=== PATIENT | female | born 1975 | race Caucasian/White ===

== ENCOUNTER 2016-07-04 12:06 | Emergency (ER) | payer MEDICAID ==
[~2016-07-04] VITALS: Ht 167.6 cm; Wt 97.7 kg
[2016-07-04 12:06] VITALS: TEMP 98.4
[~2016-07-04 12:06] MED LIST: AMBIEN 10MG10 MG PO; AMOXICILLIN 50500 MG PO; LIPITOR 10MG10 MG PO; LOPRESSOR100 MG PO; NORCO 325 MG-51 TAB PO; PEN-VEE K500 MG PO; PRINIVIL40 MG PO; ZOFRAN 4MG T4 MG/TAB PO; ZOFRAN ODT4 MG PO; ZOLOFT 100MG100 MG PO
[2016-07-04 13:09] LABS: BASO # 0.1 (0.0-0.2); BASO % 0.9 % (0.0-2.0); EOS # 0.3 (0.0-0.7); EOS % 2.8 % (0-4.0); GRAN # 6.2 (1.4-6.5); GRAN % 67.3 % (42.2-75.2); HEMATOCRIT 36.8 % (37.0-47.0); HEMOGLOBIN 12.1 g/dl (12.5-16.0); LYMPH # 2.1 (1.2-3.4); LYMPH % 22.5 % (20.0-51.0); MEAN CELL VOLUME 84 fl (80.0-100.0); MEAN CORPUSCULAR HEMOGLOBIN 28 pg (27.0-31.0); MEAN CORPUSCULAR HGB CONC 33 g/dl (33.0-37.0); MEAN PLATELET VOLUME 9.6 fl (7.4-10.4); MONO # 0.5 (0.1-0.6); MONO % 5.6 % (1.7-9.3); PLATELET COUNT 234 K/mm3 (130-400); RED BLOOD COUNT 4.38 M/mm3 (4.10-5.30); REDCELL DISTRIBUTION WIDTH-CV 13.7 % (11.5-14.5); WHITE BLOOD COUNT 9.2 K/mm3 (4.8-10.8)
[2016-07-04 13:19] LABS: ADJUSTED CALCIUM 8.5 mg/dL (8.4-10.2); ALANINE AMINOTRANSFERASE 80 U/L (9-52); ALBUMIN 4.4 gm/dL (3.5-5.0); ALKALINE PHOSPHATASE 80 U/L (50-136); ANION GAP 15 mmol/L (7-16); BILIRUBIN,TOTAL 0.8 mg/dL (0.0-1.0); BLOOD UREA NITROGEN 6 mg/dL (7-17); CALCIUM 8.8 mg/dL (8.4-10.2); CARBON DIOXIDE 25 mmol/L (22-30); CHLORIDE 99 mmol/L (98-107); CREATININE, serum 0.51 mg/dL (0.52-1.25); GLUCOSE 183 mg/dL (74-106); LIPASE 36 U/L (23-300); POTASSIUM 3.6 mmol/L (3.4-5.0); SODIUM 139 mmol/L (137-145)
[2016-07-04] MEDS ORDERED: CARAFATE 1GM1 G PO (14:48)
[2016-07-04 15:11] VITALS: BP 189/93; PULSE 89
== END 2016-07-04 15:10 | disposition home or self-care (01) ==
LOC: COL.ER 12:06
PROVIDERS: Physician Assistant
DX: R10.13 Epigastric pain (principal); R11.10 Vomiting, unspecified; K92.0 Hematemesis; K76.0 Fatty (change of) liver, not elsewhere classified; I10 Essential (primary) hypertension; K21.9 Gastro-esophageal reflux disease without esophagitis; K76.89 Other specified diseases of liver; F10.10 Alcohol abuse, uncomplicated
CPT/HCPCS: C9113; J2550; J7030; Q9967

== ENCOUNTER 2016-09-26 19:32 | Observation (INO) | payer MEDICAID ==
[~2016-09-26] VITALS: Ht 165.1 cm; Wt 94.3 kg
[~2016-09-26 19:32] MED LIST changes: +CARAFATE 1GM1 G PO
[2016-09-26] MEDS ORDERED: AMBIEN CR 12.12.5 MG PO (20:07)
[2016-09-26] MEDS ORDERED: GLUCOPHAGE500 MG/TAB PO (20:09)
[2016-09-26] MEDS ORDERED: PRILOSEC 20MG20 MG PO (20:09)
[2016-09-26] MEDS ORDERED: CANA300T PO (20:09)
[2016-09-26] MEDS ORDERED: LOPRESSOR 550 MG/TAB PO (20:09)
[2016-09-26 20:33] LABS: PH 6 (5-8); SQUAMOUS EPITHELIAL 0-2 /hpf; URINE APPEARANCE Clear; URINE BACTERIA None Seen /hpf; URINE BILIRUBIN Negative (NEGATIVE); URINE BLOOD Negative (NEGATIVE); URINE COLOR Straw; URINE GLUCOSE 3+ (NEGATIVE); URINE KETONE Negative (NEGATIVE); URINE RBC None Seen /hpf; URINE UROBILINOGEN Negative (NEGATIVE); URINE WBC 0-2 /hpf
[2016-09-26 20:36] LABS: BASO # 0.1 (0.0-0.2); BASO % 0.7 % (0.0-2.0); EOS # 0.3 (0.0-0.7); EOS % 2.9 % (0-4.0); GRAN # 6.2 (1.4-6.5); GRAN % 57.6 % (42.2-75.2); HEMATOCRIT 40.8 % (37.0-47.0); HEMOGLOBIN 13.4 g/dl (12.5-16.0); LYMPH # 3.5 (1.2-3.4); LYMPH % 32.3 % (20.0-51.0); MEAN CELL VOLUME 82 fl (80.0-100.0); MEAN CORPUSCULAR HEMOGLOBIN 27 pg (27.0-31.0); MEAN CORPUSCULAR HGB CONC 33 g/dl (33.0-37.0); MEAN PLATELET VOLUME 9.7 fl (7.4-10.4); MONO # 0.7 (0.1-0.6); MONO % 6.1 % (1.7-9.3); PLATELET COUNT 355 K/mm3 (130-400); RED BLOOD COUNT 4.95 M/mm3 (4.10-5.30); REDCELL DISTRIBUTION WIDTH-CV 13.6 % (11.5-14.5); WHITE BLOOD COUNT 10.7 K/mm3 (4.8-10.8)
[2016-09-26 20:41] LABS: AMPHETAMINE URINE NEGATIVE; BARBITURATES URINE NEGATIVE; BENZODIAZEPINES URINE NEGATIVE; BUPRENORPHINE URINE NEGATIVE; METHADONE URINE NEGATIVE; OPIATES URINE NEGATIVE; OXYCODONE URINE NEGATIVE; PHENCYCLIDINE URINE NEGATIVE; PROPOXYPHENE URINE NEGATIVE; THC CANNABINOIDS URINE NEGATIVE
[2016-09-26 20:51] LABS: ALANINE AMINOTRANSFERASE 48 U/L (9-52); ALBUMIN 4.6 gm/dL (3.5-5.0); ALKALINE PHOSPHATASE 81 U/L (50-136); ANION GAP 15 mmol/L (7-16); BILIRUBIN,TOTAL 0.5 mg/dL (0.0-1.0); BLOOD UREA NITROGEN 9 mg/dL (7-17); CALCIUM 9.5 mg/dL (8.4-10.2); CARBON DIOXIDE 22 mmol/L (22-30); CHLORIDE 101 mmol/L (98-107); CREATININE, serum 0.94 mg/dL (0.52-1.25); GLUCOSE 191 mg/dL (74-106); POTASSIUM 4.1 mmol/L (3.4-5.0); SODIUM 138 mmol/L (137-145); TOTAL PROTEIN 7.9 gm/dL (6.4-8.2)
[2016-09-26 20:52] LABS: ACETAMINOPHEN < 10 ug/mL (10-30); SALICYLATE < 1.0 mg/dL
[2016-09-27 00:09] VITALS: BP 155/97; PULSE 107; TEMP 98.6
[2016-09-27 02:31] VITALS: BP 137/77; PULSE 99; TEMP 98.6
[2016-09-27 08:10] LABS: BASO # 0.1 (0.0-0.2); BASO % 1.1 % (0.0-2.0); EOS # 0.3 (0.0-0.7); EOS % 3.3 % (0-4.0); GRAN # 3.7 (1.4-6.5); GRAN % 49.4 % (42.2-75.2); HEMATOCRIT 38.8 % (37.0-47.0); HEMOGLOBIN 12.3 g/dl (12.5-16.0); LYMPH % 39.7 % (20.0-51.0); MEAN CELL VOLUME 84 fl (80.0-100.0); MEAN CORPUSCULAR HEMOGLOBIN 27 pg (27.0-31.0); MEAN CORPUSCULAR HGB CONC 32 g/dl (33.0-37.0); MEAN PLATELET VOLUME 10.1 fl (7.4-10.4); MONO # 0.5 (0.1-0.6); PLATELET COUNT 310 K/mm3 (130-400); RED BLOOD COUNT 4.62 M/mm3 (4.10-5.30); REDCELL DISTRIBUTION WIDTH-CV 13.8 % (11.5-14.5); WHITE BLOOD COUNT 7.5 K/mm3 (4.8-10.8)
[2016-09-27 08:22] LABS: CALCIUM 8.7 mg/dL (8.4-10.2); CREATININE, serum 0.68 mg/dL (0.52-1.25); POTASSIUM 3.6 mmol/L (3.4-5.0)
[2016-09-27 13:06] VITALS: BP 123/79; PULSE 78; TEMP 97.5
[2016-09-27] MEDS ORDERED: MULTI VITAMINS1 TAB PO (13:58)
[2016-09-27] MEDS ORDERED: THIAMINE 1100 MG/TAB PO (13:58)
== END 2016-09-27 15:20 | disposition home or self-care (01) ==
LOC: COL.ER 19:32 → MEDICAL 23:14
PROVIDERS: Emergency Medicine; Family Medicine
DX: G93.40 Encephalopathy, unspecified (principal); E11.9 Type 2 diabetes mellitus without complications; I10 Essential (primary) hypertension; F10.10 Alcohol abuse, uncomplicated
CPT/HCPCS: A9585; G0378; J1650; J1815; J2060; J3411; J3475; J7030

== ENCOUNTER → 2017-04-25 | Outpatient (CLI) | payer MEDICAID ==
[~2017-04-25] MED LIST changes: +AMBIEN CR 12.12.5 MG PO; +CANA300T PO; +GLUCOPHAGE500 MG/TAB PO; +LOPRESSOR 550 MG/TAB PO; +MULTI VITAMINS1 TAB PO; +PRILOSEC 20MG20 MG PO; +THIAMINE 1100 MG/TAB PO
[2017-04-25 14:24] LABS: COLLECTION METHOD CLEAN CATCH
[2017-04-25 14:32] LABS: BASO # 0.1 (0.0-0.2); EOS # 0.1 (0.0-0.7); EOS % 1.3 % (0-4.0); GRAN # 7.9 (1.4-6.5); GRAN % 72.4 % (42.2-75.2); HEMOGLOBIN 13.7 g/dl (12.5-16.0); LYMPH # 1.9 (1.2-3.4); LYMPH % 17.4 % (20.0-51.0); MEAN CELL VOLUME 87 fl (80.0-100.0); MEAN CORPUSCULAR HEMOGLOBIN 29 pg (27.0-31.0); MEAN CORPUSCULAR HGB CONC 33 g/dl (33.0-37.0); MEAN PLATELET VOLUME 10.5 fl (7.4-10.4); MONO # 0.8 (0.1-0.6); MONO % 7.4 % (1.7-9.3); PLATELET COUNT 222 K/mm3 (130-400); RED BLOOD COUNT 4.69 M/mm3 (4.10-5.30); WHITE BLOOD COUNT 10.9 K/mm3 (4.8-10.8)
[2017-04-25 14:39] LABS: ADJUSTED CALCIUM 8.2 mg/dL (8.4-10.2); ALBUMIN 4.6 gm/dL (3.5-5.0); BILIRUBIN,TOTAL 1.3 mg/dL (0.0-1.0); CALCIUM 8.7 mg/dL (8.4-10.2); CHOLESTEROL RISK RATIO 7.5; CREATININE, serum 0.66 mg/dL (0.52-1.25); POTASSIUM 3.6 mmol/L (3.4-5.0)
[2017-04-25 14:44] LABS: MUCOUS Present /lpf; PH 5 (5-8); SQUAMOUS EPITHELIAL >50 /hpf; URINE APPEARANCE Turbid; URINE BACTERIA Rare /hpf; URINE BILIRUBIN Positive (NEGATIVE); URINE BLOOD Negative (NEGATIVE); URINE COLOR Amber; URINE GLUCOSE 1+ (NEGATIVE); URINE KETONE Trace (NEGATIVE); URINE LEUKOCYTE ESTERASE 2+ (NEGATIVE); URINE PROTEIN(semi-quant) 3+ (NEGATIVE); URINE WBC 20-50 /hpf
== END ==
LOC: COL.LAB 10:45
PROVIDERS: Nurse Practitioner
DX: N12 Tubulo-interstitial nephritis, not specified as acute or chronic (principal); E11.9 Type 2 diabetes mellitus without complications; I10 Essential (primary) hypertension; E78.5 Hyperlipidemia, unspecified; R30.0 Dysuria

== ENCOUNTER 2017-06-17 08:56 | Observation (INO) | payer MEDICAID ==
[~2017-06-17] VITALS: Ht 12.7 cm; Wt 85.1 kg
[2017-06-17 09:37] LABS: BASO # 0.1 (0.0-0.2); EOS # 0.1 (0.0-0.7); EOS % 0.8 % (0-4.0); GRAN # 6.2 (1.4-6.5); GRAN % 69.4 % (42.2-75.2); HEMATOCRIT 40.5 % (37.0-47.0); HEMOGLOBIN 14.4 g/dl (12.5-16.0); LYMPH # 1.7 (1.2-3.4); LYMPH % 19.2 % (20.0-51.0); MEAN CELL VOLUME 88 fl (80.0-100.0); MEAN CORPUSCULAR HEMOGLOBIN 31 pg (27.0-31.0); MEAN CORPUSCULAR HGB CONC 36 g/dl (33.0-37.0); MEAN PLATELET VOLUME 9.3 fl (7.4-10.4); MONO # 0.8 (0.1-0.6); MONO % 8.9 % (1.7-9.3); PLATELET COUNT 353 K/mm3 (130-400); REDCELL DISTRIBUTION WIDTH-CV 16.2 % (11.5-14.5)
[2017-06-17 09:52] LABS: COLLECTION METHOD CLEAN CATCH
[2017-06-17 10:09] LABS: MUCOUS Present /lpf; PH 5 (5-8); URINE APPEARANCE Turbid; URINE BACTERIA Rare /hpf; URINE BILIRUBIN Positive (NEGATIVE); URINE BLOOD Negative (NEGATIVE); URINE COLOR Amber; URINE GLUCOSE 1+ (NEGATIVE); URINE KETONE Trace (NEGATIVE); URINE LEUKOCYTE ESTERASE Trace (NEGATIVE); URINE NITRATE Negative (NEGATIVE); URINE PROTEIN(semi-quant) 3+ (NEGATIVE); URINE RBC 0-2 /hpf; URINE UROBILINOGEN >=4.0 mg/dL (NEGATIVE)
[2017-06-17 10:22] LABS: ALBUMIN 4.5 gm/dL (3.5-5.0); BILIRUBIN,TOTAL 1.4 mg/dL (0.0-1.0); CALCIUM 8.5 mg/dL (8.4-10.2); CREATININE, serum 0.45 mg/dL (0.52-1.25); TOTAL PROTEIN 7.9 gm/dL (6.4-8.2)
[2017-06-17 10:23] LABS: POTASSIUM 2.8 mmol/L (3.4-5.0)
[2017-06-17] MEDS ORDERED: LIPITOR 10MG10 MG PO (17:37)
[2017-06-17 17:53] VITALS: BP 157/99; PULSE 97; TEMP 97.5
[2017-06-17 19:50] VITALS: BP 139/91; PULSE 93; TEMP 98.1
[2017-06-17 22:45] VITALS: BP 156/102; PULSE 92; TEMP 97.8
[2017-06-18] VITALS (12 sets, daily range): BP systolic 124–145; BP diastolic 69–107; PULSE 94–109; TEMP 97.4–98.5
[2017-06-18 07:40] LABS: ALBUMIN 3.4 gm/dL (3.5-5.0); BILIRUBIN UNCONJUGATED 0.9 mg/dL (0.0-1.1); BILIRUBIN,DIRECT 0.7 mg/dL (0.0-0.4); BILIRUBIN,TOTAL 1.7 mg/dL (0.0-1.0); TOTAL PROTEIN 6.4 gm/dL (6.4-8.2)
[2017-06-18 07:53] LABS: INR 1.2 (0.8-3.0); PROTHROMBIN TIME 13.5 SECONDS (9.7-12.8)
[2017-06-18 09:46] LABS: BASO # 0.1 (0.0-0.2); BASO % 0.9 % (0.0-2.0); EOS # 0.2 (0.0-0.7); EOS % 2.9 % (0-4.0); GRAN # 3.3 (1.4-6.5); LYMPH # 1.9 (1.2-3.4); LYMPH % 31.8 % (20.0-51.0); MEAN CORPUSCULAR HGB CONC 33 g/dl (33.0-37.0); MEAN PLATELET VOLUME 9.9 fl (7.4-10.4); MONO # 0.5 (0.1-0.6); MONO % 7.7 % (1.7-9.3); RED BLOOD COUNT 3.75 M/mm3 (4.10-5.30); REDCELL DISTRIBUTION WIDTH-CV 16.7 % (11.5-14.5)
[2017-06-18 09:47] LABS: CALCIUM 7.1 mg/dL (8.4-10.2); CREATININE, serum 0.47 mg/dL (0.52-1.25); MAGNESIUM 1.5 mg/dL (1.6-2.3); POTASSIUM 3.8 mmol/L (3.4-5.0)
[2017-06-18 09:52] LABS: HEMOGLOBIN 11.7 g/dl (12.5-16.0); MEAN CORPUSCULAR HEMOGLOBIN 31 pg (27.0-31.0)
[2017-06-18 09:53] LABS: HEMATOCRIT 35.2 % (37.0-47.0); MEAN CELL VOLUME 94 fl (80.0-100.0); PLATELET COUNT 245 K/mm3 (130-400)
[2017-06-19] VITALS (7 sets, daily range): BP systolic 119–171; BP diastolic 76–115; PULSE 97–120; TEMP 98.1–98.9
[2017-06-19 08:00] LABS: MEAN CELL VOLUME 95 fl (80.0-100.0); MEAN CORPUSCULAR HGB CONC 32 g/dl (33.0-37.0); MEAN PLATELET VOLUME 10.1 fl (7.4-10.4); PLATELET COUNT 226 K/mm3 (130-400); RED BLOOD COUNT 3.73 M/mm3 (4.10-5.30); REDCELL DISTRIBUTION WIDTH-CV 16.6 % (11.5-14.5)
[2017-06-19 08:12] LABS: ANION GAP 6 mmol/L (7-16); CALCIUM 6.7 mg/dL (8.4-10.2); CARBON DIOXIDE 25 mmol/L (22-30); CHLORIDE 107 mmol/L (98-107); CREATININE, serum 0.53 mg/dL (0.52-1.25); GLUCOSE 97 mg/dL (74-106); MAGNESIUM 1.3 mg/dL (1.6-2.3); POTASSIUM 4.1 mmol/L (3.4-5.0); SODIUM 138 mmol/L (137-145)
[2017-06-19 08:19] LABS: BLOOD UREA NITROGEN < 2 mg/dL (7-17)
[2017-06-19 08:20] LABS: HEMATOCRIT 35.6 % (37.0-47.0); HEMOGLOBIN 11.4 g/dl (12.5-16.0); MEAN CORPUSCULAR HEMOGLOBIN 31 pg (27.0-31.0)
[2017-06-19 10:03] LABS: BAND 24 % (0-10); BASOPHIL 1 % (0-2); EOSINOPHIL 2 % (0-4); LYMPHOCYTE 34 % (20.0-51.0); NEUTROPHILS 39 % (42.0-75.2); PLATELET ESTIMATE NORMAL (NORMAL); TOXIC GRANULATION PRESENT
[2017-06-20] VITALS: BP 119/83; PULSE 110; TEMP 98.6
[2017-06-20 04:55] VITALS: BP 103/81; PULSE 98; TEMP 98.1
[2017-06-20 06:43] LABS: MEAN CELL VOLUME 95 fl (80.0-100.0); MEAN CORPUSCULAR HGB CONC 33 g/dl (33.0-37.0); MEAN PLATELET VOLUME 10.2 fl (7.4-10.4); PLATELET COUNT 208 K/mm3 (130-400); RED BLOOD COUNT 3.63 M/mm3 (4.10-5.30); REDCELL DISTRIBUTION WIDTH-CV 16.9 % (11.5-14.5)
[2017-06-20 07:00] LABS: ANION GAP 7 mmol/L (7-16); CALCIUM 7.3 mg/dL (8.4-10.2); CARBON DIOXIDE 26 mmol/L (22-30); CHLORIDE 104 mmol/L (98-107); CREATININE, serum 0.52 mg/dL (0.52-1.25); GLUCOSE 113 mg/dL (74-106); HEMATOCRIT 34.5 % (37.0-47.0); HEMOGLOBIN 11.3 g/dl (12.5-16.0); LIPASE 33 U/L (23-300); MAGNESIUM 1.2 mg/dL (1.6-2.3); MEAN CORPUSCULAR HEMOGLOBIN 31 pg (27.0-31.0); POTASSIUM 4.2 mmol/L (3.4-5.0); SODIUM 136 mmol/L (137-145)
[2017-06-20 07:02] LABS: BLOOD UREA NITROGEN < 2 mg/dL (7-17)
[2017-06-20 08:12] VITALS: BP 140/38; PULSE 62; TEMP 97.5
[2017-06-20 08:12] LABS: BAND 18 % (0-10); EOSINOPHIL 1 % (0-4); LYMPHOCYTE 26 % (20.0-51.0); NEUTROPHILS 53 % (42.0-75.2); PLATELET ESTIMATE NORMAL (NORMAL)
[2017-06-20 08:37] VITALS: BP 151/109; PULSE 109; TEMP 98.8
[2017-06-20] MEDS ORDERED: THIAMINE 1100 MG/TAB PO (11:38)
[2017-06-20] MEDS ORDERED: FOLIC ACID 11 MG/TA1 PO (11:38)
[2017-06-20] MEDS ORDERED: DUO-KAPS1 CAP PO (11:39)
[2017-06-20] MEDS ORDERED: PROTONIX 40MG T40 MG PO (11:42)
[2017-06-20] MEDS ORDERED: MAG-OX 400400 MG/TAB PO (11:44)
[2017-06-20] MEDS ORDERED: NORCO 325 MG-51 TAB PO (11:45)
[2017-06-20] MEDS ORDERED: ATIVAN 1MG T1 MG/TAB PO (11:45)
== END 2017-06-20 13:45 | disposition home or self-care (01) ==
LOC: COL.ER 08:56 → MEDICAL 11:59 → EDBEDREQ 16:14 → MEDICAL 06-20 13:45
PROVIDERS: Internal Medicine Gastroenterology; Nurse Practitioner; Physician Assistant
DX: K29.30 Chronic superficial gastritis without bleeding (principal); K29.80 Duodenitis without bleeding; I10 Essential (primary) hypertension; E87.6 Hypokalemia; F10.10 Alcohol abuse, uncomplicated; K21.9 Gastro-esophageal reflux disease without esophagitis
CPT/HCPCS: 99232-AI; 99239; C9113; G0378; J1170; J1815; J2060; J2250; J2270; J2704; J2765; J3411; J3475; J3480; J7030

== ENCOUNTER 2017-06-26 11:37 | Emergency (ER) | payer MEDICAID ==
[~2017-06-26] VITALS: Ht 165.1 cm; Wt 82.7 kg
[~2017-06-26 11:37] MED LIST changes: +ATIVAN 1MG T1 MG/TAB PO; +DUO-KAPS1 CAP PO; +FOLIC ACID 11 MG/TA1 PO; +MAG-OX 400400 MG/TAB PO; +PROTONIX 40MG T40 MG PO
[2017-06-26 11:40] VITALS: TEMP 98.1
[2017-06-26 13:07] LABS: COLLECTION METHOD CLEAN CATCH
[2017-06-26 13:14] LABS: BASO # 0.1 (0.0-0.2); BASO % 0.7 % (0.0-2.0); EOS % 0.3 % (0-4.0); GRAN # 9.3 (1.4-6.5); GRAN % 82.2 % (42.2-75.2); HEMATOCRIT 40.9 % (37.0-47.0); HEMOGLOBIN 13.6 g/dl (12.5-16.0); LYMPH # 1.1 (1.2-3.4); LYMPH % 9.7 % (20.0-51.0); MEAN CELL VOLUME 95 fl (80.0-100.0); MEAN CORPUSCULAR HEMOGLOBIN 31 pg (27.0-31.0); MEAN CORPUSCULAR HGB CONC 33 g/dl (33.0-37.0); MONO # 0.7 (0.1-0.6); PLATELET COUNT 443 K/mm3 (130-400); RED BLOOD COUNT 4.33 M/mm3 (4.10-5.30); REDCELL DISTRIBUTION WIDTH-CV 17.2 % (11.5-14.5)
[2017-06-26 13:36] LABS: ALBUMIN 4.5 gm/dL (3.5-5.0); BILIRUBIN,TOTAL 1.6 mg/dL (0.0-1.0); CALCIUM 9.1 mg/dL (8.4-10.2); CREATININE, serum 0.48 mg/dL (0.52-1.25); POTASSIUM 3.1 mmol/L (3.4-5.0)
[2017-06-26 13:39] LABS: MUCOUS Present /lpf; PH 5 (5-8); URINE APPEARANCE Turbid; URINE BACTERIA Rare /hpf; URINE BILIRUBIN Negative (NEGATIVE); URINE BLOOD Negative (NEGATIVE); URINE COLOR Amber; URINE GLUCOSE 1+ (NEGATIVE); URINE KETONE 1+ (NEGATIVE); URINE LEUKOCYTE ESTERASE Negative (NEGATIVE); URINE NITRATE Negative (NEGATIVE); URINE PROTEIN(semi-quant) 2+ (NEGATIVE); URINE RBC None Seen /hpf; URINE UROBILINOGEN >=4.0 mg/dL (NEGATIVE)
[2017-06-26 14:05] LABS: INR 1.3 (0.8-3.0); PROTHROMBIN TIME 15.2 SECONDS (9.7-12.8)
[2017-06-26] MEDS ORDERED: PHENERGAN 25 TA25 MG PO (15:06)
[2017-06-26] MEDS ORDERED: CARAFATE S1 GM/10 ML PO (15:20)
[2017-06-26 15:45] VITALS: BP 144/101; PULSE 104
== END 2017-06-26 15:45 | disposition home or self-care (01) ==
LOC: COL.ER 11:37
PROVIDERS: Emergency Medicine
DX: K29.20 Alcoholic gastritis without bleeding (principal)
CPT/HCPCS: J1170; J2405; J2550; J7030

== ENCOUNTER → 2017-07-16 | Outpatient (CLI) | payer MEDICAID ==
[~2017-07-16] MED LIST changes: +CARAFATE S1 GM/10 ML PO; +PHENERGAN 25 TA25 MG PO
[2017-07-16 16:15] LABS: BASO # 0.1 (0.0-0.2); BASO % 0.9 % (0.0-2.0); EOS # 0.2 (0.0-0.7); EOS % 1.1 % (0-4.0); GRAN # 10.2 (1.4-6.5); GRAN % 72.9 % (42.2-75.2); HEMATOCRIT 42.5 % (37.0-47.0); HEMOGLOBIN 14.3 g/dl (12.5-16.0); LYMPH # 2.6 (1.2-3.4); LYMPH % 18.7 % (20.0-51.0); MEAN CELL VOLUME 93 fl (80.0-100.0); MEAN CORPUSCULAR HEMOGLOBIN 31 pg (27.0-31.0); MEAN CORPUSCULAR HGB CONC 34 g/dl (33.0-37.0); MONO # 0.8 (0.1-0.6); MONO % 5.7 % (1.7-9.3); PLATELET COUNT 275 K/mm3 (130-400); RED BLOOD COUNT 4.55 M/mm3 (4.10-5.30); REDCELL DISTRIBUTION WIDTH-CV 14.6 % (11.5-14.5)
[2017-07-16 16:24] LABS: ALBUMIN 4.7 gm/dL (3.5-5.0); BILIRUBIN,TOTAL 1.5 mg/dL (0.0-1.0); CALCIUM 8.9 mg/dL (8.4-10.2); CREATININE, serum 0.46 mg/dL (0.52-1.25); POTASSIUM 3.7 mmol/L (3.4-5.0); TOTAL PROTEIN 8.4 gm/dL (6.4-8.2)
== END ==
LOC: COL.LAB 14:35
PROVIDERS: Family Medicine
DX: R00.0 Tachycardia, unspecified (principal); R10.9 Unspecified abdominal pain

== ENCOUNTER 2017-11-12 08:05 | Emergency (ER) | payer MEDICAID ==
[~2017-11-12] VITALS: Ht 165.1 cm; Wt 79.5 kg
[2017-11-12 08:08] VITALS: TEMP 98
[2017-11-12] MEDS ORDERED: PRILOSEC 20MG20 MG PO (08:36)
[2017-11-12 08:55] LABS: BASO # 0.1 (0.0-0.2); BASO % 0.8 % (0.0-2.0); EOS # 0.1 (0.0-0.7); EOS % 1.9 % (0-4.0); GRAN % 64.6 % (42.2-75.2); HEMATOCRIT 40.3 % (37.0-47.0); HEMOGLOBIN 14.1 g/dl (12.5-16.0); LYMPH # 1.5 (1.2-3.4); LYMPH % 24.1 % (20.0-51.0); MEAN CELL VOLUME 89 fl (80.0-100.0); MEAN CORPUSCULAR HEMOGLOBIN 31 pg (27.0-31.0); MEAN CORPUSCULAR HGB CONC 35 g/dl (33.0-37.0); MEAN PLATELET VOLUME 9.8 fl (7.4-10.4); MONO # 0.5 (0.1-0.6); MONO % 8.1 % (1.7-9.3); PLATELET COUNT 154 K/mm3 (130-400); RED BLOOD COUNT 4.51 M/mm3 (4.10-5.30); REDCELL DISTRIBUTION WIDTH-CV 14.7 % (11.5-14.5)
[2017-11-12 09:03] LABS: ALANINE AMINOTRANSFERASE 37 U/L (9-52); ALBUMIN 4.2 gm/dL (3.5-5.0); ALKALINE PHOSPHATASE 93 U/L (50-136); ANION GAP 17 mmol/L (7-16); AST,SGOT 113 U/L (15-37); BILIRUBIN,TOTAL 1.3 mg/dL (0.0-1.0); BLOOD UREA NITROGEN 3 mg/dL (7-17); CALCIUM 8.9 mg/dL (8.4-10.2); CARBON DIOXIDE 29 mmol/L (22-30); CHLORIDE 93 mmol/L (98-107); CREATININE, serum 0.41 mg/dL (0.52-1.25); GLUCOSE 145 mg/dL (74-106); LIPASE 218 U/L (23-300); POTASSIUM 3.2 mmol/L (3.4-5.0); SODIUM 140 mmol/L (137-145); TOTAL PROTEIN 8.6 gm/dL (6.4-8.2)
[2017-11-12 09:10] LABS: ALCOHOL(ethanol),MEDICAL < 10 mg/dL; MAGNESIUM 0.4 mg/dL (1.6-2.3)
[2017-11-12 09:23] LABS: C-REACTIVE PROTEIN < 0.5 mg/dL (0.0-0.9)
[2017-11-12 09:49] LABS: COLLECTION METHOD CLEAN CATCH
[2017-11-12 09:58] LABS: MUCOUS Present /lpf; PH 6 (5-8); URINE APPEARANCE Hazy; URINE BACTERIA None Seen /hpf; URINE BILIRUBIN Negative (NEGATIVE); URINE BLOOD Negative (NEGATIVE); URINE COLOR Amber; URINE GLUCOSE 1+ (NEGATIVE); URINE KETONE Negative (NEGATIVE); URINE LEUKOCYTE ESTERASE Negative (NEGATIVE); URINE NITRATE Negative (NEGATIVE); URINE PROTEIN(semi-quant) 2+ (NEGATIVE); URINE RBC 0-2 /hpf
[2017-11-12] MEDS ORDERED: NORCO 325 MG-51 TAB PO (11:51)
[2017-11-12] MEDS ORDERED: PROTONIX 40MG T40 MG PO (11:51)
[2017-11-12] MEDS ORDERED: PHENERGAN 25 TA25 MG PO (11:51)
[2017-11-12] MEDS ORDERED: MAGNESIUM GLUC500 MG PO (12:17)
[2017-11-12] MEDS ORDERED: K-TAB20 PO (12:18)
[2017-11-12 13:04] VITALS: BP 156/111; PULSE 92
== END 2017-11-12 13:07 | disposition home or self-care (01) ==
LOC: COL.ER 08:05
PROVIDERS: Physician Assistant
DX: R10.11 Right upper quadrant pain (principal); R10.13 Epigastric pain; I10 Essential (primary) hypertension; K21.9 Gastro-esophageal reflux disease without esophagitis; E83.42 Hypomagnesemia; E87.6 Hypokalemia; F17.210 Nicotine dependence, cigarettes, uncomplicated
CPT/HCPCS: J2270; J2405; J2550; J3475; J7030; Q9967

== ENCOUNTER 2018-01-20 15:00 | Inpatient (IN) | payer MEDICAID ==
[~2018-01-20] VITALS: Ht 167.6 cm; Wt 77.4 kg
[~2018-01-20 15:00] MED LIST changes: +K-TAB20 PO; +MAGNESIUM GLUC500 MG PO
[2018-01-20 15:49] LABS: BASO # 0.1 (0.0-0.2); BASO % 0.6 % (0.0-2.0); EOS # 0.1 (0.0-0.7); EOS % 0.5 % (0-4.0); GRAN # 8.2 (1.4-6.5); GRAN % 75.4 % (42.2-75.2); HEMATOCRIT 38.2 % (37.0-47.0); HEMOGLOBIN 13.4 g/dl (12.5-16.0); LYMPH # 1.8 (1.2-3.4); LYMPH % 16.3 % (20.0-51.0); MEAN CELL VOLUME 101 fl (80.0-100.0); MEAN CORPUSCULAR HEMOGLOBIN 35 pg (27.0-31.0); MEAN CORPUSCULAR HGB CONC 35 g/dl (33.0-37.0); MEAN PLATELET VOLUME 9.6 fl (7.4-10.4); MONO # 0.7 (0.1-0.6); MONO % 6.6 % (1.7-9.3); PLATELET COUNT 194 K/mm3 (130-400)
[2018-01-20 16:01] LABS: ALANINE AMINOTRANSFERASE 29 U/L (9-52); ALBUMIN 4.1 gm/dL (3.5-5.0); ALKALINE PHOSPHATASE 131 U/L (50-136); ANION GAP 16 mmol/L (7-16); AST,SGOT 118 U/L (15-37); BILIRUBIN,TOTAL 2.5 mg/dL (0.0-1.0); BLOOD UREA NITROGEN 2 mg/dL (7-17); C-REACTIVE PROTEIN 1.9 mg/dL (0.0-0.9); CARBON DIOXIDE 30 mmol/L (22-30); CHLORIDE 91 mmol/L (98-107); CREATININE, serum 0.44 mg/dL (0.52-1.25); GLUCOSE 187 mg/dL (74-106); LIPASE 16 U/L (23-300); POTASSIUM 3.5 mmol/L (3.4-5.0); SODIUM 136 mmol/L (137-145); TOTAL PROTEIN 7.8 gm/dL (6.4-8.2)
[2018-01-20 16:02] LABS: ALCOHOL(ethanol),MEDICAL < 10 mg/dL
[2018-01-20 16:03] LABS: MAGNESIUM 0.5 mg/dL (1.6-2.3)
[2018-01-20 16:10] LABS: TROPONIN-I < 0.012 ng/mL (0.000-0.034)
[2018-01-20 17:18] LABS: COLLECTION METHOD CLEAN CATCH
[2018-01-20 17:33] LABS: AMORPHOUS CRYSTAL Present /uL; MUCOUS Present /lpf; PH 5 (5-8); URINE APPEARANCE Hazy; URINE BACTERIA Moderate /hpf; URINE BILIRUBIN Negative (NEGATIVE); URINE BLOOD Negative (NEGATIVE); URINE COLOR Red; URINE GLUCOSE 1+ (NEGATIVE); URINE KETONE Negative (NEGATIVE); URINE LEUKOCYTE ESTERASE Negative (NEGATIVE); URINE NITRATE Positive (NEGATIVE); URINE PROTEIN(semi-quant) 2+ (NEGATIVE); URINE UROBILINOGEN >=4.0 mg/dL (NEGATIVE)
[2018-01-20 19:22] LABS: INR 1.5 (0.8-3.0); PROTHROMBIN TIME 16.6 SECONDS (9.7-12.8)
[2018-01-20 19:25] LABS: PARTIAL THROMBOPLASTIN TIME 35.5 SECONDS (26.0-37.0)
[2018-01-20 21:01] LABS: TRICYCLIC ANTIDEPRESS URINE NEGATIVE
[2018-01-20 21:35] VITALS: BP 115/75; PULSE 118; TEMP 98.4
[2018-01-21] VITALS (11 sets, daily range): BP systolic 104–153; BP diastolic 72–110; PULSE 101–138; TEMP 97.4–100
[2018-01-21 08:27] LABS: BASO # 0.1 (0.0-0.2); BASO % 0.5 % (0.0-2.0); EOS # 0.1 (0.0-0.7); EOS % 0.9 % (0-4.0); GRAN % 75.4 % (42.2-75.2); LYMPH # 1.6 (1.2-3.4); LYMPH % 16.7 % (20.0-51.0); MEAN CELL VOLUME 103 fl (80.0-100.0); MEAN CORPUSCULAR HGB CONC 34 g/dl (33.0-37.0); MEAN PLATELET VOLUME 9.7 fl (7.4-10.4); MONO # 0.6 (0.1-0.6); MONO % 5.9 % (1.7-9.3); PLATELET COUNT 162 K/mm3 (130-400); RED BLOOD COUNT 3.24 M/mm3 (4.10-5.30)
[2018-01-21 08:31] LABS: HEMATOCRIT 33.4 % (37.0-47.0); HEMOGLOBIN 11.4 g/dl (12.5-16.0); MEAN CORPUSCULAR HEMOGLOBIN 35 pg (27.0-31.0)
[2018-01-21 08:45] LABS: ALBUMIN 3.2 gm/dL (3.5-5.0); BILIRUBIN,TOTAL 1.6 mg/dL (0.0-1.0); CALCIUM 6.8 mg/dL (8.4-10.2); CHOLESTEROL RISK RATIO 10.2; CREATININE, serum 0.47 mg/dL (0.52-1.25); MAGNESIUM 1.7 mg/dL (1.6-2.3); TOTAL PROTEIN 6.2 gm/dL (6.4-8.2)
[2018-01-22] VITALS (15 sets, daily range): BP systolic 116–154; BP diastolic 78–99; PULSE 97–132; TEMP 97.9–99.2
[2018-01-22 06:29] LABS: BASO % 0.3 % (0.0-2.0); EOS # 0.2 (0.0-0.7); GRAN # 5.9 (1.4-6.5); GRAN % 66.3 % (42.2-75.2); LYMPH # 2.2 (1.2-3.4); LYMPH % 24.3 % (20.0-51.0); MEAN CELL VOLUME 106 fl (80.0-100.0); MEAN CORPUSCULAR HGB CONC 33 g/dl (33.0-37.0); MEAN PLATELET VOLUME 9.6 fl (7.4-10.4); MONO # 0.6 (0.1-0.6); MONO % 6.2 % (1.7-9.3); PLATELET COUNT 138 K/mm3 (130-400); RED BLOOD COUNT 2.77 M/mm3 (4.10-5.30); REDCELL DISTRIBUTION WIDTH-CV 15.9 % (11.5-14.5)
[2018-01-22 06:31] LABS: HEMATOCRIT 29.4 % (37.0-47.0); HEMOGLOBIN 9.8 g/dl (12.5-16.0); MEAN CORPUSCULAR HEMOGLOBIN 35 pg (27.0-31.0)
[2018-01-22 06:40] LABS: ALBUMIN 2.8 gm/dL (3.5-5.0); BILIRUBIN,TOTAL 1.6 mg/dL (0.0-1.0); CALCIUM 6.6 mg/dL (8.4-10.2); CREATININE, serum 0.48 mg/dL (0.52-1.25); MAGNESIUM 1.4 mg/dL (1.6-2.3); POTASSIUM 3.7 mmol/L (3.4-5.0); TOTAL PROTEIN 5.6 gm/dL (6.4-8.2)
[2018-01-23] VITALS (7 sets, daily range): BP systolic 111–164; BP diastolic 76–107; PULSE 66–119; TEMP 98.1–99.2
[2018-01-23 06:27] LABS: MEAN CELL VOLUME 109 fl (80.0-100.0); MEAN CORPUSCULAR HGB CONC 33 g/dl (33.0-37.0); MEAN PLATELET VOLUME 9.9 fl (7.4-10.4); PLATELET COUNT 159 K/mm3 (130-400); RED BLOOD COUNT 2.76 M/mm3 (4.10-5.30)
[2018-01-23 06:34] LABS: HEMOGLOBIN 9.8 g/dl (12.5-16.0); MEAN CORPUSCULAR HEMOGLOBIN 36 pg (27.0-31.0)
[2018-01-23 06:43] LABS: CALCIUM 7.1 mg/dL (8.4-10.2); CREATININE, serum 0.41 mg/dL (0.52-1.25); MAGNESIUM 1.5 mg/dL (1.6-2.3); POTASSIUM 4.8 mmol/L (3.4-5.0)
[2018-01-23 06:58] LABS: BAND 12 % (0-10); EOSINOPHIL 2 % (0-4); LYMPHOCYTE 25 % (20.0-51.0); NEUTROPHILS 54 % (42.0-75.2)
[2018-01-23 06:59] LABS: PLATELET ESTIMATE NORMAL (NORMAL); STOMATOCYTE 2+
[2018-01-23] MEDS ORDERED: FOLIC ACID 11 MG/TA1 PO (10:09)
[2018-01-23] MEDS ORDERED: CEPHALEXIN500 M1 PO (10:09)
[2018-01-23] MEDS ORDERED: THIAMINE 1100 MG/TAB PO (10:10)
[2018-01-23] MEDS ORDERED: DUO-KAPS1 CAP PO (10:10)
[2018-01-23] MEDS ORDERED: LEVSIN0.125 M1 SL (10:12)
[2018-01-23] MEDS ORDERED: AMITRIPTYLINE H10 M1 PO (10:15)
[2018-01-23] MEDS ORDERED: MAG-OX 400400 MG/TAB PO (10:18)
[2018-01-23] MEDS ORDERED: NAPROSYN 2250 MG/TAB PO (10:20)
[2018-01-23] MEDS ORDERED: K-PHOS ORIGINA500 MG PO (10:39)
== END 2018-01-23 17:40 | disposition home or self-care (01) | DRG 897 ==
LOC: COL.ER 15:00 → MEDICAL 17:09
PROVIDERS: Emergency Medicine; Internal Medicine Gastroenterology; Nurse Practitioner Family; Physician Assistant
PROC: 0DJ08ZZ Inspection of Upper Intestinal Tract, Via Natural or Artificial Opening Endoscopic (ICD-10-PCS; principal; 2018-01-22 16:15)
DX: F10.230 Alcohol dependence with withdrawal, uncomplicated (principal); N39.0 Urinary tract infection, site not specified; K92.1 Melena; Y90.0 Blood alcohol level of less than 20 mg/100 ml; I10 Essential (primary) hypertension; Z87.891 Personal history of nicotine dependence; E83.42 Hypomagnesemia; E83.39 Other disorders of phosphorus metabolism; E83.51 Hypocalcemia; E11.9 Type 2 diabetes mellitus without complications; E87.6 Hypokalemia; D50.0 Iron deficiency anemia secondary to blood loss (chronic); B96.20 Unspecified Escherichia coli [E. coli] as the cause of diseases classified elsewhere
CPT/HCPCS: 99232-AI; 99239; C9113; G0378; J0610; J0696; J1170; J1650; J1815; J2060; J2270; J2405; J2704; J3411; J3475; J7030; J7040; J7050; J7120

== ENCOUNTER 2018-05-16 05:22 | Emergency (ER) | payer SELFPAY ==
[~2018-05-16] VITALS: Ht 165.1 cm; Wt 79.5 kg
[~2018-05-16 05:22] MED LIST changes: +AMITRIPTYLINE H10 M1 PO; +CEPHALEXIN500 M1 PO; +K-PHOS ORIGINA500 MG PO; +LEVSIN0.125 M1 SL; +NAPROSYN 2250 MG/TAB PO
[2018-05-16 05:28] VITALS: TEMP 97.3
[2018-05-16 06:41] LABS: BASO # 0.1 (0.0-0.2); BASO % 0.8 % (0.0-2.0); EOS # 0.2 (0.0-0.7); EOS % 1.8 % (0-4.0); GRAN # 8.5 (1.4-6.5); GRAN % 78.9 % (42.2-75.2); HEMATOCRIT 39.1 % (37.0-47.0); HEMOGLOBIN 13.3 g/dl (12.5-16.0); LYMPH # 1.3 (1.2-3.4); LYMPH % 12.2 % (20.0-51.0); MEAN CELL VOLUME 92 fl (80.0-100.0); MEAN CORPUSCULAR HEMOGLOBIN 31 pg (27.0-31.0); MEAN CORPUSCULAR HGB CONC 34 g/dl (33.0-37.0); MEAN PLATELET VOLUME 9.6 fl (7.4-10.4); MONO # 0.6 (0.1-0.6); MONO % 5.2 % (1.7-9.3); PLATELET COUNT 212 K/mm3 (130-400); RED BLOOD COUNT 4.23 M/mm3 (4.10-5.30); REDCELL DISTRIBUTION WIDTH-CV 15.5 % (11.5-14.5)
[2018-05-16 06:54] LABS: ALBUMIN 4.1 gm/dL (3.5-5.0); BILIRUBIN,TOTAL 1.4 mg/dL (0.0-1.0); C-REACTIVE PROTEIN 1.2 mg/dL (0.0-0.9); CALCIUM 8.6 mg/dL (8.4-10.2); CREATININE, serum 0.41 mg/dL (0.52-1.25); POTASSIUM 3.1 mmol/L (3.4-5.0); TOTAL PROTEIN 7.7 gm/dL (6.4-8.2)
[2018-05-16] MEDS ORDERED: NORCO 325 MG-51 TAB PO (08:34)
[2018-05-16] MEDS ORDERED: FLAGYL500 MG PO (08:34)
[2018-05-16] MEDS ORDERED: CIPRO 500MG TA500 MG PO (08:34)
[2018-05-16] MEDS ORDERED: NORVASC 5MG5 MG/TAB PO (09:24)
[2018-05-16 10:24] LABS: BASO # 0.1 (0.0-0.2); BASO % 0.5 % (0.0-2.0); EOS # 0.1 (0.0-0.7); EOS % 1.1 % (0-4.0); GRAN # 8.4 (1.4-6.5); HEMATOCRIT 37.2 % (37.0-47.0); HEMOGLOBIN 12.3 g/dl (12.5-16.0); LYMPH # 1.2 (1.2-3.4); LYMPH % 11.1 % (20.0-51.0); MEAN CELL VOLUME 93 fl (80.0-100.0); MEAN CORPUSCULAR HEMOGLOBIN 31 pg (27.0-31.0); MEAN CORPUSCULAR HGB CONC 33 g/dl (33.0-37.0); MEAN PLATELET VOLUME 9.5 fl (7.4-10.4); MONO # 0.7 (0.1-0.6); MONO % 6.3 % (1.7-9.3); PLATELET COUNT 195 K/mm3 (130-400); REDCELL DISTRIBUTION WIDTH-CV 15.6 % (11.5-14.5)
[2018-05-16 10:41] VITALS: BP 148/113; PULSE 108
== END 2018-05-16 10:46 | disposition home or self-care (01) ==
LOC: COL.ER 05:22
PROVIDERS: Emergency Medicine; Family Medicine
DX: K52.9 Noninfective gastroenteritis and colitis, unspecified (principal); K08.89 Other specified disorders of teeth and supporting structures
CPT/HCPCS: J1170; J2550; J3411; J7030; Q9967

== ENCOUNTER 2018-07-11 04:21 | Emergency (ER) | payer SELFPAY ==
[~2018-07-11] VITALS: Ht 167.6 cm; Wt 79.5 kg
[~2018-07-11 04:21] MED LIST changes: +CIPRO 500MG TA500 MG PO; +FLAGYL500 MG PO; +NORVASC 5MG5 MG/TAB PO
[2018-07-11 04:27] VITALS: TEMP 97.3
[2018-07-11 04:50] LABS: BASO # 0.1 (0.0-0.2); BASO % 0.9 % (0.0-2.0); EOS # 0.3 (0.0-0.7); EOS % 1.8 % (0-4.0); GRAN # 10.1 (1.4-6.5); GRAN % 68.4 % (42.2-75.2); HEMATOCRIT 40.9 % (37.0-47.0); HEMOGLOBIN 14.2 g/dl (12.5-16.0); LYMPH # 3.1 (1.2-3.4); MEAN CELL VOLUME 94 fl (80.0-100.0); MEAN CORPUSCULAR HEMOGLOBIN 33 pg (27.0-31.0); MEAN CORPUSCULAR HGB CONC 35 g/dl (33.0-37.0); MEAN PLATELET VOLUME 9.9 fl (7.4-10.4); MONO # 1.1 (0.1-0.6); MONO % 7.2 % (1.7-9.3); PLATELET COUNT 247 K/mm3 (130-400); RED BLOOD COUNT 4.36 M/mm3 (4.10-5.30); REDCELL DISTRIBUTION WIDTH-CV 15.2 % (11.5-14.5)
[2018-07-11 04:56] LABS: INR 1.5 (0.8-3.0); PROTHROMBIN TIME 16.5 SECONDS (9.7-12.8)
[2018-07-11 05:05] LABS: ALANINE AMINOTRANSFERASE 23 U/L (9-52); ALBUMIN 4.1 gm/dL (3.5-5.0); ALKALINE PHOSPHATASE 175 U/L (50-136); ANION GAP 18 mmol/L (7-16); AST,SGOT 117 U/L (15-37); BLOOD UREA NITROGEN 2 mg/dL (7-17); CALCIUM 8.9 mg/dL (8.4-10.2); CARBON DIOXIDE 26 mmol/L (22-30); CHLORIDE 91 mmol/L (98-107); CREATININE, serum 0.42 mg/dL (0.52-1.25); GLUCOSE 224 mg/dL (74-106); LIPASE 180 U/L (23-300); SODIUM 135 mmol/L (137-145); TOTAL PROTEIN 8.9 gm/dL (6.4-8.2)
[2018-07-11 05:06] LABS: POTASSIUM 2.9 mmol/L (3.4-5.0)
[2018-07-11 05:07] LABS: ALCOHOL(ethanol),MEDICAL < 10 mg/dL; MAGNESIUM 0.9 mg/dL (1.6-2.3)
[2018-07-11 05:45] LABS: TROPONIN-I < 0.012 ng/mL (0.000-0.035)
[2018-07-11 08:28] LABS: COLLECTION METHOD CLEAN CATCH
[2018-07-11] MEDS ORDERED: PHENERGAN 25 TA25 MG PO (08:38)
[2018-07-11] MEDS ORDERED: NEURONTIN300 MG/CAP PO (08:38)
[2018-07-11] MEDS ORDERED: LIBRIUM 25M25 MG/CAP PO (08:38)
[2018-07-11 08:40] LABS: MUCOUS Present /lpf; PH 5 (5-8); SQUAMOUS EPITHELIAL 0-2 /hpf; URINE APPEARANCE Clear; URINE BACTERIA None Seen /hpf; URINE BILIRUBIN Negative (NEGATIVE); URINE BLOOD 2+ (NEGATIVE); URINE COLOR Yellow; URINE GLUCOSE Negative (NEGATIVE); URINE KETONE Negative (NEGATIVE); URINE LEUKOCYTE ESTERASE Negative (NEGATIVE); URINE NITRATE Negative (NEGATIVE); URINE PROTEIN(semi-quant) 1+ (NEGATIVE); URINE RBC 0-2 /hpf; URINE UROBILINOGEN >=4.0 mg/dL (NEGATIVE)
[2018-07-11 10:43] LABS: CALCIUM 7.5 mg/dL (8.4-10.2); CREATININE, serum 0.42 mg/dL (0.52-1.25); MAGNESIUM 1.7 mg/dL (1.6-2.3); POTASSIUM 3.1 mmol/L (3.4-5.0)
[2018-07-11 10:50] VITALS: BP 130/92; PULSE 112
== END 2018-07-11 11:11 | disposition home or self-care (01) ==
LOC: COL.ER 04:21
PROVIDERS: Emergency Medicine
DX: F10.239 Alcohol dependence with withdrawal, unspecified (principal); R10.11 Right upper quadrant pain; E11.9 Type 2 diabetes mellitus without complications; I10 Essential (primary) hypertension; E78.5 Hyperlipidemia, unspecified
CPT/HCPCS: C9113; J2060; J2405; J3411; J3475; J3480; J7030; Q9967

== ENCOUNTER 2018-07-18 14:53 | Inpatient (IN) | payer BC ==
[~2018-07-18] VITALS: Ht 167.6 cm; Wt 87.4 kg
[2018-07-18] VITALS (195 sets, daily range): BP systolic 148; BP diastolic 118; PULSE 137; TEMP 99.6; O2SAT 89–98
--- NOTE | 2018-07-18 | NUR ---
Pt currently has an increased temp. Attempts to cool pt down by removing blankets and sheets. Pt reports feeling warm. Fan turned on in pts room. Cool water at bedside for pt to continue with PO fluids. Will reassess effectiveness through out shift and continued alcohol detox assessments.
[~2018-07-18 14:53] MED LIST changes: +LIBRIUM 25M25 MG/CAP PO; +NEURONTIN300 MG/CAP PO
[2018-07-18 16:22] LABS: LACTIC ACID 4.2 mmol/L (0.4-2.0)
[2018-07-18 16:40] LABS: BASO # 0.1 (0.0-0.2); BASO % 0.9 % (0.0-2.0); EOS # 0.1 (0.0-0.7); EOS % 0.9 % (0-4.0); GRAN # 9.7 (1.4-6.5); GRAN % 76.8 % (42.2-75.2); HEMOGLOBIN 13.1 g/dl (12.5-16.0); LYMPH # 1.7 (1.2-3.4); LYMPH % 13.4 % (20.0-51.0); MEAN CELL VOLUME 98 fl (80.0-100.0); MEAN CORPUSCULAR HEMOGLOBIN 32 pg (27.0-31.0); MEAN CORPUSCULAR HGB CONC 33 g/dl (33.0-37.0); MEAN PLATELET VOLUME 10.6 fl (7.4-10.4); MONO # 0.9 (0.1-0.6); MONO % 7.1 % (1.7-9.3); PLATELET COUNT 305 K/mm3 (130-400); RED BLOOD COUNT 4.07 M/mm3 (4.10-5.30); REDCELL DISTRIBUTION WIDTH-CV 16.3 % (11.5-14.5)
[2018-07-18 16:52] LABS: ALBUMIN 3.8 gm/dL (3.5-5.0); BILIRUBIN,TOTAL 2.4 mg/dL (0.0-1.0); C-REACTIVE PROTEIN 4.1 mg/dL (0.0-0.9); CREATININE, serum 0.42 mg/dL (0.52-1.25); POTASSIUM 3.2 mmol/L (3.4-5.0); TOTAL PROTEIN 8.1 gm/dL (6.4-8.2)
[2018-07-18 19:32] LABS: INR 1.3 (0.8-3.0); PROTHROMBIN TIME 15.1 SECONDS (9.7-12.8)
--- NOTE | 2018-07-18 20:15 | NUR ---
Report received from ED at this time.
[2018-07-18 20:21] LABS: MAGNESIUM 1.1 mg/dL (1.6-2.3); PHOSPHOROUS 2.3 mg/dL (2.5-4.5)
[2018-07-18 20:27] LABS: ALCOHOL(ethanol),MEDICAL < 10 mg/dL
--- NOTE | 2018-07-18 20:40 | NUR ---
Pt arrived via stretcher X1 ED staff assist with personal belongings. Pt stood up X2 stand by assist, denied any lightheadedness or dizziness. Transfered with steady gait into ICU04 bed.
[2018-07-18 21:09] LABS: COLLECTION METHOD CLEAN CATCH
[2018-07-18 21:24] LABS: BUDDING YEAST Present /hpf; MUCOUS Present /lpf; PH 5 (5-8); SQUAMOUS EPITHELIAL 20-50 /hpf; URINE APPEARANCE Hazy; URINE BACTERIA None Seen /hpf; URINE BILIRUBIN Negative (NEGATIVE); URINE BLOOD 2+ (NEGATIVE); URINE COLOR Amber; URINE GLUCOSE 2+ (NEGATIVE); URINE KETONE Trace (NEGATIVE); URINE LEUKOCYTE ESTERASE Negative (NEGATIVE); URINE NITRATE Negative (NEGATIVE); URINE PROTEIN(semi-quant) 1+ (NEGATIVE); URINE UROBILINOGEN Negative (NEGATIVE)
[2018-07-18 22:41] LABS: TRICYCLIC ANTIDEPRESS URINE NEGATIVE
[2018-07-18 23:47] LABS: ARTERIAL BLD GAS O2 SATURATION 95.2 % (92-100); ARTERIAL BLD GAS TCO2 CT 27.7; ARTERIAL BLOOD GAS BASE EXCESS 3.3 (-2-2); ARTERIAL BLOOD GAS HCO3 26.6 meq/L (22-26); ARTERIAL BLOOD GAS PCO2 36.2 mmHg (35-45); ARTERIAL BLOOD GAS PO2 77.3 mmHg (80-100); ARTERIAL BLOOD GAS pH 7.48 (7.35-7.45)
[2018-07-19] VITALS (787 sets, daily range): BP systolic 120–148; BP diastolic 85–118; PULSE 112–137; TEMP 98–102; O2SAT 86–100
[2018-07-19 00:11] LABS: SALICYLATE 1.9 mg/dL
[2018-07-19 00:29] LABS: TROPONIN-I < 0.012 ng/mL (0.000-0.035)
[2018-07-19 03:17] LABS: BASO # 0.1 (0.0-0.2); BASO % 0.7 % (0.0-2.0); EOS # 0.1 (0.0-0.7); EOS % 0.6 % (0-4.0); GRAN # 7.5 (1.4-6.5); GRAN % 79.6 % (42.2-75.2); HEMOGLOBIN 11.2 g/dl (12.5-16.0); LYMPH % 10.7 % (20.0-51.0); MEAN CELL VOLUME 101 fl (80.0-100.0); MEAN CORPUSCULAR HEMOGLOBIN 33 pg (27.0-31.0); MEAN CORPUSCULAR HGB CONC 32 g/dl (33.0-37.0); MEAN PLATELET VOLUME 10.2 fl (7.4-10.4); MONO # 0.7 (0.1-0.6); MONO % 7.3 % (1.7-9.3); PLATELET COUNT 245 K/mm3 (130-400); RED BLOOD COUNT 3.45 M/mm3 (4.10-5.30)
[2018-07-19 03:18] LABS: HEMATOCRIT 34.9 % (37.0-47.0)
--- NOTE | 2018-07-19 03:20 | NUR ---
Pt temp has decreased to 100.9. Pt reported at this time feeling "hot then cold" at different times. Fan was turned up then turned back down due to pt reported discomfort with decrease in temp. Notified physician.
[2018-07-19 03:28] LABS: ALBUMIN 3.1 gm/dL (3.5-5.0); CALCIUM 7.4 mg/dL (8.4-10.2); CHOLESTEROL RISK RATIO 17.3; CREATININE, serum 0.47 mg/dL (0.52-1.25); MAGNESIUM 2.3 mg/dL (1.6-2.3); PHOSPHOROUS 2.2 mg/dL (2.5-4.5); POTASSIUM 3.6 mmol/L (3.4-5.0); TOTAL PROTEIN 6.8 gm/dL (6.4-8.2)
[2018-07-19] MEDS ORDERED: PRIL40 PO (04:08)
--- NOTE | 2018-07-19 07:20 | NUR ---
Report recieved from Daisha FAM. patient sitting up in bed, drowsy but opens eyes when named call and answers appropriately. Complains of abd pain and nausea, medications given.
--- NOTE | 2018-07-19 07:20 | NUR ---
Report provided to Rebecca FAM. Pt resting in bed at this time.
--- NOTE | 2018-07-19 09:45 | NUR ---
Dr. Black here for rounds. Requests diagnostic paracentesis by Radiology. Mettl notified and Dr. Holly notified, states will come in and do procedure about noon.
--- NOTE | 2018-07-19 13:03 | NUR ---
Plan is to return home with Friend and father Gui as care support. Assess: SW's visited patient about DC plan. Patient reports that she resides locally and uses [facility] for Medications. Patient denies having a PCP. Patient reports that she is about to transport herself home. Action: Patient indicated no additonal needs at this time.
[2018-07-19 13:32] LABS: PERITONEAL -POLYMORPHONUCLEAR 5.8 % (0-25); PERITONEAL FLUID RBC 1000 /mm3 (0-0)
[2018-07-19 15:47] LABS: COLLECTION METHOD CATHETER
[2018-07-19 15:58] LABS: MUCOUS Present /lpf; PH 5 (5-8); SQUAMOUS EPITHELIAL 0-2 /hpf; URINE APPEARANCE Clear; URINE BACTERIA None Seen /hpf; URINE BILIRUBIN Negative (NEGATIVE); URINE BLOOD 1+ (NEGATIVE); URINE COLOR Amber; URINE GLUCOSE Negative (NEGATIVE); URINE KETONE Negative (NEGATIVE); URINE LEUKOCYTE ESTERASE Negative (NEGATIVE); URINE NITRATE Negative (NEGATIVE); URINE PROTEIN(semi-quant) Negative (NEGATIVE); URINE RBC 0-2 /hpf; URINE UROBILINOGEN Negative (NEGATIVE); URINE WBC 0-2 /hpf
--- NOTE | 2018-07-19 19:20 | NUR ---
Pt report received from Rebecca Tam RN. Pt resting in bed with television on at this time.
--- NOTE | 2018-07-19 19:47 | NUR ---
REPORT GIVEN TO MARLENA FAM
--- NOTE | 2018-07-19 21:00 | NUR ---
Agreement between pt and staff regarding pain medication was to administer PRN Dilaudid Q2hrs through out this shift. Pt and nurse discussed benefits of PRN medication and pt stated relief lasts "about 30 minutes" and will take pain down to a 4-5 although pain will return "sudden". Other ways of pain management were discussed at this time including guarding and use of bed in order to go from laying to sitting positioning.
[2018-07-20] VITALS (861 sets, daily range): BP systolic 109–146; BP diastolic 61–104; PULSE 113–124; TEMP 97.7–101.2; O2SAT 68–100
[2018-07-20 05:05] LABS: BASO # 0.1 (0.0-0.2); EOS # 0.3 (0.0-0.7); EOS % 2.6 % (0-4.0); GRAN % 62.4 % (42.2-75.2); HEMOGLOBIN 10.8 g/dl (12.5-16.0); LYMPH # 2.3 (1.2-3.4); LYMPH % 23.9 % (20.0-51.0); MEAN CELL VOLUME 103 fl (80.0-100.0); MEAN CORPUSCULAR HEMOGLOBIN 33 pg (27.0-31.0); MEAN CORPUSCULAR HGB CONC 32 g/dl (33.0-37.0); MEAN PLATELET VOLUME 10.1 fl (7.4-10.4); MONO # 0.9 (0.1-0.6); MONO % 9.1 % (1.7-9.3); PLATELET COUNT 225 K/mm3 (130-400); RED BLOOD COUNT 3.31 M/mm3 (4.10-5.30); REDCELL DISTRIBUTION WIDTH-CV 16.5 % (11.5-14.5)
[2018-07-20 05:07] LABS: HEMATOCRIT 34.1 % (37.0-47.0)
[2018-07-20 05:12] LABS: INR 1.6 (0.8-3.0); PROTHROMBIN TIME 17.8 SECONDS (9.7-12.8)
[2018-07-20 05:20] LABS: ALBUMIN 3.1 gm/dL (3.5-5.0); BILIRUBIN,TOTAL 1.9 mg/dL (0.0-1.0); CALCIUM 6.8 mg/dL (8.4-10.2); CREATININE, serum 0.44 mg/dL (0.52-1.25); MAGNESIUM 1.8 mg/dL (1.6-2.3); PHOSPHOROUS 1.2 mg/dL (2.5-4.5); TOTAL PROTEIN 6.7 gm/dL (6.4-8.2)
[2018-07-20 05:22] LABS: POTASSIUM 3.4 mmol/L (3.4-5.0)
--- NOTE | 2018-07-20 07:00 | NUR ---
Bedside report provided to Al FAM. Pt alert at this time, resting in bed.
--- NOTE | 2018-07-20 09:56 | NUR ---
SW attended clinical rounding. Patient is going to transfer to the floor today. No other discharge needs at this time.
--- NOTE | 2018-07-20 14:21 | NUR ---
Gave report to CRISTEL Mcghee.
--- NOTE | 2018-07-20 14:55 | NUR ---
Transfered Patient to the medical floor via wheelchair. Patient had all her belongings. Patients mother was present. Handed off Patient to CRISTEL Mcghee.
--- NOTE | 2018-07-20 20:55 | NUR ---
Pt resting in bed, some C/O pain, medication given, talkative and appropriate, shift aassessment complete, left Pt bed in lowest position, call light in reach.
[2018-07-21] VITALS (14 sets, daily range): BP systolic 112–155; BP diastolic 63–94; PULSE 114–130; TEMP 98.2–102.5
--- NOTE | 2018-07-21 05:25 | NUR ---
Pt slept some during the night, she did have some C/O pain during the night, she is not currently scoring high on the detox protocol, she has been given pain medications as needed and atavan as needed, Vs have remained stable during the night except her pulse rate has been high.
[2018-07-21 07:24] LABS: HEMOGLOBIN 10.8 g/dl (12.5-16.0); MEAN CELL VOLUME 101 fl (80.0-100.0); MEAN CORPUSCULAR HEMOGLOBIN 33 pg (27.0-31.0); MEAN CORPUSCULAR HGB CONC 32 g/dl (33.0-37.0); MEAN PLATELET VOLUME 10.2 fl (7.4-10.4); PLATELET COUNT 216 K/mm3 (130-400); RED BLOOD COUNT 3.31 M/mm3 (4.10-5.30); REDCELL DISTRIBUTION WIDTH-CV 16.7 % (11.5-14.5)
--- NOTE | 2018-07-21 07:30 | NUR ---
Patient is sitting up in bed, verbalizes that she would like to have herron removed as it is irritating her vulva and she thinks she has a yeast infection. Called Dr. Diego and received order to DC herron. Patient experienced immediate relief. Was able to get up to restroom right away and void without difficulty. Urine is a clear yellow color. No other complaints of pain are verbalized. Call light is within reach.
[2018-07-21 07:32] LABS: HEMATOCRIT 33.4 % (37.0-47.0)
[2018-07-21 07:40] LABS: ALANINE AMINOTRANSFERASE 16 U/L (9-52); ALBUMIN 3.1 gm/dL (3.5-5.0); ALKALINE PHOSPHATASE 114 U/L (50-136); ANION GAP 9 mmol/L (7-16); AST,SGOT 82 U/L (15-37); BILIRUBIN,TOTAL 2.9 mg/dL (0.0-1.0); CALCIUM 7.2 mg/dL (8.4-10.2); CARBON DIOXIDE 24 mmol/L (22-30); CHLORIDE 100 mmol/L (98-107); CREATININE, serum 0.42 mg/dL (0.52-1.25); GLUCOSE 139 mg/dL (74-106); MAGNESIUM 1.6 mg/dL (1.6-2.3); PHOSPHOROUS 1.5 mg/dL (2.5-4.5); POTASSIUM 3.7 mmol/L (3.4-5.0); SODIUM 133 mmol/L (137-145); TOTAL PROTEIN 6.9 gm/dL (6.4-8.2)
[2018-07-21 07:57] LABS: BAND 31 % (0-10); EOSINOPHIL 1 % (0-4); LYMPHOCYTE 12 % (20.0-51.0); NEUTROPHILS 50 % (42.0-75.2); PLATELET ESTIMATE NORMAL (NORMAL)
[2018-07-21 07:58] LABS: ANISOCYTOSIS 1+; BLOOD UREA NITROGEN < 2 mg/dL (7-17); STOMATOCYTE 2+
[2018-07-21 12:46] LABS: LACTIC ACID 1.7 mmol/L (0.4-2.0)
--- NOTE | 2018-07-21 16:38 | NUR ---
Patient is resting in bed visiting with boyfriend. States she is comfortable and nausea has subsided. Reports she continues to produce plenty of urine and has had good oral intake. Call light is within reach.
--- NOTE | 2018-07-21 21:25 | NUR ---
Pt resting in bed, has some C/O pain, medication given. Shift assessment complete, left Pt call light in reach, bed in lowset position.
[2018-07-22] VITALS (10 sets, daily range): BP systolic 110–136; BP diastolic 67–85; PULSE 102–121; TEMP 97.9–100.7
--- NOTE | 2018-07-22 05:25 | NUR ---
Pt did not sleep well during the night, she has C/O pain and medications were administered, detox scores have been 2-3 during the shift, Vs have been stable.
[2018-07-22 06:34] LABS: HEMOGLOBIN 11.3 g/dl (12.5-16.0); MEAN CELL VOLUME 102 fl (80.0-100.0); MEAN CORPUSCULAR HEMOGLOBIN 33 pg (27.0-31.0); MEAN CORPUSCULAR HGB CONC 32 g/dl (33.0-37.0); MEAN PLATELET VOLUME 10.4 fl (7.4-10.4); PLATELET COUNT 232 K/mm3 (130-400); RED BLOOD COUNT 3.46 M/mm3 (4.10-5.30); REDCELL DISTRIBUTION WIDTH-CV 17.1 % (11.5-14.5)
[2018-07-22 06:35] LABS: HEMATOCRIT 35.3 % (37.0-47.0)
[2018-07-22 06:48] LABS: ALANINE AMINOTRANSFERASE 15 U/L (9-52); ALBUMIN 3.3 gm/dL (3.5-5.0); ALKALINE PHOSPHATASE 105 U/L (50-136); ANION GAP 8 mmol/L (7-16); AST,SGOT 65 U/L (15-37); BILIRUBIN,TOTAL 3.3 mg/dL (0.0-1.0); CALCIUM 7.6 mg/dL (8.4-10.2); CARBON DIOXIDE 26 mmol/L (22-30); CHLORIDE 100 mmol/L (98-107); CREATININE, serum 0.49 mg/dL (0.52-1.25); GLUCOSE 121 mg/dL (74-106); MAGNESIUM 1.9 mg/dL (1.6-2.3); POTASSIUM 3.7 mmol/L (3.4-5.0); SODIUM 134 mmol/L (137-145); TOTAL PROTEIN 7.2 gm/dL (6.4-8.2)
[2018-07-22 06:50] LABS: BLOOD UREA NITROGEN < 2 mg/dL (7-17)
--- NOTE | 2018-07-22 07:20 | NUR ---
Patient resting in bed, head of bed elevated, watching TV. Complains of nausea and some abdominal pain. States she is tired. Does complain of dry mouth. No other needs verbalzied. Call light is within reach. Is going to wait to take PO medications until nausea subsides.
[2018-07-22 07:34] LABS: BAND 7 % (0-10); EOSINOPHIL 1 % (0-4); LYMPHOCYTE 23 % (20.0-51.0); NEUTROPHILS 61 % (42.0-75.2); PLATELET ESTIMATE NORMAL (NORMAL); STOMATOCYTE 2+
[2018-07-22 07:35] LABS: ANISOCYTOSIS 1+; HYPOCHROMIA 1+
--- NOTE | 2018-07-22 18:10 | NUR ---
Patient up to restroom, provided herself with pericare and changed underwear. Requested new pillow case and chux. Offered full bed change and declined. Boyfriend is at bedside.
--- NOTE | 2018-07-22 20:30 | NUR ---
Pt in bed watching TV, some C/O pain, medications given, shift assessment complete, left Pt call light in reach, bed in lowest position.
[2018-07-23] VITALS (11 sets, daily range): BP systolic 122–150; BP diastolic 77–97; PULSE 100–117; TEMP 97.9–102.5
--- NOTE | 2018-07-23 05:32 | NUR ---
Pt did not sleep much during the night, she had some C/O pain and was restless, Pt peaked with a temp of 102 during the night and as of this note is trending down. other VS have been stable.
[2018-07-23 08:03] LABS: ALBUMIN 2.9 gm/dL (3.5-5.0); BILIRUBIN,TOTAL 3.5 mg/dL (0.0-1.0); CALCIUM 7.9 mg/dL (8.4-10.2); CREATININE, serum 0.43 mg/dL (0.52-1.25); POTASSIUM 3.6 mmol/L (3.4-5.0); TOTAL PROTEIN 6.3 gm/dL (6.4-8.2)
--- NOTE | 2018-07-23 08:10 | NUR ---
Assessment complete. Pt sitting up in bed eating breakfast, A&O x 4. Breath sounds CTAB. BS active x 4. Pt reports pain to abd 8 out of 10 on pain scale, PRN medications administered per request. Pt also reports severe itching to ramon area with possible blisters, PA notified. IV abx infusing per orders through left forearm site without s/s of complications. No further needs reported. Call light in reach.
[2018-07-23 08:22] LABS: MEAN CELL VOLUME 102 fl (80.0-100.0); MEAN CORPUSCULAR HEMOGLOBIN 33 pg (27.0-31.0); MEAN CORPUSCULAR HGB CONC 33 g/dl (33.0-37.0); MEAN PLATELET VOLUME 11.1 fl (7.4-10.4); PLATELET COUNT 220 K/mm3 (130-400); REDCELL DISTRIBUTION WIDTH-CV 17.2 % (11.5-14.5)
[2018-07-23 08:23] LABS: HEMATOCRIT 30.5 % (37.0-47.0)
[2018-07-23 08:31] LABS: BAND 11 % (0-10); EOSINOPHIL 2 % (0-4); LYMPHOCYTE 20 % (20.0-51.0); NEUTROPHILS 59 % (42.0-75.2); PLATELET ESTIMATE NORMAL (NORMAL)
[2018-07-23 08:32] LABS: HYPOCHROMIA 1+; STOMATOCYTE 2+
[2018-07-23 08:33] LABS: ANISOCYTOSIS 1+
--- NOTE | 2018-07-23 09:37 | NUR ---
SW attended clinical rounds. Patient continues to spike fevers. PT/OT was consulted. reports he would like patient to be fever free for 24 hours before she can discharge home.
--- NOTE | 2018-07-23 13:00 | NUR ---
Post vaginal exam by container finishing inspector, pt tearful and continues to report nausea. PRN pain medication administered per verbal order to give dose early and PRN nausea medication administered as well. Pt denies further needs at this time. Call light in reach.
[2018-07-23 13:47] LABS: HIV 1/2 Antibodies Non-Reactive; HIV-1p24 Antigen Non-Reactive
--- NOTE | 2018-07-23 23:33 | NUR ---
Completed assessment and medication administration; PT denied acute changes or concerns; PT tolerated medicaions well; Q6H Accu-checks pending with SS in place; C/O mild ABD pain continues; A&Ox3, BS active x4, LCTA; Roxycodone administered per reported 8/10 pain eith effective results; PT reports desire to rest during the night if possible; PT denies further needs at time of exit from room; Call light placed within reach; Will continue to monitor. CDA
[2018-07-24 00:13] VITALS: BP 147/102; PULSE 102; TEMP 97.8
[2018-07-24 00:55] VITALS: BP 122/80; PULSE 102; TEMP 98.2
[2018-07-24 01:57] VITALS: BP 114/76; PULSE 98; TEMP 98.8
--- NOTE | 2018-07-24 03:07 | NUR ---
PT resting in bed on and off; second dose of PRN withdrawal anti-anxiety medication; Denies further needs or pain concerns; PT able to communicate needs. Call light within reach; Will continue to monitor. CDA
[2018-07-24 05:00] VITALS: BP 125/88; PULSE 104; TEMP 98.8
--- NOTE | 2018-07-24 07:17 | NUR ---
Report given to CRISTEL Cameron. CDA
--- NOTE | 2018-07-24 07:45 | NUR ---
Pt AAOx3 sitting up in bed watching television. Call light within reach. Complains of minor abdominal pain thats chronic "from all the drinking" MD Willian updated on pt when he called in to unit. Pt states "I need to quit drinking". Pt encouraged to speak with psychiatric social worker - pt "not in the mood to talk with psychiatric social worker when they come by"
[2018-07-24 07:51] VITALS: BP 141/91; PULSE 111; TEMP 98.9
[2018-07-24 08:31] LABS: HEMOGLOBIN 11.1 g/dl (12.5-16.0); MEAN CELL VOLUME 102 fl (80.0-100.0); MEAN CORPUSCULAR HEMOGLOBIN 33 pg (27.0-31.0); MEAN CORPUSCULAR HGB CONC 32 g/dl (33.0-37.0); PLATELET COUNT 258 K/mm3 (130-400); RED BLOOD COUNT 3.42 M/mm3 (4.10-5.30); REDCELL DISTRIBUTION WIDTH-CV 17.2 % (11.5-14.5)
[2018-07-24 08:38] LABS: ALBUMIN 3.3 gm/dL (3.5-5.0); BILIRUBIN,TOTAL 4.7 mg/dL (0.0-1.0); CALCIUM 8.4 mg/dL (8.4-10.2); CREATININE, serum 0.56 mg/dL (0.52-1.25); POTASSIUM 3.5 mmol/L (3.4-5.0); TOTAL PROTEIN 7.3 gm/dL (6.4-8.2)
[2018-07-24] MEDS ORDERED: DUO-KAPS1 CAP PO (09:31)
[2018-07-24] MEDS ORDERED: ZOVIRAX400 MG PO (09:31)
[2018-07-24] MEDS ORDERED: ALDACTONE 100M100 MG PO (09:31)
[2018-07-24] MEDS ORDERED: FOLIC ACID 11 MG/TA1 PO (09:32)
[2018-07-24] MEDS ORDERED: THIAMINE 1100 MG/TAB PO (09:32)
[2018-07-24] MEDS ORDERED: LASIX 40MG TABL40 MG PO (09:32)
[2018-07-24] MEDS ORDERED: ROXICODONE 55 MG/TAB PO (09:35)
[2018-07-24] MEDS ORDERED: LACTULOSE10 GM/153 PO (09:42)
[2018-07-24] MEDS ORDERED: PHOSPHA 250 NEU1 TAB PO (09:42)
[2018-07-24] MEDS ORDERED: MAG-OX 400400 MG/TAB PO (09:44)
[2018-07-24 10:00] VITALS: BP 155/94; PULSE 118; TEMP 98.3
[2018-07-24 10:05] LABS: BAND 14 % (0-10); EOSINOPHIL 1 % (0-4); HYPOCHROMIA 1+; LYMPHOCYTE 28 % (20.0-51.0); NEUTROPHILS 45 % (42.0-75.2); PLATELET ESTIMATE NORMAL (NORMAL); STOMATOCYTE 2+
[2018-07-24 10:06] LABS: ANISOCYTOSIS 1+
[2018-07-24] MEDS ORDERED: PROMETHAZINE12.5 M5 PO (10:41)
--- NOTE | 2018-07-24 11:59 | NUR ---
Pt trasported to exit via wheelchair to be picked up by private vehicle.
[2018-07-24 15:52] LABS: RPR (VDRL) XXX
== END 2018-07-24 11:59 | disposition home or self-care (01) | DRG 872 ==
LOC: COL.ER 14:53 → ICU 18:23 → MEDICAL 18:23
PROVIDERS: Family Medicine; Internal Medicine; Nurse Practitioner Family; Physician Assistant; ADMIT Hospitalist
PROC: 0W9G3ZX Drainage of Peritoneal Cavity, Percutaneous Approach, Diagnostic (ICD-10-PCS; principal; 2018-07-19)
PROC: 0W9G3ZZ Drainage of Peritoneal Cavity, Percutaneous Approach (ICD-10-PCS; 2018-07-19)
DX: A41.9 Sepsis, unspecified organism (principal); F10.231 Alcohol dependence with withdrawal delirium; E87.2 Acidosis; E44.0 Moderate protein-calorie malnutrition; R65.20 Severe sepsis without septic shock; K70.11 Alcoholic hepatitis with ascites; Z23 Encounter for immunization; I10 Essential (primary) hypertension; E11.9 Type 2 diabetes mellitus without complications; E78.5 Hyperlipidemia, unspecified; Z87.891 Personal history of nicotine dependence; E86.0 Dehydration; E87.6 Hypokalemia; E83.42 Hypomagnesemia; E83.39 Other disorders of phosphorus metabolism; K70.31 Alcoholic cirrhosis of liver with ascites; Y90.0 Blood alcohol level of less than 20 mg/100 ml; F14.10 Cocaine abuse, uncomplicated; F15.10 Other stimulant abuse, uncomplicated; A60.04 Herpesviral vulvovaginitis; Z68.29 Body mass index [BMI] 29.0-29.9, adult
CPT/HCPCS: 99222-AI; 99232-AI; 99233-AI; 99239; A4216; C9113; J0692; J0696; J1170; J1644; J1815; J2060; J2405; J2543; J2550; J3370; J3411; J3475; J3480; J7030; J7040; J7050; Q9967

== ENCOUNTER 2018-08-02 13:51 | Emergency (ER) | payer BC | END 2018-08-02 17:52 | disposition home or self-care (01) | LOC: COL.ER 13:51 | DX: R18.8 Other ascites (principal) ==

== ENCOUNTER → 2018-08-04 | Outpatient (CLI) | payer BC | LOC: COL.RAD 06:18 | DX: R18.8 Other ascites (principal) ==

== ENCOUNTER 2018-08-16 09:41 | Inpatient (IN) | payer BC ==
[2018-08-16] VITALS (513 sets, daily range): BP systolic 138–145; BP diastolic 97–110; PULSE 107–109; TEMP 98.2–98.8; O2SAT 92–100
[~2018-08-16] VITALS: Ht 167.6 cm; Wt 72.5 kg
[~2018-08-16 09:41] MED LIST changes: +ALDACTONE 100M100 MG PO; +ALDACTONE 25MG25 M1 PO; +K-PHOS NEUTRAL250 M1 PO; +KRISTALOSE10 GM/PACK PO; +LACTULOSE10 GM/153 PO; +LASIX 40MG TABL40 MG PO; +MULTIPLE VITAMI1 CAP PO; +NATURE'S BLEND100 M2 PO; +PHOSPHA 250 NEU1 TAB PO; +PRIL40 PO; +PROMETHAZINE12.5 M5 PO; +ROXICODONE 55 MG/TAB PO; +ZOLOFT 25MG25 MG PO; +ZOVIRAX400 MG PO
[2018-08-16 10:41] LABS: HEMATOCRIT 39.3 % (37.0-47.0); HEMOGLOBIN 12.9 g/dl (12.5-16.0); MEAN CELL VOLUME 100 fl (80.0-100.0); MEAN CORPUSCULAR HEMOGLOBIN 33 pg (27.0-31.0); MEAN CORPUSCULAR HGB CONC 33 g/dl (33.0-37.0); MEAN PLATELET VOLUME 10.8 fl (7.4-10.4); PLATELET COUNT 283 K/mm3 (130-400); RED BLOOD COUNT 3.92 M/mm3 (4.10-5.30); REDCELL DISTRIBUTION WIDTH-CV 14.2 % (11.5-14.5)
[2018-08-16 10:51] LABS: ALBUMIN 3.5 gm/dL (3.5-5.0); BILIRUBIN,TOTAL 1.4 mg/dL (0.0-1.0); CALCIUM 8.5 mg/dL (8.4-10.2); CREATININE, serum 0.38 mg/dL (0.52-1.25); TOTAL PROTEIN 7.9 gm/dL (6.4-8.2)
[2018-08-16 10:58] LABS: COLLECTION METHOD CLEAN CATCH
[2018-08-16 11:00] LABS: POTASSIUM 2.9 mmol/L (3.4-5.0)
[2018-08-16 11:15] LABS: MUCOUS Present /lpf; PH 6 (5-8); URINE APPEARANCE Clear; URINE BACTERIA None Seen /hpf; URINE BILIRUBIN Negative (NEGATIVE); URINE BLOOD 1+ (NEGATIVE); URINE COLOR Yellow; URINE GLUCOSE 1+ (NEGATIVE); URINE KETONE Negative (NEGATIVE); URINE LEUKOCYTE ESTERASE Negative (NEGATIVE); URINE NITRATE Negative (NEGATIVE); URINE PROTEIN(semi-quant) Negative (NEGATIVE); URINE RBC 0-2 /hpf; URINE UROBILINOGEN Negative (NEGATIVE)
[2018-08-16 13:22] LABS: BAND 4 % (0-10); LYMPHOCYTE 21 % (20.0-51.0); NEUTROPHILS 70 % (42.0-75.2); PLATELET ESTIMATE NORMAL (NORMAL)
[2018-08-16 16:48] LABS: MAGNESIUM 1.2 mg/dL (1.6-2.3); PHOSPHOROUS 2.7 mg/dL (2.5-4.5)
[2018-08-16 17:11] LABS: INR 1.6 (0.8-3.0)
[2018-08-16 17:19] LABS: THYROID STIMULATING HORMONE 1.41 uIU/mL (0.465-4.680)
--- NOTE | 2018-08-16 19:15 | NUR ---
GAVE REPORT TO CIRSTEL RUBIO.
--- NOTE | 2018-08-16 20:00 | NUR ---
PT C/O PAIN IN ABD WITH SLIGHT TENDERNESS. PT RATING PAIN 8/10 DESCRIBED SHARP. NON-RADIATING.
--- NOTE | 2018-08-16 21:00 | NUR ---
PT C/O WORSENING PAIN IN ABD DESCRIBED SHARP RATING 9/10 RADIATING INTO MID/LOW BACK.
[2018-08-17] VITALS (1284 sets, daily range): BP systolic 115–145; BP diastolic 76–99; PULSE 94–107; TEMP 98.2–98.7; O2SAT 82–100
--- NOTE | 2018-08-17 | NUR ---
PT AMBULATED WELL TO BATHROOM. PT STATES STARTING MENSTRAL ARABELLA, URINE APPEARS RED-TINGED. PT PROVIDED BARBARA PAD. ADDITIONALLY, PT STATING TO HAVE DIFFICULTY PASSING FLATULANCE.
--- NOTE | 2018-08-17 02:30 | NUR ---
PT WOKE, STATES SHE WAS SWEATING IN HER SLEEP AND IS IN PAIN. PILLOWCASE CHANGED AND PAIN MED ADMINISTERED.
[2018-08-17 05:29] LABS: BASO # 0.1 (0.0-0.2); BASO % 0.5 % (0.0-2.0); EOS # 0.6 (0.0-0.7); EOS % 4.7 % (0-4.0); GRAN # 9.7 (1.4-6.5); GRAN % 71.1 % (42.2-75.2); LYMPH % 14.7 % (20.0-51.0); MEAN CELL VOLUME 102 fl (80.0-100.0); MEAN CORPUSCULAR HGB CONC 32 g/dl (33.0-37.0); MEAN PLATELET VOLUME 10.4 fl (7.4-10.4); MONO # 1.1 (0.1-0.6); MONO % 8.2 % (1.7-9.3); PLATELET COUNT 204 K/mm3 (130-400); RED BLOOD COUNT 3.31 M/mm3 (4.10-5.30); REDCELL DISTRIBUTION WIDTH-CV 13.9 % (11.5-14.5)
[2018-08-17 05:33] LABS: HEMATOCRIT 33.6 % (37.0-47.0); MEAN CORPUSCULAR HEMOGLOBIN 33 pg (27.0-31.0)
[2018-08-17 05:34] LABS: HEMOGLOBIN 10.8 g/dl (12.5-16.0)
[2018-08-17 05:44] LABS: ALBUMIN 2.9 gm/dL (3.5-5.0); BILIRUBIN,TOTAL 2.4 mg/dL (0.0-1.0); CALCIUM 7.3 mg/dL (8.4-10.2); CREATININE, serum 0.44 mg/dL (0.52-1.25); PHOSPHOROUS 2.8 mg/dL (2.5-4.5); POTASSIUM 3.2 mmol/L (3.4-5.0); TOTAL PROTEIN 6.6 gm/dL (6.4-8.2)
[2018-08-17 05:51] LABS: MAGNESIUM 0.8 mg/dL (1.6-2.3)
--- NOTE | 2018-08-17 07:23 | NUR ---
RECEIVED REPORT FROM CRISTEL RUBIO. PATIENT WAS RESTING IN BED. MEDICATIONS AND LABS VARIFIED.
--- NOTE | 2018-08-17 09:51 | NUR ---
SPOKE TO JAKE FAM AND LET HER KNOW THAT PT IS SCHEDULED FOR LIVER BX AND PARA ON FRIDAY. PT IS TO HAVE A PARA TODAY SO I ASKED THE NURSE IF SHE WOULD LET THE DOCTOR KNOW THAT SHE WAS SCHEDULED FOR BOTH THE PARA AND LIVER BX ON FRIDAY. MAYBE THEY WILL DO THEM TODAY.
[2018-08-17 11:20] LABS: PERITONEAL -POLYMORPHONUCLEAR 5.6 % (0-25); PERITONEAL FLUID RBC 0 /mm3 (0-0)
[2018-08-17 13:25] LABS: TRICYCLIC ANTIDEPRESS URINE NEGATIVE
--- NOTE | 2018-08-17 16:21 | NUR ---
KHURRAM kennedy met with the patient to discuss discharge plan. The patient lives in [place] with her Fiance (James). The patient does not use any DME and reports indpendence with ADLs. The patient's PCP is Dr. Alvino Causey and she receives her medications from [facility]. The patient reports no difficulties obtaining her medications. The patient does not have a DPOA-HC completed but was interested in looking over the form and completing it while here in the hospital. KHURRAM kennedy provided the form. No identified needs at this time.
[2018-08-17] MEDS ORDERED: ALDACTONE 100M100 MG PO (18:44)
--- NOTE | 2018-08-17 19:24 | NUR ---
GAVE REPORT TO CRISTEL RUBIO.
--- NOTE | 2018-08-17 20:00 | NUR ---
PT PARACENTESIS SITE DRESSED IN GAUZE AND LARGE BANDAID; SITE APPEARS CLEAN/DRY/INTACT. PT STATES THE PROCEDURE DID NOT RELIEVE ANY PRESSURE OR PAIN. PT RATING ABD PAIN 7/10 DESCRIBED CONSTANT STABBING, RADIATING INTO BACK. PT CONTINUES TO RECIEVE PRN PAIN MEDICATION. ADDITIONALLY, PT C/O INTERMITTENT BILAT LOWER LET ITCHING WHICH BEGAN THIS AFTERNOON.
[2018-08-18] VITALS (573 sets, daily range): BP systolic 111–140; BP diastolic 68–100; PULSE 88–111; TEMP 98.1–98.5; O2SAT 84–100
[2018-08-18 06:09] LABS: BASO # 0.1 (0.0-0.2); BASO % 0.7 % (0.0-2.0); EOS # 0.5 (0.0-0.7); EOS % 5.6 % (0-4.0); GRAN # 5.6 (1.4-6.5); GRAN % 64.4 % (42.2-75.2); HEMOGLOBIN 10.1 g/dl (12.5-16.0); LYMPH # 1.7 (1.2-3.4); LYMPH % 20.2 % (20.0-51.0); MEAN CELL VOLUME 104 fl (80.0-100.0); MEAN CORPUSCULAR HEMOGLOBIN 33 pg (27.0-31.0); MEAN CORPUSCULAR HGB CONC 31 g/dl (33.0-37.0); MEAN PLATELET VOLUME 10.9 fl (7.4-10.4); MONO # 0.7 (0.1-0.6); MONO % 8.4 % (1.7-9.3); PLATELET COUNT 167 K/mm3 (130-400); REDCELL DISTRIBUTION WIDTH-CV 13.6 % (11.5-14.5)
[2018-08-18 06:12] LABS: HEMATOCRIT 32.2 % (37.0-47.0)
[2018-08-18 06:15] LABS: ALBUMIN 2.7 gm/dL (3.5-5.0); BILIRUBIN,TOTAL 1.8 mg/dL (0.0-1.0); CALCIUM 7.6 mg/dL (8.4-10.2); CREATININE, serum 0.52 mg/dL (0.52-1.25); MAGNESIUM 1.7 mg/dL (1.6-2.3); POTASSIUM 3.8 mmol/L (3.4-5.0); TOTAL PROTEIN 6.4 gm/dL (6.4-8.2)
--- NOTE | 2018-08-18 08:00 | NUR ---
INITIAL ASSESSMENT COMPLETED. PATIENT SITTING UP IN BED. SHE STATES HER PAIN IS STARTING TO COME BACK. SHE REQUESTED HER FABBY STATING SHE THINKS IT IS TIME. PATIENT STATES HER ABDOMINAL PAIN IS NOT MUCH BETTER THAN PRIOR TO THE PARACENTESIS. BREAKFAST HAS BEEN ORDERED. ICE WATER AND A PEPSI TAKEN IN. SHE DENIES ANY FURTHER REQUESTS.
--- NOTE | 2018-08-18 12:04 | NUR ---
First visit from the consumer education specialist. No needs right now.
--- NOTE | 2018-08-18 15:43 | NUR ---
REPORT GIVEN TO CRISTEL YOUNG ON MEDICAL. PATIENT WILL BE GOING BY WHEELCHAIR TO ROOM 306. PLAN OF CARE DISCUSSED AND ALL QUESTIONS ANSWERED.
--- NOTE | 2018-08-18 18:11 | NUR ---
1610 patient arrived to room. Is observed sitting up in bed with legs crossed. Lungs are clear, heart sounds are regular, bowel sounds are active in all quadrants. Abdomen is distended and tender. Patient states pain is tolerable. Does have markings and bandages from previous parasenthesis which was reported to have drained 3L fluid. Patient is alert and oriented. States she will be having a liver biopsy on the . She states she hasnt drank in over a month since last hospitalized here. Declines to wear scds as she likes to be independnent in room. Urine is reported to be a dark renan. This has not been observed at this time. Call light is within reach.
--- NOTE | 2018-08-18 21:52 | NUR ---
pt resting in beed A+Ox4. reports pain 8/10 in abd, prn meds given . shift assessement complete. no needs at this time call light inreach
[2018-08-19 04:13] VITALS: BP 135/91; PULSE 75; TEMP 97.6
--- NOTE | 2018-08-19 04:42 | NUR ---
pt had an uneventful night. rating pain 8/10 in abd. reports abd feeling "bigger". this nurse assessed and did not feel change since beginning of the shift. PRN meds give. reports no relief with norco, 4/10 relief with roxicodone. pt was nauseous at 2100, prn zofran given. no needs at this time. call light in reach
[2018-08-19 06:11] LABS: BASO # 0.1 (0.0-0.2); BASO % 0.7 % (0.0-2.0); EOS # 0.3 (0.0-0.7); EOS % 4.5 % (0-4.0); GRAN # 4.1 (1.4-6.5); GRAN % 59.4 % (42.2-75.2); HEMOGLOBIN 10.7 g/dl (12.5-16.0); LYMPH # 1.7 (1.2-3.4); MEAN CELL VOLUME 102 fl (80.0-100.0); MEAN CORPUSCULAR HEMOGLOBIN 33 pg (27.0-31.0); MEAN CORPUSCULAR HGB CONC 32 g/dl (33.0-37.0); MEAN PLATELET VOLUME 11.2 fl (7.4-10.4); MONO # 0.6 (0.1-0.6); MONO % 9.4 % (1.7-9.3); PLATELET COUNT 191 K/mm3 (130-400); RED BLOOD COUNT 3.25 M/mm3 (4.10-5.30); REDCELL DISTRIBUTION WIDTH-CV 13.4 % (11.5-14.5)
[2018-08-19 06:17] LABS: HEMATOCRIT 33.2 % (37.0-47.0)
[2018-08-19 06:45] LABS: ALBUMIN 2.8 gm/dL (3.5-5.0); BILIRUBIN UNCONJUGATED 0.6 mg/dL (0.0-1.1); BILIRUBIN,DIRECT 0.8 mg/dL (0.0-0.4); BILIRUBIN,TOTAL 1.4 mg/dL (0.0-1.0); CALCIUM 8.3 mg/dL (8.4-10.2); CREATININE, serum 0.47 mg/dL (0.52-1.25); POTASSIUM 3.8 mmol/L (3.4-5.0); TOTAL PROTEIN 6.7 gm/dL (6.4-8.2)
[2018-08-19 06:56] LABS: MAGNESIUM 1.3 mg/dL (1.6-2.3)
--- NOTE | 2018-08-19 07:08 | NUR ---
REPORT GIVEN TO CRISTEL LUCERO. PT REPORTS NO NEEDS
[2018-08-19 07:31] VITALS: BP 113/81; PULSE 89; TEMP 98.6
--- NOTE | 2018-08-19 07:50 | NUR ---
Assessment complete.patient awake,sitting up in bed.a/ox3.breathing even and unlabored.pt reports cramping pain to abdomen.abd is distended but soft.bowel sounds are present and audible.pottasium replaced.Magnesium replaced.patient denies any needs at this time.will continue to monitor.call light in reach
[2018-08-19] MEDS ORDERED: MAG-OX 400400 MG/TAB PO (09:38)
[2018-08-19] MEDS ORDERED: TYLENOL 500MG500 MG PO (09:42)
[2018-08-19] MEDS ORDERED: [UNRECOGNIZED DRUG - OTHER] PO (09:45)
[2018-08-19 12:38] VITALS: BP 118/83; PULSE 99; TEMP 97.3
[2018-08-19 12:50] LABS: FOLATE (FOLIC ACID) 2.6 ng/mL (7.0-31.4)
--- NOTE | 2018-08-19 15:00 | NUR ---
PT DISCHARGED HOME AT THIS TIME.PT UPSET AT TIME OF DISCHARGED AND DECLINED DISCHARGE TEACHING AND EDUCATION.IV AND TELE DISCONTINUED.ALL PAPERWORK SIGNED.PT TOOK ALL BELONGINGS.THIS NURSE ESCORTED PATIENT OUT.
== END 2018-08-19 16:09 | disposition home or self-care (01) | DRG 871 ==
LOC: COL.ER 09:41 → ICU 14:19 → MEDICAL 08-18 16:00
PROVIDERS: Family Medicine; Hospitalist; Physician Assistant; ADMIT Family Medicine
PROC: 0W9G3ZX Drainage of Peritoneal Cavity, Percutaneous Approach, Diagnostic (ICD-10-PCS; principal; 2018-08-17)
PROC: 0W9G3ZZ Drainage of Peritoneal Cavity, Percutaneous Approach (ICD-10-PCS; 2018-08-17)
DX: A41.9 Sepsis, unspecified organism (principal); K65.2 Spontaneous bacterial peritonitis; E87.1 Hypo-osmolality and hyponatremia; R65.20 Severe sepsis without septic shock; K70.31 Alcoholic cirrhosis of liver with ascites; K70.11 Alcoholic hepatitis with ascites; I10 Essential (primary) hypertension; E78.5 Hyperlipidemia, unspecified; E11.9 Type 2 diabetes mellitus without complications; Z87.891 Personal history of nicotine dependence; F10.20 Alcohol dependence, uncomplicated; E87.6 Hypokalemia; E83.42 Hypomagnesemia; E86.0 Dehydration; D64.9 Anemia, unspecified
CPT/HCPCS: 99232-AI; A4216; J0696; J1170; J1940; J2405; J2543; J2550; J3010; J3475; J3480; J7030; Q9967

== ENCOUNTER 2018-08-28 05:48 | Day surgery (SDC) | payer BC ==
[~2018-08-28] VITALS: Ht 167.6 cm; Wt 78.2 kg
[~2018-08-28 05:48] MED LIST changes: +TYLENOL 500MG500 MG PO; +[UNRECOGNIZED DRUG - OTHER] PO
[2018-08-28] MEDS ORDERED: TYLENOL 500MG500 MG PO (06:15)
[2018-08-28] MEDS ORDERED: ZOLOFT 25MG25 MG PO (06:16)
[2018-08-28 06:41] VITALS: BP 140/104; PULSE 110; TEMP 98
[2018-08-28 07:39] VITALS: BP 135/99; PULSE 106; TEMP 97.7
--- NOTE | 2018-08-28 07:40 | NUR ---
Pt returns from endo procedure. Pt ambulates from cart to recliner with RN assist x 2. Monitors on and alarms set. Call light within reach. Report received from CRISTEL Fernando. Pt drowsy but answers all questions appropriately. Pt states no pain, but mild nausea. Pt states "I just want to rest."
[2018-08-28 07:45] VITALS: BP 130/109; PULSE 93
--- NOTE | 2018-08-28 08:00 | NUR ---
Pt reports mild nausea improvement since receiving Zofran. Pt requests muffin and water. No other complaints voiced. Pt requests fiancee to come to room.
[2018-08-28 08:15] VITALS: BP 135/98; PULSE 96
--- NOTE | 2018-08-28 08:15 | NUR ---
Pt taking food and drink well. Pt reports nausea is much better.
[2018-08-28 08:30] VITALS: BP 129/86; PULSE 101
--- NOTE | 2018-08-28 08:40 | NUR ---
Dr. Barraza visiting with patient and garrett.
[2018-08-28 08:45] VITALS: BP 117/88; PULSE 107
--- NOTE | 2018-08-28 08:45 | NUR ---
Discharge instructions given to patient and fiancee. All questions answered to their satisfaction. Handed to them are a thank you card, discharge instructions, diagnosis information, and a discharge med sheet.
--- NOTE | 2018-08-28 08:55 | NUR ---
Pt ambulates out of hospital with Ernestine, RN assist to private vehicle driven by [facility].
== END 2018-08-28 08:55 | disposition home or self-care (01) ==
LOC: SDCO 05:48
DX: D12.2 Benign neoplasm of ascending colon (principal); D12.5 Benign neoplasm of sigmoid colon; K64.1 Second degree hemorrhoids; D50.0 Iron deficiency anemia secondary to blood loss (chronic); I85.00 Esophageal varices without bleeding; K29.30 Chronic superficial gastritis without bleeding; K74.60 Unspecified cirrhosis of liver; R18.8 Other ascites; E11.9 Type 2 diabetes mellitus without complications; I10 Essential (primary) hypertension; F41.9 Anxiety disorder, unspecified; F32.9 Major depressive disorder, single episode, unspecified; N83.201 Unspecified ovarian cyst, right side; Z79.899 Other long term (current) drug therapy; Z86.19 Personal history of other infectious and parasitic diseases
CPT/HCPCS: J2405; J2704; J7030

== ENCOUNTER 2018-09-10 15:50 | Emergency (ER) | payer BC ==
[~2018-09-10] VITALS: Ht 167.6 cm; Wt 79.5 kg
[2018-09-10 15:55] VITALS: TEMP 97.8
[2018-09-10 16:44] LABS: BASO # 0.1 (0.0-0.2); BASO % 0.8 % (0.0-2.0); EOS # 0.1 (0.0-0.7); EOS % 0.9 % (0-4.0); GRAN # 6.3 (1.4-6.5); GRAN % 67.2 % (42.2-75.2); HEMATOCRIT 38.7 % (37.0-47.0); LYMPH # 2.1 (1.2-3.4); LYMPH % 22.7 % (20.0-51.0); MEAN CELL VOLUME 96 fl (80.0-100.0); MEAN CORPUSCULAR HEMOGLOBIN 32 pg (27.0-31.0); MEAN CORPUSCULAR HGB CONC 34 g/dl (33.0-37.0); MONO # 0.8 (0.1-0.6); MONO % 8.1 % (1.7-9.3); PLATELET COUNT 152 K/mm3 (130-400); RED BLOOD COUNT 4.04 M/mm3 (4.10-5.30); REDCELL DISTRIBUTION WIDTH-CV 13.2 % (11.5-14.5)
[2018-09-10 16:49] LABS: ALBUMIN 3.2 gm/dL (3.5-5.0); BILIRUBIN,TOTAL 1.6 mg/dL (0.0-1.0); CALCIUM 7.7 mg/dL (8.4-10.2); CREATININE, serum 0.59 (0.52-1.25); INR 1.8 (0.8-3.0); POTASSIUM 3.2 mmol/L (3.4-5.0); TOTAL PROTEIN 7.6 gm/dL (6.4-8.2)
[2018-09-10 16:52] LABS: PARTIAL THROMBOPLASTIN TIME 39.1 SECONDS (26.0-37.0)
[2018-09-10] MEDS ORDERED: ROXICODONE 55 MG/TAB PO (17:50)
[2018-09-10 18:20] VITALS: BP 147/105; PULSE 103
== END 2018-09-10 18:20 | disposition home or self-care (01) ==
LOC: COL.ER 15:50
PROVIDERS: Emergency Medicine
DX: R18.8 Other ascites (principal); K74.60 Unspecified cirrhosis of liver; E11.9 Type 2 diabetes mellitus without complications; I10 Essential (primary) hypertension; E78.5 Hyperlipidemia, unspecified
CPT/HCPCS: J1170; J1940; J2270; J2405

== ENCOUNTER 2018-10-01 14:57 | Inpatient (IN) | payer BC ==
[~2018-10-01] VITALS: Ht 165.1 cm; Wt 69.7 kg
[2018-10-01] VITALS (215 sets, daily range): BP systolic 141; BP diastolic 104; PULSE 103; TEMP 98.1; O2SAT 88–99
[~2018-10-01 14:57] MED LIST changes: -KLOR-CON20 MEQ PO
[2018-10-01 15:43] LABS: BASO # 0.1 (0.0-0.2); BASO % 0.7 % (0.0-2.0); EOS # 0.1 (0.0-0.7); EOS % 0.4 % (0-4.0); GRAN # 8.7 (1.4-6.5); HEMATOCRIT 37.1 % (37.0-47.0); HEMOGLOBIN 12.7 g/dl (12.5-16.0); LYMPH # 2.1 (1.2-3.4); LYMPH % 17.5 % (20.0-51.0); MEAN CELL VOLUME 93 fl (80.0-100.0); MEAN CORPUSCULAR HEMOGLOBIN 32 pg (27.0-31.0); MEAN CORPUSCULAR HGB CONC 34 g/dl (33.0-37.0); MONO # 0.9 (0.1-0.6); MONO % 7.9 % (1.7-9.3); PLATELET COUNT 200 K/mm3 (130-400); REDCELL DISTRIBUTION WIDTH-CV 14.5 % (11.5-14.5)
[2018-10-01 15:53] LABS: ALANINE AMINOTRANSFERASE < 6 U/L (9-52); ALKALINE PHOSPHATASE 203 U/L (50-136); ANION GAP 13 mmol/L (7-16); AST,SGOT 62 U/L (15-37); BILIRUBIN,TOTAL 1.6 mg/dL (0.0-1.0); BLOOD UREA NITROGEN 2 mg/dL (7-17); C-REACTIVE PROTEIN 1.9 mg/dL (0.0-0.9); CALCIUM 7.3 mg/dL (8.4-10.2); CARBON DIOXIDE 39 mmol/L (22-30); CREATININE, serum 0.56 (0.52-1.25); GLUCOSE 131 mg/dL (74-106); LIPASE 45 U/L (23-300); PHOSPHOROUS 3.2 mg/dL (2.5-4.5); POTASSIUM 3.1 mmol/L (3.4-5.0); SODIUM 137 mmol/L (137-145); TOTAL PROTEIN 8.4 gm/dL (6.4-8.2)
[2018-10-01 15:58] LABS: ALCOHOL(ethanol),MEDICAL < 10 mg/dL
[2018-10-01 15:59] LABS: CHLORIDE 86 mmol/L (98-107); MAGNESIUM 0.7 mg/dL (1.6-2.3)
[2018-10-01] MEDS ORDERED: ZOLOFT 25MG25 MG PO ×2 (16:02→21:33)
[2018-10-01 16:03] LABS: TROPONIN-I < 0.012 ng/mL (0.000-0.035)
--- NOTE | 2018-10-01 19:45 | NUR ---
Received telephone report from CRISTEL Valente.
--- NOTE | 2018-10-01 20:18 | NUR ---
Patient arrived to the unit via stretcher. Attached to all monitors; VS stable at this time. Hospitalist made aware of arrival.
[2018-10-01] MEDS ORDERED: KLOR-CON20 MEQ PO (21:32)
--- NOTE | 2018-10-01 23:46 | NUR ---
Hospitalist notified that patient is still reporting pain to abdomen and head. Continues to have nausea after initial dose of zofran. Hospitalist gave order for one time dose of zofran and will start dilauded.
[2018-10-02] VITALS (654 sets, daily range): BP systolic 120–141; BP diastolic 83–104; PULSE 87–112; TEMP 97.4–98.8; O2SAT 89–99
--- NOTE | 2018-10-02 01:00 | NUR ---
Requested warm pack for back pain. Warmed towels and placed on back. Will continue to monitor.
[2018-10-02 02:16] LABS: INR 1.7 (0.8-3.0); PROTHROMBIN TIME 19.1 SECONDS (9.7-12.8)
--- NOTE | 2018-10-02 02:16 | NUR ---
Pt continues to report lower back pain and nausea. Cannot administer pain or antiemetic at this time as too soon to give. Called hospitalist. Received order for PRN phenergan.
[2018-10-02 02:19] LABS: PARTIAL THROMBOPLASTIN TIME 38.7 SECONDS (26.0-37.0)
[2018-10-02 02:22] LABS: ANION GAP 8 mmol/L (7-16); BLOOD UREA NITROGEN < 2 mg/dL (7-17); CARBON DIOXIDE 38 mmol/L (22-30); GLUCOSE 137 mg/dL (74-106); MAGNESIUM 2.2 mg/dL (1.6-2.3); POTASSIUM 3.3 mmol/L (3.4-5.0); SODIUM 135 mmol/L (137-145)
[2018-10-02 02:23] LABS: CHLORIDE 89 mmol/L (98-107)
[2018-10-02 06:21] LABS: BASO # 0.1 (0.0-0.2); BASO % 0.6 % (0.0-2.0); EOS # 0.1 (0.0-0.7); EOS % 0.7 % (0-4.0); GRAN # 8.8 (1.4-6.5); GRAN % 67.8 % (42.2-75.2); HEMATOCRIT 38.5 % (37.0-47.0); HEMOGLOBIN 13.1 g/dl (12.5-16.0); LYMPH % 22.7 % (20.0-51.0); MEAN CELL VOLUME 93 fl (80.0-100.0); MEAN CORPUSCULAR HEMOGLOBIN 32 pg (27.0-31.0); MEAN CORPUSCULAR HGB CONC 34 g/dl (33.0-37.0); MEAN PLATELET VOLUME 9.7 fl (7.4-10.4); MONO % 7.7 % (1.7-9.3); PLATELET COUNT 177 K/mm3 (130-400); RED BLOOD COUNT 4.12 M/mm3 (4.10-5.30); REDCELL DISTRIBUTION WIDTH-CV 14.6 % (11.5-14.5)
[2018-10-02 06:31] LABS: ANION GAP 8 mmol/L (7-16); CALCIUM 7.7 mg/dL (8.4-10.2); CARBON DIOXIDE 37 mmol/L (22-30); CHLORIDE 90 mmol/L (98-107); CREATININE, serum 0.58 (0.52-1.25); GLUCOSE 122 mg/dL (74-106); POTASSIUM 3.3 mmol/L (3.4-5.0); SODIUM 135 mmol/L (137-145)
[2018-10-02 06:33] LABS: BLOOD UREA NITROGEN < 2 mg/dL (7-17)
--- NOTE | 2018-10-02 09:03 | NUR ---
Initial visit; Patient thanked Chief Psychology for looking in on her and offering Spiritual Care. Chief Psychology will keep Carmen in her prayers.
--- NOTE | 2018-10-02 11:43 | NUR ---
SW met with patient about discharge planning. Patient lives independently at home with her fiance and plans to return there upon discharge. Patient's PCP is Dr Matilda Conn and she obtains prescriptions from [facility]. Patient does not use any home health servies or DME. Patient does not have a DPOA and is not interested in completing one. SW does not anticipate any discharge needs.
--- NOTE | 2018-10-02 18:00 | NUR ---
Patient has been doing well since getting to the floor from ICU. She was really tired whe she first got up here. Her pain has been well controlled with her medications ordered. No complaints of nausea. Family visiting at this time. No other changes at this time. Call light within reach.
--- NOTE | 2018-10-02 21:00 | NUR ---
pt resting in bed a+ox4. reports 8-9/10 pain in back and abd, prn meds given- reports minimal relief. pt c/o nausea- prn meds given, reports relief. pt heart rate tachy. BP slightly elevated. vitals have unchanged throughout day. pt reports no needs at this time. call light in reach
[2018-10-03 04:26] VITALS: BP 126/81; PULSE 96; TEMP 97.8
--- NOTE | 2018-10-03 05:40 | NUR ---
pt had an uneventful night. reported 7-9/10 pain in right side of back and abd, prn meds given when avaliable and requested. reported slight relief. abd distended and firm. pt bandaid DCI. pt reports loss of appetite, but eating some of dinner. IV flushed well, no redness, no swelling. no needs at this time. call light inreach
--- NOTE | 2018-10-03 05:43 | NUR ---
pt reported some nausea during night. prn nausea meds given- reported relief
[2018-10-03 07:29] VITALS: BP 130/92; PULSE 96; TEMP 97.5
[2018-10-03 08:01] LABS: BASO # 0.1 (0.0-0.2); BASO % 0.7 % (0.0-2.0); EOS # 0.2 (0.0-0.7); EOS % 1.5 % (0-4.0); GRAN # 7.1 (1.4-6.5); GRAN % 64.5 % (42.2-75.2); HEMATOCRIT 38.7 % (37.0-47.0); HEMOGLOBIN 12.8 g/dl (12.5-16.0); LYMPH # 2.7 (1.2-3.4); LYMPH % 24.7 % (20.0-51.0); MEAN CELL VOLUME 95 fl (80.0-100.0); MEAN CORPUSCULAR HEMOGLOBIN 31 pg (27.0-31.0); MEAN CORPUSCULAR HGB CONC 33 g/dl (33.0-37.0); MEAN PLATELET VOLUME 10.2 fl (7.4-10.4); MONO # 0.9 (0.1-0.6); MONO % 7.9 % (1.7-9.3); PLATELET COUNT 161 K/mm3 (130-400); RED BLOOD COUNT 4.08 M/mm3 (4.10-5.30); REDCELL DISTRIBUTION WIDTH-CV 14.5 % (11.5-14.5)
[2018-10-03 08:10] LABS: INR 1.8 (0.8-3.0); PROTHROMBIN TIME 20.3 SECONDS (9.7-12.8)
[2018-10-03 08:11] LABS: ALBUMIN 3.2 gm/dL (3.5-5.0); BILIRUBIN,TOTAL 1.9 mg/dL (0.0-1.0); CREATININE, serum 0.55 (0.52-1.25); MAGNESIUM 1.7 mg/dL (1.6-2.3); POTASSIUM 3.1 mmol/L (3.4-5.0); TOTAL PROTEIN 7.3 gm/dL (6.4-8.2)
--- NOTE | 2018-10-03 08:54 | NUR ---
Assessment complete. Patient is alert and oriented to person, place, and day. Patient has pain at a 6 out of 10 in the right side of her abdomen. Lung sounds clear throughout, on room air. Patient does state she has had a cough for the last week and it became productive on 10/01. She denies any shortness of breath at this time. Heart sounds regular, no murmur noted, patient denies any chest pain, on tele. IV in left foream is CDI, flushes easily with no pain. Patient is resting in bed visiting with a family member and denies any further questions or concerns. Call light is within reach, will continue to monitor.
[2018-10-03 11:03] VITALS: BP 127/90; PULSE 98; TEMP 97.7
[2018-10-03 15:17] VITALS: BP 130/87; PULSE 102; TEMP 97.9
--- NOTE | 2018-10-03 17:44 | NUR ---
Pt has been resting on and off throughout the day. She has had constant pain in her ABD. Pain medication administered on AUG. She is sitting up in the bed watching TV at this time and she denies further needs. Call light within reach.
[2018-10-03 19:05] VITALS: BP 144/99; PULSE 103; TEMP 98.8
[2018-10-03 23:31] VITALS: BP 127/90; PULSE 94; TEMP 97.8
--- NOTE | 2018-10-04 04:44 | NUR ---
pt had an uneventful night. reported pain in abd/back/mouth 8-9/10 throughout night. requested dilaudid and susan when avaliable- pt reported minimal relief. pt reported van nausea, prn zofran given- reported relief. pt slept off and on throughout night. pt voices concers about going home because this is the only time she gets some relief from the pain. no needs at this time. call light in reach
[2018-10-04 05:08] VITALS: BP 145/95; PULSE 92; TEMP 97.6
[2018-10-04 06:27] LABS: BASO # 0.1 (0.0-0.2); BASO % 0.8 % (0.0-2.0); EOS # 0.2 (0.0-0.7); EOS % 1.9 % (0-4.0); GRAN # 5.7 (1.4-6.5); GRAN % 56.6 % (42.2-75.2); HEMOGLOBIN 12.6 g/dl (12.5-16.0); LYMPH # 3.2 (1.2-3.4); LYMPH % 31.5 % (20.0-51.0); MEAN CELL VOLUME 95 fl (80.0-100.0); MEAN CORPUSCULAR HEMOGLOBIN 31 pg (27.0-31.0); MEAN CORPUSCULAR HGB CONC 33 g/dl (33.0-37.0); MEAN PLATELET VOLUME 10.2 fl (7.4-10.4); MONO # 0.8 (0.1-0.6); MONO % 8.4 % (1.7-9.3); PLATELET COUNT 165 K/mm3 (130-400); RED BLOOD COUNT 4.02 M/mm3 (4.10-5.30); REDCELL DISTRIBUTION WIDTH-CV 14.5 % (11.5-14.5)
[2018-10-04 06:44] LABS: ALBUMIN 3.2 gm/dL (3.5-5.0); BILIRUBIN,TOTAL 1.5 mg/dL (0.0-1.0); CALCIUM 8.6 mg/dL (8.4-10.2); CREATININE, serum 0.59 (0.52-1.25); POTASSIUM 3.3 mmol/L (3.4-5.0); TOTAL PROTEIN 7.3 gm/dL (6.4-8.2)
[2018-10-04 07:24] VITALS: BP 139/90; PULSE 101; TEMP 97.8
--- NOTE | 2018-10-04 07:30 | NUR ---
Assessment complete. Pt is AXO X3, states she has pain in her ABD rated at an 8/10. Breathing is even and unlabored on room air. Tele on. LF INT flushes easily, remains free of complications, and is CDI. Pt is sitting up in the bed watching TV at this time and she denies further needs. Call light within reach, will continue to monitor.
[2018-10-04 11:50] VITALS: BP 142/105; PULSE 100; TEMP 98.8
[2018-10-04 15:48] VITALS: BP 139/93; PULSE 102; TEMP 98.9
--- NOTE | 2018-10-04 19:18 | NUR ---
Report given to CRISTEL Mays.
[2018-10-04 19:40] VITALS: BP 137/97; PULSE 105; TEMP 98.5
--- NOTE | 2018-10-04 22:18 | NUR ---
PT RESTING IN BED A+OX4. REPORTS PAIN 9/- PRN MEDS GIVEN. NAUSEA REPORTED, PRN MEDS GIVEN. REPORTS NO RELIEF FROM ZOFRAN OR DALAUDID. PRN PHENERGAN GAVE RELIEF. NO NEEDS AT THIS TIME CALL LIGHT IN REACH
[2018-10-04 23:04] VITALS: BP 144/95; PULSE 111; TEMP 98
--- NOTE | 2018-10-05 01:48 | NUR ---
pt reports abd and back pain throughout night, prn meds given. reports of nausea, prn phenerga given and reported relief. pt sleeping at this time. heart rate 90-110 throughout night. no needs at this time
[2018-10-05 03:28] VITALS: BP 129/97; PULSE 107; TEMP 97.7
--- NOTE | 2018-10-05 05:30 | NUR ---
pt had an unevenful night. reporting 9/10 pain in abd and back- prn meds given reports relief at a 4-5/10. nausea reported, prn meds given. pt states that the phenergan seems to be more helpful. no needs at this time. call light in reach
[2018-10-05 06:31] LABS: CREATININE, serum 0.62 (0.52-1.25); POTASSIUM 3.9 mmol/L (3.4-5.0)
--- NOTE | 2018-10-05 07:16 | NUR ---
REPORT GIVEN TO CRISTEL LUCERO. PT SLEEPING AT THIS TIME
[2018-10-05 08:59] VITALS: BP 145/96; PULSE 99; TEMP 97.6
[2018-10-05 09:49] LABS: COLLECTION METHOD CLEAN CATCH
[2018-10-05 09:56] LABS: MUCOUS Present /lpf; PH 8 (5-8); URINE APPEARANCE Clear; URINE BACTERIA None Seen /hpf; URINE BILIRUBIN Positive (NEGATIVE); URINE BLOOD Negative (NEGATIVE); URINE COLOR Amber; URINE GLUCOSE Negative (NEGATIVE); URINE KETONE Negative (NEGATIVE); URINE LEUKOCYTE ESTERASE Negative (NEGATIVE); URINE NITRATE Negative (NEGATIVE); URINE PROTEIN(semi-quant) 1+ (NEGATIVE); URINE RBC 0-2 /hpf; URINE UROBILINOGEN Negative (NEGATIVE)
[2018-10-05 10:17] LABS: TRICYCLIC ANTIDEPRESS URINE NEGATIVE
[2018-10-05 11:45] VITALS: BP 139/90; PULSE 96; TEMP 98.1
--- NOTE | 2018-10-05 11:55 | NUR ---
PATIENT RATING PAIN @ 7 ON NUMERICAL PAIN SCALE. PRESENTS RELAXED WITH NO FACIAL GRIMACING. ATTITUDE CALM, QUIET, AND COOPERATIVE. PATIENT REPORTS PAIN LEVEL IS ACCEPTABLE AT THIS TIME AND DENIES NEEDING INTERVENTION.
[2018-10-05] MEDS ORDERED: OYSCO 500500 M1 PO (14:00)
--- NOTE | 2018-10-05 15:23 | NUR ---
PATIENT DC TO HOME ACCOMPANIED BY VIA PRIVATE VEHICLE. PRINTED DC INSTRUCTIONS REVIEWED WITH PATIENT AND SPOUSE. BOTH ACKNOWLEDGED UNDERSTANDING AND DENIED QUESTIONS AND CONCERNS AFTER REVIEW.
--- NOTE | 2018-10-05 15:27 | NUR ---
PATIENT DISCHARGED HOME ACCOMPANIED BY SPOUSE.THIS RN REVIEWED CRISTEL PANIAGUA DOCUMENTED AND AGREES WITH ABOVE FINDINGS.PT SIGNED ALL DISCHARGE PAPERWORK.DENIES FURTHER NEEDS.CALL LIGHT IN REACH
--- NOTE | 2018-10-05 15:30 | NUR ---
PATIENT ESCORTED OUT BY STAFF.
== END 2018-10-05 15:02 | disposition home or self-care (01) | DRG 641 ==
LOC: COL.ER 14:57 → ICU 18:01 → MEDICAL 10-02 11:59
PROVIDERS: Emergency Medicine; Nurse Practitioner Family; Physician Assistant; ADMIT Internal Medicine
DX: E83.42 Hypomagnesemia (principal); E44.0 Moderate protein-calorie malnutrition; E87.6 Hypokalemia; E83.51 Hypocalcemia; K72.90 Hepatic failure, unspecified without coma; I10 Essential (primary) hypertension; E78.5 Hyperlipidemia, unspecified; E11.9 Type 2 diabetes mellitus without complications; F32.9 Major depressive disorder, single episode, unspecified; K70.31 Alcoholic cirrhosis of liver with ascites; F10.10 Alcohol abuse, uncomplicated; Z87.891 Personal history of nicotine dependence; Z68.25 Body mass index [BMI] 25.0-25.9, adult
CPT/HCPCS: 99223-AI; 99232-AI; 99239; A4216; J0610; J0696; J1170; J1644; J2405; J2550; J3010; J3475; P9047

== ENCOUNTER → 2018-10-01 | Outpatient (CLI) | payer BC ==
[~2018-10-01] VITALS: Ht 167.6 cm; Wt 74.4 kg
[~2018-10-01] MED LIST changes: +KLOR-CON20 MEQ PO
[2018-10-01 11:54] VITALS: BP 116/98; PULSE 105
--- NOTE | 2018-10-01 12:20 | NUR ---
pt is now c/o nausea, also states is having difficulty breathing. spoke to pt about needing paracentesis to help relieve pressure of abd. so she can breath easier. pt states is having "muscle issues" due to low magnesium, states Dr Conn office told her her magnesium is low and put her on mag 500mg po bid, states 3 days and is not "helping", hands are cramping for her bilateral. Spoke with \\ Dr Greenwood and will proceed with para, also left message at Dr office for Dr Conn's nurse to call concerning lab/magnesium and muscle spasms pt is having
[2018-10-01 13:20] VITALS: BP 121/87; PULSE 96; TEMP 98.4
[2018-10-01 14:00] VITALS: BP 118/70; PULSE 93
[2018-10-01 14:37] VITALS: BP 118/52; BP 121/87; PULSE 100; TEMP 98
--- NOTE | 2018-10-01 15:06 | NUR ---
PT WANTING TO GO TO ER FOR MUSCLE CRAMPS AND PAIN. REPORT CALLED TO ER NURSE, ALSO THAT PT WAS FINISHING LAST OF ALBUMIN INFUSION AND DID NOT WANT TO WAIT TILL IT WAS INFUSED, PT TAKEN TO ER VIA W/C WITH FATHER AND CHECKED IN AND ASSISTED BACK TO ER ROOM.
== END ==
LOC: COL.RAD 11:28
DX: K70.11 Alcoholic hepatitis with ascites (principal)
CPT/HCPCS: P9047

== ENCOUNTER 2018-10-08 09:47 | Inpatient (IN) | payer BC ==
[~2018-10-08] VITALS: Ht 165.1 cm; Wt 72.7 kg
[2018-10-08] VITALS (347 sets, daily range): BP systolic 116–163; BP diastolic 67–115; PULSE 116–123; TEMP 98.2–99.1; O2SAT 94–100
[~2018-10-08 09:47] MED LIST changes: +KLOR-CON20 MEQ PO; +OYSCO 500500 M1 PO
[2018-10-08 10:38] LABS: HEMATOCRIT 41.8 % (37.0-47.0); HEMOGLOBIN 14.2 g/dl (12.5-16.0); MEAN CELL VOLUME 93 fl (80.0-100.0); MEAN CORPUSCULAR HEMOGLOBIN 32 pg (27.0-31.0); MEAN CORPUSCULAR HGB CONC 34 g/dl (33.0-37.0); MEAN PLATELET VOLUME 9.6 fl (7.4-10.4); PLATELET COUNT 234 K/mm3 (130-400); RED BLOOD COUNT 4.48 M/mm3 (4.10-5.30); REDCELL DISTRIBUTION WIDTH-CV 15.5 % (11.5-14.5)
[2018-10-08 10:50] LABS: BASOPHIL 2 % (0-2); EOSINOPHIL 3 % (0-4); LYMPHOCYTE 21 % (20.0-51.0); NEUTROPHILS 67 % (42.0-75.2)
[2018-10-08 10:51] LABS: ALANINE AMINOTRANSFERASE 6 U/L (9-52); ALBUMIN 3.7 gm/dL (3.5-5.0); ALCOHOL(ethanol),MEDICAL 81 mg/dL; ALKALINE PHOSPHATASE 231 U/L (50-136); ANION GAP 12 mmol/L (7-16); AST,SGOT 62 U/L (15-37); BLOOD UREA NITROGEN 5 mg/dL (7-17); C-REACTIVE PROTEIN 1.2 mg/dL (0.0-0.9); CARBON DIOXIDE 24 mmol/L (22-30); CHLORIDE 101 mmol/L (98-107); GLUCOSE 269 mg/dL (74-106); LIPASE 83 U/L (23-300); MAGNESIUM 1.4 mg/dL (1.6-2.3); PHOSPHOROUS 1.7 mg/dL (2.5-4.5); PLATELET ESTIMATE NORMAL (NORMAL); POTASSIUM 3.5 mmol/L (3.4-5.0); SODIUM 138 mmol/L (137-145); TOTAL PROTEIN 8.5 gm/dL (6.4-8.2)
[2018-10-08 11:01] LABS: TROPONIN-I < 0.012 ng/mL (0.000-0.035)
[2018-10-08 13:47] LABS: COLLECTION METHOD CLEAN CATCH
[2018-10-08 14:04] LABS: MUCOUS Present /lpf; PH 5 (5-8); URINE APPEARANCE Hazy; URINE BACTERIA None Seen /hpf; URINE BILIRUBIN Positive (NEGATIVE); URINE BLOOD Negative (NEGATIVE); URINE COLOR Amber; URINE GLUCOSE 2+ (NEGATIVE); URINE KETONE Negative (NEGATIVE); URINE LEUKOCYTE ESTERASE 1+ (NEGATIVE); URINE NITRATE Negative (NEGATIVE); URINE PROTEIN(semi-quant) 1+ (NEGATIVE)
[2018-10-08 15:56] LABS: INR 1.3 (0.8-3.0); PROTHROMBIN TIME 15.2 SECONDS (9.7-12.8)
[2018-10-08] MEDS ORDERED: MAG-OX 400400 MG/TAB PO (16:13)
[2018-10-08] MEDS ORDERED: OYSTER SHELL C500 MG PO (16:13)
[2018-10-08] MEDS ORDERED: KLOR-CON20 MEQ PO (16:14)
[2018-10-08] MEDS ORDERED: ZOLOFT 25MG25 MG PO (16:15)
[2018-10-08] MEDS ORDERED: ALDACTONE 100M100 MG PO (16:15)
--- NOTE | 2018-10-08 19:32 | NUR ---
Report given to Mady FAM and care transfered.
--- NOTE | 2018-10-08 20:15 | NUR ---
Per pt request, called Dominique EMPLOYEE BENEFITS MANAGER to request change in pain medication. No new orders. Notified patient. Patient states, she will talk to the doctor in the morning and "go to another hospital" for care. Emotional support provided to patient. Will continue to monitor.
--- NOTE | 2018-10-08 20:15 | NUR ---
Shift assessment complete. Patient in bed, awake. Pain 9/10 in abdomen. Patient upset that pain medication cannot be changed. Asked RN to call hospitalist to get pain medication order changed. Will call Dominique per pt request. Heating pad offered for pain relief. Patient agreeable. Will continue to monitor.
--- NOTE | 2018-10-08 20:28 | NUR ---
BP 163/115. Will reassess BP prior to administering prn antihypertensive.
--- NOTE | 2018-10-08 20:30 | NUR ---
BP 147/97. Prn antihypertensive not needed at this time. Will continue to monitor.
[2018-10-09] VITALS (470 sets, daily range): BP systolic 133–147; BP diastolic 88–113; PULSE 96–109; TEMP 97.7–98.6; O2SAT 92–100
[2018-10-09 05:23] LABS: BASO # 0.1 (0.0-0.2); BASO % 0.5 % (0.0-2.0); EOS # 0.2 (0.0-0.7); EOS % 1.5 % (0-4.0); GRAN # 6.1 (1.4-6.5); GRAN % 60.9 % (42.2-75.2); LYMPH # 2.5 (1.2-3.4); MEAN CELL VOLUME 94 fl (80.0-100.0); MEAN CORPUSCULAR HGB CONC 34 g/dl (33.0-37.0); MEAN PLATELET VOLUME 9.6 fl (7.4-10.4); MONO # 1.1 (0.1-0.6); MONO % 11.1 % (1.7-9.3); PLATELET COUNT 164 K/mm3 (130-400); REDCELL DISTRIBUTION WIDTH-CV 15.9 % (11.5-14.5)
[2018-10-09 05:25] LABS: HEMOGLOBIN 11.4 g/dl (12.5-16.0); MEAN CORPUSCULAR HEMOGLOBIN 32 pg (27.0-31.0)
--- NOTE | 2018-10-09 05:28 | NUR ---
Hgb 11.4 (previous 14.2). Notified NP. Dominique Orders to recheck hgb at 1200.
[2018-10-09 05:34] LABS: ALBUMIN 2.8 gm/dL (3.5-5.0); BILIRUBIN,TOTAL 1.6 mg/dL (0.0-1.0); CALCIUM 7.9 mg/dL (8.4-10.2); CREATININE, serum 0.45 (0.52-1.25); MAGNESIUM 1.7 mg/dL (1.6-2.3); POTASSIUM 3.9 mmol/L (3.4-5.0); TOTAL PROTEIN 6.6 gm/dL (6.4-8.2)
--- NOTE | 2018-10-09 07:15 | NUR ---
Report received from Mady FAM and care resumed.
--- NOTE | 2018-10-09 11:01 | NUR ---
KHURRAM kennedy met with patient to discuss discharge plan. Patient lives with her Fiance and daughter in [place]. Patient saw Dr. Matilda Conn recently for primary care but would like to switch back to Dr. Causey for future primary care. Patient uses the [facility]. Patient does not use any DME and is indpendent with ADLs. Patient stated that hospitalist (Dr. Jenkins) mentioned something about being referred to a pain management doctor or pain clinic. Patient would like to pursue with that referral at discharge. Patient also inquired about a living will to ensure custody of her daughter go straight to her parents if something were to ever happen. KHURRAM kennedy informed patient that the living will we have here is strictly about medical interventions and prolonging life. Patient was not interested in our form here and will have to go through an choir leader to obtain Living Will. No identified needs at this time.
[2018-10-09 11:08] LABS: PERITONEAL -POLYMORPHONUCLEAR 3.2 % (0-25); PERITONEAL FLUID RBC 0 /mm3 (0-0)
[2018-10-09 12:54] LABS: HEMOGLOBIN 12.1 g/dl (12.5-16.0)
[2018-10-09 12:55] LABS: HEMATOCRIT 36.1 % (37.0-47.0)
--- NOTE | 2018-10-09 13:48 | NUR ---
Pt remains resting at this time. VSS. Will continue to follow.
--- NOTE | 2018-10-09 15:00 | NUR ---
Pt recevied to floor from ICU. Pt resting in bed. C/O of pain and requesting medication between morphine. Oriented to room. Call light in reach.
--- NOTE | 2018-10-09 15:03 | NUR ---
Report called to Ping FAM on medical floor and pt taken to room 314 by wheelchair.
--- NOTE | 2018-10-09 18:30 | NUR ---
Pt sitting in room. C/O pain 03/18. Pt is not happy with her pain medication. Requested something in between morphine doses, but denied. Pt wanting to leave hospital, spoke with pt about benefits of staying and getting better. Taught pt side effects of tylenol. Pt alert and oriented. Upright in bed, breathing even and unlabored. Breath sounds clear, bowel sounds audible. Pulses strong and palpable. Dinner in room.
--- NOTE | 2018-10-09 20:30 | NUR ---
Initial shift assessment done- pt states very frustrated with lack of pain control for abd pain 02/16- states doesnt feel we care about her pain "since I did this to myself " - cirrhosis,, talked with patient--will call COMMUNICATION PROFESSOR congressional assistant tonight --- Up on own in room, was earlier visiting with family. Iv fluids of NS at 75cc/hr.
--- NOTE | 2018-10-09 22:20 | NUR ---
Talked with Dominique MAR regarding pts pain-- states she talked with patient last night about this same issue and that the Morphine every 6 hours is all they wwant her to have at his time for pain-- no new orders
[2018-10-10 03:46] VITALS: BP 129/88; PULSE 98; TEMP 97.5
--- NOTE | 2018-10-10 05:53 | NUR ---
Quiet night-- was given warm compress for back ache,, was given Morphine IV every 6 hrs for abd pain.
[2018-10-10 07:37] VITALS: BP 132/95; PULSE 105; TEMP 97.6
[2018-10-10 08:15] LABS: BASO # 0.1 (0.0-0.2); BASO % 0.7 % (0.0-2.0); EOS # 0.2 (0.0-0.7); EOS % 2.5 % (0-4.0); GRAN # 4.1 (1.4-6.5); GRAN % 60.7 % (42.2-75.2); HEMOGLOBIN 11.6 g/dl (12.5-16.0); LYMPH # 1.8 (1.2-3.4); MEAN CORPUSCULAR HEMOGLOBIN 32 pg (27.0-31.0); MEAN CORPUSCULAR HGB CONC 33 g/dl (33.0-37.0); MEAN PLATELET VOLUME 10.3 fl (7.4-10.4); MONO # 0.6 (0.1-0.6); MONO % 8.9 % (1.7-9.3); PLATELET COUNT 149 K/mm3 (130-400); RED BLOOD COUNT 3.59 M/mm3 (4.10-5.30); REDCELL DISTRIBUTION WIDTH-CV 15.9 % (11.5-14.5)
[2018-10-10 08:25] LABS: HEMATOCRIT 35.4 % (37.0-47.0); MEAN CELL VOLUME 99 fl (80.0-100.0)
[2018-10-10 08:31] LABS: ALBUMIN 2.7 gm/dL (3.5-5.0); BILIRUBIN,TOTAL 1.6 mg/dL (0.0-1.0); CALCIUM 7.9 mg/dL (8.4-10.2); CREATININE, serum 0.46 (0.52-1.25); MAGNESIUM 1.6 mg/dL (1.6-2.3); PHOSPHOROUS 2.4 mg/dL (2.5-4.5); POTASSIUM 3.8 mmol/L (3.4-5.0); TOTAL PROTEIN 6.4 gm/dL (6.4-8.2)
--- NOTE | 2018-10-10 09:30 | NUR ---
Patient sitting in bed upon entry, finishing breakfast. Shift assessment complete. Patient denies SOB, dizziness, chest pain. States she does have some nausea and it is hard to breathe with her abdomen distended. Lung sounds clear throughout, heart sounds normal and tachy. Bowel sounds audible X4. Patient c/o pain in lower back and pain throughout most of abdomen, originating from right side. Patient is upset, crying, states "I am in any much pain and no one wants to help me, everyone is assuming I am addicted to pain pills. I can't continue on with pain like this and I don't know what else to do. I can't work because I can't stand more than 5 min without being in pain". Patient also states that her abdomen is bigger than yesterday. Abdomen is distended and firm. Denies other needs at this time. Call light within reach.
[2018-10-10 11:13] VITALS: BP 150/92; PULSE 107; TEMP 98.1
--- NOTE | 2018-10-10 11:18 | NUR ---
Patient was upset and felt that the doctors and some of the staff were not treating her well because of her past. I assured her everyone was doing there best to treat her. I listened to her and prayed with her.
[2018-10-10] MEDS ORDERED: PHOSPHA 250 NEU1 TAB PO (14:02)
--- NOTE | 2018-10-10 14:45 | NUR ---
Patient being discharged. Discharge instructions discussed, all questions answered. No other questions at this time. RFA IV discontinued, catheter tip intact, no infiltration or phlebitis. Patient escorted out with family, ambulatory.
== END 2018-10-10 14:45 | disposition home or self-care (01) | DRG 392 ==
LOC: COL.ER 09:47 → ICU 14:17 → MEDICAL 10-09 15:36
PROVIDERS: Family Medicine; Nurse Practitioner; Nurse Practitioner Family; ADMIT Hospitalist
PROC: 0W9G3ZZ Drainage of Peritoneal Cavity, Percutaneous Approach (ICD-10-PCS; principal; 2018-10-08)
DX: R10.11 Right upper quadrant pain (principal); E87.2 Acidosis; E44.0 Moderate protein-calorie malnutrition; K70.31 Alcoholic cirrhosis of liver with ascites; F10.20 Alcohol dependence, uncomplicated; E11.65 Type 2 diabetes mellitus with hyperglycemia; I10 Essential (primary) hypertension; E83.42 Hypomagnesemia; E83.39 Other disorders of phosphorus metabolism; Y90.4 Blood alcohol level of 80-99 mg/100 ml; G89.29 Other chronic pain; E78.5 Hyperlipidemia, unspecified; Z87.891 Personal history of nicotine dependence; F32.9 Major depressive disorder, single episode, unspecified; Z68.26 Body mass index [BMI] 26.0-26.9, adult
CPT/HCPCS: 99222-AI; 99233-AI; A4216; J0696; J1170; J1815; J2270; J2405; J3010; J3475; J7030; J7050

== ENCOUNTER 2018-11-09 13:07 | Emergency (ER) | payer BC ==
[~2018-11-09] VITALS: Ht 165.1 cm; Wt 75.7 kg
[~2018-11-09 13:07] MED LIST changes: +OYSTER SHELL C500 MG PO
[2018-11-09 13:19] VITALS: TEMP 99
[2018-11-09 14:44] LABS: BASO # 0.1 (0.0-0.2); EOS # 0.3 (0.0-0.7); EOS % 2.1 % (0-4.0); GRAN # 7.5 (1.4-6.5); GRAN % 55.8 % (42.2-75.2); HEMOGLOBIN 11.7 g/dl (12.5-16.0); LYMPH # 4.3 (1.2-3.4); MEAN CELL VOLUME 95 fl (80.0-100.0); MEAN CORPUSCULAR HEMOGLOBIN 31 pg (27.0-31.0); MEAN CORPUSCULAR HGB CONC 33 g/dl (33.0-37.0); MEAN PLATELET VOLUME 9.5 fl (7.4-10.4); MONO # 1.1 (0.1-0.6); MONO % 8.3 % (1.7-9.3); PLATELET COUNT 305 K/mm3 (130-400); RED BLOOD COUNT 3.76 M/mm3 (4.10-5.30); REDCELL DISTRIBUTION WIDTH-CV 14.4 % (11.5-14.5)
[2018-11-09 14:45] LABS: HEMATOCRIT 35.6 % (37.0-47.0)
[2018-11-09 14:47] LABS: COLLECTION METHOD CLEAN CATCH
[2018-11-09 14:55] LABS: MUCOUS Present /lpf; PH 6 (5-8); URINE APPEARANCE Hazy; URINE BACTERIA None Seen /hpf; URINE BILIRUBIN Negative (NEGATIVE); URINE BLOOD 3+ (NEGATIVE); URINE COLOR Yellow; URINE GLUCOSE 1+ (NEGATIVE); URINE KETONE Negative (NEGATIVE); URINE LEUKOCYTE ESTERASE Negative (NEGATIVE); URINE NITRATE Negative (NEGATIVE); URINE PROTEIN(semi-quant) Negative (NEGATIVE); URINE UROBILINOGEN Negative (NEGATIVE)
[2018-11-09 14:57] LABS: ALANINE AMINOTRANSFERASE < 6 U/L (9-52); ALBUMIN 3.7 gm/dL (3.5-5.0); ALKALINE PHOSPHATASE 93 U/L (50-136); ANION GAP 14 mmol/L (7-16); AST,SGOT 39 U/L (15-37); BILIRUBIN,TOTAL 0.8 mg/dL (0.0-1.0); BLOOD UREA NITROGEN 2 mg/dL (7-17); CARBON DIOXIDE 22 mmol/L (22-30); CHLORIDE 107 mmol/L (98-107); CREATININE, serum 0.54 (0.52-1.25); GLUCOSE 185 mg/dL (74-106); LIPASE 102 U/L (23-300); POTASSIUM 3.6 mmol/L (3.4-5.0); SODIUM 143 mmol/L (137-145); TOTAL PROTEIN 8.1 gm/dL (6.4-8.2)
[2018-11-09 15:11] LABS: C-REACTIVE PROTEIN 0.5 mg/dL (0.0-0.9)
[2018-11-09 16:15] VITALS: BP 162/113; PULSE 111
== END 2018-11-09 16:30 | disposition home or self-care (01) ==
LOC: COL.ER 13:07
PROVIDERS: Emergency Medicine
DX: R10.0 Acute abdomen (principal); I10 Essential (primary) hypertension; K70.31 Alcoholic cirrhosis of liver with ascites; G89.29 Other chronic pain; E78.5 Hyperlipidemia, unspecified
CPT/HCPCS: C9113; J2060; J2270; J2765; J7030

== ENCOUNTER 2018-11-21 14:40 | Emergency (ER) | payer BC ==
[~2018-11-21] VITALS: Ht 165.1 cm; Wt 75.0 kg
[2018-11-21 14:47] VITALS: TEMP 97.4
[2018-11-21 15:49] LABS: COLLECTION METHOD CLEAN CATCH
[2018-11-21 15:55] LABS: BASO % 0.7 % (0.0-2.0); EOS # 0.2 (0.0-0.7); EOS % 2.8 % (0-4.0); GRAN # 3.1 (1.4-6.5); HEMOGLOBIN 10.9 g/dl (12.5-16.0); LYMPH # 2.2 (1.2-3.4); LYMPH % 35.8 % (20.0-51.0); MEAN CELL VOLUME 99 fl (80.0-100.0); MEAN CORPUSCULAR HEMOGLOBIN 32 pg (27.0-31.0); MEAN CORPUSCULAR HGB CONC 32 g/dl (33.0-37.0); MEAN PLATELET VOLUME 10.3 fl (7.4-10.4); MONO # 0.6 (0.1-0.6); MONO % 10.4 % (1.7-9.3); PLATELET COUNT 210 K/mm3 (130-400); RED BLOOD COUNT 3.45 M/mm3 (4.10-5.30); REDCELL DISTRIBUTION WIDTH-CV 13.9 % (11.5-14.5)
[2018-11-21 15:58] LABS: HEMATOCRIT 34.2 % (37.0-47.0)
[2018-11-21 15:59] LABS: INR 1.4 (0.8-3.0); PROTHROMBIN TIME 16.8 SECONDS (9.7-12.8)
[2018-11-21 16:02] LABS: PARTIAL THROMBOPLASTIN TIME 44.3 SECONDS (26.0-37.0)
[2018-11-21 16:06] LABS: MUCOUS Present /lpf; PH 5 (5-8); URINE APPEARANCE Clear; URINE BACTERIA None Seen /hpf; URINE BILIRUBIN Negative (NEGATIVE); URINE BLOOD Negative (NEGATIVE); URINE COLOR Yellow; URINE GLUCOSE Negative (NEGATIVE); URINE KETONE Negative (NEGATIVE); URINE LEUKOCYTE ESTERASE Negative (NEGATIVE); URINE NITRATE Negative (NEGATIVE); URINE PROTEIN(semi-quant) Negative (NEGATIVE); URINE RBC 0-2 /hpf; URINE UROBILINOGEN Negative (NEGATIVE)
[2018-11-21 16:11] LABS: ALANINE AMINOTRANSFERASE < 6 U/L (9-52); ALBUMIN 3.7 gm/dL (3.5-5.0); ALKALINE PHOSPHATASE 79 U/L (50-136); ANION GAP 9 mmol/L (7-16); AST,SGOT 38 U/L (15-37); BILIRUBIN,TOTAL 0.8 mg/dL (0.0-1.0); BLOOD UREA NITROGEN 13 mg/dL (7-17); C-REACTIVE PROTEIN 0.6 mg/dL (0.0-0.9); CALCIUM 9.2 mg/dL (8.4-10.2); CARBON DIOXIDE 31 mmol/L (22-30); CHLORIDE 100 mmol/L (98-107); CREATININE, serum 1.26 (0.52-1.25); GLUCOSE 96 mg/dL (74-106); LIPASE 43 U/L (23-300); MAGNESIUM 1.5 mg/dL (1.6-2.3); POTASSIUM 4.3 mmol/L (3.4-5.0); SODIUM 139 mmol/L (137-145)
[2018-11-21 16:13] LABS: ALCOHOL(ethanol),MEDICAL < 10 mg/dL
[2018-11-21] MEDS ORDERED: PHENERGAN 25 TA25 MG PO (17:46)
[2018-11-21] MEDS ORDERED: PROTONIX 40MG T40 MG PO (17:48)
[2018-11-21 19:00] VITALS: BP 118/75; PULSE 81
== END 2018-11-21 19:00 | disposition home or self-care (01) ==
LOC: COL.ER 14:40
PROVIDERS: Emergency Medicine
DX: R18.8 Other ascites (principal); F10.20 Alcohol dependence, uncomplicated
CPT/HCPCS: C9113; J1200; J1630; J3475; J7030

== ENCOUNTER 2018-12-13 11:04 | Emergency (ER) | payer BC ==
[~2018-12-13] VITALS: Ht 167.6 cm; Wt 75.0 kg
[2018-12-13] MEDS ORDERED: CONSTULOSE 20G/30ML PO (11:25)
[2018-12-13 11:30] LABS: BASO # 0.1 (0.0-0.2); EOS # 0.3 (0.0-0.7); EOS % 2.3 % (0-4.0); GRAN # 7.9 (1.4-6.5); GRAN % 60.6 % (42.2-75.2); HEMATOCRIT 42.4 % (37.0-47.0); HEMOGLOBIN 13.8 g/dl (12.5-16.0); LYMPH # 3.9 (1.2-3.4); LYMPH % 29.8 % (20.0-51.0); MEAN CELL VOLUME 88 fl (80.0-100.0); MEAN CORPUSCULAR HEMOGLOBIN 29 pg (27.0-31.0); MEAN CORPUSCULAR HGB CONC 33 g/dl (33.0-37.0); MEAN PLATELET VOLUME 9.2 fl (7.4-10.4); MONO # 0.8 (0.1-0.6); MONO % 5.9 % (1.7-9.3); PLATELET COUNT 355 K/mm3 (130-400); RED BLOOD COUNT 4.82 M/mm3 (4.10-5.30)
[2018-12-13 11:44] LABS: ALBUMIN 3.9 gm/dL (3.5-5.0); BILIRUBIN,TOTAL 0.9 mg/dL (0.0-1.0); C-REACTIVE PROTEIN 0.6 mg/dL (0.0-0.9); CREATININE, serum 0.66 (0.52-1.25); POTASSIUM 3.4 mmol/L (3.4-5.0); TOTAL PROTEIN 8.4 gm/dL (6.4-8.2)
[2018-12-13] MEDS ORDERED: ZOFRAN 4MG T4 MG/TAB PO ×2 (15:05)
[2018-12-13 15:14] LABS: MAGNESIUM 1.3 mg/dL (1.6-2.3)
[2018-12-13] MEDS ORDERED: ZOFRAN ODT4 MG PO (15:35)
[2018-12-13 15:55] VITALS: TEMP 98.6
[2018-12-13 15:57] VITALS: BP 136/98; PULSE 93
== END 2018-12-13 15:55 | disposition home or self-care (01) ==
LOC: COL.ER 11:04
PROVIDERS: Emergency Medicine
DX: R18.8 Other ascites (principal)
CPT/HCPCS: J0780; J1170; J1200

== ENCOUNTER 2019-02-11 08:08 | Emergency (ER) | payer BC ==
[~2019-02-11] VITALS: Ht 165.1 cm; Wt 74.0 kg
[~2019-02-11 08:08] MED LIST changes: +CONSTULOSE 20G/30ML PO
[2019-02-11 08:12] VITALS: TEMP 98.3
[2019-02-11 09:13] LABS: BASO # 0.1 (0.0-0.2); BASO % 0.9 % (0.0-2.0); EOS % 0.6 % (0-4.0); GRAN % 56.9 % (42.2-75.2); HEMATOCRIT 35.8 % (37.0-47.0); HEMOGLOBIN 12.4 g/dl (12.5-16.0); LYMPH # 2.2 (1.2-3.4); LYMPH % 31.2 % (20.0-51.0); MEAN CELL VOLUME 85 fl (80.0-100.0); MEAN CORPUSCULAR HEMOGLOBIN 30 pg (27.0-31.0); MEAN CORPUSCULAR HGB CONC 35 g/dl (33.0-37.0); MEAN PLATELET VOLUME 9.5 fl (7.4-10.4); MONO # 0.7 (0.1-0.6); MONO % 10.1 % (1.7-9.3); PLATELET COUNT 187 K/mm3 (130-400); RED BLOOD COUNT 4.21 M/mm3 (4.10-5.30); REDCELL DISTRIBUTION WIDTH-CV 23.2 % (11.5-14.5)
[2019-02-11 09:15] LABS: INR 1.5 (0.8-3.0); PROTHROMBIN TIME 17.2 SECONDS (9.7-12.8)
[2019-02-11 09:22] LABS: ALBUMIN 3.4 gm/dL (3.5-5.0); BILIRUBIN,TOTAL 1.3 mg/dL (0.0-1.0); CALCIUM 7.6 mg/dL (8.4-10.2); CREATININE, serum 0.75 (0.52-1.25); TOTAL PROTEIN 8.1 gm/dL (6.4-8.2)
[2019-02-11 09:24] LABS: POTASSIUM 2.8 mmol/L (3.4-5.0)
[2019-02-11 09:25] LABS: MAGNESIUM 0.9 mg/dL (1.6-2.3)
[2019-02-11 15:32] VITALS: BP 124/85; PULSE 92
[2019-02-11] MEDS ORDERED: DAZIDOX10 MG PO (15:33)
== END 2019-02-11 15:43 | disposition home or self-care (01) ==
LOC: COL.ER 08:08
PROVIDERS: Physician Assistant
DX: K70.31 Alcoholic cirrhosis of liver with ascites (principal); E87.6 Hypokalemia; E83.51 Hypocalcemia; E83.42 Hypomagnesemia; I10 Essential (primary) hypertension; Z87.891 Personal history of nicotine dependence
CPT/HCPCS: J1170; J1885; J2550; J3010; J3475; J7040; P9047

== ENCOUNTER 2019-02-14 10:32 | Emergency (ER) | payer BC ==
[~2019-02-14] VITALS: Ht 165.1 cm; Wt 69.1 kg
[~2019-02-14 10:32] MED LIST changes: +DAZIDOX10 MG PO
[2019-02-14 10:37] VITALS: TEMP 98.7
[2019-02-14 11:20] LABS: BASO # 0.1 (0.0-0.2); BASO % 0.9 % (0.0-2.0); EOS # 0.1 (0.0-0.7); EOS % 0.8 % (0-4.0); GRAN # 6.7 (1.4-6.5); GRAN % 60.9 % (42.2-75.2); HEMATOCRIT 39.3 % (37.0-47.0); HEMOGLOBIN 13.4 g/dl (12.5-16.0); LYMPH # 3.1 (1.2-3.4); LYMPH % 28.1 % (20.0-51.0); MEAN CELL VOLUME 88 fl (80.0-100.0); MEAN CORPUSCULAR HEMOGLOBIN 30 pg (27.0-31.0); MEAN CORPUSCULAR HGB CONC 34 g/dl (33.0-37.0); MONO % 8.8 % (1.7-9.3); PLATELET COUNT 234 K/mm3 (130-400); RED BLOOD COUNT 4.48 M/mm3 (4.10-5.30); REDCELL DISTRIBUTION WIDTH-CV 23.5 % (11.5-14.5)
[2019-02-14 11:34] LABS: ALBUMIN 3.7 gm/dL (3.5-5.0); BILIRUBIN,TOTAL 1.3 mg/dL (0.0-1.0); CALCIUM 8.8 mg/dL (8.4-10.2); CREATININE, serum 0.57 (0.52-1.25); MAGNESIUM 1.3 mg/dL (1.6-2.3); POTASSIUM 3.3 mmol/L (3.4-5.0); TOTAL PROTEIN 8.1 gm/dL (6.4-8.2)
[2019-02-14 11:37] LABS: INR 1.5 (0.8-3.0); PROTHROMBIN TIME 17.2 SECONDS (9.7-12.8)
[2019-02-14 12:45] LABS: COLLECTION METHOD CLEAN CATCH
[2019-02-14 13:14] LABS: MUCOUS Present /lpf; PH 5 (5-8); SQUAMOUS EPITHELIAL 0-2 /hpf; URINE APPEARANCE Clear; URINE BACTERIA None Seen /hpf; URINE BILIRUBIN Negative (NEGATIVE); URINE BLOOD Negative (NEGATIVE); URINE COLOR Amber; URINE GLUCOSE 1+ (NEGATIVE); URINE KETONE Negative (NEGATIVE); URINE LEUKOCYTE ESTERASE Negative (NEGATIVE); URINE NITRATE Negative (NEGATIVE); URINE PROTEIN(semi-quant) 1+ (NEGATIVE); URINE RBC 0-2 /hpf; URINE UROBILINOGEN >=4.0 mg/dL (NEGATIVE)
[2019-02-14 15:52] LABS: TRICYCLIC ANTIDEPRESS URINE NEGATIVE
[2019-02-14] MEDS ORDERED: LIDODERM 5% PATC1 EA TP (16:23)
[2019-02-14 16:48] VITALS: BP 148/80; PULSE 68
== END 2019-02-14 16:47 | disposition home or self-care (01) ==
LOC: COL.ER 10:32
PROVIDERS: Physician Assistant
DX: K70.31 Alcoholic cirrhosis of liver with ascites (principal); S70.01XA Contusion of right hip, initial encounter; F11.10 Opioid abuse, uncomplicated; I10 Essential (primary) hypertension; E78.5 Hyperlipidemia, unspecified; W19.XXXA Unspecified fall, initial encounter
CPT/HCPCS: J1170; J2550; J7040

== ENCOUNTER 2019-02-15 16:21 | Emergency (ER) | payer BC ==
[~2019-02-15] VITALS: Ht 165.1 cm; Wt 74.5 kg
[~2019-02-15 16:21] MED LIST changes: +LIDODERM 5% PATC1 EA TP
[2019-02-15 16:27] VITALS: TEMP 99.4
[2019-02-15 18:03] LABS: BASO # 0.1 (0.0-0.2); BASO % 0.8 % (0.0-2.0); EOS # 0.1 (0.0-0.7); EOS % 0.9 % (0-4.0); GRAN # 6.5 (1.4-6.5); GRAN % 64.2 % (42.2-75.2); HEMATOCRIT 39.9 % (37.0-47.0); HEMOGLOBIN 13.4 g/dl (12.5-16.0); LYMPH # 2.7 (1.2-3.4); LYMPH % 26.7 % (20.0-51.0); MEAN CELL VOLUME 89 fl (80.0-100.0); MEAN CORPUSCULAR HEMOGLOBIN 30 pg (27.0-31.0); MEAN CORPUSCULAR HGB CONC 34 g/dl (33.0-37.0); MEAN PLATELET VOLUME 9.3 fl (7.4-10.4); MONO # 0.7 (0.1-0.6); MONO % 6.8 % (1.7-9.3); PLATELET COUNT 206 K/mm3 (130-400); RED BLOOD COUNT 4.51 M/mm3 (4.10-5.30); REDCELL DISTRIBUTION WIDTH-CV 23.1 % (11.5-14.5)
[2019-02-15 18:17] LABS: ALANINE AMINOTRANSFERASE < 6 U/L (9-52); ALBUMIN 3.8 gm/dL (3.5-5.0); ALCOHOL(ethanol),MEDICAL 12 mg/dL; ALKALINE PHOSPHATASE 170 U/L (50-136); ANION GAP 16 mmol/L (7-16); AST,SGOT 58 U/L (15-37); BILIRUBIN,TOTAL 1.7 mg/dL (0.0-1.0); BLOOD UREA NITROGEN 3 mg/dL (7-17); C-REACTIVE PROTEIN 0.6 mg/dL (0.0-0.9); CALCIUM 9.3 mg/dL (8.4-10.2); CARBON DIOXIDE 25 mmol/L (22-30); CHLORIDE 96 mmol/L (98-107); CREATININE, serum 0.78 (0.52-1.25); GLUCOSE 103 mg/dL (74-106); LIPASE 59 U/L (23-300); MAGNESIUM 1.3 mg/dL (1.6-2.3); PHOSPHOROUS 2.6 mg/dL (2.5-4.5); POTASSIUM 3.5 mmol/L (3.4-5.0); SODIUM 137 mmol/L (137-145); TOTAL PROTEIN 8.4 gm/dL (6.4-8.2)
[2019-02-15 18:35] LABS: COLLECTION METHOD CLEAN CATCH
[2019-02-15 18:40] LABS: PH 5 (5-8); SQUAMOUS EPITHELIAL 0-2 /hpf; URINE APPEARANCE Clear; URINE BACTERIA Rare /hpf; URINE BILIRUBIN Negative (NEGATIVE); URINE BLOOD Negative (NEGATIVE); URINE COLOR Yellow; URINE GLUCOSE Negative (NEGATIVE); URINE KETONE Negative (NEGATIVE); URINE LEUKOCYTE ESTERASE Negative (NEGATIVE); URINE NITRATE Negative (NEGATIVE); URINE PROTEIN(semi-quant) Negative (NEGATIVE); URINE RBC 0-2 /hpf; URINE UROBILINOGEN Negative (NEGATIVE)
[2019-02-15 19:42] VITALS: BP 168/113; PULSE 111
== END 2019-02-15 19:45 | disposition home or self-care (01) ==
LOC: COL.ER 16:21
PROVIDERS: Emergency Medicine
DX: R18.8 Other ascites (principal); K74.60 Unspecified cirrhosis of liver; R11.10 Vomiting, unspecified; R19.7 Diarrhea, unspecified; E11.9 Type 2 diabetes mellitus without complications; I10 Essential (primary) hypertension
CPT/HCPCS: J1170; J2405

== ENCOUNTER 2019-02-21 14:28 | Emergency (ER) | payer BC ==
[~2019-02-21] VITALS: Ht 165.1 cm; Wt 70.0 kg
[2019-02-21 18:04] LABS: BASO % 0.4 % (0.0-2.0); EOS # 0.1 (0.0-0.7); EOS % 1.5 % (0-4.0); GRAN # 5.5 (1.4-6.5); GRAN % 61.9 % (42.2-75.2); HEMOGLOBIN 11.6 g/dl (12.5-16.0); LYMPH # 2.5 (1.2-3.4); LYMPH % 27.6 % (20.0-51.0); MEAN CELL VOLUME 90 fl (80.0-100.0); MEAN CORPUSCULAR HEMOGLOBIN 31 pg (27.0-31.0); MEAN CORPUSCULAR HGB CONC 34 g/dl (33.0-37.0); MEAN PLATELET VOLUME 9.6 fl (7.4-10.4); MONO # 0.7 (0.1-0.6); PLATELET COUNT 182 K/mm3 (130-400); REDCELL DISTRIBUTION WIDTH-CV 21.2 % (11.5-14.5)
[2019-02-21 18:11] LABS: HEMATOCRIT 34.2 % (37.0-47.0)
[2019-02-21 18:16] LABS: ALBUMIN 3.2 gm/dL (3.5-5.0); BILIRUBIN,TOTAL 1.2 mg/dL (0.0-1.0); C-REACTIVE PROTEIN 0.8 mg/dL (0.0-0.9); CALCIUM 7.6 mg/dL (8.4-10.2); CREATININE, serum 0.81 (0.52-1.25); TOTAL PROTEIN 7.2 gm/dL (6.4-8.2)
[2019-02-21 18:24] LABS: COLLECTION METHOD CLEAN CATCH
[2019-02-21 18:30] LABS: POTASSIUM 2.9 mmol/L (3.4-5.0)
[2019-02-21 18:31] LABS: PH 6 (5-8); URINE APPEARANCE Clear; URINE BACTERIA None Seen /hpf; URINE BILIRUBIN Positive (NEGATIVE); URINE BLOOD Negative (NEGATIVE); URINE COLOR Amber; URINE GLUCOSE Negative (NEGATIVE); URINE KETONE Negative (NEGATIVE); URINE LEUKOCYTE ESTERASE Negative (NEGATIVE); URINE NITRATE Negative (NEGATIVE); URINE PROTEIN(semi-quant) 1+ (NEGATIVE); URINE RBC 0-2 /hpf; URINE UROBILINOGEN >=4.0 mg/dL (NEGATIVE)
[2019-02-21 20:01] VITALS: PULSE 101
[2019-02-21] MEDS ORDERED: ROXICODONE 55 MG/TAB PO (20:20)
[2019-02-21] MEDS ORDERED: ZOFRAN ODT4 MG PO (20:20)
[2019-02-21 21:37] VITALS: BP 125/75; TEMP 95
== END 2019-02-21 21:38 | disposition home or self-care (01) ==
LOC: COL.ER 14:28
PROVIDERS: Emergency Medicine
DX: E87.6 Hypokalemia (principal); R18.8 Other ascites; E83.42 Hypomagnesemia
CPT/HCPCS: J0780; J1885; J3475

== ENCOUNTER 2019-02-24 22:38 | Emergency (ER) | payer BC ==
[~2019-02-24] VITALS: Ht 165.1 cm; Wt 71.4 kg
[2019-02-24 22:45] VITALS: TEMP 99.2
[2019-02-25 00:24] VITALS: BP 125/100; PULSE 97
== END 2019-02-25 00:25 | disposition home or self-care (01) ==
LOC: COL.ER 22:38
DX: S80.02XA Contusion of left knee, initial encounter (principal); I10 Essential (primary) hypertension; F32.9 Major depressive disorder, single episode, unspecified; F17.210 Nicotine dependence, cigarettes, uncomplicated; Y04.8XXA Assault by other bodily force, initial encounter

== ENCOUNTER 2019-02-27 11:12 | Emergency (ER) | payer BC ==
[~2019-02-27] VITALS: Ht 167.6 cm; Wt 71.7 kg
[2019-02-27 11:22] VITALS: BP 152/98; TEMP 97.9
[2019-02-27 12:16] LABS: BASO # 0.1 (0.0-0.2); BASO % 0.7 % (0.0-2.0); EOS # 0.1 (0.0-0.7); EOS % 1.5 % (0-4.0); GRAN # 5.3 (1.4-6.5); GRAN % 60.7 % (42.2-75.2); HEMATOCRIT 37.7 % (37.0-47.0); HEMOGLOBIN 12.6 g/dl (12.5-16.0); LYMPH # 2.4 (1.2-3.4); LYMPH % 27.8 % (20.0-51.0); MEAN CELL VOLUME 93 fl (80.0-100.0); MEAN CORPUSCULAR HEMOGLOBIN 31 pg (27.0-31.0); MEAN CORPUSCULAR HGB CONC 33 g/dl (33.0-37.0); MEAN PLATELET VOLUME 9.6 fl (7.4-10.4); MONO # 0.8 (0.1-0.6); PLATELET COUNT 231 K/mm3 (130-400); RED BLOOD COUNT 4.04 M/mm3 (4.10-5.30); REDCELL DISTRIBUTION WIDTH-CV 19.7 % (11.5-14.5)
[2019-02-27 12:22] LABS: INR 1.4 (0.8-3.0); PROTHROMBIN TIME 16.3 SECONDS (9.7-12.8)
[2019-02-27 12:32] LABS: ALANINE AMINOTRANSFERASE < 6 U/L (9-52); ALBUMIN 3.4 gm/dL (3.5-5.0); ALKALINE PHOSPHATASE 142 U/L (50-136); ANION GAP 12 mmol/L (7-16); AST,SGOT 40 U/L (15-37); BLOOD UREA NITROGEN 10 mg/dL (7-17); CALCIUM 8.3 mg/dL (8.4-10.2); CARBON DIOXIDE 29 mmol/L (22-30); CHLORIDE 97 mmol/L (98-107); CREATININE, serum 1.25 (0.52-1.25); GLUCOSE 123 mg/dL (74-106); LIPASE 44 U/L (23-300); MAGNESIUM 1.1 mg/dL (1.6-2.3); POTASSIUM 3.6 mmol/L (3.4-5.0); SODIUM 138 mmol/L (137-145); TOTAL PROTEIN 7.7 gm/dL (6.4-8.2)
[2019-02-27 12:51] LABS: COLLECTION METHOD CLEAN CATCH
[2019-02-27 13:07] LABS: MUCOUS Present /lpf; PH 5 (5-8); SQUAMOUS EPITHELIAL >50 /hpf; URINE APPEARANCE Cloudy; URINE BACTERIA Many /hpf; URINE BILIRUBIN Negative (NEGATIVE); URINE BLOOD Negative (NEGATIVE); URINE COLOR Amber; URINE GLUCOSE Negative (NEGATIVE); URINE KETONE Negative (NEGATIVE); URINE LEUKOCYTE ESTERASE Trace (NEGATIVE); URINE NITRATE Negative (NEGATIVE); URINE PROTEIN(semi-quant) Negative (NEGATIVE); URINE UROBILINOGEN >=4.0 mg/dL (NEGATIVE)
[2019-02-27 13:57] VITALS: PULSE 91
[2019-03-01] MEDS ORDERED: PROTONIX 40MG T40 MG PO (12:35)
[2019-03-01] MEDS ORDERED: ZOFRAN ODT4 MG PO (12:36)
[2019-03-01] MEDS ORDERED: PRILOSEC 20MG20 MG PO (12:47)
[2019-03-01] MEDS ORDERED: LASIX 40MG TABL40 MG PO (12:48)
== END 2019-02-27 13:57 | disposition home or self-care (01) ==
LOC: COL.ER 11:12
PROVIDERS: Family Medicine
DX: R18.8 Other ascites (principal)
CPT/HCPCS: J1170; J1940; J2270; J2405; J2550

== ENCOUNTER → 2019-03-01 | Outpatient (CLI) | payer BC ==
[~2019-03-01] VITALS: Ht 167.6 cm; Wt 70.5 kg
[2019-03-01 12:51] VITALS: BP 136/99; PULSE 112
[2019-03-01 14:00] VITALS: BP 133/102; PULSE 106
--- NOTE | 2019-03-01 14:20 | NUR ---
pt out to car per ambulation. Pt reports pain unchanged. Bandaid to site clean dry and intact. Discharge instructions gone over previously. Pt denied wanting copy of discharge instructions.
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
== END ==
LOC: COL.RAD 10:01
DX: K74.69 Other cirrhosis of liver (principal)

== ENCOUNTER 2019-03-07 14:19 | Emergency (ER) | payer BC ==
[~2019-03-07] VITALS: Ht 167.6 cm; Wt 70.5 kg
[2019-03-07 15:21] LABS: BASO # 0.1 (0.0-0.2); BASO % 0.7 % (0.0-2.0); EOS # 0.2 (0.0-0.7); EOS % 1.6 % (0-4.0); GRAN # 7.1 (1.4-6.5); GRAN % 64.9 % (42.2-75.2); HEMATOCRIT 38.5 % (37.0-47.0); HEMOGLOBIN 12.9 g/dl (12.5-16.0); LYMPH # 2.7 (1.2-3.4); LYMPH % 24.8 % (20.0-51.0); MEAN CELL VOLUME 95 fl (80.0-100.0); MEAN CORPUSCULAR HEMOGLOBIN 32 pg (27.0-31.0); MEAN CORPUSCULAR HGB CONC 34 g/dl (33.0-37.0); MEAN PLATELET VOLUME 8.9 fl (7.4-10.4); MONO # 0.8 (0.1-0.6); MONO % 7.5 % (1.7-9.3); PLATELET COUNT 242 K/mm3 (130-400); RED BLOOD COUNT 4.05 M/mm3 (4.10-5.30); REDCELL DISTRIBUTION WIDTH-CV 16.7 % (11.5-14.5)
[2019-03-07 15:30] LABS: INR 1.4 (0.8-3.0); PROTHROMBIN TIME 16.5 SECONDS (9.7-12.8)
[2019-03-07 15:34] LABS: ALBUMIN 3.2 gm/dL (3.5-5.0); CALCIUM 8.5 mg/dL (8.4-10.2); CREATININE, serum 0.64 (0.52-1.25); POTASSIUM 3.2 mmol/L (3.4-5.0); TOTAL PROTEIN 7.5 gm/dL (6.4-8.2)
[2019-03-07 16:00] LABS: COLLECTION METHOD CLEAN CATCH
[2019-03-07 16:13] LABS: HYALINE CAST >12 /lpf; MUCOUS Present /lpf; PH 5 (5-8); URINE APPEARANCE Hazy; URINE BACTERIA Rare /hpf; URINE BILIRUBIN Negative (NEGATIVE); URINE BLOOD Negative (NEGATIVE); URINE COLOR Amber; URINE GLUCOSE Negative (NEGATIVE); URINE KETONE Negative (NEGATIVE); URINE LEUKOCYTE ESTERASE Negative (NEGATIVE); URINE NITRATE Negative (NEGATIVE); URINE PROTEIN(semi-quant) Negative (NEGATIVE)
[2019-03-07 16:50] VITALS: BP 118/78; PULSE 82; TEMP 98.2
[2019-03-07] MEDS ORDERED: ZOFRAN 4MG T4 MG/TAB PO (16:51)
== END 2019-03-07 17:00 | disposition left against medical advice (07) ==
LOC: COL.ER 14:19
PROVIDERS: Emergency Medicine
DX: K70.31 Alcoholic cirrhosis of liver with ascites (principal)
CPT/HCPCS: J2270; J2405; J7030

== ENCOUNTER → 2019-03-30 | Outpatient (CLI) | payer BC ==
[~2019-03-30] VITALS: Ht 167.6 cm; Wt 70.6 kg
[~2019-03-30] MED LIST changes: +XIFAXAN550 MG PO
[2019-03-30 13:25] VITALS: BP 156/108; PULSE 109
[2019-03-30 15:22] VITALS: BP 145/106; PULSE 116
[2019-03-30 15:30] VITALS: BP 146/105; PULSE 107
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
== END ==
LOC: COL.RAD 03-26 09:00
DX: K70.31 Alcoholic cirrhosis of liver with ascites (principal)

== ENCOUNTER 2019-04-21 13:03 | Inpatient (IN) | payer BC ==
[2019-04-21] VITALS (172 sets, daily range): BP systolic 113–126; BP diastolic 89–98; PULSE 130–140; TEMP 97.7–97.8; O2SAT 94–100
[~2019-04-21] VITALS: Wt 72.0 kg
[2019-04-21 13:48] LABS: BASO # 0.1 (0.0-0.2); BASO % 0.9 % (0.0-2.0); EOS # 0.2 (0.0-0.7); EOS % 1.3 % (0-4.0); GRAN # 7.8 (1.4-6.5); GRAN % 67.6 % (42.2-75.2); HEMATOCRIT 42.9 % (37.0-47.0); HEMOGLOBIN 14.5 g/dl (12.5-16.0); LYMPH # 2.4 (1.2-3.4); MEAN CELL VOLUME 94 fl (80.0-100.0); MEAN CORPUSCULAR HEMOGLOBIN 32 pg (27.0-31.0); MEAN CORPUSCULAR HGB CONC 34 g/dl (33.0-37.0); MEAN PLATELET VOLUME 9.3 fl (7.4-10.4); MONO % 8.9 % (1.7-9.3); PLATELET COUNT 261 K/mm3 (130-400); RED BLOOD COUNT 4.55 M/mm3 (4.10-5.30); REDCELL DISTRIBUTION WIDTH-CV 12.5 % (11.5-14.5)
[2019-04-21 13:54] LABS: INR 1.5 (0.8-3.0); PROTHROMBIN TIME 17.5 SECONDS (9.7-12.8)
[2019-04-21 13:57] LABS: PARTIAL THROMBOPLASTIN TIME 36.8 SECONDS (26.0-37.0)
[2019-04-21 14:02] LABS: ALANINE AMINOTRANSFERASE < 6 U/L (9-52); ALBUMIN 3.4 gm/dL (3.5-5.0); ALCOHOL(ethanol),MEDICAL 27 mg/dL; ALKALINE PHOSPHATASE 264 U/L (50-136); ANION GAP 13 mmol/L (7-16); AST,SGOT 55 U/L (15-37); BILIRUBIN,TOTAL 1.2 mg/dL (0.0-1.0); BLOOD UREA NITROGEN 4 mg/dL (7-17); CALCIUM 8.7 mg/dL (8.4-10.2); CARBON DIOXIDE 25 mmol/L (22-30); CHLORIDE 96 mmol/L (98-107); CREATININE, serum 0.68 (0.52-1.25); GLUCOSE 136 mg/dL (74-106); MAGNESIUM 1.1 mg/dL (1.6-2.3); PHOSPHOROUS 3.6 mg/dL (2.5-4.5); POTASSIUM 3.7 mmol/L (3.4-5.0); SODIUM 134 mmol/L (137-145); TOTAL PROTEIN 8.6 gm/dL (6.4-8.2)
[2019-04-21 16:07] LABS: COLLECTION METHOD CLEAN CATCH
[2019-04-21 16:18] LABS: MUCOUS Present /lpf; PH 5 (5-8); URINE APPEARANCE Hazy; URINE BACTERIA None Seen /hpf; URINE BILIRUBIN Negative (NEGATIVE); URINE BLOOD Negative (NEGATIVE); URINE COLOR Amber; URINE GLUCOSE Negative (NEGATIVE); URINE KETONE Negative (NEGATIVE); URINE LEUKOCYTE ESTERASE Trace (NEGATIVE); URINE NITRATE Negative (NEGATIVE); URINE PROTEIN(semi-quant) Negative (NEGATIVE)
[2019-04-21 16:30] LABS: PERITONEAL -POLYMORPHONUCLEAR 8.1 % (0-25); PERITONEAL FLUID RBC 0 /mm3 (0-0)
[2019-04-21] MEDS ORDERED: ATIVAN 1MG T1 MG/TAB PO (17:16)
--- NOTE | 2019-04-21 20:28 | NUR ---
Arrived to [facility]. Patient alert and orientated x4. Assessment complete. Lungs clear. Heart sounds normal. Bowels active x4. ABD rounded and firm at this time. Reports 8.5/10 ABD pain. Request "pain medication." Pulses strong throughout. No edema noted. IV fluids started in right forearm as ordered. Spoke with Dr. Black. Updated Dr. Royal patient has arrived to [facility]. Pulse 144 at time of arrival and patient having pain. Dr. Black added orders for norco 5/325. Provided to patient. Patient detox score 5. Will provide ativan as ordered. in to visit patient. Denies other needs at this time. Call light in reach. Will monitor.
--- NOTE | 2019-04-21 20:32 | NUR ---
Updated Dr. Black regarding redraw for mag level. Now 1.8. No new orders at this time.
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
--- NOTE | 2019-04-21 21:26 | NUR ---
Patient reports 8/10 after previous administration of norco 5/325 1 tablet. Dose range in 1-2 tablets. Provided with second tablet at this time. Patient continues to report visual hallcinations. Recently received ativan. Will continue to monitor.
[2019-04-21 21:29] LABS: TRICYCLIC ANTIDEPRESS URINE NEGATIVE
--- NOTE | 2019-04-21 21:49 | NUR ---
Dr. Black in to see patient at this time.
--- NOTE | 2019-04-21 21:55 | NUR ---
Reported nausea. Provided with PRN zofran
--- NOTE | 2019-04-21 22:37 | NUR ---
Provided with Ativan 1mg IV for detox score of 6. Patient continues to report visual hallcinations of a cat sitting on patients bed.
[2019-04-22] VITALS (652 sets, daily range): BP systolic 103–134; BP diastolic 72–104; PULSE 106–144; TEMP 97.5–98.7; O2SAT 91–100
--- NOTE | 2019-04-22 00:29 | NUR ---
Resting in bed. Continues to have visual hallcinations. Reports auditory hallcinations of people "talking to me in my sleep." Patient has TV on while sleeping. Educated patient to turn television off while sleeping. Detox score 6. Provided with Ativan 1mg as ordered. Rating pain 8/10 in ABD. [place] not due until 329. Patient aware-offered warm pack, denied at this time. Denies other needs at this time. Call light in reach.
--- NOTE | 2019-04-22 02:17 | NUR ---
Patient resting in bed. Continues to report visual hallucinations. Detox score 5. Provided with Ativan 0.5mg at this time. Offered to assist patient to restroom-denies need to urinate. Will continue to monitor.
--- NOTE | 2019-04-22 03:33 | NUR ---
Reports 8/10 ABD pain. Provided with PRN norco as ordered.
--- NOTE | 2019-04-22 04:19 | NUR ---
Detox score of 6. Provided patient with 1mg of ativan as ordered. Denies other needs at this time.
[2019-04-22 05:25] LABS: BASO # 0.1 (0.0-0.2); BASO % 0.6 % (0.0-2.0); EOS # 0.3 (0.0-0.7); EOS % 2.9 % (0-4.0); GRAN # 6.2 (1.4-6.5); GRAN % 61.2 % (42.2-75.2); LYMPH # 2.4 (1.2-3.4); LYMPH % 23.6 % (20.0-51.0); MEAN CELL VOLUME 94 fl (80.0-100.0); MEAN CORPUSCULAR HGB CONC 34 g/dl (33.0-37.0); MEAN PLATELET VOLUME 9.5 fl (7.4-10.4); MONO # 1.1 (0.1-0.6); MONO % 11.2 % (1.7-9.3); PLATELET COUNT 191 K/mm3 (130-400); RED BLOOD COUNT 3.89 M/mm3 (4.10-5.30); REDCELL DISTRIBUTION WIDTH-CV 12.7 % (11.5-14.5)
[2019-04-22 05:26] LABS: HEMATOCRIT 36.6 % (37.0-47.0); MEAN CORPUSCULAR HEMOGLOBIN 32 pg (27.0-31.0)
[2019-04-22 05:27] LABS: HEMOGLOBIN 12.4 g/dl (12.5-16.0)
[2019-04-22 05:37] LABS: CALCIUM 7.7 mg/dL (8.4-10.2); CREATININE, serum 0.8 (0.52-1.25); MAGNESIUM 1.5 mg/dL (1.6-2.3); PHOSPHOROUS 2.6 mg/dL (2.5-4.5); POTASSIUM 3.9 mmol/L (3.4-5.0)
--- NOTE | 2019-04-22 06:28 | NUR ---
Patient detox score 5. Provided with ativan as ordered. Patient required Ativan Q2H throughout night. Requested norco x2 doses during night for ABD pain. Report anxiety this AM with potenial discharge. Patient does not feel she can refrain from alcohol intake while preparing and being taken to [place]-will pass this information on to next shift. Patient has concerns with going to rehab facility and maintain things at home. States "I am scared I will have nothing to come home to like last time." Educated patient providers recommend alcohol cessation. Voiced understanding. Sitting in bed watching television this AM. Denied needs. Call light in reach.
--- NOTE | 2019-04-22 07:08 | NUR ---
Report recieved from CRISTEL Daigle. Patient requests ice water at this time and is provided such. POC discussed and all questions asked answered. Bed in low and locked position, rails up x2, bed alarm armed. Care assumed.
--- NOTE | 2019-04-22 07:08 | NUR ---
Report given to CRISTEL Kothari
--- NOTE | 2019-04-22 14:47 | NUR ---
ASSEMBLER 1ST SHIFT student met with the patient to discuss a discharge plan. The patient lives in [place] with her . The patient does not use DME and reports independence with ADLs. The patient's PCP is Dr. Conn and patient receives medications from [facility] with no difficulties. The patient does not have advanced directives in the EMR but reports she is in the process of completing them. The patient plans to return home upon discharge. On Friday the patient will check herself into [facility] addiction [facility] in [place]. The patient's case folder at is named Yuli. There are no additional needs at this time.
--- NOTE | 2019-04-22 16:44 | NUR ---
Dr. Rachel rounds on patient. No new orders recieved at this time.
--- NOTE | 2019-04-22 19:00 | NUR ---
RECEIVED REPORT FROM CRISTEL ALEXANDER. PT SLEEPING EASILY AT THIS TIME. VSS. CALL LIGHT WITHIN REACH. PT ON RA. IV INFUSING WITHOUT DIFFICULTIES. BEDALARM IN PLACE.
--- NOTE | 2019-04-22 22:20 | NUR ---
PT REQUESTING MORE ATIVAN THAN WHAT IS SUPPOSED TO BE GIVEN. EDUCATED PT ON REASONS WHY HER HR COULD ALSO BE ELEVATED: ANXIETY, DEHYDRATION (URINE APPEARS DARK YELLOW AND SLIGHT FOUL ODRO NOTED), AND PT STATES SHE IS IN PAIN. EDUCATED PT ON TECHNIQUES TO HELP RELAX HERSELF AND HOW SHE HAS TO ATTEMPT TO START WORKING ON HER ANXIETY BECAUSE SHE CAN NOT GO HOME ON IV ATIVAN. VERBALIZED UNDERSTANDING. PT APPEARS TO BE AGITATED WITH ANSWER BY NURSE BUT IS COOPERATIVE WITH CARE. EDUCATED PT ON ADMINISTRATION OF PAIN MEDICATION WITH ATIVAN MY MAKE HER VERY SLEEPY/DROWSY AND HOW THE NURSE HAS TO ENSURE ADMINSITRATION OF MEDICATION IS SAFE FOR THE PT. PT VERBALIZED UNDERSTANDING. CALL LIGHT WITHIN REACH. BEDALARM IN PLACE.
[2019-04-23] VITALS (513 sets, daily range): BP systolic 96–128; BP diastolic 54–106; PULSE 100–146; TEMP 97–98.7; O2SAT 85–100
--- NOTE | 2019-04-23 01:10 | NUR ---
PT SITTING UP IN BED AND APPEARS TO BE VERY ANXIOUS AND TEARFUL. PT STATES "IT IS SO HARD TO BE IN HERE AND GET HELP AND THEN GET NO HELP ALL OF A SUDDEN." EXPLAINED TO PT ABOUT HOW MANY TIMES SHE HAS RECEIVED ATIVEN AND PAIN MEDICATION. ATTEMPTS MADE TO EXPLAIN TO PT ABOUT PROCESS AND ORDERS. EXPLAINED TO PT THAT SHE HAS TO LEARN TO TRY AND CALM SELF DOWN AND WORK ON TAKING DEEP BREATHS. SUGGESTIONS MADE TO PT ABOUT DRAWING OR LISTENING TO MUSIC FOR DISTRACTIONS. PT YELLS AT NURSE, "I AIN'T NO KID AND AM JUST GOING TO DRAW AWAY MY PROBLEMS. IF YOU'RE NOT GOING TO HELP ME THEN YOU SHOULD'VE JUST SENT ME HOME INSTEAD OF MAKE ME LAY IN THIS BED AND NOT HELP ME. I THOUGHT I WAS HERE TO GET HELP UNTIL I WENT TO THE REHAB PLACE ON FRIDAY MORNING." EXPLAINED TO PT AGAIN ABOUT ATIVAN AND PAIN MEDICATION ADMINISTRATION TIMES AND HOW SHE IS GETTING HELP AND THAT THE NURSE IS ONLY TRYING TO HELP HER FIND MORE WAYS TO CALM HERSELF. EXPLAINED TO PT THAT AT MIDNIGHT SHE WAS SNORING AND THAT NOW HER ANXIETY IS VERY HIGH AND HOW SCORING FOR WITHDRAW MAY NEED TO BE CHECKED AGAIN. PT VERY STAND OFF FROM NURSE AND IS SWAYING BACK IN FORTH SLIGHTLY IN BED AND CONTINUOUSLY RUNNING HER HANDS OVER HER HAIR. PT POINTS AT THE BEDSIDE MONITOR AND STATES, " I THOUGHT I WAS HERE BECAUSE MY HEART RATE WAS HIGH BECAUSE OF MY ANXIETY AND TO DETOX?" EXPLAINED TO PT ABOUT ADMISSION TO THE HOSPITAL BECAUSE SHE HAD A LOT OF FLUIDS TRAINED FROM HER ABDOMEN AND HER HR WAS HIGH AND REQUIRED CLOSER MONITORING, WITH ALSO HELPING HER DETOX. PT VERBALIZED UNDERSTANDING. SEE MAR FOR MEDICATION ADMINISTRATION. AFTER ABOUT 15 MINUTES AFTER ATIVAN, PT APPEARS TO CALM AND HR TO DECREASE FROM 150 TO 120s. PT ABLE TO REST AT THIS TIME. CALL LIGHT WITHIN REACH. BEDALARM IN PLACE.
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
--- NOTE | 2019-04-23 10:15 | NUR ---
PATIENT ANXIOUS CWA SCORE OF 10 ATIVAN ADMINISTERED
[2019-04-23 10:52] LABS: BASO # 0.1 (0.0-0.2); BASO % 0.9 % (0.0-2.0); EOS # 0.2 (0.0-0.7); GRAN # 5.6 (1.4-6.5); GRAN % 59.9 % (42.2-75.2); HEMATOCRIT 37.6 % (37.0-47.0); HEMOGLOBIN 12.6 g/dl (12.5-16.0); LYMPH # 2.5 (1.2-3.4); LYMPH % 26.7 % (20.0-51.0); MEAN CELL VOLUME 95 fl (80.0-100.0); MEAN CORPUSCULAR HEMOGLOBIN 32 pg (27.0-31.0); MEAN CORPUSCULAR HGB CONC 34 g/dl (33.0-37.0); MEAN PLATELET VOLUME 9.7 fl (7.4-10.4); MONO # 0.9 (0.1-0.6); PLATELET COUNT 179 K/mm3 (130-400); RED BLOOD COUNT 3.94 M/mm3 (4.10-5.30); REDCELL DISTRIBUTION WIDTH-CV 12.6 % (11.5-14.5)
[2019-04-23 11:02] LABS: CALCIUM 7.3 mg/dL (8.4-10.2); CREATININE, serum 1.2 (0.52-1.25); MAGNESIUM 1.1 mg/dL (1.6-2.3); POTASSIUM 3.7 mmol/L (3.4-5.0)
--- NOTE | 2019-04-23 11:11 | NUR ---
PATIENT REMAINS ANXIOUS USING EXCUSES TO GET AWAY TRYING TO CALM PATIENT CWA SCORED AGAIN MEDS ADMINISTERED
--- NOTE | 2019-04-23 14:47 | NUR ---
worker's compensation claims examiner met with patient and also with physician and nurses. Worker spoke with David and Joyce at [facility] and confirmed that patient has an inpatient bed being held and can come on Friday. Patient verbalized agreement with this plan and states that her father will be transporting her to alcohol treatment facility. Worker faxed medication lists to [facility] and physician spoke with them about current health issues of the patient. [facility] has agreeed to accept. [place] #'s: [phone]/f:[phone].
--- NOTE | 2019-04-23 17:57 | NUR ---
PATIENT TAKEN TO [facility] NURSE REPORT GIVEN TO DINORAH FAM
--- NOTE | 2019-04-23 18:56 | NUR ---
Pt up to Room 356 from ICU, transferred by ANTOINE NAPOLESA to bed. Pt A&O, sitting in bed eating dinner with SO at bedside. Lung sounds diminished at bases, pt denies N/V/D, SOB, chest pain. Pt c/o of anxiety and abdominal discomfort. Abdomen distended, hard to touch, left side abdomen w/ bandaid from fluid removal. HR tachy, normal rhythm. Pulses strong bilaterally. Pt c/o "some dizziness". Pt instructed to use call light for assistance. RFA INT IV flushes w/ no complications. No other concerns voiced at this time.
--- NOTE | 2019-04-23 21:00 | NUR ---
Assessment complete. Pt is very anxious, tearful. Pt is on the alcohol detox protocol and is receiving PO ativan as needed. Pt is c/o abdominal pain, refused offer of hot pack. Informed pt that she was not due for PRN pain meds at this time. Reassured pt that this nurse would round frequently. Pt denies other needs at this time. Call light within reach.
[2019-04-24] VITALS (12 sets, daily range): BP systolic 98–143; BP diastolic 62–99; PULSE 107–129; TEMP 97.7–98.6
[2019-04-24 07:35] LABS: BASO # 0.1 (0.0-0.2); BASO % 0.9 % (0.0-2.0); EOS # 0.2 (0.0-0.7); EOS % 2.1 % (0-4.0); GRAN # 5.4 (1.4-6.5); GRAN % 53.9 % (42.2-75.2); HEMOGLOBIN 11.7 g/dl (12.5-16.0); LYMPH # 3.4 (1.2-3.4); LYMPH % 33.6 % (20.0-51.0); MEAN CELL VOLUME 93 fl (80.0-100.0); MEAN CORPUSCULAR HEMOGLOBIN 32 pg (27.0-31.0); MEAN CORPUSCULAR HGB CONC 35 g/dl (33.0-37.0); MEAN PLATELET VOLUME 9.8 fl (7.4-10.4); MONO # 0.9 (0.1-0.6); MONO % 9.1 % (1.7-9.3); PLATELET COUNT 193 K/mm3 (130-400); RED BLOOD COUNT 3.66 M/mm3 (4.10-5.30); REDCELL DISTRIBUTION WIDTH-CV 12.9 % (11.5-14.5)
[2019-04-24 07:46] LABS: HEMATOCRIT 33.9 % (37.0-47.0)
[2019-04-24 07:51] LABS: CALCIUM 7.6 mg/dL (8.4-10.2); CREATININE, serum 1.27 (0.52-1.25); MAGNESIUM 1.6 mg/dL (1.6-2.3); POTASSIUM 4.1 mmol/L (3.4-5.0)
--- NOTE | 2019-04-24 11:57 | NUR ---
KHURRAM consulted about placement concerns. Staff reported that the patient indicated that she spoke with someone at and they stated that she could not come until Friday. KHURRAM expalined that to the patient that placement is available today upon OK. KHURRAM called and Spoke with Joyce at [facility] about patient's bed. Joyce confirmed that patient has bed for today and that she just got off the phone with the patient because the patient called and stated that she did not have a ride and that she was not being discharged today. Joyce indicated that patient is attempting to play both sides. KHURRAM confirmed if patient has a ride. Patients' spouse indicated that he drives a taxi and that they have a way to got to . Joyce started processing via phone with KHURRAM and patient. KHURRAM educated patient of placement and her voluntary status.
--- NOTE | 2019-04-24 13:08 | NUR ---
KHURRAM update. KHURRAM spoke with intake at [facility] with patient on the phone, in the room and father for transport. Information uncovered, and patient does not want to go today. Father reported that he can transport tomorrow 04/25/2019 at 09:00 am. Patient is aware that she will have a 200 dollar payment for intake, [facility] stated they will put her on a payment plan that is affordable to remove any other concerns from the patient going to [facility]. Patcecilio was told that she has up to 30 days but could have 25 or 28 based on need. agreed to make the payments on the patients behalf. Patient was given phone number to [facility] [phone] for direct line of support. Patient is agreeable to plan.
--- NOTE | 2019-04-24 18:30 | NUR ---
Patient been awake most the day. She to a short nap this afternoon. She continues to rate 4-5 on the detox protocol due to her heart rate and anxiety. No complaints of pain or nausea. Her IV site started leaking erlier and was discontinued. Did not start a new IV site due to her discharging in the morning and she did not want a new site. Patient has not been eating much today. She is discharging tomorrow morning for rehab. She is very nervous about going. Explained that it can't get worse and that it is a good opportunity for her. She has her belongings here and her is bring the rest. Explained what not to pack because they will take it from her. Patient verbalized understanding. No other changes at this time. Call light within reach.
[2019-04-25 00:52] VITALS: BP 108/65; PULSE 121; TEMP 98.3
[2019-04-25 02:39] VITALS: BP 97/68; PULSE 112; TEMP 98.4
[2019-04-25 04:12] VITALS: BP 106/62; PULSE 110; TEMP 97.7
--- NOTE | 2019-04-25 08:00 | NUR ---
Pt sitting on bed. Significant other at bedside. Pt c/o pain and anxiety. No complaints through the night. Pt slept from [id number]. Unremarkable night. Pt should be discharging by 0830 to [facility] in [place]. No further concerns.
[2019-04-25 08:05] VITALS: BP 115/81; PULSE 111; TEMP 97.9
[2019-04-25 08:36] LABS: CREATININE, serum 1.32 (0.52-1.25); POTASSIUM 4.1 mmol/L (3.4-5.0)
--- NOTE | 2019-04-25 09:10 | NUR ---
Dr. Black saw patient. Ativan given for c/o nervousness about going to alcohol rehab. Dismissed ambulatory with family.
== END 2019-04-25 09:10 | disposition home or self-care (01) | DRG 433 ==
LOC: COL.ER 13:03 → IMCU 18:47 → MEDICAL 04-23 18:11
PROVIDERS: Emergency Medicine; Physician Assistant; ADMIT Hospitalist
PROC: 0W9G3ZZ Drainage of Peritoneal Cavity, Percutaneous Approach (ICD-10-PCS; principal; 2019-04-21)
DX: K70.31 Alcoholic cirrhosis of liver with ascites (principal); F10.239 Alcohol dependence with withdrawal, unspecified; N17.9 Acute kidney failure, unspecified; E44.0 Moderate protein-calorie malnutrition; E83.42 Hypomagnesemia; F32.9 Major depressive disorder, single episode, unspecified; E78.5 Hyperlipidemia, unspecified; I10 Essential (primary) hypertension; Z87.891 Personal history of nicotine dependence
CPT/HCPCS: 99222-AI; 99231-AI; 99233-AI; 99239; J1644; J2060; J2405; J3010; J3360; J3411; J3475; J7030; J7040

== ENCOUNTER → 2019-05-28 | Outpatient (CLI) | payer BC ==
[~2019-05-28] VITALS: Ht 167.6 cm; Wt 75.0 kg
[2019-05-28 12:34] VITALS: BP 153/115; PULSE 119
[2019-05-28 13:30] VITALS: BP 148/112; PULSE 111
== END ==
LOC: COL.RAD 12:18
DX: K70.31 Alcoholic cirrhosis of liver with ascites (principal)

== ENCOUNTER 2019-06-16 12:57 | Emergency (ER) | payer BC ==
[~2019-06-16] VITALS: Ht 167.6 cm; Wt 66.4 kg
[2019-06-16 13:03] VITALS: TEMP 97.6
[2019-06-16 13:58] LABS: BASO # 0.1 (0.0-0.2); BASO % 0.9 % (0.0-2.0); EOS # 0.1 (0.0-0.7); EOS % 0.7 % (0-4.0); GRAN # 6.2 (1.4-6.5); HEMATOCRIT 39.1 % (37.0-47.0); HEMOGLOBIN 12.8 g/dl (12.5-16.0); LYMPH # 2.6 (1.2-3.4); LYMPH % 27.1 % (20.0-51.0); MEAN CELL VOLUME 91 fl (80.0-100.0); MEAN CORPUSCULAR HEMOGLOBIN 30 pg (27.0-31.0); MEAN CORPUSCULAR HGB CONC 33 g/dl (33.0-37.0); MEAN PLATELET VOLUME 9.2 fl (7.4-10.4); MONO # 0.6 (0.1-0.6); MONO % 5.9 % (1.7-9.3); PLATELET COUNT 315 K/mm3 (130-400); REDCELL DISTRIBUTION WIDTH-CV 13.5 % (11.5-14.5)
[2019-06-16 14:47] LABS: ALANINE AMINOTRANSFERASE < 6 U/L (9-52); ALKALINE PHOSPHATASE 87 U/L (50-136); ANION GAP 13 mmol/L (7-16); AST,SGOT 32 U/L (15-37); BILIRUBIN,TOTAL 0.9 mg/dL (0.0-1.0); BLOOD UREA NITROGEN 14 mg/dL (7-17); C-REACTIVE PROTEIN 0.7 mg/dL (0.0-0.9); CALCIUM 9.3 mg/dL (8.4-10.2); CARBON DIOXIDE 27 mmol/L (22-30); CHLORIDE 97 mmol/L (98-107); CREATININE, serum 1.44 (0.52-1.25); GLUCOSE 123 mg/dL (74-106); LIPASE 46 U/L (23-300); POTASSIUM 3.8 mmol/L (3.4-5.0); SODIUM 137 mmol/L (137-145); TOTAL PROTEIN 8.7 gm/dL (6.4-8.2)
[2019-06-16] MEDS ORDERED: PERCOCET 325 MG1 TA2 PO (14:56)
[2019-06-16 15:23] VITALS: BP 135/112; PULSE 93
== END 2019-06-16 15:23 | disposition home or self-care (01) ==
LOC: COL.ER 12:57
PROVIDERS: Family Medicine
DX: K59.00 Constipation, unspecified (principal); Z87.891 Personal history of nicotine dependence
CPT/HCPCS: J2270; J2405; J7030

== ENCOUNTER 2019-06-23 08:36 | Emergency (ER) | payer BC ==
[~2019-06-23] VITALS: Ht 167.6 cm; Wt 65.9 kg
[2019-06-23 08:44] VITALS: TEMP 98.6
[2019-06-23 09:38] LABS: BASO # 0.1 (0.0-0.2); BASO % 0.9 % (0.0-2.0); EOS # 0.1 (0.0-0.7); EOS % 1.3 % (0-4.0); GRAN # 7.4 (1.4-6.5); GRAN % 66.8 % (42.2-75.2); HEMOGLOBIN 13.7 g/dl (12.5-16.0); LYMPH # 2.6 (1.2-3.4); LYMPH % 23.8 % (20.0-51.0); MEAN CELL VOLUME 89 fl (80.0-100.0); MEAN CORPUSCULAR HEMOGLOBIN 30 pg (27.0-31.0); MEAN CORPUSCULAR HGB CONC 33 g/dl (33.0-37.0); MEAN PLATELET VOLUME 8.6 fl (7.4-10.4); MONO # 0.8 (0.1-0.6); MONO % 6.8 % (1.7-9.3); PLATELET COUNT 332 K/mm3 (130-400)
[2019-06-23 09:44] LABS: INR 1.4 (0.8-3.0); PROTHROMBIN TIME 16.9 SECONDS (9.7-12.8)
[2019-06-23 09:56] LABS: ALANINE AMINOTRANSFERASE < 6 U/L (9-52); ALBUMIN 3.7 gm/dL (3.5-5.0); ALKALINE PHOSPHATASE 118 U/L (50-136); ANION GAP 14 mmol/L (7-16); AST,SGOT 34 U/L (15-37); BILIRUBIN,TOTAL 1.1 mg/dL (0.0-1.0); BLOOD UREA NITROGEN 6 mg/dL (7-17); CALCIUM 8.9 mg/dL (8.4-10.2); CARBON DIOXIDE 25 mmol/L (22-30); CHLORIDE 100 mmol/L (98-107); CREATININE, serum 0.86 (0.52-1.25); GLUCOSE 131 mg/dL (74-106); LIPASE 41 U/L (23-300); MAGNESIUM 1.1 mg/dL (1.6-2.3); POTASSIUM 3.7 mmol/L (3.4-5.0); SODIUM 139 mmol/L (137-145); TOTAL PROTEIN 8.3 gm/dL (6.4-8.2)
[2019-06-23 09:59] LABS: C-REACTIVE PROTEIN < 0.5 mg/dL (0.0-0.9)
[2019-06-23] MEDS ORDERED: ZOFRAN ODT4 MG PO (11:16)
[2019-06-23 11:46] VITALS: BP 142/87; PULSE 116
== END 2019-06-23 11:46 | disposition home or self-care (01) ==
LOC: COL.ER 08:36
PROVIDERS: Nurse Practitioner
DX: K74.60 Unspecified cirrhosis of liver (principal); R18.8 Other ascites; I10 Essential (primary) hypertension; F32.9 Major depressive disorder, single episode, unspecified; Z87.891 Personal history of nicotine dependence
CPT/HCPCS: J2270; J2405; J7030

== ENCOUNTER → 2019-06-23 | Outpatient (CLI) | payer BC ==
[~2019-06-23] VITALS: Ht 167.6 cm; Wt 66.8 kg
[~2019-06-23] MED LIST changes: +PERCOCET 325 MG1 TA2 PO
[2019-06-23 12:14] VITALS: BP 164/118; PULSE 122
[2019-06-23 13:50] VITALS: BP 144/110; PULSE 122
--- NOTE | 2019-06-23 14:08 | NUR ---
PT LEAVES AMBULATORY TO FRONT LOBBY
== END ==
LOC: COL.RAD 12:10
DX: K70.31 Alcoholic cirrhosis of liver with ascites (principal)

== ENCOUNTER 2019-06-28 15:04 | Emergency (ER) | payer BC ==
[~2019-06-28] VITALS: Ht 167.6 cm; Wt 59.1 kg
[2019-06-28 15:13] VITALS: TEMP 98.2
[2019-06-28 16:43] LABS: BASO # 0.1 (0.0-0.2); BASO % 0.8 % (0.0-2.0); EOS # 0.1 (0.0-0.7); EOS % 1.1 % (0-4.0); GRAN # 6.8 (1.4-6.5); GRAN % 61.3 % (42.2-75.2); HEMATOCRIT 40.9 % (37.0-47.0); LYMPH # 3.3 (1.2-3.4); LYMPH % 29.6 % (20.0-51.0); MEAN CELL VOLUME 87 fl (80.0-100.0); MEAN CORPUSCULAR HEMOGLOBIN 30 pg (27.0-31.0); MEAN CORPUSCULAR HGB CONC 34 g/dl (33.0-37.0); MEAN PLATELET VOLUME 8.9 fl (7.4-10.4); MONO # 0.8 (0.1-0.6); MONO % 6.8 % (1.7-9.3); PLATELET COUNT 196 K/mm3 (130-400); RED BLOOD COUNT 4.69 M/mm3 (4.10-5.30); REDCELL DISTRIBUTION WIDTH-CV 14.5 % (11.5-14.5)
[2019-06-28 16:59] LABS: ALANINE AMINOTRANSFERASE < 6 U/L (9-52); ALBUMIN 3.7 gm/dL (3.5-5.0); ALCOHOL(ethanol),MEDICAL 91 mg/dL; ALKALINE PHOSPHATASE 136 U/L (50-136); ANION GAP 14 mmol/L (7-16); AST,SGOT 35 U/L (15-37); BILIRUBIN,TOTAL 1.1 mg/dL (0.0-1.0); BLOOD UREA NITROGEN 3 mg/dL (7-17); CALCIUM 8.7 mg/dL (8.4-10.2); CARBON DIOXIDE 22 mmol/L (22-30); CHLORIDE 100 mmol/L (98-107); CREATININE, serum 0.74 (0.52-1.25); GLUCOSE 146 mg/dL (74-106); LIPASE 79 U/L (23-300); SODIUM 136 mmol/L (137-145); TOTAL PROTEIN 8.2 gm/dL (6.4-8.2)
[2019-06-28 17:12] LABS: COLLECTION METHOD CLEAN CATCH
[2019-06-28 17:31] LABS: MUCOUS Present /lpf; PH 6 (5-8); URINE APPEARANCE Clear; URINE BACTERIA Rare /hpf; URINE BILIRUBIN Negative (NEGATIVE); URINE BLOOD 1+ (NEGATIVE); URINE COLOR Yellow; URINE GLUCOSE Negative (NEGATIVE); URINE KETONE Negative (NEGATIVE); URINE LEUKOCYTE ESTERASE Negative (NEGATIVE); URINE NITRATE Negative (NEGATIVE); URINE PROTEIN(semi-quant) Negative (NEGATIVE); URINE RBC 0-2 /hpf; URINE UROBILINOGEN Negative (NEGATIVE)
[2019-06-28 18:15] LABS: INR 1.4 (0.8-3.0); PROTHROMBIN TIME 16.6 SECONDS (9.7-12.8)
[2019-06-28 18:43] LABS: PERITONEAL -POLYMORPHONUCLEAR 2.8 % (0-25); PERITONEAL FLUID RBC 0 /mm3 (0-0)
[2019-06-28] MEDS ORDERED: ZOFRAN 4MG T4 MG/TAB PO (19:21)
[2019-06-28] MEDS ORDERED: MAG-OX 400400 MG/TAB PO (19:21)
[2019-06-28 19:36] VITALS: BP 140/98; PULSE 102
== END 2019-06-28 19:37 | disposition home or self-care (01) ==
LOC: COL.ER 15:04
PROVIDERS: Emergency Medicine
DX: R10.11 Right upper quadrant pain (principal); R11.10 Vomiting, unspecified; E83.42 Hypomagnesemia; F10.10 Alcohol abuse, uncomplicated; Y90.4 Blood alcohol level of 80-99 mg/100 ml
CPT/HCPCS: J1885; J2270; J2405; J3475; J7030

== ENCOUNTER 2019-06-30 07:50 | Emergency (ER) | payer BC ==
[~2019-06-30] VITALS: Ht 167.6 cm; Wt 63.6 kg
[2019-06-30 07:57] VITALS: TEMP 98.1
[2019-06-30 08:28] LABS: BASO # 0.1 (0.0-0.2); BASO % 0.6 % (0.0-2.0); EOS % 0.2 % (0-4.0); GRAN # 6.2 (1.4-6.5); GRAN % 73.6 % (42.2-75.2); HEMATOCRIT 41.3 % (37.0-47.0); LYMPH # 1.7 (1.2-3.4); MEAN CELL VOLUME 88 fl (80.0-100.0); MEAN CORPUSCULAR HEMOGLOBIN 30 pg (27.0-31.0); MEAN CORPUSCULAR HGB CONC 34 g/dl (33.0-37.0); MEAN PLATELET VOLUME 9.4 fl (7.4-10.4); MONO # 0.4 (0.1-0.6); MONO % 5.1 % (1.7-9.3); PLATELET COUNT 166 K/mm3 (130-400); RED BLOOD COUNT 4.71 M/mm3 (4.10-5.30); REDCELL DISTRIBUTION WIDTH-CV 14.4 % (11.5-14.5)
[2019-06-30 08:38] LABS: ALANINE AMINOTRANSFERASE 9 U/L (9-52); ALBUMIN 3.6 gm/dL (3.5-5.0); ALKALINE PHOSPHATASE 164 U/L (50-136); ANION GAP 15 mmol/L (7-16); AST,SGOT 33 U/L (15-37); BILIRUBIN,TOTAL 1.4 mg/dL (0.0-1.0); BLOOD UREA NITROGEN 5 mg/dL (7-17); CALCIUM 8.8 mg/dL (8.4-10.2); CARBON DIOXIDE 23 mmol/L (22-30); CHLORIDE 97 mmol/L (98-107); CREATININE, serum 0.89 (0.52-1.25); GLUCOSE 157 mg/dL (74-106); LIPASE 80 U/L (23-300); POTASSIUM 4.3 mmol/L (3.4-5.0); SODIUM 134 mmol/L (137-145); TOTAL PROTEIN 8.1 gm/dL (6.4-8.2)
[2019-06-30 08:39] LABS: ALCOHOL(ethanol),MEDICAL < 10 mg/dL; C-REACTIVE PROTEIN < 0.5 mg/dL (0.0-0.9)
[2019-06-30 10:20] VITALS: BP 140/113; PULSE 122
== END 2019-06-30 10:21 | disposition home or self-care (01) ==
LOC: COL.ER 07:50
PROVIDERS: Emergency Medicine
DX: G89.29 Other chronic pain (principal); R10.84 Generalized abdominal pain; I10 Essential (primary) hypertension; E11.9 Type 2 diabetes mellitus without complications
CPT/HCPCS: J1170; J1630; J2405; J7040

== ENCOUNTER → 2019-07-07 | Outpatient (CLI) | payer BC ==
[~2019-07-07] VITALS: Ht 167.6 cm; Wt 63.9 kg
[2019-07-07 12:25] VITALS: BP 154/122; PULSE 123
[2019-07-07 13:35] VITALS: BP 143/111; PULSE 116
== END ==
LOC: COL.RAD 12:04
DX: K70.31 Alcoholic cirrhosis of liver with ascites (principal)

== ENCOUNTER 2019-07-16 06:04 | Emergency (ER) | payer BC ==
[~2019-07-16] VITALS: Ht 167.6 cm; Wt 67.7 kg
[2019-07-16 06:17] VITALS: TEMP 97.7
[2019-07-16] MEDS ORDERED: PROTONIX 40MG T40 MG PO (06:49)
[2019-07-16] MEDS ORDERED: ZOFRAN 4MG T4 MG/TAB PO (06:49)
[2019-07-16 07:07] LABS: BASO # 0.1 (0.0-0.2); EOS # 0.1 (0.0-0.7); EOS % 1.3 % (0-4.0); GRAN # 5.5 (1.4-6.5); GRAN % 55.8 % (42.2-75.2); HEMATOCRIT 38.3 % (37.0-47.0); HEMOGLOBIN 12.8 g/dl (12.5-16.0); LYMPH % 30.6 % (20.0-51.0); MEAN CELL VOLUME 90 fl (80.0-100.0); MEAN CORPUSCULAR HEMOGLOBIN 30 pg (27.0-31.0); MEAN CORPUSCULAR HGB CONC 33 g/dl (33.0-37.0); MEAN PLATELET VOLUME 9.3 fl (7.4-10.4); MONO % 10.4 % (1.7-9.3); PLATELET COUNT 187 K/mm3 (130-400); RED BLOOD COUNT 4.26 M/mm3 (4.10-5.30); REDCELL DISTRIBUTION WIDTH-CV 15.9 % (11.5-14.5)
[2019-07-16 07:12] LABS: INR 1.5 (0.8-3.0); PROTHROMBIN TIME 17.9 SECONDS (9.7-12.8)
[2019-07-16 07:18] LABS: ALBUMIN 3.1 gm/dL (3.5-5.0); BILIRUBIN,TOTAL 0.6 mg/dL (0.0-1.0); CALCIUM 6.8 mg/dL (8.4-10.2); CREATININE, serum 1.2 (0.52-1.25); POTASSIUM 4.1 mmol/L (3.4-5.0); TOTAL PROTEIN 6.7 gm/dL (6.4-8.2)
[2019-07-16] MEDS ORDERED: ALDACTONE50 MG PO (07:30)
[2019-07-16] MEDS ORDERED: RESTORIL 1515 MG/CAP PO ×2 (07:36)
[2019-07-16] MEDS ORDERED: OS-CAL 500 + D1 TAB PO (08:14)
[2019-07-16] MEDS ORDERED: RESTORIL 77.5 MG/CAP PEG (10:12)
[2019-07-16 11:04] VITALS: BP 129/97; PULSE 100
== END 2019-07-16 11:04 | disposition home or self-care (01) ==
LOC: COL.ER 06:04
PROVIDERS: Emergency Medicine
DX: K70.31 Alcoholic cirrhosis of liver with ascites (principal); E83.51 Hypocalcemia
CPT/HCPCS: J0610; J2270; J2405; J3010; J7040

== ENCOUNTER 2019-07-25 17:03 | Inpatient (IN) | payer BC ==
[~2019-07-25] VITALS: Ht 167.6 cm; Wt 60.5 kg
[2019-07-25] VITALS (160 sets, daily range): BP systolic 147; BP diastolic 114; PULSE 136; TEMP 98.4; O2SAT 76–100
[~2019-07-25 17:03] MED LIST changes: +ALDACTONE50 MG PO; +OS-CAL 500 + D1 TAB PO; +RESTORIL 1515 MG/CAP PO; +RESTORIL 77.5 MG/CAP PEG
[2019-07-25 18:31] LABS: BASO # 0.1 (0.0-0.2); BASO % 0.7 % (0.0-2.0); EOS # 0.1 (0.0-0.7); EOS % 0.5 % (0-4.0); GRAN # 9.2 (1.4-6.5); GRAN % 71.2 % (42.2-75.2); HEMOGLOBIN 14.8 g/dl (12.5-16.0); LYMPH # 2.7 (1.2-3.4); LYMPH % 20.7 % (20.0-51.0); MEAN CELL VOLUME 89 fl (80.0-100.0); MEAN CORPUSCULAR HEMOGLOBIN 30 pg (27.0-31.0); MEAN CORPUSCULAR HGB CONC 34 g/dl (33.0-37.0); MEAN PLATELET VOLUME 9.4 fl (7.4-10.4); MONO # 0.8 (0.1-0.6); MONO % 6.2 % (1.7-9.3); PLATELET COUNT 240 K/mm3 (130-400); RED BLOOD COUNT 4.94 M/mm3 (4.10-5.30); REDCELL DISTRIBUTION WIDTH-CV 15.8 % (11.5-14.5)
[2019-07-25 18:50] LABS: INR 1.3 (0.8-3.0); PROTHROMBIN TIME 15.7 SECONDS (9.7-12.8)
[2019-07-25 18:53] LABS: PARTIAL THROMBOPLASTIN TIME 37.3 SECONDS (26.0-37.0)
[2019-07-25 19:03] LABS: ALANINE AMINOTRANSFERASE 7 U/L (9-52); ALBUMIN 3.3 gm/dL (3.5-5.0); ALKALINE PHOSPHATASE 166 U/L (50-136); ANION GAP 13 mmol/L (7-16); AST,SGOT 25 U/L (15-37); BILIRUBIN,TOTAL 1.1 mg/dL (0.0-1.0); BLOOD UREA NITROGEN 8 mg/dL (7-17); CALCIUM 8.4 mg/dL (8.4-10.2); CARBON DIOXIDE 19 mmol/L (22-30); CHLORIDE 101 mmol/L (98-107); CREATININE, serum 0.74 (0.52-1.25); GLUCOSE 123 mg/dL (74-106); PHOSPHOROUS 3.5 mg/dL (2.5-4.5); POTASSIUM 4.4 mmol/L (3.4-5.0); SODIUM 133 mmol/L (137-145); TOTAL PROTEIN 7.3 gm/dL (6.4-8.2)
[2019-07-25 19:04] LABS: ALCOHOL(ethanol),MEDICAL < 10 mg/dL; C-REACTIVE PROTEIN < 0.5 mg/dL (0.0-0.9); MAGNESIUM 0.8 mg/dL (1.6-2.3); TROPONIN-I < 0.012 ng/mL (0.000-0.035)
[2019-07-25 19:05] LABS: LIPASE 119 U/L (23-300)
[2019-07-26] VITALS (1031 sets, daily range): BP systolic 101–138; BP diastolic 80–127; PULSE 112–150; TEMP 97.2–98.9; O2SAT 62–100
[2019-07-26 05:56] LABS: BASO # 0.1 (0.0-0.2); BASO % 0.9 % (0.0-2.0); EOS # 0.2 (0.0-0.7); EOS % 1.4 % (0-4.0); GRAN # 6.4 (1.4-6.5); GRAN % 57.6 % (42.2-75.2); HEMATOCRIT 44.4 % (37.0-47.0); HEMOGLOBIN 14.5 g/dl (12.5-16.0); LYMPH # 3.5 (1.2-3.4); LYMPH % 31.3 % (20.0-51.0); MEAN CELL VOLUME 92 fl (80.0-100.0); MEAN CORPUSCULAR HEMOGLOBIN 30 pg (27.0-31.0); MEAN CORPUSCULAR HGB CONC 33 g/dl (33.0-37.0); MEAN PLATELET VOLUME 9.3 fl (7.4-10.4); MONO # 0.9 (0.1-0.6); MONO % 8.2 % (1.7-9.3); PLATELET COUNT 187 K/mm3 (130-400); RED BLOOD COUNT 4.83 M/mm3 (4.10-5.30); REDCELL DISTRIBUTION WIDTH-CV 15.9 % (11.5-14.5)
[2019-07-26 05:59] LABS: INR 1.3 (0.8-3.0); PROTHROMBIN TIME 15.3 SECONDS (9.7-12.8)
[2019-07-26 06:09] LABS: ALBUMIN 3.3 gm/dL (3.5-5.0); BILIRUBIN,TOTAL 0.8 mg/dL (0.0-1.0); CALCIUM 7.8 mg/dL (8.4-10.2); CREATININE, serum 0.93 (0.52-1.25); MAGNESIUM 1.1 mg/dL (1.6-2.3); POTASSIUM 3.5 mmol/L (3.4-5.0); TOTAL PROTEIN 7.2 gm/dL (6.4-8.2)
[2019-07-26 10:53] LABS: PERITONEAL -POLYMORPHONUCLEAR 11.9 % (0-25); PERITONEAL FLUID RBC 0 /mm3 (0-0)
[2019-07-27] VITALS (600 sets, daily range): BP systolic 97–126; BP diastolic 79–93; PULSE 107–121; TEMP 97.8–98.6; O2SAT 78–100
[2019-07-27 05:48] LABS: BASO # 0.1 (0.0-0.2); BASO % 0.9 % (0.0-2.0); EOS # 0.2 (0.0-0.7); EOS % 1.9 % (0-4.0); GRAN # 5.4 (1.4-6.5); GRAN % 56.8 % (42.2-75.2); LYMPH # 2.9 (1.2-3.4); LYMPH % 30.3 % (20.0-51.0); MEAN CELL VOLUME 90 fl (80.0-100.0); MEAN CORPUSCULAR HGB CONC 33 g/dl (33.0-37.0); MEAN PLATELET VOLUME 9.4 fl (7.4-10.4); MONO # 0.9 (0.1-0.6); MONO % 9.6 % (1.7-9.3); PLATELET COUNT 152 K/mm3 (130-400); RED BLOOD COUNT 3.92 M/mm3 (4.10-5.30); REDCELL DISTRIBUTION WIDTH-CV 15.9 % (11.5-14.5)
[2019-07-27 05:53] LABS: HEMATOCRIT 35.1 % (37.0-47.0); HEMOGLOBIN 11.6 g/dl (12.5-16.0); MEAN CORPUSCULAR HEMOGLOBIN 30 pg (27.0-31.0)
[2019-07-27 05:55] LABS: ALBUMIN 2.6 gm/dL (3.5-5.0); BILIRUBIN,TOTAL 1.1 mg/dL (0.0-1.0); CALCIUM 7.4 mg/dL (8.4-10.2); CREATININE, serum 1.08 (0.52-1.25); MAGNESIUM 1.3 mg/dL (1.6-2.3); POTASSIUM 3.3 mmol/L (3.4-5.0); TOTAL PROTEIN 5.9 gm/dL (6.4-8.2)
[2019-07-27 06:01] LABS: INR 1.5 (0.8-3.0); PROTHROMBIN TIME 17.8 SECONDS (9.7-12.8)
[2019-07-27 18:17] LABS: MAGNESIUM 1.9 mg/dL (1.6-2.3); POTASSIUM 3.9 mmol/L (3.4-5.0)
[2019-07-28] VITALS: BP 102/82; PULSE 117; TEMP 97.9
[2019-07-28 04:00] VITALS: BP 93/73; PULSE 107; TEMP 97.9
[2019-07-28 05:20] LABS: BASO # 0.1 (0.0-0.2); BASO % 0.5 % (0.0-2.0); EOS # 0.2 (0.0-0.7); EOS % 1.6 % (0-4.0); GRAN # 5.2 (1.4-6.5); GRAN % 55.1 % (42.2-75.2); HEMOGLOBIN 11.5 g/dl (12.5-16.0); LYMPH # 3.2 (1.2-3.4); MEAN CELL VOLUME 90 fl (80.0-100.0); MEAN CORPUSCULAR HEMOGLOBIN 30 pg (27.0-31.0); MEAN CORPUSCULAR HGB CONC 33 g/dl (33.0-37.0); MEAN PLATELET VOLUME 9.3 fl (7.4-10.4); MONO # 0.8 (0.1-0.6); MONO % 8.4 % (1.7-9.3); PLATELET COUNT 153 K/mm3 (130-400); RED BLOOD COUNT 3.84 M/mm3 (4.10-5.30); REDCELL DISTRIBUTION WIDTH-CV 15.9 % (11.5-14.5)
[2019-07-28 05:21] LABS: HEMATOCRIT 34.4 % (37.0-47.0)
[2019-07-28 05:40] LABS: ALBUMIN 2.6 gm/dL (3.5-5.0); BILIRUBIN,TOTAL 0.8 mg/dL (0.0-1.0); CALCIUM 7.8 mg/dL (8.4-10.2); CREATININE, serum 1.15 (0.52-1.25); MAGNESIUM 1.4 mg/dL (1.6-2.3); POTASSIUM 3.4 mmol/L (3.4-5.0); TOTAL PROTEIN 5.8 gm/dL (6.4-8.2)
[2019-07-28 08:00] VITALS: BP 108/68; PULSE 113; TEMP 98
[2019-07-28] MEDS ORDERED: FOLIC ACID 11 MG/TA1 PO (09:40)
[2019-07-28] MEDS ORDERED: THIAMINE 1100 MG/TAB PO (09:40)
[2019-07-28] MEDS ORDERED: DUO-KAPS1 CAP PO (09:40)
[2019-07-28] MEDS ORDERED: ATIVAN 0.50.5 MG/TAB PO (09:52)
[2019-07-28] MEDS ORDERED: ROXICODONE 55 MG/TAB PO (09:52)
== END 2019-07-28 11:05 | disposition home or self-care (01) | DRG 433 ==
LOC: COL.ER 17:03 → ICU 19:19 → IMCU 19:19
PROVIDERS: Emergency Medicine; Nurse Practitioner Family; Student in an Organized Health Care Education/Training Program; ADMIT Internal Medicine
PROC: HZ2ZZZZ Detoxification Services for Substance Abuse Treatment (ICD-10-PCS; principal; 2019-07-25)
PROC: 0W9G3ZZ Drainage of Peritoneal Cavity, Percutaneous Approach (ICD-10-PCS; 2019-07-26)
DX: K70.31 Alcoholic cirrhosis of liver with ascites (principal); F10.239 Alcohol dependence with withdrawal, unspecified; E83.42 Hypomagnesemia; G89.29 Other chronic pain; I10 Essential (primary) hypertension; E78.5 Hyperlipidemia, unspecified; F32.9 Major depressive disorder, single episode, unspecified; F19.10 Other psychoactive substance abuse, uncomplicated; E11.9 Type 2 diabetes mellitus without complications; F17.210 Nicotine dependence, cigarettes, uncomplicated; R00.0 Tachycardia, unspecified; I95.9 Hypotension, unspecified
CPT/HCPCS: 99233-AI; 99239; A4216; J0696; J1644; J2060; J2270; J2405; J3010; J3411; J3475

== ENCOUNTER 2019-07-31 13:18 | Emergency (ER) | payer BC ==
[~2019-07-31] VITALS: Ht 167.6 cm; Wt 63.6 kg
[~2019-07-31 13:18] MED LIST changes: +ATIVAN 0.50.5 MG/TAB PO
[2019-07-31 13:37] VITALS: BP 132/96; TEMP 98.1
[2019-07-31 14:26] LABS: BASO # 0.1 (0.0-0.2); BASO % 0.7 % (0.0-2.0); EOS # 0.1 (0.0-0.7); EOS % 1.7 % (0-4.0); GRAN # 5.1 (1.4-6.5); GRAN % 62.3 % (42.2-75.2); HEMOGLOBIN 12.1 g/dl (12.5-16.0); LYMPH # 1.9 (1.2-3.4); LYMPH % 23.5 % (20.0-51.0); MEAN CELL VOLUME 91 fl (80.0-100.0); MEAN CORPUSCULAR HEMOGLOBIN 30 pg (27.0-31.0); MEAN CORPUSCULAR HGB CONC 33 g/dl (33.0-37.0); MEAN PLATELET VOLUME 9.6 fl (7.4-10.4); MONO # 0.9 (0.1-0.6); MONO % 11.2 % (1.7-9.3); PLATELET COUNT 188 K/mm3 (130-400); RED BLOOD COUNT 4.05 M/mm3 (4.10-5.30); REDCELL DISTRIBUTION WIDTH-CV 15.8 % (11.5-14.5)
[2019-07-31 14:40] LABS: ALANINE AMINOTRANSFERASE 8 U/L (9-52); ALBUMIN 2.7 gm/dL (3.5-5.0); ALCOHOL(ethanol),MEDICAL 27 mg/dL; ALKALINE PHOSPHATASE 117 U/L (50-136); ANION GAP 7 mmol/L (7-16); AST,SGOT 31 U/L (15-37); BILIRUBIN,TOTAL 0.4 mg/dL (0.0-1.0); BLOOD UREA NITROGEN 10 mg/dL (7-17); CALCIUM 7.3 mg/dL (8.4-10.2); CARBON DIOXIDE 22 mmol/L (22-30); CHLORIDE 107 mmol/L (98-107); CREATININE, serum 0.72 (0.52-1.25); GLUCOSE 119 mg/dL (74-106); PHOSPHOROUS 2.6 mg/dL (2.5-4.5); POTASSIUM 3.3 mmol/L (3.4-5.0); SODIUM 137 mmol/L (137-145); TOTAL PROTEIN 6.1 gm/dL (6.4-8.2)
[2019-07-31 14:44] LABS: C-REACTIVE PROTEIN 0.5 mg/dL (0.0-0.9); HEMATOCRIT 36.7 % (37.0-47.0)
[2019-07-31 14:45] LABS: INR 1.3 (0.8-3.0); PROTHROMBIN TIME 15.8 SECONDS (9.7-12.8)
[2019-07-31 14:47] LABS: TROPONIN-I < 0.012 ng/mL (0.000-0.035)
[2019-07-31 14:48] LABS: PARTIAL THROMBOPLASTIN TIME 33.1 SECONDS (26.0-37.0)
[2019-07-31] MEDS ORDERED: REPREXAIN 5-201 EACH PO (16:21)
[2019-07-31 17:11] VITALS: PULSE 108
[2019-07-31] MEDS ORDERED: VICOPROFEN 7.51 TAB PO (17:46)
== END 2019-07-31 17:11 | disposition home or self-care (01) ==
LOC: COL.ER 13:18
PROVIDERS: Nurse Practitioner
DX: R18.8 Other ascites (principal); K74.60 Unspecified cirrhosis of liver; I10 Essential (primary) hypertension; F17.210 Nicotine dependence, cigarettes, uncomplicated
CPT/HCPCS: J1170; J2270; J2405; J3475; J7030

== ENCOUNTER 2019-08-03 15:19 | Emergency (ER) | payer BC ==
[~2019-08-03] VITALS: Ht 167.6 cm; Wt 71.4 kg
[~2019-08-03 15:19] MED LIST changes: +REPREXAIN 5-201 EACH PO; +VICOPROFEN 7.51 TAB PO
[2019-08-03 16:00] LABS: BASO # 0.1 (0.0-0.2); BASO % 1.1 % (0.0-2.0); EOS # 0.3 (0.0-0.7); EOS % 2.4 % (0-4.0); GRAN # 6.8 (1.4-6.5); GRAN % 60.9 % (42.2-75.2); HEMATOCRIT 39.8 % (37.0-47.0); HEMOGLOBIN 12.7 g/dl (12.5-16.0); LYMPH # 2.8 (1.2-3.4); LYMPH % 25.5 % (20.0-51.0); MEAN CELL VOLUME 92 fl (80.0-100.0); MEAN CORPUSCULAR HEMOGLOBIN 29 pg (27.0-31.0); MEAN CORPUSCULAR HGB CONC 32 g/dl (33.0-37.0); MEAN PLATELET VOLUME 9.3 fl (7.4-10.4); MONO % 9.3 % (1.7-9.3); PLATELET COUNT 301 K/mm3 (130-400); RED BLOOD COUNT 4.32 M/mm3 (4.10-5.30); REDCELL DISTRIBUTION WIDTH-CV 15.6 % (11.5-14.5)
[2019-08-03 16:10] LABS: ALANINE AMINOTRANSFERASE 11 U/L (9-52); ALBUMIN 2.9 gm/dL (3.5-5.0); ALCOHOL(ethanol),MEDICAL 24 mg/dL; ALKALINE PHOSPHATASE 137 U/L (50-136); ANION GAP 9 mmol/L (7-16); AST,SGOT 38 U/L (15-37); BILIRUBIN,TOTAL 0.7 mg/dL (0.0-1.0); BLOOD UREA NITROGEN 9 mg/dL (7-17); CALCIUM 8.4 mg/dL (8.4-10.2); CARBON DIOXIDE 23 mmol/L (22-30); CHLORIDE 103 mmol/L (98-107); GLUCOSE 111 mg/dL (74-106); MAGNESIUM 1.2 mg/dL (1.6-2.3); POTASSIUM 3.6 mmol/L (3.4-5.0); SODIUM 135 mmol/L (137-145); TOTAL PROTEIN 6.8 gm/dL (6.4-8.2)
[2019-08-03 16:11] LABS: C-REACTIVE PROTEIN < 0.5 mg/dL (0.0-0.9)
[2019-08-03 16:19] LABS: INR 1.3 (0.8-3.0); PROTHROMBIN TIME 15.8 SECONDS (9.7-12.8)
[2019-08-03] MEDS ORDERED: NORCO 325 MG-51 TAB PO (17:19)
[2019-08-03 17:26] VITALS: BP 130/106; PULSE 116; TEMP 98.4
== END 2019-08-03 17:36 | disposition home or self-care (01) ==
LOC: COL.ER 15:19
PROVIDERS: Family Medicine
DX: K70.31 Alcoholic cirrhosis of liver with ascites (principal)
CPT/HCPCS: J2405; J3010

== ENCOUNTER → 2019-08-04 | Outpatient (CLI) | payer BC ==
[~2019-08-04] VITALS: Ht 167.6 cm; Wt 71.5 kg
[2019-08-04 10:25] VITALS: BP 119/95; PULSE 111
[2019-08-04 11:40] VITALS: BP 128/86; PULSE 97
--- NOTE | 2019-08-04 12:15 | NUR ---
pt discharged to [facility] for ride with dad ambulatory
== END ==
LOC: COL.RAD 09:00
DX: K74.60 Unspecified cirrhosis of liver (principal)

== ENCOUNTER → 2019-08-11 | Outpatient (CLI) | payer BC ==
[~2019-08-11] VITALS: Ht 167.6 cm; Wt 70.0 kg
[2019-08-11 09:45] VITALS: BP 121/86; PULSE 117
[2019-08-11 11:00] VITALS: BP 102/78; PULSE 106
== END ==
LOC: COL.RAD 09:00
DX: K70.31 Alcoholic cirrhosis of liver with ascites (principal)
CPT/HCPCS: 19804

== ENCOUNTER 2019-08-22 16:20 | Emergency (ER) | payer BC ==
[~2019-08-22] VITALS: Ht 165.1 cm; Wt 69.6 kg
[2019-08-22 16:26] VITALS: TEMP 97.4
[2019-08-22 17:21] LABS: BASO # 0.1 (0.0-0.2); BASO % 0.9 % (0.0-2.0); EOS # 0.2 (0.0-0.7); EOS % 2.1 % (0-4.0); GRAN # 6.6 (1.4-6.5); GRAN % 67.7 % (42.2-75.2); HEMATOCRIT 39.2 % (37.0-47.0); HEMOGLOBIN 12.3 g/dl (12.5-16.0); LYMPH # 1.9 (1.2-3.4); LYMPH % 19.9 % (20.0-51.0); MEAN CELL VOLUME 94 fl (80.0-100.0); MEAN CORPUSCULAR HEMOGLOBIN 30 pg (27.0-31.0); MEAN CORPUSCULAR HGB CONC 31 g/dl (33.0-37.0); MEAN PLATELET VOLUME 10.2 fl (7.4-10.4); MONO # 0.8 (0.1-0.6); MONO % 8.2 % (1.7-9.3); PLATELET COUNT 234 K/mm3 (130-400); RED BLOOD COUNT 4.17 M/mm3 (4.10-5.30); REDCELL DISTRIBUTION WIDTH-CV 15.8 % (11.5-14.5)
[2019-08-22 17:37] LABS: ALBUMIN 3.9 gm/dL (3.5-5.0); BILIRUBIN,TOTAL 0.5 mg/dL (0.0-1.0); CALCIUM 9.2 mg/dL (8.4-10.2); CREATININE, serum 0.96 (0.52-1.25); POTASSIUM 4.1 mmol/L (3.4-5.0); TOTAL PROTEIN 7.4 gm/dL (6.4-8.2)
[2019-08-22 18:57] VITALS: BP 120/95; PULSE 130
== END 2019-08-22 19:25 | disposition home or self-care (01) ==
LOC: COL.ER 16:20
PROVIDERS: Emergency Medicine
DX: R10.84 Generalized abdominal pain (principal)
CPT/HCPCS: J1170; J2270; J2405

== ENCOUNTER 2019-08-24 12:48 | Emergency (ER) | payer BC ==
[~2019-08-24] VITALS: Ht 167.6 cm; Wt 70.0 kg
[2019-08-24 12:58] VITALS: TEMP 97.7
[2019-08-24 14:57] VITALS: BP 142/92; PULSE 111
[2019-08-24] MEDS ORDERED: ROXICODONE 55 MG/TAB PO (15:03)
== END 2019-08-24 15:18 | disposition home or self-care (01) ==
LOC: COL.ER 12:48
DX: K74.60 Unspecified cirrhosis of liver (principal); K72.90 Hepatic failure, unspecified without coma; F17.210 Nicotine dependence, cigarettes, uncomplicated
CPT/HCPCS: J2270

== ENCOUNTER → 2019-08-24 | Outpatient (CLI) | payer BC | LOC: COL.RAD 08-12 11:00 | DX: K72.90 Hepatic failure, unspecified without coma (principal); K80.80 Other cholelithiasis without obstruction; I86.8 Varicose veins of other specified sites; R16.1 Splenomegaly, not elsewhere classified | CPT/HCPCS: Q9967 ==

== ENCOUNTER → 2019-09-10 | Outpatient (CLI) | payer BC ==
[~2019-09-10] VITALS: Ht 167.6 cm; Wt 65.3 kg
[2019-09-10 09:35] VITALS: BP 136/98; PULSE 91
[2019-09-10 11:10] VITALS: BP 141/101; PULSE 87
== END ==
LOC: COL.RAD 09:21
DX: K70.31 Alcoholic cirrhosis of liver with ascites (principal)

== ENCOUNTER 2019-09-20 16:13 | Emergency (ER) | payer BC ==
[~2019-09-20] VITALS: Ht 165.1 cm; Wt 68.2 kg
[2019-09-20 16:28] VITALS: TEMP 98.1
[2019-09-20 17:07] LABS: BASO % 0.4 % (0.0-2.0); EOS # 0.3 (0.0-0.7); GRAN # 5.8 (1.4-6.5); GRAN % 64.4 % (42.2-75.2); HEMOGLOBIN 10.7 g/dl (12.5-16.0); LYMPH # 2.2 (1.2-3.4); LYMPH % 24.3 % (20.0-51.0); MEAN CELL VOLUME 92 fl (80.0-100.0); MEAN CORPUSCULAR HEMOGLOBIN 29 pg (27.0-31.0); MEAN CORPUSCULAR HGB CONC 32 g/dl (33.0-37.0); MEAN PLATELET VOLUME 9.8 fl (7.4-10.4); MONO # 0.7 (0.1-0.6); MONO % 7.2 % (1.7-9.3); PLATELET COUNT 211 K/mm3 (130-400); RED BLOOD COUNT 3.64 M/mm3 (4.10-5.30); REDCELL DISTRIBUTION WIDTH-CV 13.9 % (11.5-14.5)
[2019-09-20 17:10] LABS: HEMATOCRIT 33.5 % (37.0-47.0)
[2019-09-20 17:14] LABS: INR 1.3 (0.8-3.0); PROTHROMBIN TIME 15.5 SECONDS (9.7-12.8)
[2019-09-20 17:18] LABS: ALBUMIN 3.3 gm/dL (3.5-5.0); BILIRUBIN,TOTAL 0.7 mg/dL (0.0-1.0); C-REACTIVE PROTEIN 1.2 mg/dL (0.0-0.9); CALCIUM 8.5 mg/dL (8.4-10.2); CREATININE, serum 0.83 (0.52-1.25); POTASSIUM 4.1 mmol/L (3.4-5.0); TOTAL PROTEIN 6.9 gm/dL (6.4-8.2)
[2019-09-20 18:20] VITALS: BP 162/112; PULSE 112
== END 2019-09-20 18:24 | disposition home or self-care (01) ==
LOC: COL.ER 16:13
PROVIDERS: Physician Assistant
DX: R55 Syncope and collapse (principal); K70.30 Alcoholic cirrhosis of liver without ascites; Z87.891 Personal history of nicotine dependence
CPT/HCPCS: J1170; J2405; J3010

== ENCOUNTER → 2019-09-21 | Outpatient (CLI) | payer BC ==
[~2019-09-21] VITALS: Ht 165.1 cm; Wt 78.8 kg
[2019-09-21 08:11] VITALS: BP 144/108; PULSE 120
[2019-09-21 09:49] VITALS: BP 138/96; PULSE 123
--- NOTE | 2019-09-21 10:00 | NUR ---
PT LEAVES AMBULATORY TO FRONT LOBBY AND THEN TO POV.
== END ==
LOC: COL.RAD 07:50
DX: K70.31 Alcoholic cirrhosis of liver with ascites (principal)

== ENCOUNTER 2019-09-26 11:42 | Inpatient (IN) | payer BC ==
[~2019-09-26] VITALS: Ht 165.1 cm; Wt 71.7 kg
[2019-09-26] VITALS (34 sets, daily range): BP systolic 99–111; BP diastolic 59–88; PULSE 117–141; TEMP 97.9–98.2; O2SAT 95–100
[2019-09-26 12:52] LABS: HEMOGLOBIN 10.4 g/dl (12.5-16.0); MEAN CELL VOLUME 93 fl (80.0-100.0); MEAN CORPUSCULAR HEMOGLOBIN 29 pg (27.0-31.0); MEAN CORPUSCULAR HGB CONC 32 g/dl (33.0-37.0); MEAN PLATELET VOLUME 9.3 fl (7.4-10.4); PLATELET COUNT 285 K/mm3 (130-400); RED BLOOD COUNT 3.54 M/mm3 (4.10-5.30); REDCELL DISTRIBUTION WIDTH-CV 14.6 % (11.5-14.5)
[2019-09-26 12:58] LABS: INR 1.4 (0.8-3.0); PROTHROMBIN TIME 16.9 SECONDS (9.7-12.8)
[2019-09-26 13:07] LABS: BILIRUBIN,TOTAL 1.2 mg/dL (0.0-1.0); C-REACTIVE PROTEIN 1.3 mg/dL (0.0-0.9); CALCIUM 8.4 mg/dL (8.4-10.2); CREATININE, serum 0.89 (0.52-1.25); POTASSIUM 4.8 mmol/L (3.4-5.0); TOTAL PROTEIN 6.4 gm/dL (6.4-8.2)
[2019-09-26 13:22] LABS: HEMATOCRIT 32.8 % (37.0-47.0)
[2019-09-26 13:46] LABS: BAND 3 % (0-10); EOSINOPHIL 3 % (0-4); LYMPHOCYTE 42 % (20.0-51.0); NEUTROPHILS 47 % (42.0-75.2); PLATELET ESTIMATE NORMAL (NORMAL)
--- NOTE | 2019-09-26 16:00 | NUR ---
Pt arrived to room at this time from ER, moving to bed, orienting to room. pt able to pivot to bed independnelty. Has pain in ABD will call for orders for pain meds and ocntinue to monitor
--- NOTE | 2019-09-26 16:15 | NUR ---
PRN pain meds given for abd pain o 02/16, ABD is taut and very distended. Pt left via bed for OR at this time for EGD with OR staff.
[2019-09-26 18:04] LABS: COLLECTION METHOD CLEAN CATCH
[2019-09-26 18:14] LABS: MUCOUS Present /lpf; PH 5 (5-8); URINE APPEARANCE Cloudy; URINE BACTERIA Rare /hpf; URINE BILIRUBIN Negative (NEGATIVE); URINE BLOOD Negative (NEGATIVE); URINE COLOR Amber; URINE GLUCOSE Negative (NEGATIVE); URINE KETONE Trace (NEGATIVE); URINE LEUKOCYTE ESTERASE Trace (NEGATIVE); URINE NITRATE Negative (NEGATIVE); URINE PROTEIN(semi-quant) Negative (NEGATIVE)
[2019-09-26 18:25] LABS: TRICYCLIC ANTIDEPRESS URINE NEGATIVE
--- NOTE | 2019-09-26 18:49 | NUR ---
Pt back in bed, resting quietly. PRN pain meds given again for pain of 9/10 to abd. VSS, remains tachycardic. Resting quietly after having 2 bowel movements. IVF to L A/C, will starte octreotide gtt when it arrives.
--- NOTE | 2019-09-26 18:54 | NUR ---
Will give bedside shift report to nightshift nruse who will resume care.
[2019-09-26 19:11] LABS: HEMATOCRIT 31.6 % (37.0-47.0); HEMOGLOBIN 10.1 g/dl (12.5-16.0)
--- NOTE | 2019-09-26 20:00 | NUR ---
Patient alert and oriented resting in bed. Patient complained of nausea and had 150mL of dark brown vomit. Patient was given zofran and then phenergan, which seemed to help. Patient complains of abdominal pain, morphine has been utilized to assist with pain management and seems to be controlling it at this time. Patient abdomen is tight and distented. Pulses strong and equal in both bilateral upper and lower extremeties. Patient is able to ambulate in room. Patient is on CIWA protcol scoring a 7 at the 1999 check, ativan given, patient has been able to rest in bed with eyes closed.
[2019-09-27] VITALS (114 sets, daily range): BP systolic 96–127; BP diastolic 63–90; PULSE 114–132; TEMP 97.7–98.5; O2SAT 94–100
[2019-09-27 06:10] LABS: MEAN CELL VOLUME 94 fl (80.0-100.0); MEAN CORPUSCULAR HGB CONC 32 g/dl (33.0-37.0); MEAN PLATELET VOLUME 9.9 fl (7.4-10.4); PLATELET COUNT 225 K/mm3 (130-400); RED BLOOD COUNT 2.68 M/mm3 (4.10-5.30); REDCELL DISTRIBUTION WIDTH-CV 15.1 % (11.5-14.5)
[2019-09-27 06:17] LABS: ALBUMIN 2.6 gm/dL (3.5-5.0); BILIRUBIN,TOTAL 0.8 mg/dL (0.0-1.0); CALCIUM 8.4 mg/dL (8.4-10.2); CREATININE, serum 1.29 (0.52-1.25); MAGNESIUM 1.7 mg/dL (1.6-2.3); POTASSIUM 5.2 mmol/L (3.4-5.0); TOTAL PROTEIN 5.9 gm/dL (6.4-8.2)
[2019-09-27 06:34] LABS: HEMATOCRIT 25.1 % (37.0-47.0); MEAN CORPUSCULAR HEMOGLOBIN 30 pg (27.0-31.0)
[2019-09-27 07:13] LABS: BAND 7 % (0-10); EOSINOPHIL 1 % (0-4); LYMPHOCYTE 40 % (20.0-51.0); NEUTROPHILS 46 % (42.0-75.2); PLATELET ESTIMATE NORMAL (NORMAL)
--- NOTE | 2019-09-27 08:00 | NUR ---
Assessment completed, alert/oriented, vital signs stable/ still tachycardic but HR has improved, reporting pain in abdomen 02/16 and requested Morphine IV/ I gave 2 mg IV, abdomen is distended and rigid/ BS are positive, has been by to eval patient this morning, she is scheduled for paracentesis with IR today/ Consent is signed, she is NPO, hemaglobin is down to 8.0 this morning, no further bloody emesis noted or reported by patient, denies needs at this time, will continue to monitor
--- NOTE | 2019-09-27 10:11 | NUR ---
Patient arrived back from radiology s/p paracentesis, puncture site bandaids are C/D/I, vital signs stable
[2019-09-27 10:17] LABS: PERITONEAL -POLYMORPHONUCLEAR 6.9 % (0-25); PERITONEAL FLUID RBC 0 /mm3 (0-0)
--- NOTE | 2019-09-27 10:18 | NUR ---
KHURRAM met with the patient to discuss discharge plan. The patient lives in [place] with her , Torito Grewal (ph#[phone]), and daughter (Viola). She states that her daughter has been staying with with her parents since the COVID outbreak. She reports needing occasional assistance with bathing and does not have any DME. She states that her will help her with bathe, when needed. She also inquired about getting a cane. KHURRAM discussed where to obtain one and the possibility of her insurance covering one. The patient reports that she would not be able to afford private paying for a cane and would be interested in getting one through insurance. KHURRAM to ask for a PT. The patient's PCP is Dr. Matilda Conn and she receives her medications at [facility]. She reports no difficulties obtaining her meds. The patient reports that she is interested in getting a new PCP, once the outbreak is over and things go back to normal. KHURRAM provided the patient with a list of providers in the [place] area. The patient does not have a DPOA-HC, but she was interested in obtaining a form for DPOA-HC. KHURRAM provided. The patient plans to return back with her upon discharge. KHURRAM addressed the patient's alcohol use. She states that she had been sober for 31 days. She states that it has been hard not being able to see her daughter. She then drank 1/2 pint of liquor the other night. The patient reports that she is having some discomfort in her abdomen right now and cannot say if she is or if she is not ready to stop drinking. She has not been receiving any outpatient services and is unsure if she would want any alcohol treatment services upon discharge. KHURRAM to continue to follow.
[2019-09-27 18:17] LABS: HEMATOCRIT 25.6 % (37.0-47.0); HEMOGLOBIN 8.1 g/dl (12.5-16.0)
--- NOTE | 2019-09-27 19:48 | NUR ---
Up to restroom and returned to bed. Assessment complete. Lungs clear. Heart sounds tachy. Bowels audible. INT left AC flushed. Right IV infusing without complications. Reports 9/10 generalized pain. Morphine given 1 hour ago. Will provide to patient when able. Denies other needs at this time. Will monitor.
--- NOTE | 2019-09-27 21:48 | NUR ---
Scored 6 on detox. Given 1mg of ativan. Patient tearful and anxious with 9/10 generalized pain. Provided with PRN morphine at this time. IV right AC leaking and removed.
--- NOTE | 2019-09-27 22:30 | NUR ---
Patient IV to left AC continues with distal occlusions due to patient positioning while resting. Added IV to left forearm at this time. Denies other needs. Call light in reach.
[2019-09-28] VITALS (453 sets, daily range): BP systolic 96–132; BP diastolic 62–98; PULSE 112–137; TEMP 97.8–99.3; O2SAT 79–100
--- NOTE | 2019-09-28 | NUR ---
Patient score 6 given ativan and PRN morphine at this time. Denies other needs. Call light in reach.
--- NOTE | 2019-09-28 04:40 | NUR ---
Reports 9/10 pain. Morphine given with PRN ativan for detox score of 6
[2019-09-28 05:31] LABS: BASO % 0.6 % (0.0-2.0); EOS # 0.2 (0.0-0.7); EOS % 2.6 % (0-4.0); GRAN # 2.6 (1.4-6.5); GRAN % 40.9 % (42.2-75.2); LYMPH # 3.2 (1.2-3.4); LYMPH % 48.8 % (20.0-51.0); MEAN CELL VOLUME 97 fl (80.0-100.0); MEAN CORPUSCULAR HGB CONC 31 g/dl (33.0-37.0); MEAN PLATELET VOLUME 9.6 fl (7.4-10.4); MONO # 0.4 (0.1-0.6); MONO % 6.8 % (1.7-9.3); PLATELET COUNT 158 K/mm3 (130-400)
[2019-09-28 05:34] LABS: HEMATOCRIT 22.4 % (37.0-47.0); MEAN CORPUSCULAR HEMOGLOBIN 30 pg (27.0-31.0)
[2019-09-28 05:37] LABS: BILIRUBIN,TOTAL 0.4 mg/dL (0.0-1.0); CALCIUM 8.4 mg/dL (8.4-10.2); CREATININE, serum 1.21 (0.52-1.25); TOTAL PROTEIN 5.9 gm/dL (6.4-8.2)
[2019-09-28 05:39] LABS: INR 1.2 (0.8-3.0); PROTHROMBIN TIME 14.2 SECONDS (9.7-12.8)
--- NOTE | 2019-09-28 07:05 | NUR ---
Patient required morphine and ativan throughout night. Otherwise uneventful night. Resting in bed this AM. Call light in reach.
--- NOTE | 2019-09-28 07:19 | NUR ---
Report given to CRISTEL Mcghee
--- NOTE | 2019-09-28 11:22 | NUR ---
Assessment completed, alert/oriented, vital signs stable/ unchanged, still tachycardic / regular rythm, lungs CTA/no resp.difficulty, abdomen still distented/ s/p paracentesis 09/26, continues to report severe pain and we are using PRN morphine often, CIWA scores of 3-5, she is tolerating some PO intake, hemaglobin 7 and GI has been by and ordered a H&H recheck for late morning, patient denies needs at thistime, will continue to monitor
[2019-09-28 13:33] LABS: HEMOGLOBIN 7.5 g/dl (12.5-16.0)
--- NOTE | 2019-09-28 16:37 | NUR ---
report given to receiving nurse Jody, I transferred patient to room 318 by wheelchair
--- NOTE | 2019-09-28 20:17 | NUR ---
At time of assessment, patient is sitting in bed watching TV. She complains of pain 10/10 in abdomen. She is alert and oriented x4, lung sounds are clear, heart sounds are regular but tachycardic, pulses are palpable but not strong. No lower extremity edema is present but her abdomen is distended and firm. Morphine 0.5 ml and Ativan 0.5 ml administered at 2000. Will continue to monitor.
[2019-09-29 00:03] VITALS: BP 131/91; PULSE 103; TEMP 98.3
[2019-09-29 01:51] VITALS: BP 115/90; PULSE 125; TEMP 98.3
[2019-09-29 03:46] LABS: CERULOPLASMIN 26 mg/dL (20-60)
[2019-09-29 03:59] VITALS: BP 115/77; PULSE 123; TEMP 98.4
--- NOTE | 2019-09-29 05:54 | NUR ---
Patient has slept on and off throughout the night. She has remained alert and oriented, only being slightly disoriented once right after waking up. She quickly reoriented herself. She has been receiving Ativan and morphine Q2 hours per patient request. She has complained of generalized pain and pain in the abdomen throughout the night. Will continue to monitor.
[2019-09-29 06:04] VITALS: BP 134/86; PULSE 126; TEMP 98.3
[2019-09-29 06:12] LABS: BASO % 0.5 % (0.0-2.0); EOS # 0.2 (0.0-0.7); EOS % 2.5 % (0-4.0); GRAN # 3.2 (1.4-6.5); GRAN % 41.7 % (42.2-75.2); LYMPH # 3.7 (1.2-3.4); MEAN CELL VOLUME 95 fl (80.0-100.0); MEAN CORPUSCULAR HGB CONC 31 g/dl (33.0-37.0); MEAN PLATELET VOLUME 9.6 fl (7.4-10.4); MONO # 0.5 (0.1-0.6); MONO % 6.6 % (1.7-9.3); PLATELET COUNT 152 K/mm3 (130-400); RED BLOOD COUNT 2.54 M/mm3 (4.10-5.30); REDCELL DISTRIBUTION WIDTH-CV 15.8 % (11.5-14.5)
[2019-09-29 06:16] LABS: HEMATOCRIT 24.2 % (37.0-47.0); HEMOGLOBIN 7.6 g/dl (12.5-16.0); MEAN CORPUSCULAR HEMOGLOBIN 30 pg (27.0-31.0)
[2019-09-29 06:22] LABS: CALCIUM 8.2 mg/dL (8.4-10.2); CREATININE, serum 1.15 (0.52-1.25); POTASSIUM 3.8 mmol/L (3.4-5.0)
[2019-09-29 08:31] VITALS: BP 119/87; PULSE 129; TEMP 98.5
[2019-09-29 10:01] VITALS: BP 135/90; PULSE 135; TEMP 98.7
[2019-09-29] MEDS ORDERED: LOPRESSOR 225 MG/TAB PO ×2 (10:31)
[2019-09-29] MEDS ORDERED: ALDACTONE 100M100 MG PO (10:32)
[2019-09-29] MEDS ORDERED: THIAMINE 1100 MG/TAB PO (10:33)
--- NOTE | 2019-09-29 10:55 | NUR ---
Pt is alert and oriented x4. breath sound is clear. tachycardia with regular rhythm. Pt rate abdomen pain 9/10. morning detox score is 5. patient recieved 2mg of Morphine and 0.5mg of Ativan. Patient was discharged. INT's discontinued. patient was escorted down by staff. I was attending to another patient when patient insist instant discharge. Simona- Charge Nurse completed discharge instruction, teaching and documents. Patient refuse verifying belonging she came in with, because she was in a hurry to discharge.
[2019-09-29 11:32] LABS: ANA SCREEN with REFLEX Negative (Negative)
--- NOTE | 2019-09-29 11:48 | NUR ---
Candy Cutter Hand attended clinical rounds with the team. Patient to discharge home today. Hospitalist discussed the importance of abstaining from alcohol as it relates to potential liver transplant. Patient states she needs to leave the hospital ASHER as her daughter is sick. KHURRAM followed up with patient on any discharge needs. KHURRAM inquired about patient's sick daughter and patient states this is none of SW's business and her daughter is well taken care of. Patient denies any needs upon discharge and is anxious to leave. Patient will discharge home as soon as orders are put in.
[2019-09-29] MEDS ORDERED: INDERAL 10MG10 MG PO (12:05)
[2019-09-30 10:13] LABS: ALPHA 1 ANTITRYPSIN TOTAL 157.6 mg/dL (())
[2019-09-30 15:15] LABS: ANTISMOOTH MUSCLE ANTIBODY Negative (Negative)
== END 2019-09-29 11:00 | disposition home or self-care (01) | DRG 432 ==
LOC: COL.ER 11:42 → EU 14:18 → IMCU 09-27 15:15 → MEDICAL 09-28 16:42
PROVIDERS: Family Medicine; Internal Medicine Gastroenterology; Physician Assistant; Student in an Organized Health Care Education/Training Program; ADMIT Hospitalist
PROC: 06L38CZ Occlusion of Esophageal Vein with Extraluminal Device, Via Natural or Artificial Opening Endoscopic (ICD-10-PCS; 2019-09-26)
PROC: 0W9G3ZZ Drainage of Peritoneal Cavity, Percutaneous Approach (ICD-10-PCS; principal; 2019-09-26 17:00)
DX: K70.31 Alcoholic cirrhosis of liver with ascites (principal); I85.11 Secondary esophageal varices with bleeding; E87.2 Acidosis; E87.1 Hypo-osmolality and hyponatremia; N17.9 Acute kidney failure, unspecified; Y90.4 Blood alcohol level of 80-99 mg/100 ml; F10.20 Alcohol dependence, uncomplicated; R00.0 Tachycardia, unspecified; E83.42 Hypomagnesemia; I10 Essential (primary) hypertension; E78.5 Hyperlipidemia, unspecified; F32.9 Major depressive disorder, single episode, unspecified; F17.210 Nicotine dependence, cigarettes, uncomplicated
CPT/HCPCS: 99223-AI; 99232-AI; 99233-AI; 99239; A4216; C9113; J0330; J0696; J2060; J2270; J2354; J2405; J2550; J2704; J2765; J3010; J3430; J3475; J7030; J7040; J7120; P9047

== ENCOUNTER 2019-10-03 12:30 | Emergency (ER) | payer BC ==
[~2019-10-03] VITALS: Ht 165.1 cm; Wt 63.6 kg
[~2019-10-03 12:30] MED LIST changes: +INDERAL 10MG10 MG PO; +LOPRESSOR 225 MG/TAB PO
[2019-10-03 12:47] VITALS: BP 133/90; TEMP 98
[2019-10-03 13:55] VITALS: PULSE 97
== END 2019-10-03 13:55 | disposition home or self-care (01) ==
LOC: COL.ER 12:30
DX: R18.8 Other ascites (principal); E11.9 Type 2 diabetes mellitus without complications; I10 Essential (primary) hypertension; F32.9 Major depressive disorder, single episode, unspecified
CPT/HCPCS: J1170; J2405

== ENCOUNTER 2019-10-07 07:49 | Inpatient (IN) | payer BC ==
[~2019-10-07] VITALS: Ht 167.6 cm; Wt 73.7 kg
[2019-10-07 08:43] LABS: BASO # 0.1 (0.0-0.2); EOS # 0.1 (0.0-0.7); EOS % 1.2 % (0-4.0); GRAN # 6.8 (1.4-6.5); GRAN % 65.1 % (42.2-75.2); LYMPH # 2.5 (1.2-3.4); LYMPH % 24.1 % (20.0-51.0); MEAN CELL VOLUME 90 fl (80.0-100.0); MEAN CORPUSCULAR HGB CONC 32 g/dl (33.0-37.0); MEAN PLATELET VOLUME 9.2 fl (7.4-10.4); MONO # 0.9 (0.1-0.6); MONO % 8.1 % (1.7-9.3); PLATELET COUNT 363 K/mm3 (130-400); RED BLOOD COUNT 3.11 M/mm3 (4.10-5.30); REDCELL DISTRIBUTION WIDTH-CV 15.1 % (11.5-14.5)
[2019-10-07 08:50] LABS: MEAN CORPUSCULAR HEMOGLOBIN 29 pg (27.0-31.0)
[2019-10-07 08:57] LABS: COLLECTION METHOD CLEAN CATCH
[2019-10-07 09:00] LABS: ALANINE AMINOTRANSFERASE 11 U/L (4-34); ALBUMIN 3.3 gm/dL (3.5-5.0); ALCOHOL(ethanol),MEDICAL 11 mg/dL; ALKALINE PHOSPHATASE 123 U/L (50-136); ANION GAP 10 mmol/L (7-16); AST,SGOT 42 U/L (15-37); BILIRUBIN,TOTAL 0.8 mg/dL (0.0-1.0); BLOOD UREA NITROGEN 11 mg/dL (7-17); CALCIUM 8.5 mg/dL (8.4-10.2); CARBON DIOXIDE 21 mmol/L (22-30); CHLORIDE 105 mmol/L (98-107); CREATININE, serum 1.04 (0.52-1.25); GLUCOSE 132 mg/dL (74-106); POTASSIUM 3.4 mmol/L (3.4-5.0); SODIUM 135 mmol/L (137-145); TOTAL PROTEIN 6.9 gm/dL (6.4-8.2)
[2019-10-07 09:03] LABS: C-REACTIVE PROTEIN < 0.5 mg/dL (0.0-0.9)
[2019-10-07 09:04] LABS: MUCOUS Present /lpf; PH 5 (5-8); SQUAMOUS EPITHELIAL 0-2 /hpf; URINE APPEARANCE Clear; URINE BACTERIA None Seen /hpf; URINE BILIRUBIN Negative (NEGATIVE); URINE BLOOD Negative (NEGATIVE); URINE COLOR Yellow; URINE GLUCOSE Negative (NEGATIVE); URINE KETONE Negative (NEGATIVE); URINE LEUKOCYTE ESTERASE Negative (NEGATIVE); URINE NITRATE Negative (NEGATIVE); URINE PROTEIN(semi-quant) Negative (NEGATIVE); URINE RBC None Seen /hpf; URINE UROBILINOGEN Negative (NEGATIVE)
[2019-10-07 09:09] LABS: INR 1.4 (0.8-3.0); PROTHROMBIN TIME 16.4 SECONDS (9.7-12.8)
[2019-10-07 09:13] LABS: LIPASE 132 U/L (23-300)
--- NOTE | 2019-10-07 12:10 | NUR ---
PATIENT ARRIVED TO ROOM 323 FROM ED.
[2019-10-07 14:33] VITALS: BP 140/95; PULSE 95; TEMP 98
--- NOTE | 2019-10-07 15:05 | NUR ---
PATIENT RESTING IN BED. PATIENT A&OX4. BP ELEVATED. HEART RATE TACHY. VSS. BOWEL SOUNDS HYPERACTIVE ALL FOUR QUADRANTS. ABDOMEN IS DISTENDED AND SOFT UPON PALPATION. PATIENT IS NPO. SHALLOW BREATHING NOTED. PATIENT STATES THAT SHE HAS SOME SOB. UPPER LUNG LOBES CLEAR UPON AUSCULTATION. LUNG BASES DIMINISHED BILATERALLY. PATIENT RATING HER PAIN A 10/10 ON A 0-10 SCALE. CALL LIGHT WITHIN REACH. NO OTHER NEEDS AT THIS TIME.
[2019-10-07 16:00] VITALS: BP 134/96; PULSE 119; TEMP 97.8
--- NOTE | 2019-10-07 16:20 | NUR ---
KHURRAM met with the patient to complete initial intake. The patient lives in [place] with her . The patient denies any DME use and is independent with ADLs. The patient's PCP is Dr. Conn and patient receives medications from [facility]. The patient does not have advanced directives but was interested in a DPOA-HC form. Form provided. The patient plans to return home at discharge with her providing transportation. Will continue to follow.
--- NOTE | 2019-10-07 16:41 | NUR ---
ANESTHESIA PAGED FOR EGD CONSULT FOR BANDING TOMORROW AT 1040.
--- NOTE | 2019-10-07 16:47 | NUR ---
NELIDA CHRISTIAN CALLED AND NOTIFIED THAT THE PATIENT IS RATING HER PAIN AT A 9/10 ON A 0-10 SCALE AFTER RECEIVING A DOSE OF IV MORPHINE AT 1445. GINO GAVE AN ORDER TO REPEAT THE PATIENT'S IV MORPHINE DOSE NOW, THEN TO CONTINUE WITH THE MORPHINE EVERY 6 HOUR SCHEDULE NEEDED.
[2019-10-07 18:46] VITALS: BP 146/98; PULSE 111; TEMP 97.9
[2019-10-07 19:27] VITALS: BP 149/100; PULSE 114; TEMP 97.3
--- NOTE | 2019-10-07 19:35 | NUR ---
Initial shift assessment done- day shift just did a detox score and medicated her with 2mg Ativan at this time for a score of 10- Tele on , tachy 115/min, will be NPO after MN for EGD tomorrow, abd large ,firm,states pain 12/16--will give IV Morphine as ordered for pain- no emesis, taking clear liquids without nausea
--- NOTE | 2019-10-07 19:39 | NUR ---
REPORT GIVEN TO CRISTEL FONSECA.
[2019-10-07 22:36] VITALS: BP 142/96; PULSE 117; TEMP 97.8
[2019-10-08] VITALS (12 sets, daily range): BP systolic 118–156; BP diastolic 77–103; PULSE 109–134; TEMP 97.7–99.3
--- NOTE | 2019-10-08 05:22 | NUR ---
On detox protocol- scored between 7-9 all night,, getting IV Ativan per protocol- pt is less anxious this morning, has tremors, and some hallucinations. Tele on, tachy around 108-118 throughout the night- pt does have abd pain, distended,firm getting Morphine 1 mg every 6 hrs,, pt stated earlier in the shift that she wanted it more often and she was in pain-- I was about ready to call the doctor but she fell asleep for the next 2-3 hours ands slept soundly- now awake and Morphine can be given - also able to give Ativan per detox protocol, will try to sleep some before EGD-- consent signed at this time
[2019-10-08 06:36] LABS: BASO # 0.1 (0.0-0.2); EOS # 0.2 (0.0-0.7); EOS % 2.3 % (0-4.0); GRAN # 4.9 (1.4-6.5); GRAN % 56.1 % (42.2-75.2); LYMPH # 2.8 (1.2-3.4); LYMPH % 31.9 % (20.0-51.0); MEAN CELL VOLUME 90 fl (80.0-100.0); MEAN CORPUSCULAR HGB CONC 31 g/dl (33.0-37.0); MEAN PLATELET VOLUME 9.4 fl (7.4-10.4); MONO # 0.7 (0.1-0.6); MONO % 8.2 % (1.7-9.3); PLATELET COUNT 293 K/mm3 (130-400); RED BLOOD COUNT 2.74 M/mm3 (4.10-5.30); REDCELL DISTRIBUTION WIDTH-CV 15.5 % (11.5-14.5)
[2019-10-08 06:45] LABS: ALBUMIN 2.8 gm/dL (3.5-5.0); BILIRUBIN,TOTAL 0.7 mg/dL (0.0-1.0); CREATININE, serum 0.97 (0.52-1.25); MAGNESIUM 1.8 mg/dL (1.6-2.3); POTASSIUM 3.5 mmol/L (3.4-5.0); TOTAL PROTEIN 6.1 gm/dL (6.4-8.2)
[2019-10-08 06:47] LABS: HEMATOCRIT 24.7 % (37.0-47.0); HEMOGLOBIN 7.6 g/dl (12.5-16.0); MEAN CORPUSCULAR HEMOGLOBIN 28 pg (27.0-31.0)
--- NOTE | 2019-10-08 08:00 | NUR ---
PATIENT RESTING IN BED THIS MORNING. PATIENT A&OX4. TACHYCARDIA NOTED. VSS. TELE IN PLACE. SHALLOW BREATHING NOTED. PATIENT STATES THAT SHE FEELS SOB. LUNG BASES DIMINISHED BILATERALLY. ABDOMEN IS DISTENDED AND FIRM. BOWEL SOUNDS ACTIVE ALL QUADRANTS. PATIENT NPO FOR PROCEDURE. CALL LIGHT WITHIN REACH.
--- NOTE | 2019-10-08 09:05 | NUR ---
SW attended clinical rounds with the team. The patient is to have a procedure this am. Will continue to monitor.
--- NOTE | 2019-10-08 10:00 | NUR ---
PATIENT IN PROCEDURE DURING DETOX PROTOCOL FOR 1000. PATIENT NOT SCORED.
--- NOTE | 2019-10-08 11:20 | NUR ---
PATIENT TAKEN TO EGD VIA BED BY CRISTEL RODAS. CONSENT FORMS ON PATIENT CHART FOR EGD AND PARACENTESIS. NS TO GRAVITY FLOW TUBING. WILL WAIT FOR PATIENT ARRIVAL BACK TO ROOM 323.
--- NOTE | 2019-10-08 12:00 | NUR ---
1200 ALCOHOL DETOX NOT SCORED. PATIENT DOWN IN PROCEDURE. WILL RE-ASSESS WHEN PATIENT RETURNS TO THE UNIT.
--- NOTE | 2019-10-08 14:10 | NUR ---
PATIENT ARRIVED BACK TO ROOM 323 VIA WHEELCHAIR FROM PARACENTESIS AND EGD.
[2019-10-08 14:38] LABS: PERITONEAL -POLYMORPHONUCLEAR 8.6 % (0-25); PERITONEAL FLUID RBC 0 /mm3 (0-0)
--- NOTE | 2019-10-08 14:54 | NUR ---
NELIDA CHRISTIAN CALLED. PATIENT COMPLAINING OF TOOTH PAIN. VERBAL OKAY GIVEN TO GIVE PATIENT PRN MORPHINE DOSE EARLY.
[2019-10-08 14:55] LABS: HEMATOCRIT 27.3 % (37.0-47.0); HEMOGLOBIN 8.3 g/dl (12.5-16.0)
--- NOTE | 2019-10-08 18:54 | NUR ---
REPORT GIVEN TO CRITSEL BRICEÑO.
--- NOTE | 2019-10-08 19:00 | NUR ---
Received report from Nohelia. Seen patient awake, lying on bed. With INT on right upperarm. Tremors noted on her both hands. With complains of pain on her abdomen. Next morphine due on . Patient aware.
--- NOTE | 2019-10-09 01:20 | NUR ---
Ativan given to patient. After giving the medicine patient complains of pain and burning sensation on the IV site. Tried flushing her INT with NS and says there's still pain. Reinserted IV at left forearm by Tari FAM.
--- NOTE | 2019-10-09 01:25 | NUR ---
Updated Maddy via phone call about patient's heart rate that is 134 at midnight. She said just continue to monitor the patient and update her if it goes up to 140s or 150s. Heart rate right now is 113bpm.
[2019-10-09 01:27] VITALS: PULSE 113
[2019-10-09 02:45] VITALS: BP 119/83; PULSE 98; TEMP 97.8
[2019-10-09 04:30] VITALS: BP 115/72; PULSE 113; TEMP 98.3
[2019-10-09 06:18] LABS: EOS # 0.1 (0.0-0.7); GRAN # 2.4 (1.4-6.5); GRAN % 59.2 % (42.2-75.2); LYMPH # 1.3 (1.2-3.4); LYMPH % 31.6 % (20.0-51.0); MEAN CELL VOLUME 90 fl (80.0-100.0); MEAN CORPUSCULAR HGB CONC 32 g/dl (33.0-37.0); MEAN PLATELET VOLUME 9.6 fl (7.4-10.4); MONO # 0.2 (0.1-0.6); MONO % 5.7 % (1.7-9.3); RED BLOOD COUNT 4.07 M/mm3 (4.10-5.30); REDCELL DISTRIBUTION WIDTH-CV 15.3 % (11.5-14.5)
[2019-10-09 06:19] LABS: ALBUMIN 2.8 gm/dL (3.5-5.0); BILIRUBIN,TOTAL 0.4 mg/dL (0.0-1.0); CALCIUM 8.1 mg/dL (8.4-10.2); CREATININE, serum 0.95 (0.52-1.25); POTASSIUM 3.5 mmol/L (3.4-5.0); TOTAL PROTEIN 5.5 gm/dL (6.4-8.2)
[2019-10-09 06:30] VITALS: BP 112/73; PULSE 113; TEMP 98.7
[2019-10-09 06:36] LABS: HEMATOCRIT 36.5 % (37.0-47.0); HEMOGLOBIN 11.6 g/dl (12.5-16.0); MEAN CORPUSCULAR HEMOGLOBIN 29 pg (27.0-31.0); PLATELET COUNT 115 K/mm3 (130-400)
--- NOTE | 2019-10-09 07:31 | NUR ---
Patient was able to sleep a bit tonight. Her detox score went down from 9 to 4-5. Still tachycardic. Patient states she has pain that is 9/10. Morphine was given. Endorsed patient to [facility].
[2019-10-09 07:39] VITALS: BP 126/75; PULSE 130; TEMP 97.6
[2019-10-09] MEDS ORDERED: DUO-KAPS1 CAP PO (08:19)
[2019-10-09] MEDS ORDERED: THIAMINE 1100 MG/TAB PO (08:19)
[2019-10-09] MEDS ORDERED: PROTONIX 40MG T40 MG PO (08:19)
--- NOTE | 2019-10-09 10:57 | NUR ---
Patient is alert and oriented. complain of abdominal pain. patient no edema, firm abdomen. patient discharged with new medication order for thiamine and multivitamin. appointment need to be set with GI doctor and Internal medicine for follow up. provided education on GI bleeding, new medication. INT discontinued.
== END 2019-10-09 10:00 | disposition home or self-care (01) | DRG 380 ==
LOC: COL.ER 07:49 → SURG 10:55
PROVIDERS: Family Medicine; Internal Medicine Gastroenterology; Physician Assistant; ADMIT Student in an Organized Health Care Education/Training Program
PROC: 0W9G3ZZ Drainage of Peritoneal Cavity, Percutaneous Approach (ICD-10-PCS; 2019-10-07)
PROC: 0DJ08ZZ Inspection of Upper Intestinal Tract, Via Natural or Artificial Opening Endoscopic (ICD-10-PCS; principal; 2019-10-08 11:00)
DX: K22.11 Ulcer of esophagus with bleeding (principal); I85.11 Secondary esophageal varices with bleeding; F10.188 Alcohol abuse with other alcohol-induced disorder; E87.2 Acidosis; I85.00 Esophageal varices without bleeding; K70.31 Alcoholic cirrhosis of liver with ascites; Y90.0 Blood alcohol level of less than 20 mg/100 ml; R00.0 Tachycardia, unspecified; E83.42 Hypomagnesemia; Z87.891 Personal history of nicotine dependence
CPT/HCPCS: 99222-AI; 99232-AI; 99239; C9113; J0696; J1170; J2060; J2270; J2354; J2405; J2704; J3010; J3475; J7030; J7040; P9047

== ENCOUNTER → 2019-10-08 | Outpatient (CLI) | payer MEDICAID ==
[~2019-10-08] MED LIST changes: +DESYREL 50MG50 MG PO; +ULTRAM 50MG TAB50 MG PO
== END ==
LOC: COL.RAD 13:30
DX: K70.31 Alcoholic cirrhosis of liver with ascites (principal)

== ENCOUNTER → 2019-10-20 | Outpatient (CLI) | payer SELFPAY ==
[~2019-10-20] VITALS: Ht 167.6 cm; Wt 70.1 kg
[~2019-10-20] MED LIST changes: -DESYREL 50MG50 MG PO; -ULTRAM 50MG TAB50 MG PO
[2019-10-20 12:29] VITALS: BP 150/100; PULSE 122
[2019-10-20 13:35] VITALS: BP 137/95; PULSE 104
--- NOTE | 2019-10-20 13:50 | NUR ---
PT LEAVES FOR HOME
== END ==
LOC: COL.RAD 12:00
DX: K70.31 Alcoholic cirrhosis of liver with ascites (principal)

== ENCOUNTER 2019-10-25 12:22 | Emergency (ER) | payer SELFPAY ==
[~2019-10-25] VITALS: Ht 167.6 cm; Wt 63.6 kg
[2019-10-25 12:29] VITALS: TEMP 96.3
[2019-10-25 13:55] LABS: BASO # 0.1 (0.0-0.2); BASO % 0.6 % (0.0-2.0); EOS % 0.2 % (0-4.0); GRAN # 7.6 (1.4-6.5); LYMPH # 1.5 (1.2-3.4); LYMPH % 15.6 % (20.0-51.0); MEAN CELL VOLUME 84 fl (80.0-100.0); MEAN CORPUSCULAR HEMOGLOBIN 26 pg (27.0-31.0); MEAN CORPUSCULAR HGB CONC 31 g/dl (33.0-37.0); MEAN PLATELET VOLUME 9.6 fl (7.4-10.4); MONO # 0.6 (0.1-0.6); MONO % 5.8 % (1.7-9.3); PLATELET COUNT 212 K/mm3 (130-400); RED BLOOD COUNT 3.91 M/mm3 (4.10-5.30); REDCELL DISTRIBUTION WIDTH-CV 14.9 % (11.5-14.5)
[2019-10-25 13:56] LABS: HEMATOCRIT 32.8 % (37.0-47.0)
[2019-10-25 14:03] LABS: ALBUMIN 3.3 gm/dL (3.5-5.0); BILIRUBIN,TOTAL 0.9 mg/dL (0.0-1.0); CALCIUM 8.7 mg/dL (8.4-10.2); CREATININE, serum 1.21 (0.52-1.25); TOTAL PROTEIN 7.1 gm/dL (6.4-8.2)
[2019-10-25 15:49] VITALS: BP 140/95; PULSE 111
== END 2019-10-25 15:51 | disposition home or self-care (01) ==
LOC: COL.ER 12:22
PROVIDERS: Nurse Practitioner Primary Care
DX: K70.30 Alcoholic cirrhosis of liver without ascites (principal)
CPT/HCPCS: J1170; J2270; J2405; J2550

== ENCOUNTER 2019-11-01 11:17 | Emergency (ER) | payer SELFPAY ==
[~2019-11-01] VITALS: Ht 167.6 cm; Wt 68.2 kg
[2019-11-01 11:25] VITALS: TEMP 97.6
[2019-11-01 12:20] LABS: BASO # 0.1 (0.0-0.2); BASO % 0.7 % (0.0-2.0); EOS # 0.1 (0.0-0.7); EOS % 1.4 % (0-4.0); GRAN # 6.1 (1.4-6.5); GRAN % 66.8 % (42.2-75.2); HEMOGLOBIN 10.3 g/dl (12.5-16.0); LYMPH # 2.1 (1.2-3.4); LYMPH % 22.9 % (20.0-51.0); MEAN CELL VOLUME 84 fl (80.0-100.0); MEAN CORPUSCULAR HEMOGLOBIN 25 pg (27.0-31.0); MEAN CORPUSCULAR HGB CONC 30 g/dl (33.0-37.0); MEAN PLATELET VOLUME 9.8 fl (7.4-10.4); MONO # 0.7 (0.1-0.6); MONO % 7.5 % (1.7-9.3); PLATELET COUNT 223 K/mm3 (130-400); RED BLOOD COUNT 4.05 M/mm3 (4.10-5.30); REDCELL DISTRIBUTION WIDTH-CV 16.1 % (11.5-14.5)
[2019-11-01 12:30] LABS: ALBUMIN 3.4 gm/dL (3.5-5.0); BILIRUBIN,TOTAL 1.1 mg/dL (0.0-1.0); CALCIUM 7.9 mg/dL (8.4-10.2); CREATININE, serum 0.94 (0.52-1.25); POTASSIUM 4.4 mmol/L (3.4-5.0); TOTAL PROTEIN 7.5 gm/dL (6.4-8.2)
[2019-11-01] MEDS ORDERED: ZOFRAN ODT4 MG PO (13:30)
[2019-11-01 13:39] VITALS: BP 123/107; PULSE 107
[2019-11-01 13:46] LABS: CLOSTRIDIUM DIFF A/B NEG; CLOSTRIDIUM DIFF A/B INTERP No C.diff present
[2019-11-02] MEDS ORDERED: MULTIPLE VITAMI1 CAP PO (08:32)
[2019-11-02] MEDS ORDERED: PROTONIX 40MG T40 MG PO (08:33)
[2019-11-02] MEDS ORDERED: ZOFRAN 4MG T4 MG/TAB PO (08:34)
[2019-11-02] MEDS ORDERED: ALDACTONE 100M100 MG PO (08:37)
== END 2019-11-01 13:44 | disposition home or self-care (01) ==
LOC: COL.ER 11:17
PROVIDERS: Nurse Practitioner
DX: R11.2 Nausea with vomiting, unspecified (principal); R10.9 Unspecified abdominal pain; R19.7 Diarrhea, unspecified; G89.29 Other chronic pain; I10 Essential (primary) hypertension
CPT/HCPCS: J1170; J2405; J7030

== ENCOUNTER → 2019-11-02 | Outpatient (CLI) | payer SELFPAY ==
[~2019-11-02] VITALS: Ht 167.6 cm; Wt 72.6 kg
[2019-11-02 08:38] VITALS: BP 127/96; PULSE 92
[2019-11-02 10:20] VITALS: BP 128/75; PULSE 105
== END ==
LOC: COL.RAD 08:23
DX: K70.31 Alcoholic cirrhosis of liver with ascites (principal)

== ENCOUNTER → 2019-11-02 | Outpatient (CLI) | payer MEDICAID ==
[~2019-11-02] MED LIST changes: +DESYREL 50MG50 MG PO
== END ==
LOC: COL.LAB 08:00 → EDSTATUS 11-05 09:00 → SDCO 11-05 09:00
DX: K92.0 Hematemesis (principal); K74.60 Unspecified cirrhosis of liver; Z87.19 Personal history of other diseases of the digestive system; I85.01 Esophageal varices with bleeding

== ENCOUNTER 2019-11-23 12:01 | Emergency (ER) | payer MEDICAID ==
[~2019-11-23] VITALS: Ht 167.6 cm; Wt 68.2 kg
[2019-11-23 12:05] VITALS: TEMP 98.3
[2019-11-23 12:45] LABS: BASO # 0.1 (0.0-0.2); BASO % 0.7 % (0.0-2.0); EOS # 0.2 (0.0-0.7); EOS % 1.3 % (0-4.0); GRAN # 7.7 (1.4-6.5); GRAN % 63.7 % (42.2-75.2); LYMPH # 3.3 (1.2-3.4); LYMPH % 27.1 % (20.0-51.0); MEAN CELL VOLUME 79 fl (80.0-100.0); MEAN CORPUSCULAR HGB CONC 31 g/dl (33.0-37.0); MEAN PLATELET VOLUME 9.4 fl (7.4-10.4); MONO # 0.8 (0.1-0.6); MONO % 6.6 % (1.7-9.3); PLATELET COUNT 343 K/mm3 (130-400); RED BLOOD COUNT 4.06 M/mm3 (4.10-5.30); REDCELL DISTRIBUTION WIDTH-CV 17.8 % (11.5-14.5)
[2019-11-23 12:52] LABS: INR 1.4 (0.8-3.0); PROTHROMBIN TIME 15.7 SECONDS (9.7-12.8)
[2019-11-23 12:55] LABS: PARTIAL THROMBOPLASTIN TIME 35.4 SECONDS (26.0-37.0)
[2019-11-23 12:57] LABS: ALANINE AMINOTRANSFERASE 10 U/L (4-34); ALBUMIN 3.5 gm/dL (3.5-5.0); ALKALINE PHOSPHATASE 105 U/L (50-136); ANION GAP 11 mmol/L (7-16); AST,SGOT 28 U/L (15-37); BILIRUBIN,TOTAL 0.6 mg/dL (0.0-1.0); BLOOD UREA NITROGEN 6 mg/dL (7-17); CALCIUM 8.8 mg/dL (8.4-10.2); CARBON DIOXIDE 22 mmol/L (22-30); CHLORIDE 104 mmol/L (98-107); CREATININE, serum 0.93 (0.52-1.25); GLUCOSE 157 mg/dL (74-106); SODIUM 137 mmol/L (137-145); TOTAL PROTEIN 7.2 gm/dL (6.4-8.2)
[2019-11-23 12:58] LABS: C-REACTIVE PROTEIN < 0.5 mg/dL (0.0-0.9); HEMATOCRIT 32.1 % (37.0-47.0); HEMOGLOBIN 9.8 g/dl (12.5-16.0); MEAN CORPUSCULAR HEMOGLOBIN 24 pg (27.0-31.0)
[2019-11-23 15:24] LABS: PERITONEAL -POLYMORPHONUCLEAR 2.4 % (0-25); PERITONEAL FLUID RBC 0 /mm3 (0-0)
[2019-11-23 17:04] VITALS: BP 144/101; PULSE 145
[2019-11-24] MEDS ORDERED: PHENERGAN 25 TA25 MG PO (14:52)
[2019-11-24] MEDS ORDERED: ZOFRAN ODT4 MG PO (14:52)
[2019-11-24] MEDS ORDERED: MAG-OX 400400 MG/TAB PO (14:54)
== END 2019-11-23 16:40 | disposition home or self-care (01) ==
LOC: COL.ER 12:01
PROVIDERS: Physician Assistant
DX: K70.30 Alcoholic cirrhosis of liver without ascites (principal); F10.10 Alcohol abuse, uncomplicated; Z87.891 Personal history of nicotine dependence
CPT/HCPCS: J1170; J2405

== ENCOUNTER 2019-11-24 12:36 | Emergency (ER) | payer MEDICAID ==
[~2019-11-24] VITALS: Ht 167.6 cm; Wt 63.6 kg
[2019-11-24 12:39] VITALS: BP 139/100; TEMP 97.2
[2019-11-24 13:44] LABS: BASO # 0.1 (0.0-0.2); BASO % 1.1 % (0.0-2.0); EOS # 0.2 (0.0-0.7); EOS % 1.8 % (0-4.0); GRAN # 7.1 (1.4-6.5); GRAN % 61.8 % (42.2-75.2); HEMOGLOBIN 10.6 g/dl (12.5-16.0); LYMPH # 3.2 (1.2-3.4); LYMPH % 27.5 % (20.0-51.0); MEAN CELL VOLUME 79 fl (80.0-100.0); MEAN CORPUSCULAR HEMOGLOBIN 24 pg (27.0-31.0); MEAN CORPUSCULAR HGB CONC 30 g/dl (33.0-37.0); MEAN PLATELET VOLUME 9.4 fl (7.4-10.4); MONO # 0.9 (0.1-0.6); MONO % 7.4 % (1.7-9.3); PLATELET COUNT 364 K/mm3 (130-400); RED BLOOD COUNT 4.43 M/mm3 (4.10-5.30); REDCELL DISTRIBUTION WIDTH-CV 17.8 % (11.5-14.5)
[2019-11-24 13:47] LABS: HEMATOCRIT 35.1 % (37.0-47.0)
[2019-11-24 13:51] LABS: INR 1.5 (0.8-3.0); PROTHROMBIN TIME 16.6 SECONDS (9.7-12.8)
[2019-11-24 13:58] LABS: ALANINE AMINOTRANSFERASE 11 U/L (4-34); ALBUMIN 3.6 gm/dL (3.5-5.0); ALCOHOL(ethanol),MEDICAL 71 mg/dL; ALKALINE PHOSPHATASE 121 U/L (50-136); ANION GAP 12 mmol/L (7-16); AST,SGOT 31 U/L (15-37); BILIRUBIN,TOTAL 0.7 mg/dL (0.0-1.0); BLOOD UREA NITROGEN 5 mg/dL (7-17); CARBON DIOXIDE 22 mmol/L (22-30); CHLORIDE 103 mmol/L (98-107); CREATININE, serum 0.92 (0.52-1.25); GLUCOSE 134 mg/dL (74-106); LIPASE 85 U/L (23-300); MAGNESIUM 1.2 mg/dL (1.6-2.3); SODIUM 136 mmol/L (137-145); TOTAL PROTEIN 7.4 gm/dL (6.4-8.2)
[2019-11-24 14:03] LABS: C-REACTIVE PROTEIN < 0.5 mg/dL (0.0-0.9)
[2019-11-24] MEDS ORDERED: ZOFRAN ODT4 MG PO (14:52)
[2019-11-24] MEDS ORDERED: PHENERGAN 25 TA25 MG PO (14:52)
[2019-11-24] MEDS ORDERED: MAG-OX 400400 MG/TAB PO (14:54)
[2019-11-24 15:20] VITALS: PULSE 84
== END 2019-11-24 15:20 | disposition home or self-care (01) ==
LOC: COL.ER 12:36
PROVIDERS: Emergency Medicine
DX: K29.20 Alcoholic gastritis without bleeding (principal); Z87.19 Personal history of other diseases of the digestive system; Z98.890 Other specified postprocedural states
CPT/HCPCS: J1200; J1630; J2060; J3411; J3475; J7030

== ENCOUNTER 2019-12-08 11:16 | Emergency (ER) | payer MEDICAID ==
[~2019-12-08] VITALS: Ht 167.6 cm; Wt 63.6 kg
[2019-12-08 12:59] LABS: BASO # 0.1 (0.0-0.2); BASO % 0.6 % (0.0-2.0); EOS # 0.2 (0.0-0.7); EOS % 1.1 % (0-4.0); GRAN # 9.7 (1.4-6.5); GRAN % 67.6 % (42.2-75.2); LYMPH # 3.4 (1.2-3.4); LYMPH % 23.8 % (20.0-51.0); MEAN CELL VOLUME 81 fl (80.0-100.0); MEAN CORPUSCULAR HGB CONC 29 g/dl (33.0-37.0); MEAN PLATELET VOLUME 9.1 fl (7.4-10.4); MONO # 0.9 (0.1-0.6); MONO % 6.3 % (1.7-9.3); PLATELET COUNT 273 K/mm3 (130-400); RED BLOOD COUNT 4.18 M/mm3 (4.10-5.30); REDCELL DISTRIBUTION WIDTH-CV 20.8 % (11.5-14.5)
[2019-12-08 13:04] LABS: HEMATOCRIT 33.9 % (37.0-47.0); HEMOGLOBIN 9.9 g/dl (12.5-16.0); MEAN CORPUSCULAR HEMOGLOBIN 24 pg (27.0-31.0)
[2019-12-08 13:29] LABS: ALANINE AMINOTRANSFERASE 10 U/L (4-34); ALBUMIN 3.2 gm/dL (3.5-5.0); ALKALINE PHOSPHATASE 179 U/L (50-136); ANION GAP 11 mmol/L (7-16); AST,SGOT 30 U/L (15-37); BILIRUBIN,TOTAL 0.5 mg/dL (0.0-1.0); BLOOD UREA NITROGEN 7 mg/dL (7-17); C-REACTIVE PROTEIN < 0.5 mg/dL (0.0-0.9); CALCIUM 7.7 mg/dL (8.4-10.2); CARBON DIOXIDE 16 mmol/L (22-30); CHLORIDE 108 mmol/L (98-107); CREATININE, serum 0.93 (0.52-1.25); GLUCOSE 146 mg/dL (74-106); POTASSIUM 4.2 mmol/L (3.4-5.0); SODIUM 135 mmol/L (137-145); TOTAL PROTEIN 7.1 gm/dL (6.4-8.2)
[2019-12-08] MEDS ORDERED: ULTRAM 50MG TAB50 MG PO (14:54)
[2019-12-08 14:55] VITALS: BP 125/92; TEMP 97.8
[2019-12-08 15:34] VITALS: PULSE 118
== END 2019-12-08 15:38 | disposition home or self-care (01) ==
LOC: COL.ER 11:16
PROVIDERS: Physician Assistant
DX: K70.31 Alcoholic cirrhosis of liver with ascites (principal); F17.210 Nicotine dependence, cigarettes, uncomplicated
CPT/HCPCS: C9113; J1170; J2405

== ENCOUNTER 2019-12-13 10:53 | Inpatient (IN) | payer MEDICAID ==
[~2019-12-13] VITALS: Ht 167.6 cm; Wt 72.4 kg
[~2019-12-13 10:53] MED LIST changes: +ULTRAM 50MG TAB50 MG PO
--- NOTE | 2019-12-13 16:01 | NUR ---
PT ARRIVED TO MEDICAL FLOOR. SHE STATES SHE IS HERE TO DETOX, BUT DID HAVE A DRINK BETWEEN THE TIME SHE LEFT THE DOCTOR'S OFFICE AND ARRIVED TO THE HOSPITAL. THIS RN WAS NOTIFIED OF HER ADMISSION AROUND 1100AM, BUT PATIENT JUST ARRIVED AT 1530. PT IS CURRNENTLY STABLE, HAS SIGNIFICANT ASCITIES AT THIS TIME AND IS HOPING TO HAVE A PARACENTESIS DONE TODAY. PT HAS BEEN ORIENTED TO THE ROOM, CALL LIGHT AT BEDSIDE AND PERSONAL BELONGINGS ON THE TABLE AT HER BEDSIDE. NO FURTHER CONCERNS AT THIS TIME. PT IS NOT CURRENTLY DETOXING SHE DRANK IN THE LAST 1 HOUR.
[2019-12-13 16:32] VITALS: BP 145/105; PULSE 117; TEMP 98.4
[2019-12-13 17:43] LABS: BASO # 0.1 (0.0-0.2); EOS # 0.2 (0.0-0.7); EOS % 1.5 % (0-4.0); GRAN # 7.3 (1.4-6.5); GRAN % 59.2 % (42.2-75.2); LYMPH # 3.6 (1.2-3.4); LYMPH % 29.2 % (20.0-51.0); MEAN CELL VOLUME 80 fl (80.0-100.0); MEAN CORPUSCULAR HGB CONC 29 g/dl (33.0-37.0); MEAN PLATELET VOLUME 9.9 fl (7.4-10.4); MONO % 8.4 % (1.7-9.3); PLATELET COUNT 188 K/mm3 (130-400); RED BLOOD COUNT 3.86 M/mm3 (4.10-5.30); REDCELL DISTRIBUTION WIDTH-CV 20.7 % (11.5-14.5)
[2019-12-13 17:44] LABS: HEMOGLOBIN 9.1 g/dl (12.5-16.0); MEAN CORPUSCULAR HEMOGLOBIN 24 pg (27.0-31.0)
[2019-12-13 18:03] LABS: ALBUMIN 2.9 gm/dL (3.5-5.0); BILIRUBIN,TOTAL 0.6 mg/dL (0.0-1.0); CALCIUM 7.5 mg/dL (8.4-10.2); CREATININE, serum 1.19 (0.52-1.25); POTASSIUM 4.2 mmol/L (3.4-5.0); TOTAL PROTEIN 6.8 gm/dL (6.4-8.2)
--- NOTE | 2019-12-13 19:14 | NUR ---
Report given to CRISTEL Hendrix.
--- NOTE | 2019-12-13 20:15 | NUR ---
Assessment complete. Resting in bed, watching televion. C/O abd pain. PRN Ultram admin. Denies N/V. Denies needs at this time.
[2019-12-13 20:25] VITALS: BP 138/95; PULSE 120; TEMP 98.4
[2019-12-13 21:58] VITALS: BP 142/95; PULSE 124; TEMP 98.6
[2019-12-13 23:26] LABS: COLLECTION METHOD CLEAN CATCH
[2019-12-13 23:36] LABS: MUCOUS Present /lpf; PH 5 (5-8); SQUAMOUS EPITHELIAL 0-2 /hpf; URINE APPEARANCE Hazy; URINE BACTERIA Rare /hpf; URINE BILIRUBIN Negative (NEGATIVE); URINE BLOOD Negative (NEGATIVE); URINE COLOR Amber; URINE GLUCOSE Negative (NEGATIVE); URINE KETONE Negative (NEGATIVE); URINE LEUKOCYTE ESTERASE Trace (NEGATIVE); URINE NITRATE Negative (NEGATIVE); URINE PROTEIN(semi-quant) 1+ (NEGATIVE); URINE RBC 0-2 /hpf
[2019-12-13 23:39] LABS: TRICYCLIC ANTIDEPRESS URINE NEGATIVE
[2019-12-14] VITALS (8 sets, daily range): BP systolic 120–132; BP diastolic 79–97; PULSE 119–143; TEMP 97.5–98.5
[2019-12-14 06:56] LABS: CALCIUM 7.4 mg/dL (8.4-10.2); CREATININE, serum 1.2 (0.52-1.25); PHOSPHOROUS 3.1 mg/dL (2.5-4.5); POTASSIUM 4.6 mmol/L (3.4-5.0)
[2019-12-14 07:01] LABS: BASO # 0.1 (0.0-0.2); BASO % 0.8 % (0.0-2.0); EOS # 0.3 (0.0-0.7); EOS % 2.9 % (0-4.0); GRAN # 4.5 (1.4-6.5); GRAN % 43.6 % (42.2-75.2); LYMPH # 4.5 (1.2-3.4); LYMPH % 43.3 % (20.0-51.0); MEAN CELL VOLUME 81 fl (80.0-100.0); MEAN CORPUSCULAR HGB CONC 29 g/dl (33.0-37.0); MEAN PLATELET VOLUME 9.7 fl (7.4-10.4); MONO # 0.9 (0.1-0.6); MONO % 9.1 % (1.7-9.3); PLATELET COUNT 183 K/mm3 (130-400); RED BLOOD COUNT 3.68 M/mm3 (4.10-5.30); REDCELL DISTRIBUTION WIDTH-CV 20.9 % (11.5-14.5)
[2019-12-14 07:03] LABS: HEMATOCRIT 29.8 % (37.0-47.0); HEMOGLOBIN 8.7 g/dl (12.5-16.0); MEAN CORPUSCULAR HEMOGLOBIN 24 pg (27.0-31.0)
[2019-12-14 07:26] LABS: MAGNESIUM 0.7 mg/dL (1.6-2.3)
--- NOTE | 2019-12-14 08:12 | NUR ---
Assessment completed, alert/oriented, continues to be tachycardic with HR 120's/ other vital signs stable, Mg was 0.7 / I have notified hospitalist and we are replacing with IV Mg at this time, abdomen is very distended and patient is scheduled for paracentesis today, she reports moderate discomfort in abdomen and is requesting Ultram often, she is on ETOH detox protocol and CIWA scores are 4-6, she is resting in bed at this time and denies other needs, will continue to monitor closely
[2019-12-14 08:18] LABS: INR 1.4 (0.8-3.0); PROTHROMBIN TIME 15.6 SECONDS (9.7-12.8)
--- NOTE | 2019-12-14 16:36 | NUR ---
KHURRAM met with the patient to discuss discharge plan. The patient lives in [place] with her , Torito Grewal (ph#[phone]). She reports independence with ADLs and does not have any DME. The patient's PCP is Dr. Kwadwo Prieto and she receives her medications at [facility]. She reports no difficulties obtaining her meds. The patient does not have advanced directives and she was not interested in completing them at this time. KHURRAM addressed the patient's alcohol use. The patient reports that she is interested in quitting. SW discussed AA meeting, outpatient, and inpatient treatment. The patient reports that she plans on returning home upon discharge, but would be interested in a list of the different inpatient treatments around [place]. SW provided her with a list of the different inpatient treatment facilities and outpatient treatment options. SW to continue to follow as needed.
[2019-12-15 00:07] VITALS: BP 114/66; PULSE 125; TEMP 100.1
[2019-12-15 02:01] VITALS: BP 126/78; PULSE 103; TEMP 98.5
[2019-12-15 05:40] VITALS: BP 107/72; PULSE 109; TEMP 98.4
--- NOTE | 2019-12-15 05:54 | NUR ---
patient has been scoring on the ciwa scale anywhere from a 3-8 during the night. before she went to sleep she was very anxious and was complaining of cramps in her fingers and toes. thiamine was given to her. magnesium was infused and flushed. patient has not report any pain during the shift and has not needed any pain medications. patient abdomen is distended. patient is hoping to go home today. denies any other needs at this time. will report off to day shift.
[2019-12-15 07:59] VITALS: BP 148/67; PULSE 76; TEMP 98.1
[2019-12-15 07:59] LABS: BASO % 0.3 % (0.0-2.0); EOS # 0.1 (0.0-0.7); EOS % 1.8 % (0-4.0); GRAN # 3.2 (1.4-6.5); GRAN % 49.4 % (42.2-75.2); LYMPH # 2.5 (1.2-3.4); LYMPH % 38.2 % (20.0-51.0); MEAN CELL VOLUME 80 fl (80.0-100.0); MEAN CORPUSCULAR HGB CONC 31 g/dl (33.0-37.0); MEAN PLATELET VOLUME 10.2 fl (7.4-10.4); MONO # 0.7 (0.1-0.6); PLATELET COUNT 135 K/mm3 (130-400); RED BLOOD COUNT 2.93 M/mm3 (4.10-5.30); REDCELL DISTRIBUTION WIDTH-CV 21.2 % (11.5-14.5)
[2019-12-15 08:02] VITALS: BP 114/71; PULSE 108; TEMP 98.7
[2019-12-15 08:02] LABS: HEMATOCRIT 23.4 % (37.0-47.0); HEMOGLOBIN 7.2 g/dl (12.5-16.0); MEAN CORPUSCULAR HEMOGLOBIN 25 pg (27.0-31.0)
[2019-12-15 08:08] LABS: ALBUMIN 2.7 gm/dL (3.5-5.0); BILIRUBIN,TOTAL 0.6 mg/dL (0.0-1.0); CREATININE, serum 1.27 (0.52-1.25); MAGNESIUM 1.1 mg/dL (1.6-2.3); POTASSIUM 3.2 mmol/L (3.4-5.0); TOTAL PROTEIN 5.5 gm/dL (6.4-8.2)
--- NOTE | 2019-12-15 11:10 | NUR ---
Assessment completed, alert/oriented, vital signs stable/ still tachy and this is baseline for her, she reports pain in abdomen is still moderate but is improved sence having paracentesis yesterday, heart RRR, lungs CTA, she is sitting up in bed, hoping to be discharged home today
--- NOTE | 2019-12-15 11:23 | NUR ---
First visit from the big data software engineer. No needs right now.
[2019-12-15] MEDS ORDERED: FOLIC ACID 11 MG/TA1 PO (11:57)
[2019-12-15] MEDS ORDERED: DUO-KAPS1 CAP PO (11:58)
[2019-12-15] MEDS ORDERED: THIAMINE 1100 MG/TAB PO (11:58)
[2019-12-15 12:10] VITALS: BP 113/73; PULSE 115; TEMP 98.7
--- NOTE | 2019-12-15 14:04 | NUR ---
Discharge instructions reviewed wit [facility] patient, instructed to follow up with PCP and GI as bianca, instructed to abstain from alcohol use, isnturcted to take meds a prescribed, instructed on labs prior to follow up appointment, IV and tele removed, she is ambulatory and i personally escorted her out the door
== END 2019-12-15 14:05 | disposition home or self-care (01) | DRG 897 ==
LOC: MEDICAL 10:53
PROVIDERS: Physician Assistant; ADMIT Hospitalist
PROC: 0W9G3ZZ Drainage of Peritoneal Cavity, Percutaneous Approach (ICD-10-PCS; principal; 2019-12-13)
DX: F10.239 Alcohol dependence with withdrawal, unspecified (principal); K70.31 Alcoholic cirrhosis of liver with ascites; R00.0 Tachycardia, unspecified; E83.42 Hypomagnesemia; E87.6 Hypokalemia; I10 Essential (primary) hypertension; E78.5 Hyperlipidemia, unspecified; F32.9 Major depressive disorder, single episode, unspecified; Y90.3 Blood alcohol level of 60-79 mg/100 ml
CPT/HCPCS: 99222-AI; 99231-AI; 99239; J2060; J3475; P9047

== ENCOUNTER → 2019-12-20 | Outpatient (CLI) | payer MEDICAID ==
[~2019-12-20] VITALS: Ht 167.6 cm; Wt 71.2 kg
[2019-12-20 11:57] VITALS: BP 144/94; PULSE 128
[2019-12-20 13:00] VITALS: BP 135/98; PULSE 118
== END ==
LOC: COL.RAD 11:18
DX: K70.31 Alcoholic cirrhosis of liver with ascites (principal)

== ENCOUNTER → 2019-12-31 | Outpatient (CLI) | payer MEDICAID ==
[2019-12-31 11:49] VITALS: BP 112/82; PULSE 118
[2019-12-31 13:30] VITALS: BP 116/90; PULSE 116
== END ==
LOC: COL.RAD 11:33
DX: K70.31 Alcoholic cirrhosis of liver with ascites (principal)

== ENCOUNTER → 2020-01-07 | Outpatient (CLI) | payer MEDICAID ==
[~2020-01-07] VITALS: Ht 167.6 cm; Wt 70.9 kg
[2020-01-07 08:51] VITALS: BP 126/96; PULSE 133
[2020-01-07 10:10] VITALS: BP 127/92; PULSE 125
== END ==
LOC: COL.RAD 08:28
DX: K70.31 Alcoholic cirrhosis of liver with ascites (principal)
CPT/HCPCS: 19804

== ENCOUNTER → 2020-01-14 | Outpatient (CLI) | payer MEDICAID ==
[~2020-01-14] VITALS: Ht 167.6 cm; Wt 69.5 kg
[2020-01-14 09:07] VITALS: BP 116/86; PULSE 113
[2020-01-14 10:20] VITALS: BP 114/77; PULSE 106
== END ==
LOC: COL.RAD 08:56
DX: K70.31 Alcoholic cirrhosis of liver with ascites (principal)

== ENCOUNTER 2020-01-20 10:52 | Emergency (ER) | payer MEDICAID ==
[~2020-01-20] VITALS: Ht 167.6 cm; Wt 63.6 kg
[2020-01-20 16:43] VITALS: BP 119/84; PULSE 116
== END 2020-01-20 16:47 | disposition home or self-care (01) ==
LOC: COL.ER 10:52
DX: K74.60 Unspecified cirrhosis of liver (principal); R18.8 Other ascites; F17.210 Nicotine dependence, cigarettes, uncomplicated
CPT/HCPCS: J1170; J2405; P9047

== ENCOUNTER → 2020-01-26 | Outpatient (CLI) | payer MEDICAID ==
[~2020-01-26] VITALS: Ht 167.6 cm; Wt 64.6 kg
[2020-01-26 09:10] VITALS: BP 120/79; PULSE 134
[2020-01-26 10:10] VITALS: BP 121/89; PULSE 127
== END ==
LOC: COL.RAD 09:00
DX: K70.31 Alcoholic cirrhosis of liver with ascites (principal)

== ENCOUNTER → 2020-02-04 | Outpatient (CLI) | payer MEDICAID ==
[~2020-02-04] VITALS: Ht 167.6 cm; Wt 63.0 kg
[2020-02-04 10:54] VITALS: BP 99/77; PULSE 121
[2020-02-04 12:00] VITALS: BP 99/75; PULSE 119
== END ==
LOC: COL.RAD 02-02 09:00
DX: K70.31 Alcoholic cirrhosis of liver with ascites (principal)

== ENCOUNTER → 2020-02-09 | Outpatient (CLI) | payer MEDICAID ==
[~2020-02-09] VITALS: Ht 167.6 cm; Wt 63.0 kg
[~2020-02-09] MED LIST changes: +ERGOCALCIFER50000 IU PO
[2020-02-09 11:58] VITALS: BP 99/67; PULSE 119
[2020-02-09 12:45] VITALS: BP 98/67; PULSE 119
== END ==
LOC: COL.RAD 11:45
DX: K70.31 Alcoholic cirrhosis of liver with ascites (principal)

== ENCOUNTER → 2020-02-16 | Outpatient (CLI) | payer MEDICAID ==
[~2020-02-16] VITALS: Ht 167.6 cm; Wt 62.4 kg
[2020-02-16 11:54] VITALS: BP 118/97; PULSE 138
[2020-02-16 13:10] VITALS: BP 135/85; PULSE 114
== END ==
LOC: COL.RAD 11:45
DX: K70.31 Alcoholic cirrhosis of liver with ascites (principal)

== ENCOUNTER → 2020-02-17 | Outpatient (CLI) | payer MEDICAID | END | disposition still patient (30) | LOC: COL.LAB | DX: Z20.828 Contact with and (suspected) exposure to other viral communicable diseases (principal) ==

== ENCOUNTER → 2020-02-23 | Outpatient (CLI) | payer MEDICAID ==
[~2020-02-23] VITALS: Ht 167.6 cm; Wt 61.0 kg
[2020-02-23 12:09] VITALS: BP 104/79; PULSE 117
[2020-02-23 13:15] VITALS: BP 109/76; PULSE 111
== END ==
LOC: COL.RAD 11:51
DX: K70.31 Alcoholic cirrhosis of liver with ascites (principal)

== ENCOUNTER → 2020-03-01 | Outpatient (CLI) | payer MEDICAID ==
[~2020-03-01] VITALS: Ht 167.6 cm; Wt 58.2 kg
[2020-03-01 12:05] VITALS: BP 128/95; PULSE 131
[2020-03-01 13:15] VITALS: BP 129/95; PULSE 113
== END ==
LOC: COL.RAD 11:30
DX: K70.31 Alcoholic cirrhosis of liver with ascites (principal)

== ENCOUNTER → 2020-03-08 | Outpatient (CLI) | payer MEDICAID ==
[~2020-03-08] VITALS: Ht 167.6 cm; Wt 58.4 kg
[2020-03-08 11:40] VITALS: BP 126/89; PULSE 119
[2020-03-08 12:45] VITALS: BP 117/81; PULSE 106
== END ==
LOC: COL.RAD 03-01 11:49
DX: K70.31 Alcoholic cirrhosis of liver with ascites (principal)

== ENCOUNTER → 2020-03-15 | Outpatient (CLI) | payer MEDICAID ==
[~2020-03-15] VITALS: Ht 167.6 cm; Wt 63.0 kg
[~2020-03-15] MED LIST changes: +ZOFRAN8 MG PO
[2020-03-15 11:40] VITALS: BP 133/98; PULSE 110
[2020-03-15 13:00] VITALS: BP 138/98; PULSE 107
== END ==
LOC: COL.RAD 11:22
DX: K70.31 Alcoholic cirrhosis of liver with ascites (principal)

== ENCOUNTER → 2020-03-23 | Outpatient (CLI) | payer MEDICAID ==
--- NOTE | 2020-03-22 12:21 | NUR ---
pt called and cancelled
[~2020-03-23] VITALS: Ht 167.6 cm; Wt 61.9 kg
[2020-03-23 13:54] VITALS: BP 127/107; PULSE 142
[2020-03-23 16:28] VITALS: BP 131/105; PULSE 128
== END ==
LOC: COL.RAD 03-22 12:45
DX: K70.31 Alcoholic cirrhosis of liver with ascites (principal)

== ENCOUNTER → 2020-03-29 | Outpatient (CLI) | payer MEDICAID ==
[~2020-03-29] VITALS: Ht 167.6 cm; Wt 59.1 kg
[2020-03-29 11:51] VITALS: BP 126/105; PULSE 140
[2020-03-29 12:40] VITALS: BP 135/97; PULSE 125
== END ==
LOC: COL.RAD 11:34
DX: K70.31 Alcoholic cirrhosis of liver with ascites (principal)

== ENCOUNTER → 2020-04-05 | Outpatient (CLI) | payer MEDICAID ==
[~2020-04-05] VITALS: Ht 167.6 cm; Wt 63.1 kg
[2020-04-05 11:55] VITALS: BP 126/96; PULSE 109
[2020-04-05 13:05] VITALS: BP 124/80; PULSE 104
== END ==
LOC: COL.RAD 11:45
DX: K70.31 Alcoholic cirrhosis of liver with ascites (principal)

== ENCOUNTER → 2020-04-12 | Outpatient (CLI) | payer MEDICAID ==
[~2020-04-12] VITALS: Ht 167.6 cm; Wt 62.1 kg
[2020-04-12 11:56] VITALS: BP 136/104; PULSE 124
[2020-04-12 12:45] VITALS: BP 151/97; PULSE 113
== END ==
LOC: COL.RAD 11:38
DX: K70.31 Alcoholic cirrhosis of liver with ascites (principal)

== ENCOUNTER 2020-04-18 08:43 | Emergency (ER) | payer MEDICAID ==
[~2020-04-18] VITALS: Ht 167.6 cm; Wt 63.6 kg
[2020-04-18 08:49] VITALS: TEMP 98
[2020-04-18] MEDS ORDERED: NORCO 325 MG-51 TAB PO (09:59)
[2020-04-18 10:26] LABS: BASO # 0.1 (0.0-0.2); BASO % 0.7 % (0.0-2.0); EOS # 0.1 (0.0-0.7); EOS % 1.1 % (0-4.0); GRAN # 8.4 (1.4-6.5); GRAN % 73.8 % (42.2-75.2); HEMOGLOBIN 11.8 g/dl (12.5-16.0); LYMPH # 1.9 (1.2-3.4); LYMPH % 16.8 % (20.0-51.0); MEAN CELL VOLUME 86 fl (80.0-100.0); MEAN CORPUSCULAR HEMOGLOBIN 28 pg (27.0-31.0); MEAN CORPUSCULAR HGB CONC 32 g/dl (33.0-37.0); MEAN PLATELET VOLUME 9.2 fl (7.4-10.4); MONO # 0.8 (0.1-0.6); MONO % 6.8 % (1.7-9.3); PLATELET COUNT 271 K/mm3 (130-400); RED BLOOD COUNT 4.28 M/mm3 (4.10-5.30); REDCELL DISTRIBUTION WIDTH-CV 14.4 % (11.5-14.5)
[2020-04-18 10:28] LABS: HEMATOCRIT 36.8 % (37.0-47.0)
[2020-04-18 10:30] LABS: INR 1.3 (0.8-3.0)
[2020-04-18 10:39] LABS: ALBUMIN 3.2 gm/dL (3.5-5.0); BILIRUBIN,TOTAL 0.7 mg/dL (0.0-1.0); CALCIUM 7.2 mg/dL (8.4-10.2); CREATININE, serum 1.15 (0.52-1.25); POTASSIUM 5.2 mmol/L (3.4-5.0); TOTAL PROTEIN 7.4 gm/dL (6.4-8.2)
[2020-04-18 11:10] VITALS: BP 130/80; PULSE 112
== END 2020-04-18 11:10 | disposition home or self-care (01) ==
LOC: COL.ER 08:43
PROVIDERS: Emergency Medicine
DX: E87.1 Hypo-osmolality and hyponatremia (principal); R18.8 Other ascites; R07.81 Pleurodynia; G89.29 Other chronic pain
CPT/HCPCS: J0780; J1170; J2405

== ENCOUNTER → 2020-04-20 | Outpatient (CLI) | payer MEDICAID ==
[~2020-04-20] VITALS: Ht 167.6 cm; Wt 64.8 kg
[~2020-04-20] MED LIST changes: +AMBIEN 5MG TABLE5 MG PO; +ATROPINE 2 ML2 ML SL; +BENTYL 10MG10 MG/CAP PO; +BENTYL 20MG20 MG/TAB PO; +MULTIPLE VITAMI1 TA5 PO; +PHENERGAN25 MG RC; +ROXANOL 20MG20 MG/ML SL; +VANCOCIN H125 MG/CAP PO; +VENTOLIN0.09 MG IH
[2020-04-20 11:14] VITALS: BP 140/103; PULSE 132
[2020-04-20 13:05] VITALS: BP 137/106; PULSE 124
== END ==
LOC: COL.RAD 11:15
DX: K70.31 Alcoholic cirrhosis of liver with ascites (principal)
CPT/HCPCS: 19804

== ENCOUNTER 2020-04-27 15:02 | Emergency (ER) | payer MEDICAID ==
[~2020-04-27] VITALS: Ht 167.6 cm; Wt 63.6 kg
[2020-04-27 15:09] VITALS: TEMP 98.3
[2020-04-27 16:27] LABS: HEMOGLOBIN 11.2 g/dl (12.5-16.0); MEAN CELL VOLUME 83 fl (80.0-100.0); MEAN CORPUSCULAR HEMOGLOBIN 28 pg (27.0-31.0); MEAN CORPUSCULAR HGB CONC 33 g/dl (33.0-37.0); MEAN PLATELET VOLUME 8.8 fl (7.4-10.4); PLATELET COUNT 331 K/mm3 (130-400); RED BLOOD COUNT 4.08 M/mm3 (4.10-5.30); REDCELL DISTRIBUTION WIDTH-CV 14.6 % (11.5-14.5)
[2020-04-27 16:39] LABS: ALANINE AMINOTRANSFERASE 14 U/L (4-34); ALBUMIN 2.7 gm/dL (3.5-5.0); ALCOHOL(ethanol),MEDICAL 111 mg/dL; ALKALINE PHOSPHATASE 182 U/L (50-136); ANION GAP 12 mmol/L (7-16); AST,SGOT 44 U/L (15-37); BILIRUBIN,TOTAL 0.4 mg/dL (0.0-1.0); BLOOD UREA NITROGEN 8 mg/dL (7-17); CALCIUM 7.2 mg/dL (8.4-10.2); CHLORIDE 99 mmol/L (98-107); GLUCOSE 119 mg/dL (74-106); POTASSIUM 4.5 mmol/L (3.4-5.0); SODIUM 125 mmol/L (137-145); TOTAL PROTEIN 6.2 gm/dL (6.4-8.2)
[2020-04-27 16:44] LABS: ACETAMINOPHEN < 10 ug/mL (10-30); CARBON DIOXIDE 14 mmol/L (22-30)
[2020-04-27 16:45] LABS: SALICYLATE < 1.0 mg/dL
[2020-04-27 17:08] LABS: TSH w REFLEX 0.539 uIU/mL (0.465-4.680)
[2020-04-27 18:11] LABS: EOSINOPHIL 1 % (0-4); LYMPHOCYTE 21 % (20.0-51.0); NEUTROPHILS 65 % (42.0-75.2); PLATELET ESTIMATE NORMAL (NORMAL)
[2020-04-27] MEDS ORDERED: ATIVAN 0.50.5 MG/TAB PO ×2 (18:46)
[2020-04-27 18:55] VITALS: BP 117/91; PULSE 157
== END 2020-04-27 18:55 | disposition home or self-care (01) ==
LOC: COL.ER 15:02
PROVIDERS: Nurse Practitioner
DX: F11.23 Opioid dependence with withdrawal (principal); Z87.891 Personal history of nicotine dependence
CPT/HCPCS: J2060; J2405; J7030

== ENCOUNTER → 2020-04-27 | Emergency (ER) | payer MEDICAID ==
[~2020-04-27] VITALS: Ht 167.6 cm; Wt 63.6 kg
[~2020-04-27] MED LIST changes: -AMBIEN 5MG TABLE5 MG PO; -ATROPINE 2 ML2 ML SL; -BENTYL 10MG10 MG/CAP PO; -MULTIPLE VITAMI1 TA5 PO; -ROXANOL 20MG20 MG/ML SL; -VANCOCIN H125 MG/CAP PO; -VENTOLIN0.09 MG IH
[2020-04-27 08:37] VITALS: BP 140/95; PULSE 129; TEMP 98.2
== END ==
LOC: COL.ER 08:33
DX: R10.9 Unspecified abdominal pain (principal); Z53.21 Procedure and treatment not carried out due to patient leaving prior to being seen by health care provider

== ENCOUNTER → 2020-04-27 | Outpatient (CLI) | payer MEDICAID ==
[~2020-04-27] VITALS: Ht 167.6 cm; Wt 63.8 kg
[~2020-04-27] MED LIST changes: -BENTYL 20MG20 MG/TAB PO; -PHENERGAN25 MG RC
[2020-04-27 12:58] VITALS: BP 131/105; PULSE 145
[2020-04-27 14:54] VITALS: BP 140/95; PULSE 149
== END ==
LOC: COL.RAD 04-26 12:00
DX: K70.31 Alcoholic cirrhosis of liver with ascites (principal)

== ENCOUNTER 2020-04-29 16:40 | Inpatient (IN) | payer MEDICAID ==
[~2020-04-29] VITALS: Ht 167.6 cm; Wt 61.7 kg
[2020-04-29 17:41] LABS: HEMATOCRIT 38.7 % (37.0-47.0); HEMOGLOBIN 12.7 g/dl (12.5-16.0); MEAN CELL VOLUME 84 fl (80.0-100.0); MEAN CORPUSCULAR HEMOGLOBIN 28 pg (27.0-31.0); MEAN CORPUSCULAR HGB CONC 33 g/dl (33.0-37.0); MEAN PLATELET VOLUME 8.9 fl (7.4-10.4); PLATELET COUNT 380 K/mm3 (130-400); RED BLOOD COUNT 4.61 M/mm3 (4.10-5.30); REDCELL DISTRIBUTION WIDTH-CV 14.8 % (11.5-14.5)
[2020-04-29 17:52] LABS: ALANINE AMINOTRANSFERASE 20 U/L (4-34); ALBUMIN 3.1 gm/dL (3.5-5.0); ALCOHOL(ethanol),MEDICAL 130 mg/dL; ALKALINE PHOSPHATASE 204 U/L (50-136); ANION GAP 15 mmol/L (7-16); AST,SGOT 64 U/L (15-37); BILIRUBIN,TOTAL 0.8 mg/dL (0.0-1.0); BLOOD UREA NITROGEN 5 mg/dL (7-17); CALCIUM 7.3 mg/dL (8.4-10.2); CHLORIDE 97 mmol/L (98-107); GLUCOSE 141 mg/dL (74-106); POTASSIUM 4.3 mmol/L (3.4-5.0); SODIUM 126 mmol/L (137-145); TOTAL PROTEIN 7.1 gm/dL (6.4-8.2)
[2020-04-29 17:56] LABS: C-REACTIVE PROTEIN < 0.5 mg/dL (0.0-0.9); CARBON DIOXIDE 14 mmol/L (22-30); MAGNESIUM 0.7 mg/dL (1.6-2.3)
[2020-04-29 18:29] LABS: LYMPHOCYTE 18 % (20.0-51.0); METAMYELOCYTE 1 % (0-0); NEUTROPHILS 76 % (42.0-75.2)
[2020-04-29 18:30] LABS: OVALOCYTES 1+
[2020-04-29 18:31] LABS: HYPOCHROMIA 1+; PLATELET ESTIMATE NORMAL (NORMAL)
[2020-04-29 21:41] LABS: BASO # 0.1 (0.0-0.2); BASO % 0.7 % (0.0-2.0); EOS # 0.1 (0.0-0.7); EOS % 0.3 % (0-4.0); GRAN # 12.2 (1.4-6.5); GRAN % 70.4 % (42.2-75.2); LYMPH # 3.4 (1.2-3.4); LYMPH % 19.3 % (20.0-51.0); MEAN CELL VOLUME 84 fl (80.0-100.0); MEAN CORPUSCULAR HGB CONC 33 g/dl (33.0-37.0); MEAN PLATELET VOLUME 8.5 fl (7.4-10.4); MONO # 1.5 (0.1-0.6); MONO % 8.3 % (1.7-9.3); RED BLOOD COUNT 3.81 M/mm3 (4.10-5.30); REDCELL DISTRIBUTION WIDTH-CV 14.8 % (11.5-14.5)
[2020-04-29 21:57] LABS: MEAN CORPUSCULAR HEMOGLOBIN 28 pg (27.0-31.0)
[2020-04-29 21:58] LABS: HEMATOCRIT 32.1 % (37.0-47.0); HEMOGLOBIN 10.5 g/dl (12.5-16.0)
[2020-04-29 21:59] LABS: PLATELET COUNT 246 K/mm3 (130-400)
[2020-04-29 22:11] LABS: INR 1.3 (0.8-3.0); PROTHROMBIN TIME 14.3 SECONDS (9.7-12.8)
[2020-04-30] VITALS (408 sets, daily range): BP systolic 15–151; BP diastolic 91–109; PULSE 110–144; TEMP 97.4–98.3; O2SAT 77–100
[2020-04-30 01:33] LABS: HEMATOCRIT 33.4 % (37.0-47.0)
[2020-04-30 05:24] LABS: BASO # 0.1 (0.0-0.2); BASO % 0.8 % (0.0-2.0); EOS # 0.2 (0.0-0.7); EOS % 1.6 % (0-4.0); GRAN % 62.1 % (42.2-75.2); LYMPH # 3.7 (1.2-3.4); LYMPH % 25.2 % (20.0-51.0); MEAN CELL VOLUME 83 fl (80.0-100.0); MEAN CORPUSCULAR HGB CONC 33 g/dl (33.0-37.0); MEAN PLATELET VOLUME 8.9 fl (7.4-10.4); MONO # 1.4 (0.1-0.6); MONO % 9.5 % (1.7-9.3); PLATELET COUNT 222 K/mm3 (130-400); RED BLOOD COUNT 3.56 M/mm3 (4.10-5.30); REDCELL DISTRIBUTION WIDTH-CV 14.8 % (11.5-14.5)
[2020-04-30 05:28] LABS: CALCIUM 6.9 mg/dL (8.4-10.2); CREATININE, serum 0.96 (0.52-1.25); POTASSIUM 4.6 mmol/L (3.4-5.0)
[2020-04-30 05:33] LABS: HEMATOCRIT 29.7 % (37.0-47.0); HEMOGLOBIN 9.8 g/dl (12.5-16.0); MEAN CORPUSCULAR HEMOGLOBIN 28 pg (27.0-31.0)
[2020-04-30 06:50] LABS: COLLECTION METHOD CLEAN CATCH
[2020-04-30 07:03] LABS: TRICYCLIC ANTIDEPRESS URINE NEGATIVE
[2020-04-30 07:11] LABS: MUCOUS Present /lpf; PH 6 (5-8); SQUAMOUS EPITHELIAL 0-2 /hpf; URINE APPEARANCE Hazy; URINE BACTERIA Rare /hpf; URINE BILIRUBIN Negative (NEGATIVE); URINE BLOOD Negative (NEGATIVE); URINE COLOR Yellow; URINE GLUCOSE Negative (NEGATIVE); URINE KETONE Negative (NEGATIVE); URINE LEUKOCYTE ESTERASE 1+ (NEGATIVE); URINE NITRATE Negative (NEGATIVE); URINE PROTEIN(semi-quant) Negative (NEGATIVE); URINE RBC 0-2 /hpf; URINE UROBILINOGEN Negative (NEGATIVE)
[2020-04-30 09:22] LABS: HEMOGLOBIN 10.8 g/dl (12.5-16.0)
[2020-04-30 09:23] LABS: HEMATOCRIT 32.3 % (37.0-47.0)
--- NOTE | 2020-04-30 12:33 | NUR ---
SW met with patient at her bedside to complete assessment. Patient currently resides in [facility] with her father Gui [phone] as her EMR and care support. Patient reoprts being independent of ADL's with difficulty, and that she does not have a DPOA. This SW did provide one for patient as she did not want to fill it out at this time. Patient indicated that she does not utilize and ADL's and that her PCP is Dr. Prieto, she does not have any upcoming appoinntments at this time. Patient reports that she gets her medications from [facility] [address] with no concerns. Patient was interested in Home Health Services, as she indicated that she continues to have increased pain. SW did provide a medicare.gov compare sheet and discussed choices with patient. Sw will continue to follow.
[2020-04-30 13:41] LABS: HEMOGLOBIN 10.3 g/dl (12.5-16.0)
--- NOTE | 2020-04-30 15:00 | NUR ---
Gave report to CRISTEL Obregon. Will be transferring patient to the surgical floor to room 328.
[2020-04-30 15:08] LABS: HEPATITIS B CORE AB,TOTAL Negative (()); HEPATITIS B SURFACE ANTIBODY <2.0 (()); HEPATITIS B SURFACE ANTIGEN Negative (Negative)
--- NOTE | 2020-04-30 15:30 | NUR ---
Patient arrived to floor via wheel chair. Alert and oriented. Denies nausea. Is rating pain at 10/10 on a 0-10 scale. Oriented patient to room. She asked about the detox protocol and if it will continue, explained yes. No other changes at this time. Call light within reach.
--- NOTE | 2020-04-30 16:30 | NUR ---
Patient has been doing well since arriving to floor. Ativan given per detox protocol. She stated she felt like her score should be higher due to her tremors. She has been started on oral pain medication. Got her diet changed to low sodium. She keeps saying she is very cold. Placed a couple warm blankets on her and turned up the heat in the room. Explained the diet and reminded her of the fluid restriction. No other changes at this time. Call light within reach.
[2020-04-30 17:55] LABS: HEMOGLOBIN 10.5 g/dl (12.5-16.0)
[2020-04-30 18:22] LABS: HEMATOCRIT 32.7 % (37.0-47.0)
--- NOTE | 2020-04-30 18:30 | NUR ---
Patient was upset about her . She stated that he was yelling at her and calling her names. She is worried about discharging home with him. She asked that we tell the desk she can not have visitors. She also asked for a social work consult. No other changes at this time. Call light within reach.
--- NOTE | 2020-04-30 20:38 | NUR ---
PT ON DETOX PROTOCOL, SCORES 6 AT THIS TIME AND RECEIVES ATIVAN 1MG IVP, ALSO REPORTS ABD PAIN, MORPHINE 2MG IVP GIVEN AT THIS TIME. HAS IVF INFUSING TO LEFT WRIST, NO REDNESS OR SWELLING. SL TO LEFT AC, FLUSHES WELL. IS ALERT AND ORIENTED. REPORTS HAVING VISUAL HALLUCINATIONS. UP TO BATHROOM, REPORTS LOOSE STOOL.
--- NOTE | 2020-04-30 22:35 | NUR ---
MEDICATED WITH ATIVAN 1MG IV FOR DETOX SCORE 6. ALSO GIVEN OXYCODONE 5MG PO FOR ABD PAIN.
[2020-05-01] VITALS (12 sets, daily range): BP systolic 114–161; BP diastolic 76–110; PULSE 97–139; TEMP 97.4–97.9
--- NOTE | 2020-05-01 02:42 | NUR ---
PT REPORTS "SEVERE" ABD PAIN. MEDICATED WITH MORPHINE 2MG IVP WELL ATIVAN 1MG IV FOR DETOX SCORE.
--- NOTE | 2020-05-01 04:56 | NUR ---
PT GIVEN ATIVAN 0.5MG IV FOR DETOX SCORE 5, MEDICATED WITH OXYCODONE 5MG PO FOR ABD PAIN.
[2020-05-01 06:52] LABS: ALBUMIN 2.2 gm/dL (3.5-5.0); BILIRUBIN,TOTAL 0.6 mg/dL (0.0-1.0); CALCIUM 7.4 mg/dL (8.4-10.2); CREATININE, serum 1.2 (0.52-1.25); POTASSIUM 4.9 mmol/L (3.4-5.0); TOTAL PROTEIN 5.4 gm/dL (6.4-8.2)
[2020-05-01 07:36] LABS: BASO # 0.1 (0.0-0.2); BASO % 0.9 % (0.0-2.0); EOS # 0.6 (0.0-0.7); EOS % 4.4 % (0-4.0); GRAN # 7.8 (1.4-6.5); GRAN % 55.5 % (42.2-75.2); HEMATOCRIT 36.1 % (37.0-47.0); HEMOGLOBIN 11.6 g/dl (12.5-16.0); LYMPH # 4.2 (1.2-3.4); LYMPH % 29.9 % (20.0-51.0); MEAN CELL VOLUME 87 fl (80.0-100.0); MEAN CORPUSCULAR HEMOGLOBIN 28 pg (27.0-31.0); MEAN CORPUSCULAR HGB CONC 32 g/dl (33.0-37.0); MEAN PLATELET VOLUME 9.1 fl (7.4-10.4); MONO # 1.2 (0.1-0.6); MONO % 8.6 % (1.7-9.3); PLATELET COUNT 254 K/mm3 (130-400); RED BLOOD COUNT 4.13 M/mm3 (4.10-5.30); REDCELL DISTRIBUTION WIDTH-CV 15.2 % (11.5-14.5)
[2020-05-01 10:35] LABS: INR 1.3 (0.8-3.0); PROTHROMBIN TIME 14.6 SECONDS (9.7-12.8)
--- NOTE | 2020-05-01 11:00 | NUR ---
Patient has been doing ok this morning. She is upset because her vital signs do not increase her score on the detox protocol to get ativan. She continues to get morphine. Denies nausea. She has been NPO for the paracentesis and abdomen US. No other changes at this time. Call light within reach.
--- NOTE | 2020-05-01 12:47 | NUR ---
Initial visit; Patient thanked Title Supervisor for looking in on her and offering God's blessings.
[2020-05-01 13:28] LABS: HEPATITIS AB (HAV) IGG INDEX 2.98 Index (<=1.00)
--- NOTE | 2020-05-01 18:30 | NUR ---
Patient has been upset because she stated the doctor told her she only has about 2 months to live. Explained the note stated that if she did not stop drinking and get on the transplant list she will not survive much longer. She was upset that she does not think she will live long. Denies nausea. Dr Black ordered 1mg of PO ativan for anxiety. No other changes at this time. Call light within reach.
--- NOTE | 2020-05-01 20:29 | NUR ---
Resting in bed. Assessment complete. Lungs clear. Heart sounds normal. Bowels active x4. Pulses present throughout. No edema noted. INT left AC leaking and removed. IV left wrist without complications. Denies pains at this time. Provided with PRN ativan for detox score at 7. Denies other needs. Will monitor.
--- NOTE | 2020-05-01 21:31 | NUR ---
Rating pain in ABD and back 01/16. Provided with PRN oxycodone at this time. Call light in reach.
[2020-05-02 00:26] VITALS: BP 117/84; PULSE 132; TEMP 97.7
--- NOTE | 2020-05-02 00:40 | NUR ---
Rating back and ABD pain 8/10. Provided with PRN morphine at this time. Scored 4 of detox. Providing ativan
[2020-05-02 02:06] VITALS: BP 125/91; PULSE 113; TEMP 97.9
[2020-05-02 04:30] VITALS: BP 111/84; PULSE 109; TEMP 97.9
--- NOTE | 2020-05-02 05:49 | NUR ---
Patient required ativan, morphine, and oxycodone during night. Highest detox score of 7. Otherwise uneventful night. Resting in bed this AM. Call light in reach.
[2020-05-02 06:10] VITALS: BP 114/91; PULSE 115; TEMP 97.5
--- NOTE | 2020-05-02 06:41 | NUR ---
Given morphine for 9/10 pain. Denies other needs. Call light in reach.
--- NOTE | 2020-05-02 07:22 | NUR ---
Report given to CRISTEL Roberts
--- NOTE | 2020-05-02 08:00 | NUR ---
Patient resting in bed watching television at this time. Patient is alert and oriented, answers questions appropriately. Patient requests PRN pain medication when it is available and states she anticipates discharge today and wants to speak to the hospitalist at the earliest oppertunity, informed patient that this will be passed on. Denies further needs at this time, call light within reach.
[2020-05-02 08:04] LABS: BILIRUBIN,TOTAL 0.5 mg/dL (0.0-1.0); CALCIUM 7.4 mg/dL (8.4-10.2); CREATININE, serum 1.17 (0.52-1.25)
[2020-05-02 08:34] LABS: MAGNESIUM 1.6 mg/dL (1.6-2.3)
[2020-05-02 08:45] VITALS: BP 111/83; PULSE 120; TEMP 98
[2020-05-02 10:15] LABS: BASO # 0.1 (0.0-0.2); BASO % 0.7 % (0.0-2.0); EOS # 0.3 (0.0-0.7); EOS % 2.4 % (0-4.0); GRAN # 7.2 (1.4-6.5); GRAN % 66.2 % (42.2-75.2); LYMPH # 2.4 (1.2-3.4); LYMPH % 22.3 % (20.0-51.0); MEAN CELL VOLUME 85 fl (80.0-100.0); MEAN CORPUSCULAR HGB CONC 33 g/dl (33.0-37.0); MEAN PLATELET VOLUME 8.8 fl (7.4-10.4); MONO # 0.8 (0.1-0.6); MONO % 7.6 % (1.7-9.3); PLATELET COUNT 195 K/mm3 (130-400); REDCELL DISTRIBUTION WIDTH-CV 15.4 % (11.5-14.5)
[2020-05-02 10:16] LABS: HEMATOCRIT 30.5 % (37.0-47.0); HEMOGLOBIN 9.9 g/dl (12.5-16.0); MEAN CORPUSCULAR HEMOGLOBIN 28 pg (27.0-31.0)
[2020-05-02] MEDS ORDERED: ALDACTONE 100M100 MG PO (10:18)
[2020-05-02] MEDS ORDERED: LASIX 40MG TABL40 MG PO (10:19)
[2020-05-02] MEDS ORDERED: DUO-KAPS1 CAP PO (10:22)
[2020-05-02] MEDS ORDERED: THIAMINE 1100 MG/TAB PO (10:22)
[2020-05-02] MEDS ORDERED: FOLIC ACID 11 MG/TA1 PO (10:22)
[2020-05-02] MEDS ORDERED: PROTONIX 40MG T40 MG PO (10:23)
--- NOTE | 2020-05-02 10:46 | NUR ---
SW attended clinical rounds. The hospitalist discussed alcohol cessation and options for treatment. The patient states that she has tried to call around to places for alcohol treatment, but that places are full or do not take her insurance. The hospitalist also discussed home health again. The patient states that she is going back home with her parents and is not interested in home health at this time. She states that she does not have a need for it right now. SW then followed up with the patient. She confirms she is going back home with her parents. SW discussed outpatient treatment and how the [facility] can screen her for alcohol treatment and help find placement. The patient verbalized understanding. SW offered to call the [facility] and to give her their number. The patient declined. She states that she would probably not call them. She states she would just prefer to walk-in there and knows where they are located. She had no other questions for SW at this time. No additional needs at this time.
--- NOTE | 2020-05-02 11:28 | NUR ---
Discharge teaching completed. Discussed follow up appointments, discharge medications, and discharge instructions. Patient denied questions or concerns. INT removed, catheter intact, hemostasis achieved. Telemetry removed. Patient dressed and gathered belongings, then escorted to ED entrance where she entered a private vehicle.
== END 2020-05-02 11:28 | disposition home or self-care (01) | DRG 177 ==
LOC: COL.ER 16:40 → JCC 22:59 → ICU 22:59 → JCC 04-30 15:30
PROVIDERS: Hospitalist; Internal Medicine Gastroenterology; Nurse Practitioner; Nurse Practitioner Family; ADMIT Family Medicine
DX: U07.1 COVID-19 (principal); J12.89 Other viral pneumonia; I21.A1 Myocardial infarction type 2; K44.9 Diaphragmatic hernia without obstruction or gangrene; K76.0 Fatty (change of) liver, not elsewhere classified; D69.6 Thrombocytopenia, unspecified; R91.8 Other nonspecific abnormal finding of lung field; I10 Essential (primary) hypertension
CPT/HCPCS: 99223-AI; 99232-AI; 99233-AI; 99239; C9113; J0330; J0696; J2060; J2270; J2354; J2405; J2704; J3411; J3475; J7030; J7040

== ENCOUNTER 2020-05-04 10:40 | Emergency (ER) | payer MEDICAID ==
[~2020-05-04] VITALS: Ht 167.6 cm; Wt 63.6 kg
[2020-05-04 10:54] VITALS: TEMP 97.8
[2020-05-04 12:16] LABS: INR 1.2 (0.8-3.0); PROTHROMBIN TIME 13.3 SECONDS (9.7-12.8)
[2020-05-04 12:18] LABS: BASO # 0.1 (0.0-0.2); BASO % 0.6 % (0.0-2.0); EOS # 0.1 (0.0-0.7); EOS % 0.7 % (0-4.0); GRAN # 8.5 (1.4-6.5); GRAN % 74.7 % (42.2-75.2); HEMOGLOBIN 10.6 g/dl (12.5-16.0); LYMPH # 1.9 (1.2-3.4); MEAN CELL VOLUME 87 fl (80.0-100.0); MEAN CORPUSCULAR HEMOGLOBIN 28 pg (27.0-31.0); MEAN CORPUSCULAR HGB CONC 32 g/dl (33.0-37.0); MEAN PLATELET VOLUME 9.7 fl (7.4-10.4); MONO # 0.7 (0.1-0.6); PLATELET COUNT 225 K/mm3 (130-400); RED BLOOD COUNT 3.82 M/mm3 (4.10-5.30)
[2020-05-04 12:19] LABS: HEMATOCRIT 33.3 % (37.0-47.0); PARTIAL THROMBOPLASTIN TIME 33.4 SECONDS (26.0-37.0)
[2020-05-04 12:24] LABS: ALBUMIN 2.9 gm/dL (3.5-5.0); BILIRUBIN,TOTAL 0.6 mg/dL (0.0-1.0); CALCIUM 8.4 mg/dL (8.4-10.2); CREATININE, serum 1.19 (0.52-1.25); POTASSIUM 4.7 mmol/L (3.4-5.0); TOTAL PROTEIN 6.5 gm/dL (6.4-8.2)
[2020-05-04 14:51] LABS: HEMATOCRIT 30.1 % (37.0-47.0); HEMOGLOBIN 9.7 g/dl (12.5-16.0)
[2020-05-04] MEDS ORDERED: BENTYL 20MG20 MG/TAB PO (16:40)
[2020-05-04] MEDS ORDERED: PHENERGAN25 MG RC (16:40)
[2020-05-04 18:01] VITALS: BP 120/75; PULSE 101
[2020-05-05] MEDS ORDERED: BENTYL 20MG20 MG/TAB PO (08:00)
[2020-05-05] MEDS ORDERED: FOLIC ACID 11 MG/TA1 PO (08:01)
[2020-05-05] MEDS ORDERED: MULTIPLE VITAMI1 TA5 PO (08:02)
[2020-05-05] MEDS ORDERED: PROTONIX 40MG T40 MG PO (08:03)
[2020-05-05] MEDS ORDERED: PHENERGAN25 MG RC (08:03)
[2020-05-05] MEDS ORDERED: NATURE'S BLEND100 M2 PO (08:05)
== END 2020-05-04 18:00 | disposition home or self-care (01) ==
LOC: COL.ER 10:40
PROVIDERS: Emergency Medicine
DX: K92.0 Hematemesis (principal); Z87.891 Personal history of nicotine dependence
CPT/HCPCS: J1170; J1630; J2060; J2270; J2405; J7030

== ENCOUNTER → 2020-05-05 | Outpatient (CLI) | payer MEDICAID ==
[~2020-05-05] VITALS: Ht 167.6 cm; Wt 63.4 kg
[~2020-05-05] MED LIST changes: +BENTYL 20MG20 MG/TAB PO; +MULTIPLE VITAMI1 TA5 PO; +PHENERGAN25 MG RC
[2020-05-05 08:10] VITALS: BP 144/111; PULSE 127
[2020-05-05 10:25] VITALS: BP 145/102; PULSE 116
== END ==
LOC: COL.RAD 05-03 12:00
DX: K70.31 Alcoholic cirrhosis of liver with ascites (principal)

== ENCOUNTER 2020-05-08 11:46 | Inpatient (IN) | payer MEDICAID ==
[~2020-05-08] VITALS: Ht 167.6 cm; Wt 62.8 kg
[2020-05-08 12:38] LABS: COLLECTION METHOD CLEAN CATCH
[2020-05-08 12:41] LABS: BASO # 0.1 (0.0-0.2); BASO % 0.6 % (0.0-2.0); EOS # 0.1 (0.0-0.7); EOS % 0.5 % (0-4.0); GRAN # 12.1 (1.4-6.5); HEMATOCRIT 37.2 % (37.0-47.0); HEMOGLOBIN 11.9 g/dl (12.5-16.0); LYMPH # 3.1 (1.2-3.4); LYMPH % 18.2 % (20.0-51.0); MEAN CELL VOLUME 87 fl (80.0-100.0); MEAN CORPUSCULAR HEMOGLOBIN 28 pg (27.0-31.0); MEAN CORPUSCULAR HGB CONC 32 g/dl (33.0-37.0); MEAN PLATELET VOLUME 8.8 fl (7.4-10.4); MONO # 1.5 (0.1-0.6); MONO % 8.5 % (1.7-9.3); PLATELET COUNT 359 K/mm3 (130-400); RED BLOOD COUNT 4.27 M/mm3 (4.10-5.30); REDCELL DISTRIBUTION WIDTH-CV 15.9 % (11.5-14.5)
[2020-05-08 12:47] LABS: MUCOUS Present /lpf; PH 5 (5-8); URINE APPEARANCE Cloudy; URINE BACTERIA Rare /hpf; URINE BILIRUBIN Negative (NEGATIVE); URINE BLOOD 1+ (NEGATIVE); URINE COLOR Yellow; URINE GLUCOSE 1+ (NEGATIVE); URINE KETONE Trace (NEGATIVE); URINE LEUKOCYTE ESTERASE 1+ (NEGATIVE); URINE NITRATE Negative (NEGATIVE); URINE PROTEIN(semi-quant) 2+ (NEGATIVE); URINE UROBILINOGEN Negative (NEGATIVE)
[2020-05-08 13:01] LABS: ALANINE AMINOTRANSFERASE 11 U/L (4-34); ALBUMIN 3.3 gm/dL (3.5-5.0); ALKALINE PHOSPHATASE 125 U/L (50-136); ANION GAP 14 mmol/L (7-16); AST,SGOT 27 U/L (15-37); BILIRUBIN,TOTAL 0.3 mg/dL (0.0-1.0); BLOOD UREA NITROGEN 34 mg/dL (7-17); CALCIUM 6.8 mg/dL (8.4-10.2); CHLORIDE 100 mmol/L (98-107); CREATININE, serum 3.69 (0.52-1.25); GLUCOSE 104 mg/dL (74-106); LIPASE 83 U/L (23-300); POTASSIUM 4.5 mmol/L (3.4-5.0); SODIUM 125 mmol/L (137-145); TOTAL PROTEIN 6.9 gm/dL (6.4-8.2)
[2020-05-08 13:03] LABS: C-REACTIVE PROTEIN < 0.5 mg/dL (0.0-0.9)
[2020-05-08 13:04] LABS: CARBON DIOXIDE 12 mmol/L (22-30)
[2020-05-08 16:22] LABS: INR 1.3 (0.8-3.0); PROTHROMBIN TIME 14.6 SECONDS (9.7-12.8)
[2020-05-08 16:58] VITALS: BP 149/104; PULSE 104; TEMP 97.5
--- NOTE | 2020-05-08 17:15 | NUR ---
PT IN ROOM, REPORTS EXTREME ABD PAIN, REPORTS NAUSEA, REPORTS VOMITING TWICE THIS MORNING AND ONCE DURING ER, COULD NOT REPORT HOW MUCH BLOOD VOMIT. PHYSICIAN AWARE OF INC BP. PT RAPID COVID SWABBED, ASSESSMENT PERFORMED, VITALS TAKEN, WATER GIVEN, MEDS GIVNE, NO OTHER NEEDS.
[2020-05-08 18:13] LABS: HEMOGLOBIN 10.9 g/dl (12.5-16.0)
[2020-05-08 18:15] LABS: HEMATOCRIT 33.9 % (37.0-47.0)
[2020-05-08 18:35] VITALS: BP 149/104; PULSE 104; TEMP 97.5
--- NOTE | 2020-05-08 18:51 | NUR ---
pt reports pain down to 5/10 with dilaudid. pt reports iv burning with magnesium going.
--- NOTE | 2020-05-08 20:00 | NUR ---
Initial shift assessment done- on detox protocol- scoring 9 at this time- will give Ativan as ordered, IV fluids of NS at 100cc/hr, Tele on, understands we need urine/and stool specimens, pt is confused, thinking staff are her family members-- bed alarm on,, states abd pain 01/16- will give Dilaudid IV as ordered.
[2020-05-08 20:30] VITALS: BP 130/78; PULSE 105; TEMP 98.1
[2020-05-08 21:47] LABS: HEMOGLOBIN 10.6 g/dl (12.5-16.0)
[2020-05-08 21:52] LABS: HEMATOCRIT 32.7 % (37.0-47.0)
[2020-05-08 22:04] VITALS: BP 124/94; PULSE 104; TEMP 97.3
[2020-05-08 23:43] VITALS: BP 114/87; PULSE 92; TEMP 98.7
[2020-05-09] VITALS (8 sets, daily range): BP systolic 112–130; BP diastolic 80–94; PULSE 88–109; TEMP 97.3–98.1
[2020-05-09 05:44] LABS: BASO # 0.1 (0.0-0.2); BASO % 1.4 % (0.0-2.0); EOS # 0.3 (0.0-0.7); EOS % 3.3 % (0-4.0); GRAN # 3.7 (1.4-6.5); GRAN % 42.2 % (42.2-75.2); LYMPH # 3.6 (1.2-3.4); LYMPH % 41.2 % (20.0-51.0); MEAN CELL VOLUME 87 fl (80.0-100.0); MEAN CORPUSCULAR HEMOGLOBIN 28 pg (27.0-31.0); MEAN CORPUSCULAR HGB CONC 32 g/dl (33.0-37.0); MEAN PLATELET VOLUME 9.3 fl (7.4-10.4); MONO % 11.2 % (1.7-9.3); RED BLOOD COUNT 3.55 M/mm3 (4.10-5.30); REDCELL DISTRIBUTION WIDTH-CV 15.7 % (11.5-14.5)
[2020-05-09 05:46] LABS: HEMATOCRIT 30.9 % (37.0-47.0)
--- NOTE | 2020-05-09 05:52 | NUR ---
Did have a somewhat quiet night- slept for about 4hours total, is getting the ativan for detox scores ranging from 5-9 during the night- also getting Dilaudid IV for abd pain. Did accidently pull out her IV- states it got caught in her shirt--new IV line to left forearm started by Professional Soccer Player Ciro FAM. Tele on. NPO for paracentesis-
[2020-05-09 05:53] LABS: PLATELET COUNT 235 K/mm3 (130-400)
[2020-05-09 05:54] LABS: ALBUMIN 2.6 gm/dL (3.5-5.0); BILIRUBIN,TOTAL 0.2 mg/dL (0.0-1.0); CREATININE, serum 3.33 (0.52-1.25); MAGNESIUM 1.8 mg/dL (1.6-2.3); POTASSIUM 4.3 mmol/L (3.4-5.0); TOTAL PROTEIN 5.6 gm/dL (6.4-8.2)
--- NOTE | 2020-05-09 10:04 | NUR ---
Patient alert and oriented x4. Patient c/o of feeling nauseous. PRN zofran given at 0745 am. Patient c/o abdominal pain on numeric scale of 8 out of 10. PRN Dilaudid and Ativan given at 0903 am per patient request. Abdomen is distended and firm. Breathing is regular. No SOB or labored breathing at this time. Lung sounds clear. NS 1000ml IV bag infusing well to left forearm. Left forearm IV site has no s/s of complications. Scheduled morning meds given per EMR. Call light within reach. No other needs expressed at this time.
--- NOTE | 2020-05-09 11:30 | NUR ---
Wedger And Gluer met with patient to discuss discharge planning. Patient lives in [place] with her parents, Gui (ph#[phone]) and Leslee. Patient has a daughter and reports she is currently in the divorce process from her . Patient sees Dr. Prieto for primary care and states she saw her not too long ago. [facility] with no reported difficulties. Patient is independent with ADLS and does not use any DME. Patient is interested in completing DPOA-HC. SW provided assistance and patient chose to designate her parents, Gui and Leslee. Patient verbalized understanding of form and provided signature. SW and Painter [employer] Car provided witness signature. SW provided original and copies to patient then placed a copy in patient's chart. SW followed up with patient to see if she has utilized [facility] as previous SW discussed this resource with patient. Previous SW had advised patient that [facility] can screen for drug and alcohol placement. Patient advised she has not been in contact with them. SW will continue to follow.
[2020-05-09 12:14] LABS: PERITONEAL -POLYMORPHONUCLEAR 10.8 % (0-25); PERITONEAL FLUID RBC 0 /mm3 (0-0)
--- NOTE | 2020-05-09 21:00 | NUR ---
Alert and oriented x 4, and able to make needs known. IV site to left forearm was leaking and painful. IV discontined, and started new IV site to left forearm. Complained of level 10 to abdomen. Given PRN Dilaudid per orders. Continues on detox protocol, and given PRN Ativan per orders. Denies SOB and dyspnea. LS CTA. Respirations even and unlabored. HRR. Telemetry in place. Capillary refill less than 3 seconds. Non-tenting skin turgor. BSAx4. Abdomen firm and distended. No edema. Bruising to right forearm. Voices no questions, needs, or concerns at this time. Resting in bed with call light within reach.
--- NOTE | 2020-05-09 23:20 | NUR ---
Patient given PRN Dilaudid for pain, and PRN Ativan at this time for detox per protocol.
[2020-05-10] VITALS (8 sets, daily range): BP systolic 111–145; BP diastolic 77–103; PULSE 79–122; TEMP 97.3–98.7
--- NOTE | 2020-05-10 01:15 | NUR ---
Patient given PRN Ativan and Dilaudid at this time per orders.
--- NOTE | 2020-05-10 04:10 | NUR ---
Patient given PRN Dilaudid for pain at this time.
[2020-05-10 06:20] LABS: BASO # 0.1 (0.0-0.2); BASO % 1.1 % (0.0-2.0); EOS # 0.2 (0.0-0.7); GRAN % 50.3 % (42.2-75.2); LYMPH # 2.9 (1.2-3.4); MEAN CELL VOLUME 89 fl (80.0-100.0); MEAN CORPUSCULAR HGB CONC 31 g/dl (33.0-37.0); MEAN PLATELET VOLUME 9.2 fl (7.4-10.4); MONO # 0.7 (0.1-0.6); PLATELET COUNT 230 K/mm3 (130-400); RED BLOOD COUNT 3.48 M/mm3 (4.10-5.30); REDCELL DISTRIBUTION WIDTH-CV 15.9 % (11.5-14.5)
--- NOTE | 2020-05-10 06:21 | NUR ---
Patient has received PRN dilaudid as requested for abdominal pain throughout the night as requested per orders. Continues on alcohol detox protocol, scoring 2-4 this shift, and received PRN Ativan per orders. IV fluids continue per orders. Voices no questions, needs, or concerns at this time. Tolerated clear liquid diet well throughout the night. Resting in bed with call light within reach.
[2020-05-10 06:34] LABS: INR 1.4 (0.8-3.0); PROTHROMBIN TIME 15.4 SECONDS (9.7-12.8)
[2020-05-10 06:49] LABS: ALBUMIN 2.3 gm/dL (3.5-5.0); BILIRUBIN,TOTAL 0.3 mg/dL (0.0-1.0); CALCIUM 7.5 mg/dL (8.4-10.2); CREATININE, serum 2.55 (0.52-1.25); MAGNESIUM 1.5 mg/dL (1.6-2.3); POTASSIUM 4.4 mmol/L (3.4-5.0); TOTAL PROTEIN 5.1 gm/dL (6.4-8.2)
[2020-05-10 06:51] LABS: HEMATOCRIT 31.1 % (37.0-47.0); HEMOGLOBIN 9.7 g/dl (12.5-16.0); MEAN CORPUSCULAR HEMOGLOBIN 28 pg (27.0-31.0)
--- NOTE | 2020-05-10 07:49 | NUR ---
Jacquelyn RN notified of PTs telemetry leads showing as "off"
--- NOTE | 2020-05-10 08:48 | NUR ---
PTs nurse CRISTEL aragon notified of incresed HR in the 130-140s.
[2020-05-10 09:49] LABS: CLOSTRIDIUM DIFF A/B POS; CLOSTRIDIUM DIFF A/B INTERP Toxigenic C.diff POS
--- NOTE | 2020-05-10 10:29 | NUR ---
CRISTEL Valladares notified of PT HR of 130.
--- NOTE | 2020-05-10 10:52 | NUR ---
Patient appears drowsy upon enter the room. Patient oriented x2. Patient appears to have hallucination. Patient states seeing some people standing by the window and staring at her. Assessment completed. Left forearm IV site has no s/s of complications. Patient rated pain 9 out of 10 to her abdomen. PRN Dilaudid given. Scheduled moring meds given per order. Received verbal order from Jaciel Pickard to start full liquid diet today. Alcohol detox protocol followed. Call light within reach. No further needs expressed at this time.
--- NOTE | 2020-05-10 14:05 | NUR ---
I talked with Carmen this afternoon about hospice services, what they were, what was involved in hospice care and where hospice services can be offered. Carmen reports to me that she wants to go to hospice now--today--because she wants medications for her pain--because as a hospital we should be able to give pain medications--that is why she came to the hospital. I talked with her about comfort being the goal in hospice care. That this would be seen as the last 6 months or less of her life and emphasis would be put on quality of life, spending time with those people who give her comfort and putting the finishing touches on her life. I want to go there now to get some pain medication! I am having severe pain. "At home I use alcohol to help with the pain". She reports that her PCP, and her GI specialist will not give her pain medications. When asked what her parents would think of her going to hospice, she shrugged her shoulders. I tried to talk with her about the services that hospice provides but her primary focus was on getting something for her pain. She reports that she is seeing things and people that are not really there in her room. She could not decide if she would want to go home or to the hospice house. You can call them if you want, when I asked about calling the hospice agencies. She declined my calling her parents--"I can make my own decisions". I did speak with Rona Mcgovern RN about her pain concerns and her nurse will offer her the medications that are available.
--- NOTE | 2020-05-10 14:39 | NUR ---
PTs leads off, CRISTEL Valladares notified.
--- NOTE | 2020-05-10 15:30 | NUR ---
Pt has elected to go comfort care and plans to discharge home with her parents on hospice services with [facility].
--- NOTE | 2020-05-10 16:49 | NUR ---
Events Director attended clinical rounds with the team and Hospitalist discussed goals of care with patient, informing her that palliative care/hospice care are options for her. Palliative consult ordered. Later in the day, SW was approached by Dr. Le and CRISTEL Rea who advised patient is ready for hospice. KHURRAM collaborated with Lois, Palliative RN who advised she reviewed options with patient and what is most important to her is pain control. KHURRAM and Lois followed up with patient who had her parents, Leslee and Gui on speakerphone. Initially when SW approached, patient states she is being told she has to do hospice. SW advised patient that she is in charge of this decision and no one can force her to do hospice. Patient verbalized understanding and Lois provided support in patient's decision on her goals of care. Options were reviewed with patient including hospice in a facility and hospice at home. Patient states she wants to pursue hospice at home as she wants to be able to spend as much time with her daughter as possible. Patient's parents are agreeable to have patient stay with them for hospice care and are supportive. Patient selected [facility]. KHURRAM contacted Alcon at [facility] and faxed referral.
--- NOTE | 2020-05-10 18:06 | NUR ---
Patient c/o abdominal pain and feeling of anxious/tearful throughout the shift. PRN pain meds and Ativan administered per order. Per group social worker, Patient made decision to select [facility] for comfortcare. Removed Tele strip and stopped IV fluid at this time. Provided lots of emotional support throughout the shift.
--- NOTE | 2020-05-10 20:20 | NUR ---
Patient assessed at this time. Alert and oriented x 4, and able to make needs known. Complained of level 10 pain, and given PRN Roxanol. Also complained of insomnia and given PRN Ambien as requested. Patient had been upset, stating that she thought she had been forgotten about. Reassured patient that staff has been checking on her, but she had been sleeping, and staff will not be interrupting her sleep. Encouraged to call for assistance if she needed anything, and if she was having pain. Explained to patient that her pain and anxiety medications were not scheduled around the clock, and that they were PRN, meaning as needed, so she would need to call for medications when needed. Voiced understanding. Peripheral INT to left forearm. Denies SOB and dyspnea. LS CTA. Respirations even and unlabored. HRR. Capillary refill less than 3 seconds. Non-tenting skin turgor. BSAx4. Abdomen distended. Reports diarrhea. Continues on contact isoloation for C-diff. Voices no further questions, needs, or concerns at this time. Resting in bed with call light within reach.
--- NOTE | 2020-05-10 23:00 | NUR ---
Patient given PRN Ativan and Roxanol for anxiety and pain as requested for pain.
--- NOTE | 2020-05-11 01:08 | NUR ---
Patient given PRN Roxicodone at this time for level 8 pain to abdomen.
--- NOTE | 2020-05-11 03:15 | NUR ---
Patient given PRN Ativan 1 mg PO and Roxanol 10 mg PO for anxiety and pain as requested at this time.
--- NOTE | 2020-05-11 05:41 | NUR ---
Patient given PRN Roxanol per orders as requested for pain.
--- NOTE | 2020-05-11 05:46 | NUR ---
Patient has been getting PRN Ativan for anxiety, along with PRN Roxicodone and Roxanol for pain throughout this shift per orders as requested for pain. Patient took PRN Ambien, and patient reported that it did not help her sleep. Patient has had snacks throughout this shift. Worried about not being able to get her paracentesis today, as she had an out patient appointment. Explained to patient that we can talk to hospitalist today and see what they suggest. Worried that the hospital would discharge her home too soon. Explained to patient that they are working on trying to find a home health/hospice that would be going to check on her at home, and will set that up prior to discharge. Voices no further questions, needs, or concerns at this time. Resting in bed watching TV with call light within reach.
--- NOTE | 2020-05-11 08:46 | NUR ---
Initial visit from [facility]; Patient recognized Line Ordering Clinician and thanked her for offering God's Blessings.
--- NOTE | 2020-05-11 10:27 | NUR ---
Pt reports to me today that she is not ready for hospice services. I did advise [facility], [facility], of pt's decision. Hospice services were planning to come visit her today at 11 am as they also had concerns about her decision for hospice. I had spoken to them earlier today and advised them that I was not convinced that she was truly wanting hospice but rather this would allow a source of pain medications. I spoke with her today about clarifying her goal of care--to get better and feel better, potentially stopping her drinking and pursuing a liver, pursuing comfort and working toward the end of her life, or continuing on as she has been doing. Today she reports again she doesn't know what she wants, "can't remember what she has been told" and "needs time to think about it". Today she denied knowing anything about a pleurx drain but yesterday she informed me that it had been discussed with her several times and she didn't need to talk about it anymore because she knew what it was. She has stopped comfort care today and will proceed with aggressive cares. She was not open to therapy or seeing a pian management physician.
[2020-05-11 10:56] LABS: MEAN CELL VOLUME 90 fl (80.0-100.0); MEAN CORPUSCULAR HEMOGLOBIN 28 pg (27.0-31.0); MEAN CORPUSCULAR HGB CONC 31 g/dl (33.0-37.0); MEAN PLATELET VOLUME 9.1 fl (7.4-10.4); PLATELET COUNT 260 K/mm3 (130-400); RED BLOOD COUNT 3.89 M/mm3 (4.10-5.30); REDCELL DISTRIBUTION WIDTH-CV 15.6 % (11.5-14.5)
--- NOTE | 2020-05-11 11:36 | NUR ---
PATIENT'S IV WAS LEAKING AND D/C. NEW IV WAS PLACE ON LEFT FOREARM.
[2020-05-11 12:15] LABS: ALBUMIN 2.5 gm/dL (3.5-5.0); BILIRUBIN,TOTAL 0.2 mg/dL (0.0-1.0); CALCIUM 8.1 mg/dL (8.4-10.2); CREATININE, serum 2.26 (0.52-1.25); MAGNESIUM 1.2 mg/dL (1.6-2.3); PHOSPHOROUS 4.4 mg/dL (2.5-4.5); POTASSIUM 4.2 mmol/L (3.4-5.0); TOTAL PROTEIN 5.7 gm/dL (6.4-8.2)
--- NOTE | 2020-05-11 14:57 | NUR ---
Roll Machine Operator collaborated with Lois Palliative RN and Hospitalist. [facility] is scheduled to visit patient at 1100, however Alcon with [facility] verbalized some concern about referral. KHURRAM was advised that this morning, patient verbalized she changed her mind and did not want to do hospice. Later in the day, KHURRAM was contacted by Hospitalist who advised patient is now saying again she wants hospice services. Hospitalist would like to see if [facility] can still meet with patient today. KHURRAM contacted Alcon at [facility] who will come meet with patient. KHURRAM notified patient that [facility] would be here to meet with her and patient is agreeable to this. Following meeting with patient, Alcon with [facility] collaborated with KHURRAM and CRISTEL Maldonado to advise that they are willing to accept patient for home hospice. Alcon advised he had a direct conversation with patient about her addiction and what they expectations for services would be. Alcon also advised they would like for patient to have pleurx drain placed. KHURRAM contacted Hospitalist who met with patient and put in comfort orders. KHURRAM collaborated with Erica FAM who advised patient to have pleurx drain placed tomorrow morning. KHURRAM contacted patient's father, Gui to provide update on discharge plan. Gui advised that earlier this morning, he thought the physicians were not ready to "give up". KHURRAM advised that the Hospitalist is supportive of patient's decision and feel this would be an appropriate option for patient. Gui verbalized understanding. KHURRAM advised that plan would be for discharge tomorrow. KHURRAM also contacted [facility] with [facility] to provide update on pleurx drain.
--- NOTE | 2020-05-11 15:22 | NUR ---
AFTER ALL DAY DISCUSSIONS WITH THE PATIENT. THE PATIENT HAS GONE BACK AND FORTH BETWEEN WANTING TO BE HOSPICE CARE, AND NOT WANTING TO BE HOSPICE CARE. IT WAS VERY OBVIOUS THE PATIENT IS HAVING TROUBLE COMING TO BROOM STITCHER WITH HER MORTALITY, AND AFTER ALL THE DISCUSSIONS HAVE BEEN HAD, SHE HAS DECIDED THAT SHE WILL INFACT GO HOSPICE, AND TOMORROW MORNING A PLEURIX DRAIN WILL BE PLACED TO ASSIST IN COMFORT FOR HER. MEDICATIONS FOR COMFORT CARE HAVE BEEN INITIATED AGAIN, AND WILL BEGIN OF 1529. SHE DOES UNDERSTAND THAT WE CANNOT GO BACK AND FORTH AGAIN, AND THAT WITHDRAWING CARES LIKE LABS AND MEDICATIONS CAN HAVE SERIOUS RAMIFICATIONS. HER CARE TEAM HAS ALL TALKED TO HER, AND SHE IS CONFIDENT WITH HER DECISION. THERE IS NO FURTHER CONCERNS AT THIS TIME.
[2020-05-11 15:26] LABS: INR 1.3 (0.8-3.0); PROTHROMBIN TIME 15.1 SECONDS (9.7-12.8)
--- NOTE | 2020-05-11 19:14 | NUR ---
Bedside shift report received. Patient is resting in bed with eyes closed at this time.
--- NOTE | 2020-05-11 20:20 | NUR ---
Patient assessed at this time. Alert and oriented x 4, and able to make needs known. Reports pain to abdomen, and given PRN Roxanol. Patient also requested Ativan. Only Ativan ordered currently was the Detox Protocl, and patient was not scoring on detox protocol. Called [facility], and new order for one time order of 0.5 mg po, and given. Education provided on pleurex drain for tomorrow and plan to possibly D/C with home hospice tomorrow. Voices no further questions, needs, or concerns at this time. Resting in bed with call light within reach.
--- NOTE | 2020-05-11 22:40 | NUR ---
Given PRN Roxanol as requested for pain at this time.
--- NOTE | 2020-05-12 00:50 | NUR ---
Patient given PRN Roxanol and Ambien as requested for pain and insomnia at this time.
--- NOTE | 2020-05-12 04:09 | NUR ---
Patient called and asked of PRN Ativan, as well as PRN pain medication. Called and requested order from Amina as requested by patient. After receiving order for Ativan, this nurse went to take medication to patient. Patient resting in bed with eyes closed. Respirations even, and unlabored. Said patient's name three times. PCT with nurse at the time. Patient did not wake up. Medication not given at this time due to patient sleeping and not easily awakening.
--- NOTE | 2020-05-12 04:47 | NUR ---
Patient woke up and requested pain and anxiety medication. Given PRN Roxanol and Ativan as requested at this time.
[2020-05-12 06:44] LABS: INR 1.4 (0.8-3.0); PROTHROMBIN TIME 15.6 SECONDS (9.7-12.8)
--- NOTE | 2020-05-12 07:43 | NUR ---
Patient resting in bed at the moment, complained of pain.
--- NOTE | 2020-05-12 10:02 | NUR ---
Met with pt this morning to discuss pleurx drain and how it can be used. [facility] will help her with drainage and provide supplies. We talked about her decision for hospice care and her focus on quality of life and spending time with her daughter. She had spoken with hospice representatives yesterday and I have encouraged her to ask length of visits/frequency of them. Reinforced that they will also be available by phone and encouraged clear communication with [facility].
[2020-05-12] MEDS ORDERED: VANCOCIN H125 MG/CAP PO (10:42)
[2020-05-12] MEDS ORDERED: VENTOLIN0.09 MG IH (10:43)
[2020-05-12] MEDS ORDERED: ZOFRAN8 MG PO (10:43)
[2020-05-12] MEDS ORDERED: BENTYL 10MG10 MG/CAP PO (10:43)
[2020-05-12] MEDS ORDERED: ATROPINE 2 ML2 ML SL (10:44)
[2020-05-12] MEDS ORDERED: ROXANOL 20MG20 MG/ML SL (10:44)
[2020-05-12] MEDS ORDERED: ATIVAN 1MG T1 MG/TAB PO (10:45)
[2020-05-12] MEDS ORDERED: AMBIEN 5MG TABLE5 MG PO (10:45)
--- NOTE | 2020-05-12 13:00 | NUR ---
Patient alert and oriented. complained of generalized pain. pleurX drain tube placed. Radiology nurse report 6.5L yellow peritoneal fluid removed. Patient discharge with order for Vancomycin, Dicyclomine. morphine, ativan, ambien, atropine, albuterol. provided discharge education on home care. Patient discharged with hospice care. INT discontinued. Patient discharged homw with family.
--- NOTE | 2020-05-12 13:17 | NUR ---
Iaccompaanied pt to radiology for pleurx placement. She did recieve medication (roxanol and ativan) by her request to help her deal with the procedure just prior to its start and these medications did help her control her anxiety and discomfort. 6.5 liters was drained from the abdomen upon completion of the insertion of pale yellow fluid. Pt was returned to her room at 1210 and was assisted back into bed. Report given to ester FAM her primary nurse.
--- NOTE | 2020-05-12 15:31 | NUR ---
Rubber Tile Floor Layer attended clinical rounds with the team and patient to discharge home with [facility]. Patient had pleurx drain placed this morning. SW contacted Alcon with [facility] and faxed discharge orders and medications. SW met with patient who advised her parents would pick her up around 1530. SW contacted [facility] to provide estimated time of arrival home and [facility] advised they will be at the home around 1615. SW met with patient and advised that [facility] will meet her at home and have her medications. Patient does not have any further questions or concerns at this time.
[2021-04-08] MEDS ORDERED: ROXICODONE 55 MG/TAB PO ×3 (16:13→16:27)
== END 2020-05-12 15:00 | disposition hospice, home (50) | DRG 433 ==
LOC: COL.ER 11:46 → MEDICAL 14:28
PROVIDERS: Family Medicine; Physician Assistant; Radiology Diagnostic Radiology; ADMIT Internal Medicine
PROC: 0W9G3ZZ Drainage of Peritoneal Cavity, Percutaneous Approach (ICD-10-PCS; principal; 2020-05-09)
PROC: 0WHG33Z Insertion of Infusion Device into Peritoneal Cavity, Percutaneous Approach (ICD-10-PCS; 2020-05-12)
DX: K70.31 Alcoholic cirrhosis of liver with ascites (principal); K92.0 Hematemesis; N17.9 Acute kidney failure, unspecified; E87.2 Acidosis; E87.1 Hypo-osmolality and hyponatremia; A04.72 Enterocolitis due to Clostridium difficile, not specified as recurrent; R65.10 Systemic inflammatory response syndrome (SIRS) of non-infectious origin without acute organ dysfunction; I85.00 Esophageal varices without bleeding; Z20.828 Contact with and (suspected) exposure to other viral communicable diseases; Z51.5 Encounter for palliative care; K72.90 Hepatic failure, unspecified without coma; D64.9 Anemia, unspecified; F19.10 Other psychoactive substance abuse, uncomplicated; F10.20 Alcohol dependence, uncomplicated; E83.42 Hypomagnesemia; F32.9 Major depressive disorder, single episode, unspecified; E86.0 Dehydration; I10 Essential (primary) hypertension; G89.29 Other chronic pain; Z87.891 Personal history of nicotine dependence
CPT/HCPCS: 99232-AI; 99239; C1729; C9113; G0378; J0696; J1170; J2060; J2354; J2405; J2550; J3475; J7030; J7040; J7120

== ENCOUNTER 2020-07-15 10:46 | Emergency (ER) | payer MEDICAID ==
[~2020-07-15] VITALS: Ht 167.6 cm; Wt 53.2 kg
[~2020-07-15 10:46] MED LIST changes: +AMBIEN 5MG TABLE5 MG PO; +ATROPINE 2 ML2 ML SL; +BENTYL 10MG10 MG/CAP PO; +ROXANOL 20MG20 MG/ML SL; +VANCOCIN H125 MG/CAP PO; +VENTOLIN0.09 MG IH
[2020-07-15 10:51] VITALS: TEMP 98.1
[2020-07-15] MEDS ORDERED: DAILY MULTIPLE1 T18 PO (11:06)
[2020-07-15] MEDS ORDERED: FOLIC ACID 11 MG/TA1 PO (11:06)
[2020-07-15 13:28] VITALS: BP 124/84; PULSE 133
== END 2020-07-15 13:28 | disposition home or self-care (01) ==
LOC: COL.ER 10:46
DX: T85.692A Other mechanical complication of permanent sutures, initial encounter (principal); K70.31 Alcoholic cirrhosis of liver with ascites; I10 Essential (primary) hypertension; Z87.19 Personal history of other diseases of the digestive system; Z87.891 Personal history of nicotine dependence
CPT/HCPCS: J1170; J2550

== ENCOUNTER 2020-12-31 04:49 | Emergency (ER) | payer MEDICAID ==
[~2020-12-31] VITALS: Ht 167.6 cm; Wt 59.1 kg
[~2020-12-31 04:49] MED LIST changes: +DAILY MULTIPLE1 T18 PO
[2020-12-31 04:50] VITALS: TEMP 98.2
[2020-12-31 05:17] LABS: BASO # 0.1 (0.0-0.2); BASO % 1.3 % (0.0-2.0); EOS # 0.1 (0.0-0.7); EOS % 1.5 % (0-4.0); GRAN # 4.1 (1.4-6.5); GRAN % 43.4 % (42.2-75.2); LYMPH # 4.3 (1.2-3.4); LYMPH % 45.6 % (20.0-51.0); MEAN CELL VOLUME 70 fl (80.0-100.0); MEAN CORPUSCULAR HGB CONC 28 g/dl (33.0-37.0); MEAN PLATELET VOLUME 8.5 fl (7.4-10.4); MONO # 0.7 (0.1-0.6); MONO % 7.6 % (1.7-9.3); PLATELET COUNT 127 K/mm3 (130-400); RED BLOOD COUNT 4.78 M/mm3 (4.10-5.30); REDCELL DISTRIBUTION WIDTH-CV 21.7 % (11.5-14.5)
[2020-12-31 05:20] LABS: HEMATOCRIT 33.4 % (37.0-47.0); HEMOGLOBIN 9.5 g/dl (12.5-16.0); MEAN CORPUSCULAR HEMOGLOBIN 20 pg (27.0-31.0)
[2020-12-31 05:29] LABS: ALANINE AMINOTRANSFERASE 18 U/L (4-34); ALKALINE PHOSPHATASE 124 U/L (50-136); ANION GAP 20 mmol/L (7-16); AST,SGOT 65 U/L (15-37); BILIRUBIN,TOTAL 0.7 mg/dL (0.0-1.0); BLOOD UREA NITROGEN 5 mg/dL (7-17); CALCIUM 9.7 mg/dL (8.4-10.2); CARBON DIOXIDE 21 mmol/L (22-30); CHLORIDE 98 mmol/L (98-107); GLUCOSE 146 mg/dL (74-106); LIPASE 177 U/L (23-300); POTASSIUM 3.7 mmol/L (3.4-5.0); SODIUM 139 mmol/L (137-145); TOTAL PROTEIN 10.3 gm/dL (6.4-8.2)
[2020-12-31 05:45] LABS: ACETAMINOPHEN < 10 ug/mL (10-30); SALICYLATE < 1.0 mg/dL
[2020-12-31 05:47] LABS: ALCOHOL(ethanol),MEDICAL 423 mg/dL
[2020-12-31 05:52] LABS: COLLECTION METHOD CLEAN CATCH
[2020-12-31 05:57] LABS: PH 6 (5-8); SQUAMOUS EPITHELIAL 0-2 /hpf; URINE APPEARANCE Clear; URINE BACTERIA Rare /hpf; URINE BILIRUBIN Negative (NEGATIVE); URINE BLOOD 1+ (NEGATIVE); URINE COLOR Yellow; URINE GLUCOSE Negative (NEGATIVE); URINE KETONE Negative (NEGATIVE); URINE LEUKOCYTE ESTERASE Trace (NEGATIVE); URINE NITRATE Negative (NEGATIVE); URINE PROTEIN(semi-quant) 2+ (NEGATIVE); URINE RBC 0-2 /hpf; URINE UROBILINOGEN Negative (NEGATIVE)
[2020-12-31 06:05] LABS: TRICYCLIC ANTIDEPRESS URINE NEGATIVE
[2020-12-31 07:21] VITALS: BP 154/101; PULSE 112
[2020-12-31] MEDS ORDERED: ZOFRAN 4MG T4 MG/TAB PO (19:39)
[2020-12-31] MEDS ORDERED: PROTONIX 40MG T40 MG PO (19:41)
[2021-04-08] MEDS ORDERED: ROXICODONE 55 MG/TAB PO ×3 (16:13→16:27)
== END 2020-12-31 07:25 | disposition home or self-care (01) ==
LOC: COL.ER 04:49
PROVIDERS: Emergency Medicine
DX: R45.89 Other symptoms and signs involving emotional state (principal)
CPT/HCPCS: J2405; J7030

== ENCOUNTER 2020-12-31 15:17 | Emergency (ER) | payer MEDICARE, MEDICAID ==
[~2020-12-31] VITALS: Ht 165.1 cm; Wt 54.5 kg
[2020-12-31 18:30] LABS: BASO # 0.1 (0.0-0.2); BASO % 1.4 % (0.0-2.0); EOS # 0.1 (0.0-0.7); GRAN # 4.8 (1.4-6.5); GRAN % 65.8 % (42.2-75.2); LYMPH # 1.6 (1.2-3.4); LYMPH % 22.5 % (20.0-51.0); MEAN CELL VOLUME 69 fl (80.0-100.0); MEAN CORPUSCULAR HGB CONC 28 g/dl (33.0-37.0); MEAN PLATELET VOLUME 8.8 fl (7.4-10.4); MONO # 0.6 (0.1-0.6); MONO % 8.7 % (1.7-9.3); PLATELET COUNT 138 K/mm3 (130-400); RED BLOOD COUNT 4.72 M/mm3 (4.10-5.30); REDCELL DISTRIBUTION WIDTH-CV 21.5 % (11.5-14.5)
[2020-12-31 18:42] LABS: COLLECTION METHOD CLEAN CATCH
[2020-12-31 18:43] LABS: INR 1.5 (0.8-3.0); PROTHROMBIN TIME 17.2 SECONDS (9.7-12.8)
[2020-12-31 18:47] LABS: ALBUMIN 4.9 gm/dL (3.5-5.0); BILIRUBIN,TOTAL 0.8 mg/dL (0.0-1.0); CALCIUM 9.4 mg/dL (8.4-10.2); CREATININE, serum 0.95 (0.52-1.25); POTASSIUM 3.7 mmol/L (3.4-5.0); TOTAL PROTEIN 9.9 gm/dL (6.4-8.2)
[2020-12-31 18:49] LABS: HEMATOCRIT 32.7 % (37.0-47.0); HEMOGLOBIN 9.3 g/dl (12.5-16.0); MEAN CORPUSCULAR HEMOGLOBIN 20 pg (27.0-31.0)
[2020-12-31 18:56] LABS: MUCOUS Present /lpf; PH 5 (5-8); URINE APPEARANCE Cloudy; URINE BACTERIA Rare /hpf; URINE BILIRUBIN Negative (NEGATIVE); URINE BLOOD 1+ (NEGATIVE); URINE COLOR Amber; URINE GLUCOSE Negative (NEGATIVE); URINE KETONE Negative (NEGATIVE); URINE LEUKOCYTE ESTERASE 2+ (NEGATIVE); URINE NITRATE Negative (NEGATIVE); URINE PROTEIN(semi-quant) 3+ (NEGATIVE); URINE WBC >50 /hpf
[2020-12-31] MEDS ORDERED: ZOFRAN 4MG T4 MG/TAB PO (19:39)
[2020-12-31] MEDS ORDERED: PROTONIX 40MG T40 MG PO (19:41)
[2020-12-31 19:58] VITALS: BP 153/97; PULSE 129; TEMP 98.1
[2021-04-08] MEDS ORDERED: ROXICODONE 55 MG/TAB PO ×3 (16:13→16:27)
== END 2020-12-31 20:03 | disposition home or self-care (01) ==
LOC: COL.ER 15:17
PROVIDERS: Nurse Practitioner Primary Care
DX: R10.9 Unspecified abdominal pain (principal); R11.0 Nausea; I10 Essential (primary) hypertension; F32.9 Major depressive disorder, single episode, unspecified; R45.89 Other symptoms and signs involving emotional state; Z79.899 Other long term (current) drug therapy
CPT/HCPCS: J2060; J2405

== ENCOUNTER 2021-01-15 08:03 | Emergency (ER) | payer MEDICARE, MEDICAID ==
[~2021-01-15] VITALS: Ht 167.6 cm; Wt 63.6 kg
[2021-01-15 08:19] VITALS: TEMP 98.3
[2021-01-15 09:11] LABS: ALBUMIN 3.8 gm/dL (3.5-5.0); BILIRUBIN,TOTAL 0.8 mg/dL (0.0-1.0); CALCIUM 6.8 mg/dL (8.4-10.2); CREATININE, serum 0.88 (0.52-1.25); TOTAL PROTEIN 7.8 gm/dL (6.4-8.2)
[2021-01-15 09:14] LABS: POTASSIUM 2.9 mmol/L (3.4-5.0)
[2021-01-15 10:02] LABS: BASO # 0.1 (0.0-0.2); BASO % 0.8 % (0.0-2.0); EOS # 0.1 (0.0-0.7); EOS % 1.2 % (0-4.0); GRAN # 6.3 (1.4-6.5); GRAN % 70.6 % (42.2-75.2); LYMPH # 1.5 (1.2-3.4); LYMPH % 16.7 % (20.0-51.0); MEAN CELL VOLUME 72 fl (80.0-100.0); MEAN CORPUSCULAR HGB CONC 28 g/dl (33.0-37.0); MONO # 0.9 (0.1-0.6); MONO % 9.6 % (1.7-9.3); PLATELET COUNT 191 K/mm3 (130-400); RED BLOOD COUNT 4.04 M/mm3 (4.10-5.30); REDCELL DISTRIBUTION WIDTH-CV 22.1 % (11.5-14.5)
[2021-01-15 10:03] LABS: HEMOGLOBIN 8.2 g/dl (12.5-16.0); MEAN CORPUSCULAR HEMOGLOBIN 20 pg (27.0-31.0)
[2021-01-15] MEDS ORDERED: LIBRIUM 5MG5 MG/CAP PO (10:19)
[2021-01-15 10:48] VITALS: BP 115/83; PULSE 98
[2021-04-08] MEDS ORDERED: ROXICODONE 55 MG/TAB PO ×3 (16:13→16:27)
== END 2021-01-15 10:50 | disposition home or self-care (01) ==
LOC: COL.ER 08:03
PROVIDERS: Emergency Medicine
DX: F10.239 Alcohol dependence with withdrawal, unspecified (principal); R10.9 Unspecified abdominal pain; Z32.02 Encounter for pregnancy test, result negative
CPT/HCPCS: J1940; J2405; J3480

== ENCOUNTER 2021-02-02 11:30 | Inpatient (IN) | payer MEDICARE, MEDICAID ==
[~2021-02-02] VITALS: Ht 167.6 cm; Wt 72.7 kg
[~2021-02-02 11:30] MED LIST changes: +LIBRIUM 5MG5 MG/CAP PO
[2021-02-02 13:17] LABS: COLLECTION METHOD CLEAN CATCH
[2021-02-02 13:25] LABS: BASO # 0.2 (0.0-0.2); BASO % 1.5 % (0.0-2.0); EOS # 0.2 (0.0-0.7); EOS % 1.4 % (0-4.0); GRAN # 6.4 (1.4-6.5); GRAN % 55.8 % (42.2-75.2); HEMOGLOBIN 10.3 g/dl (12.5-16.0); LYMPH # 3.5 (1.2-3.4); LYMPH % 30.6 % (20.0-51.0); MEAN CELL VOLUME 73 fl (80.0-100.0); MEAN CORPUSCULAR HEMOGLOBIN 21 pg (27.0-31.0); MEAN CORPUSCULAR HGB CONC 29 g/dl (33.0-37.0); MEAN PLATELET VOLUME 8.7 fl (7.4-10.4); MONO # 1.1 (0.1-0.6); MONO % 9.4 % (1.7-9.3); MUCOUS Present /lpf; PH 6 (5-8); PLATELET COUNT 252 K/mm3 (130-400); RED BLOOD COUNT 4.97 M/mm3 (4.10-5.30); REDCELL DISTRIBUTION WIDTH-CV 24.9 % (11.5-14.5); URINE APPEARANCE Hazy; URINE BACTERIA None Seen /hpf; URINE BILIRUBIN Negative (NEGATIVE); URINE BLOOD Negative (NEGATIVE); URINE COLOR Amber; URINE GLUCOSE Negative (NEGATIVE); URINE KETONE Negative (NEGATIVE); URINE LEUKOCYTE ESTERASE 2+ (NEGATIVE); URINE NITRATE Negative (NEGATIVE); URINE PROTEIN(semi-quant) 2+ (NEGATIVE); URINE RBC 0-2 /hpf; URINE UROBILINOGEN >=4.0 mg/dL (NEGATIVE)
[2021-02-02 13:26] LABS: HEMATOCRIT 36.1 % (37.0-47.0)
[2021-02-02 13:34] LABS: TRICYCLIC ANTIDEPRESS URINE NEGATIVE
[2021-02-02 13:40] LABS: ALBUMIN 4.4 gm/dL (3.5-5.0); BILIRUBIN,TOTAL 1.4 mg/dL (0.0-1.0); CREATININE, serum 0.83 (0.52-1.25); POTASSIUM 3.3 mmol/L (3.4-5.0); TOTAL PROTEIN 9.5 gm/dL (6.4-8.2)
[2021-02-02 16:47] LABS: INR 1.5 (0.8-3.0); PROTHROMBIN TIME 16.6 SECONDS (9.7-12.8)
[2021-02-02 18:00] VITALS: BP 155/96; PULSE 120; TEMP 98
[2021-02-02 19:47] VITALS: BP 147/99; PULSE 151; TEMP 98.4
[2021-02-02 21:29] VITALS: BP 144/88; PULSE 155; TEMP 97.7
--- NOTE | 2021-02-02 21:44 | NUR ---
Pt has been ok except for her HR. Pain rated 4/10. Ativan was given for ciwa of 4. Will continue to monitor.
[2021-02-02 23:49] VITALS: BP 136/88; PULSE 126; TEMP 98.5
[2021-02-03] VITALS (10 sets, daily range): BP systolic 116–138; BP diastolic 69–94; PULSE 102–132; TEMP 97.6–98.6
[2021-02-03 08:18] LABS: BASO # 0.1 (0.0-0.2); BASO % 0.9 % (0.0-2.0); EOS # 0.1 (0.0-0.7); EOS % 1.6 % (0-4.0); GRAN # 4.5 (1.4-6.5); GRAN % 59.4 % (42.2-75.2); LYMPH # 2.2 (1.2-3.4); LYMPH % 28.9 % (20.0-51.0); MEAN CELL VOLUME 74 fl (80.0-100.0); MEAN CORPUSCULAR HGB CONC 29 g/dl (33.0-37.0); MONO # 0.6 (0.1-0.6); MONO % 8.3 % (1.7-9.3); PLATELET COUNT 155 K/mm3 (130-400); RED BLOOD COUNT 3.85 M/mm3 (4.10-5.30); REDCELL DISTRIBUTION WIDTH-CV 24.8 % (11.5-14.5)
[2021-02-03 08:25] LABS: HEMATOCRIT 28.4 % (37.0-47.0); HEMOGLOBIN 8.1 g/dl (12.5-16.0); MEAN CORPUSCULAR HEMOGLOBIN 21 pg (27.0-31.0)
[2021-02-03 08:35] LABS: ALBUMIN 3.4 gm/dL (3.5-5.0); CALCIUM 8.2 mg/dL (8.4-10.2); CREATININE, serum 0.84 (0.52-1.25); MAGNESIUM 1.4 mg/dL (1.6-2.3); POTASSIUM 3.5 mmol/L (3.4-5.0); TOTAL PROTEIN 7.4 gm/dL (6.4-8.2)
--- NOTE | 2021-02-03 09:15 | NUR ---
Pt assessment complete. Pt is sitting up in bed upon entry, she is A/O x4. Her breathing is even and unlabored on RA. Pt denies SOB. Reports pain all over. Endorses nausea, but is attempting to eat breakfast. States she saw her mother who is in the mirror last night as well as "snakes on the wall". Is questioning whether or not she should be able to go home, uncertain if she is ready. She is concerned about the fluid on her stomach.
[2021-02-03] MEDS ORDERED: ALDACTONE 100M100 MG PO (11:44)
[2021-02-03] MEDS ORDERED: ATIVAN 1MG T1 MG/TAB PO (11:44)
[2021-02-03] MEDS ORDERED: LASIX 40MG TABL40 MG PO (11:44)
[2021-02-03] MEDS ORDERED: ULTRAM 50MG TAB50 MG PO (11:45)
--- NOTE | 2021-02-03 13:36 | NUR ---
Chaplain machado and offered support with patient.
--- NOTE | 2021-02-03 18:24 | NUR ---
Pt had uneventful day. Was independent in the room. Continued to report occasional hallucinations. Requesting ativan, asking why she is getting such a small dose. Explained the detox protocol to the patient. PRN pain medication administered for pain "all over and all the time". Ate meals without emesis. No needs at this time.
[2021-02-04] VITALS (12 sets, daily range): BP systolic 103–131; BP diastolic 65–85; PULSE 94–127; TEMP 97.7–99.3
--- NOTE | 2021-02-04 04:09 | NUR ---
PT HAS SCORED HIGH ENOUGH TO GET ADMINISTERED ATIVAN ALMOST EVERY 2 HOURS. PT STATES SHE IS HALLUCINATING. HEART RATE TACHY. PT VERY ANXIOUS. DENIED NEED FOR PAIN MEDICATION.
[2021-02-04 09:06] LABS: MEAN CELL VOLUME 76 fl (80.0-100.0); MEAN CORPUSCULAR HGB CONC 29 g/dl (33.0-37.0); MEAN PLATELET VOLUME 9.3 fl (7.4-10.4); PLATELET COUNT 153 K/mm3 (130-400); RED BLOOD COUNT 3.52 M/mm3 (4.10-5.30); REDCELL DISTRIBUTION WIDTH-CV 25.3 % (11.5-14.5)
[2021-02-04 09:13] LABS: HEMATOCRIT 26.8 % (37.0-47.0); HEMOGLOBIN 7.7 g/dl (12.5-16.0); MEAN CORPUSCULAR HEMOGLOBIN 22 pg (27.0-31.0)
[2021-02-04 09:40] LABS: ALBUMIN 3.4 gm/dL (3.5-5.0); BILIRUBIN,TOTAL 2.5 mg/dL (0.0-1.0); CALCIUM 8.5 mg/dL (8.4-10.2); CREATININE, serum 1.06 (0.52-1.25); POTASSIUM 4.2 mmol/L (3.4-5.0); TOTAL PROTEIN 7.4 gm/dL (6.4-8.2)
--- NOTE | 2021-02-04 17:48 | NUR ---
Pt had uneventful day, appeared to be calm but would state things such as having visual hallucinations, "I'm freaking out" etc. Pt asked nursing staff if the physician discussed keeping her on the "Ativan regimen". Explained the protocol as well POC. Pt tearful at times, states she doesn't know that she is ready to go home. No needs at this time. Call light within reach.
--- NOTE | 2021-02-04 22:38 | NUR ---
PT IN BED. SCORING 3-4 ON ALCOHOL DETOX PROTOCOL. NO c/o N/V. PT WORRIED ABOUT GOING HOME.
[2021-02-05] VITALS (20 sets, daily range): BP systolic 98–148; BP diastolic 65–102; PULSE 51–117; TEMP 97.6–99.2
[2021-02-05 06:51] LABS: MEAN CELL VOLUME 77 fl (80.0-100.0); MEAN CORPUSCULAR HGB CONC 29 g/dl (33.0-37.0); PLATELET COUNT 161 K/mm3 (130-400); RED BLOOD COUNT 2.98 M/mm3 (4.10-5.30); REDCELL DISTRIBUTION WIDTH-CV 25.6 % (11.5-14.5)
[2021-02-05 06:55] LABS: HEMOGLOBIN 6.7 g/dl (12.5-16.0); MEAN CORPUSCULAR HEMOGLOBIN 22 pg (27.0-31.0)
[2021-02-05 07:23] LABS: CALCIUM 8.2 mg/dL (8.4-10.2); CREATININE, serum 1.33 (0.52-1.25); POTASSIUM 4.3 mmol/L (3.4-5.0)
--- NOTE | 2021-02-05 10:10 | NUR ---
Hospitalist rounded. Plan of care reviewed. Patient tearful, afraid to get a blood transfusion. I educated patient of transfusion. Did inform her she does have the right to refuse. She is agreeable. Consent obtained. Patient wanting her ativan. Per detox scale she was medication. She took am medications without trouble. working on breakfast. Wanting salt, dislikes the low salt diet. Transfusion to start when breakfast completed
--- NOTE | 2021-02-05 10:55 | NUR ---
Patient blood transfusion started per protocol. Verified with Edith Corcoran RN. Signs & symptom of transfusion reaction reviewed. This nurse to stay at bedside
--- NOTE | 2021-02-05 14:30 | NUR ---
Patient blood transfusion completed, she has tolerated well. I spoke to GI, orders obtained. Egd scheduled & santostatin to be started. Ativan per detox scale. Zofran for nausea. Patient voiding adequately. not yet able to obtain a stool sample.
--- NOTE | 2021-02-05 15:50 | NUR ---
metal engineering process worker met with patient to discuss discharge plan. Patient lives at home with her Torito. Patient reports to being independent with activities of daily living and uses a cane to assist ambulation. PCP is Dr. Prieto and uses [facility] for a pharmacy. Patient states she does not have a DPOA-HC established and wishes to complete one when she is feeling better. metal engineering process worker will check back. Plans to return home. *Discharge plan: Home*
--- NOTE | 2021-02-05 18:37 | NUR ---
Patient resting in bed. She reports elevated pain. Spoke to rosa Palacio to give Bid Ultram dose a little early. Ativan per scale. Dinner ordered. Her spouse at bedside. Bedside report to amaris
--- NOTE | 2021-02-05 20:00 | NUR ---
PATIENT IS ALERT AND ORIENTED X4. PATIENT IS COMPLAINING OF TREMBLING AND ITCHING. SHE STATES SHE IS HAVING HALLUCINATIONS AND BAD DREAMS. PATIENT IS SCORING A 4 ON THE DETOX ASSESSMENT. PATIENT GIVEN ATIVAN PER ORDERS. PATIENT HAS IV TO LEFT AC. PATIENT TO HAVE EGD TOMORROW AND POTENTIAL DISCHARGE TO HOSPICE. FAMILY AT BEDSIDE. PATIENT COMPLAIN OF PAIN OF 7 IN LEFT UPPER QUADRANT. PAIN MEDS GIVEN PER ORDERS. PATIENT DENIES FURTHER NEEDS AT THIS TIME. CALL LIGHT WITHIN REACH. HEAD TO TOE ASSESSMENT COMPLETE.
[2021-02-06] VITALS (13 sets, daily range): BP systolic 129–153; BP diastolic 82–101; PULSE 88–105; TEMP 96.9–99.2
--- NOTE | 2021-02-06 06:19 | NUR ---
PATIENT COMPLAINED OF HALLUCINATIONS, BAD DREAMS, AND ITCHING THROUGHOUT NIGHT. ATIVAN GIVEN PER ORDERS. CONSENT SIGNED FOR EGD. NO FURTHER NEEDS AT THIS TIME. WILL REPORT TO DAY SHIFT.
[2021-02-06 07:22] LABS: BASO # 0.1 (0.0-0.2); BASO % 0.9 % (0.0-2.0); EOS # 0.3 (0.0-0.7); EOS % 4.4 % (0-4.0); GRAN # 3.1 (1.4-6.5); GRAN % 48.8 % (42.2-75.2); LYMPH # 2.2 (1.2-3.4); LYMPH % 34.4 % (20.0-51.0); MEAN CELL VOLUME 79 fl (80.0-100.0); MEAN CORPUSCULAR HGB CONC 30 g/dl (33.0-37.0); MEAN PLATELET VOLUME 9.9 fl (7.4-10.4); MONO # 0.7 (0.1-0.6); MONO % 10.7 % (1.7-9.3); PLATELET COUNT 158 K/mm3 (130-400); REDCELL DISTRIBUTION WIDTH-CV 26.1 % (11.5-14.5)
[2021-02-06 07:23] LABS: HEMATOCRIT 26.9 % (37.0-47.0); MEAN CORPUSCULAR HEMOGLOBIN 24 pg (27.0-31.0)
[2021-02-06 07:25] LABS: INR 1.7 (0.8-3.0); PROTHROMBIN TIME 18.4 SECONDS (9.7-12.8)
[2021-02-06 07:46] LABS: ALBUMIN 2.9 gm/dL (3.5-5.0); BILIRUBIN,TOTAL 1.6 mg/dL (0.0-1.0); CREATININE, serum 1.39 (0.52-1.25); POTASSIUM 4.3 mmol/L (3.4-5.0); TOTAL PROTEIN 6.5 gm/dL (6.4-8.2)
--- NOTE | 2021-02-06 12:01 | NUR ---
Patient to EGD at 1115, returns at this time. Assessment unchanged.
--- NOTE | 2021-02-06 12:05 | NUR ---
Patient requests coffee, pudding and ativan. States she would like the "highest amount of ativan I can have."
--- NOTE | 2021-02-06 12:30 | NUR ---
Patient removed BP cuff and oximeter probe, refuses to have VS monitored.
--- NOTE | 2021-02-06 16:10 | NUR ---
Patient did not score high enough of CIWA scoring to receive Ativan. States "If I can't have ativan, I want to go home. I won't stay here if I can't have ativan." Dr Rachel updated. Relayed to patient that Dr will not discharge her but she can leave AMA, patient stated she will think about her decision.
--- NOTE | 2021-02-06 17:00 | NUR ---
Patient continues to request "extra Ativan". CIWA scoring reviewed with patient.
--- NOTE | 2021-02-06 21:00 | NUR ---
Pt. sitting up in bed at this time. Pt. is A&OX3, assessment complete. INT to lt. ac patent. Pt. detox score was a 2 at last scoring. No intervention was needed. Informed the pt. the importance of changing to PO ativan instead of IV. Pt. voices understanding. Pt. denies pain or other needs, call light within reach.
[2021-02-07 02:56] VITALS: BP 143/96; PULSE 97; TEMP 97.9
--- NOTE | 2021-02-07 06:48 | NUR ---
Bedside shift report complete. Pt. resting in bed, denies needs at this time. Call light/belongings in reach.
[2021-02-07 07:22] LABS: BASO # 0.1 (0.0-0.2); BASO % 0.9 % (0.0-2.0); EOS # 0.2 (0.0-0.7); EOS % 3.1 % (0-4.0); GRAN # 3.9 (1.4-6.5); GRAN % 56.9 % (42.2-75.2); LYMPH % 28.7 % (20.0-51.0); MEAN CELL VOLUME 79 fl (80.0-100.0); MEAN CORPUSCULAR HGB CONC 31 g/dl (33.0-37.0); MEAN PLATELET VOLUME 9.9 fl (7.4-10.4); MONO # 0.7 (0.1-0.6); MONO % 10.3 % (1.7-9.3); PLATELET COUNT 189 K/mm3 (130-400); RED BLOOD COUNT 3.54 M/mm3 (4.10-5.30); REDCELL DISTRIBUTION WIDTH-CV 27.4 % (11.5-14.5)
[2021-02-07 07:24] LABS: HEMATOCRIT 27.9 % (37.0-47.0); HEMOGLOBIN 8.5 g/dl (12.5-16.0); MEAN CORPUSCULAR HEMOGLOBIN 24 pg (27.0-31.0)
[2021-02-07 07:33] VITALS: BP 145/98; PULSE 95; TEMP 98.5
[2021-02-07] MEDS ORDERED: DUO-KAPS1 CAP PO (07:40)
[2021-02-07] MEDS ORDERED: FOLIC ACID 11 MG/TA1 PO (07:40)
[2021-02-07] MEDS ORDERED: THIAMINE 1100 MG/TAB PO (07:40)
[2021-02-07 07:45] LABS: ALBUMIN 3.2 gm/dL (3.5-5.0); BILIRUBIN,TOTAL 1.4 mg/dL (0.0-1.0); CREATININE, serum 1.38 (0.52-1.25); POTASSIUM 4.1 mmol/L (3.4-5.0)
[2021-02-07] MEDS ORDERED: LASIX 20MG TABL20 MG PO ×2 (08:51)
--- NOTE | 2021-02-07 10:42 | NUR ---
Pt. discharged home. IV has been removed, site c/d/i. All questions answered. Pt. verbalized understanding of discharge instructions. Pt. left floor via wheelchair w/ MARIA ISABEL Jerry.
[2021-04-08] MEDS ORDERED: ROXICODONE 55 MG/TAB PO ×3 (16:13→16:27)
== END 2021-02-07 10:43 | disposition home or self-care (01) | DRG 897 ==
LOC: COL.ER 11:30 → SURG 16:17
PROVIDERS: Internal Medicine Gastroenterology; Physician Assistant; Student in an Organized Health Care Education/Training Program; ADMIT Internal Medicine
PROC: HZ2ZZZZ Detoxification Services for Substance Abuse Treatment (ICD-10-PCS; 2021-02-02)
PROC: 0DJ08ZZ Inspection of Upper Intestinal Tract, Via Natural or Artificial Opening Endoscopic (ICD-10-PCS; principal; 2021-02-06 12:30)
DX: F10.239 Alcohol dependence with withdrawal, unspecified (principal); N39.0 Urinary tract infection, site not specified; E87.1 Hypo-osmolality and hyponatremia; N17.9 Acute kidney failure, unspecified; K92.1 Melena; K70.31 Alcoholic cirrhosis of liver with ascites; I10 Essential (primary) hypertension; E87.6 Hypokalemia; E83.42 Hypomagnesemia; R00.0 Tachycardia, unspecified; D72.829 Elevated white blood cell count, unspecified; D50.0 Iron deficiency anemia secondary to blood loss (chronic); Y90.8 Blood alcohol level of 240 mg/100 ml or more
CPT/HCPCS: 99222-AI; 99232-AI; 99233-AI; 99239; C9113; J1650; J2060; J2354; J2405; J3360; J3411; J3475; J7030; J7040; J7050; P9016

== ENCOUNTER 2021-02-28 12:31 | Emergency (ER) | payer MEDICARE, MEDICAID ==
[~2021-02-28] VITALS: Ht 167.6 cm; Wt 74.1 kg
[~2021-02-28 12:31] MED LIST changes: +LASIX 20MG TABL20 MG PO
[2021-02-28 12:45] VITALS: TEMP 98.3
[2021-02-28 13:30] LABS: BASO # 0.1 (0.0-0.2); BASO % 0.8 % (0.0-2.0); EOS # 0.1 (0.0-0.7); GRAN # 3.5 (1.4-6.5); GRAN % 58.2 % (42.2-75.2); HEMOGLOBIN 10.5 g/dl (12.5-16.0); LYMPH # 1.8 (1.2-3.4); LYMPH % 30.5 % (20.0-51.0); MEAN CELL VOLUME 82 fl (80.0-100.0); MEAN CORPUSCULAR HEMOGLOBIN 25 pg (27.0-31.0); MEAN CORPUSCULAR HGB CONC 30 g/dl (33.0-37.0); MEAN PLATELET VOLUME 9.9 fl (7.4-10.4); MONO # 0.5 (0.1-0.6); MONO % 8.2 % (1.7-9.3); PLATELET COUNT 139 K/mm3 (130-400); RED BLOOD COUNT 4.26 M/mm3 (4.10-5.30); REDCELL DISTRIBUTION WIDTH-CV 24.9 % (11.5-14.5)
[2021-02-28 13:35] LABS: HEMATOCRIT 34.7 % (37.0-47.0)
[2021-02-28 13:42] LABS: ALANINE AMINOTRANSFERASE 17 U/L (4-34); ALBUMIN 3.7 gm/dL (3.5-5.0); ALKALINE PHOSPHATASE 202 U/L (50-136); ANION GAP 14 mmol/L (7-16); AST,SGOT 80 U/L (15-37); BILIRUBIN,TOTAL 1.5 mg/dL (0.0-1.0); CARBON DIOXIDE 25 mmol/L (22-30); CHLORIDE 99 mmol/L (98-107); CREATININE, serum 0.75 (0.52-1.25); GLUCOSE 123 mg/dL (74-106); LIPASE 54 U/L (23-300); POTASSIUM 3.5 mmol/L (3.4-5.0); SODIUM 138 mmol/L (137-145); TOTAL PROTEIN 8.2 gm/dL (6.4-8.2)
[2021-02-28 13:46] LABS: BLOOD UREA NITROGEN < 2 mg/dL (7-17); C-REACTIVE PROTEIN < 0.5 mg/dL (0.0-0.9)
[2021-02-28 15:14] VITALS: BP 135/94; PULSE 120
[2021-04-08] MEDS ORDERED: ROXICODONE 55 MG/TAB PO ×3 (16:13→16:27)
== END 2021-02-28 15:14 | disposition home or self-care (01) ==
LOC: COL.ER 12:31
PROVIDERS: Family Medicine
DX: R10.9 Unspecified abdominal pain (principal); D64.9 Anemia, unspecified; K92.0 Hematemesis; I10 Essential (primary) hypertension; F32.9 Major depressive disorder, single episode, unspecified; Z87.891 Personal history of nicotine dependence; Z79.899 Other long term (current) drug therapy; Z20.822 Contact with and (suspected) exposure to COVID-19
CPT/HCPCS: J1170; J2060; J2405; J7120

== ENCOUNTER → 2021-03-02 | Outpatient (CLI) | payer MEDICARE, MEDICAID ==
[~2021-03-02] MED LIST changes: +AL-MAG HYDROX-S30 ML PO; +ATROPINE SULFATE5 ML SL; +BLUE-EMU LIDOC1 EACH TP; +LASIX 80MG TABL80 MG PO; +LIBRIUM 10M10 MG/CAP PO; +REFRESH TEARS 330 ML OP; +ROXANOL 20MG20 MG/ML PO; +VOLTAREN GEL 1%1 TU TP
== END ==
LOC: COL.RAD 02-26 07:30
DX: K80.20 Calculus of gallbladder without cholecystitis without obstruction (principal); R16.1 Splenomegaly, not elsewhere classified; R16.0 Hepatomegaly, not elsewhere classified; K70.31 Alcoholic cirrhosis of liver with ascites
CPT/HCPCS: Q9967

== ENCOUNTER 2021-03-04 08:32 | Emergency (ER) | payer MEDICARE, MEDICAID ==
[~2021-03-04] VITALS: Ht 167.6 cm; Wt 68.2 kg
[~2021-03-04 08:32] MED LIST changes: -AL-MAG HYDROX-S30 ML PO; -ATROPINE SULFATE5 ML SL; -BLUE-EMU LIDOC1 EACH TP; -LASIX 80MG TABL80 MG PO; -LIBRIUM 10M10 MG/CAP PO; -REFRESH TEARS 330 ML OP; -ROXANOL 20MG20 MG/ML PO; -VOLTAREN GEL 1%1 TU TP
[2021-03-04 08:39] VITALS: TEMP 98.5
[2021-03-04 09:17] LABS: COLLECTION METHOD CLEAN CATCH
[2021-03-04 09:22] LABS: BASO % 0.6 % (0.0-2.0); EOS # 0.1 (0.0-0.7); EOS % 1.4 % (0-4.0); GRAN # 4.7 (1.4-6.5); GRAN % 65.6 % (42.2-75.2); HEMOGLOBIN 10.4 g/dl (12.5-16.0); LYMPH # 1.7 (1.2-3.4); MEAN CELL VOLUME 82 fl (80.0-100.0); MEAN CORPUSCULAR HEMOGLOBIN 26 pg (27.0-31.0); MEAN CORPUSCULAR HGB CONC 31 g/dl (33.0-37.0); MEAN PLATELET VOLUME 9.8 fl (7.4-10.4); MONO # 0.6 (0.1-0.6); MONO % 7.8 % (1.7-9.3); PLATELET COUNT 148 K/mm3 (130-400); RED BLOOD COUNT 4.05 M/mm3 (4.10-5.30); REDCELL DISTRIBUTION WIDTH-CV 25.6 % (11.5-14.5)
[2021-03-04 09:24] LABS: HEMATOCRIT 33.2 % (37.0-47.0)
[2021-03-04 09:31] LABS: MUCOUS Present /lpf; PH 7 (5-8); URINE APPEARANCE Hazy; URINE BACTERIA Rare /hpf; URINE BILIRUBIN Negative (NEGATIVE); URINE BLOOD Negative (NEGATIVE); URINE COLOR Yellow; URINE GLUCOSE Negative (NEGATIVE); URINE KETONE Negative (NEGATIVE); URINE LEUKOCYTE ESTERASE Negative (NEGATIVE); URINE NITRATE Negative (NEGATIVE); URINE PROTEIN(semi-quant) Negative (NEGATIVE); URINE RBC 0-2 /hpf; URINE UROBILINOGEN Negative (NEGATIVE)
[2021-03-04 09:40] LABS: ALANINE AMINOTRANSFERASE 19 U/L (0-55); ALBUMIN 3.1 gm/dL (3.5-5.0); ALKALINE PHOSPHATASE 255 U/L (0-750); ANION GAP 15 mmol/L; AST,SGOT 137 U/L (5-34); BILIRUBIN,TOTAL 1.3 mg/dL (0.2-1.2); CARBON DIOXIDE 22 mEq/L (22-29); CHLORIDE 101 mmol/L (98-107); CREATININE, serum 1.47 mg/dL (0.57-1.11); GLUCOSE 128 mg/dL (70-99); LIPASE 22 U/L (8-78); POTASSIUM 3.1 mmol/L (3.5-4.5); SODIUM 138 mmol/L (136-145)
[2021-03-04 09:43] LABS: BLOOD UREA NITROGEN < 2 mg/dL (7-19)
[2021-03-04 12:11] LABS: INR 1.8 (0.8-3.0); PROTHROMBIN TIME 20.1 SECONDS (9.7-12.8)
[2021-03-04] MEDS ORDERED: LIBRIUM 25M25 MG/CAP PO (12:50)
[2021-03-04 12:59] VITALS: BP 113/71; PULSE 113
[2021-04-08] MEDS ORDERED: ROXICODONE 55 MG/TAB PO ×3 (16:13→16:27)
== END 2021-03-04 13:16 | disposition home or self-care (01) ==
LOC: COL.ER 08:32
PROVIDERS: Family Medicine
DX: R10.9 Unspecified abdominal pain (principal); F10.20 Alcohol dependence, uncomplicated; F32.9 Major depressive disorder, single episode, unspecified; F41.9 Anxiety disorder, unspecified; Y90.6 Blood alcohol level of 120-199 mg/100 ml; Z79.899 Other long term (current) drug therapy
CPT/HCPCS: J1170; J2060; J2405; J7030

== ENCOUNTER 2021-03-05 17:50 | Inpatient (IN) | payer MEDICARE, MEDICAID ==
[~2021-03-05] VITALS: Ht 167.6 cm; Wt 75.3 kg
[2021-03-05] VITALS (59 sets, daily range): BP systolic 131–141; BP diastolic 93–108; PULSE 105–111; TEMP 98.4; O2SAT 66–100
[2021-03-05 18:27] LABS: BASO # 0.1 (0.0-0.2); BASO % 0.9 % (0.0-2.0); EOS # 0.2 (0.0-0.7); EOS % 2.9 % (0-4.0); GRAN # 4.1 (1.4-6.5); GRAN % 61.5 % (42.2-75.2); LYMPH # 1.7 (1.2-3.4); LYMPH % 26.1 % (20.0-51.0); MEAN CELL VOLUME 84 fl (80.0-100.0); MEAN CORPUSCULAR HGB CONC 30 g/dl (33.0-37.0); MEAN PLATELET VOLUME 10.6 fl (7.4-10.4); MONO # 0.6 (0.1-0.6); MONO % 8.3 % (1.7-9.3); PLATELET COUNT 128 K/mm3 (130-400); RED BLOOD COUNT 3.87 M/mm3 (4.10-5.30); REDCELL DISTRIBUTION WIDTH-CV 25.4 % (11.5-14.5)
[2021-03-05 18:31] LABS: HEMATOCRIT 32.3 % (37.0-47.0); HEMOGLOBIN 9.8 g/dl (12.5-16.0); MEAN CORPUSCULAR HEMOGLOBIN 25 pg (27.0-31.0)
[2021-03-05 18:48] LABS: ALANINE AMINOTRANSFERASE 22 U/L (0-55); ALBUMIN 2.8 gm/dL (3.5-5.0); ALCOHOL(ethanol),MEDICAL 88 mg/dL (0-10); ALKALINE PHOSPHATASE 257 U/L (0-750); ANION GAP 15 mmol/L; AST,SGOT 139 U/L (5-34); BILIRUBIN,TOTAL 1.4 mg/dL (0.2-1.2); BLOOD UREA NITROGEN 2 mg/dL (7-19); CALCIUM 6.7 mg/dL (8.4-10.2); CARBON DIOXIDE 20 mEq/L (22-29); CHLORIDE 102 mmol/L (98-107); CREATININE, serum 1.39 mg/dL (0.57-1.11); GLUCOSE 114 mg/dL (70-99); SODIUM 137 mmol/L (136-145); TOTAL PROTEIN 7.4 gm/dL (6.2-8.1)
[2021-03-05 18:49] LABS: ACETAMINOPHEN < 1.0 ug/mL (10-30); SALICYLATE < 5.0 mg/dL (15.0-30.0)
[2021-03-05 18:50] LABS: POTASSIUM 2.7 mmol/L (3.5-4.5)
[2021-03-06] VITALS (280 sets, daily range): BP systolic 119–1341; BP diastolic 83–120; PULSE 110–138; TEMP 97.8–99.8; O2SAT 58–100
[2021-03-06 04:17] LABS: TRICYCLIC ANTIDEPRESS URINE NEGATIVE
--- NOTE | 2021-03-06 07:54 | NUR ---
Report received from CRISTEL Xavier. Patient lying in bed with c/o of abdominal pain. States that she needs another paracentesis but no one will listen to her.
[2021-03-06 08:00] LABS: BASO # 0.1 (0.0-0.2); EOS # 0.3 (0.0-0.7); EOS % 4.5 % (0-4.0); GRAN # 4.5 (1.4-6.5); GRAN % 61.3 % (42.2-75.2); LYMPH # 1.7 (1.2-3.4); LYMPH % 23.2 % (20.0-51.0); MEAN CELL VOLUME 85 fl (80.0-100.0); MEAN CORPUSCULAR HGB CONC 30 g/dl (33.0-37.0); MEAN PLATELET VOLUME 9.7 fl (7.4-10.4); MONO # 0.7 (0.1-0.6); MONO % 9.6 % (1.7-9.3); PLATELET COUNT 114 K/mm3 (130-400); REDCELL DISTRIBUTION WIDTH-CV 25.2 % (11.5-14.5)
[2021-03-06 08:05] LABS: HEMATOCRIT 29.7 % (37.0-47.0); MEAN CORPUSCULAR HEMOGLOBIN 26 pg (27.0-31.0)
[2021-03-06 08:21] LABS: CALCIUM 6.4 mg/dL (8.4-10.2); CREATININE, serum 1.26 mg/dL (0.57-1.11); MAGNESIUM 1.1 mg/dL (1.6-2.6); POTASSIUM 3.6 mmol/L (3.5-4.5)
--- NOTE | 2021-03-06 09:03 | NUR ---
Patient to have psych screening once medically cleared. Animal Cruelty Investigator will complete intake with patient at that time. Patient was discharged from the hospital in May 2020 with services from [facility]. KHURRAM contacted Alcon from [facility] to obtain update. Al[facility] advised that patient was discharged from their services on 12/22/2020. Alcon reports that patient had moved out of her father, Gui's home and moved in with her . [facility] also reports patient was drinking heavily and not following their regimen. KHURRAM will continue to follow for discharge needs.
--- NOTE | 2021-03-06 10:20 | NUR ---
Production Helper contacted patient's father, Gui who is patient's DPOA-HC. Gui advised patient has been living with her , Torito Grewal. uGi also advised that patient's daughter, Viola is living with him and he is working on obtaining permanent custody of her as he only has temporary custody at this time. Patient to transfer to the medical floor.
--- NOTE | 2021-03-06 13:14 | NUR ---
Report given to CRISTEL Browning. Patient will move up to room 318
--- NOTE | 2021-03-06 13:14 | NUR ---
[facility] called to come screen patient.
--- NOTE | 2021-03-06 13:52 | NUR ---
CRISTEL Mcghee, takes patient up to room 318 at this time. Paperwork faxed to [facility] so she can be screened.
--- NOTE | 2021-03-06 16:04 | NUR ---
Patient arrived from ICU, escorted by Taz FAM. Patient has no complaints at this time. [facility] called and stated they would screen the patient once she is medically cleared. Poison control also called for an update on the patient.
--- NOTE | 2021-03-06 17:00 | NUR ---
Patient will be moved from room 318 to 355 for closer observation. Patient is denying that her tramadol overdose was a suicide attempt. Dr. Bean has requested that the patient be under close observation, but does not need a sitter. Patient's door needs to remain open per Dr. Bean.
--- NOTE | 2021-03-06 18:33 | NUR ---
Patient has been very pleasant since arriving from the ICU. She did c/o some nausea and feels like her skin is "stretching everywhere". Patient's abdomen is very firm and distended. Patient was given PRN zofran for nausea, and also 2mg of ativan person detox protocol.
--- NOTE | 2021-03-06 20:00 | NUR ---
Patient is lying in bed, alert and oriented x 4, report discomfort in her abdomen which is distended and firm. Hyperactive sounds. Ativan provided. HR 134, LR running 75ml/hr. Tele in place. K+ replacement provided. Assessment completed, no further needs at this time, call light within reach.
[2021-03-07] VITALS (10 sets, daily range): BP systolic 103–132; BP diastolic 71–85; PULSE 88–136; TEMP 97.5–98.9
--- NOTE | 2021-03-07 01:05 | NUR ---
2 MG OF PO ATIVAN RETURNED TO [facility] BIN VERIFIED BY TWO NURSES, MYSELF AND LAN. As [facility] DID NOT ALLOWED TO RETURN BY [facility].
--- NOTE | 2021-03-07 03:57 | NUR ---
Patient reports dizziness, asks for Ativan, provided.
--- NOTE | 2021-03-07 05:48 | NUR ---
Patient has been unable to rest due to continuous discomfort in her abdomen. Ativan provided PRN. LR running at 75 ml/hr. She asked for a lunch box and ate some of the sandwich. No vomiting. Continue monitoring. Shift report will be given to day nurse.
--- NOTE | 2021-03-07 07:49 | NUR ---
PT IS STATING SHE IS A 10/10 PAIN AND NAUSEATED. WILL ASSESS LATER.
[2021-03-07 08:03] LABS: MEAN CELL VOLUME 86 fl (80.0-100.0); MEAN CORPUSCULAR HGB CONC 30 g/dl (33.0-37.0); MEAN PLATELET VOLUME 10.9 fl (7.4-10.4); PLATELET COUNT 126 K/mm3 (130-400); RED BLOOD COUNT 3.17 M/mm3 (4.10-5.30); REDCELL DISTRIBUTION WIDTH-CV 24.7 % (11.5-14.5)
[2021-03-07 08:13] LABS: HEMATOCRIT 27.1 % (37.0-47.0); HEMOGLOBIN 8.2 g/dl (12.5-16.0); MEAN CORPUSCULAR HEMOGLOBIN 26 pg (27.0-31.0)
[2021-03-07 08:37] LABS: ALBUMIN 2.5 gm/dL (3.5-5.0); BILIRUBIN,TOTAL 3.2 mg/dL (0.2-1.2); CALCIUM 6.8 mg/dL (8.4-10.2); CREATININE, serum 1.23 mg/dL (0.57-1.11); POTASSIUM 3.9 mmol/L (3.5-4.5); TOTAL PROTEIN 6.5 gm/dL (6.2-8.1)
[2021-03-07 15:09] LABS: INR 2.1 (0.8-3.0); PROTHROMBIN TIME 23.9 SECONDS (9.7-12.8)
--- NOTE | 2021-03-07 19:07 | NUR ---
REPORT GIVEN TO CRISTEL LOWERY
--- NOTE | 2021-03-07 20:00 | NUR ---
Patient is awake in bed, reports discomfort in her abdomen. VSS, she states nausea but not vomiting. PRN provided. Assessment completed. No further needs at this time. Call light within reach.
--- NOTE | 2021-03-07 20:59 | NUR ---
Patient is getting anxious. HR 130. Waiting for the time for a nother dose of PRN ativan.
[2021-03-08] VITALS (11 sets, daily range): BP systolic 105–124; BP diastolic 60–98; PULSE 113–130; TEMP 97.2–98.7
--- NOTE | 2021-03-08 07:06 | NUR ---
PT IS SLEEPING UPON ENTRY. PER REPORT PT WAS AWAKE MOST OF THE NIGHT, AND HAD JUST FALLEN ASLEEP AT 0300. WILL CONTINUE TO MONITOR.
[2021-03-08 07:15] LABS: BASO % 0.3 % (0.0-2.0); EOS # 0.2 (0.0-0.7); EOS % 2.7 % (0-4.0); GRAN # 3.6 (1.4-6.5); GRAN % 61.1 % (42.2-75.2); LYMPH # 1.5 (1.2-3.4); LYMPH % 26.1 % (20.0-51.0); MEAN CELL VOLUME 85 fl (80.0-100.0); MEAN CORPUSCULAR HGB CONC 31 g/dl (33.0-37.0); MEAN PLATELET VOLUME 10.6 fl (7.4-10.4); MONO # 0.5 (0.1-0.6); MONO % 9.3 % (1.7-9.3); PLATELET COUNT 125 K/mm3 (130-400); RED BLOOD COUNT 2.84 M/mm3 (4.10-5.30); REDCELL DISTRIBUTION WIDTH-CV 24.8 % (11.5-14.5)
[2021-03-08 07:21] LABS: HEMOGLOBIN 7.4 g/dl (12.5-16.0); MEAN CORPUSCULAR HEMOGLOBIN 26 pg (27.0-31.0)
[2021-03-08 07:25] LABS: INR 2.1 (0.8-3.0); PROTHROMBIN TIME 23.9 SECONDS (9.7-12.8)
[2021-03-08 07:39] LABS: ALBUMIN 2.4 gm/dL (3.5-5.0); BILIRUBIN,TOTAL 2.8 mg/dL (0.2-1.2); CALCIUM 7.3 mg/dL (8.4-10.2); CREATININE, serum 1.15 mg/dL (0.57-1.11); POTASSIUM 3.8 mmol/L (3.5-4.5)
[2021-03-08 12:19] LABS: PERITONEAL -POLYMORPHONUCLEAR 3.9 % (0-25)
--- NOTE | 2021-03-08 13:52 | NUR ---
Primary nurse was assisted with [phone] patient care by [facility] student Teresa Ugarte and [employer] instructor Wilda Bell MSN, RN.
[2021-03-08 18:39] LABS: HEMATOCRIT 26.9 % (37.0-47.0); HEMOGLOBIN 8.2 g/dl (12.5-16.0)
--- NOTE | 2021-03-08 20:00 | NUR ---
Patient is resting in bed, alert and oriented, heart rate still high. Continues with pain inher abdomen. Not as distended as yesterday. Assessment completed. No further needs at this time. Call light within reach.
--- NOTE | 2021-03-08 23:17 | NUR ---
RECEIVED REPORT FROM CRISTEL RIOS. INTRODUCED SELF TO PATIENT, LUNGS CLEAR TO AUSCULTATION. S1,S2 SOUNDS HEARD. PULSES 2+ IN ALL EXTREMITIES. CAP REFILL <3S. PT ACTIVE BOWEL SOUNDS, TENDER TO PALPATION. PT RESTLESS.
[2021-03-09] VITALS (12 sets, daily range): BP systolic 104–129; BP diastolic 61–83; PULSE 83–119; TEMP 97.2–98.2
--- NOTE | 2021-03-09 04:23 | NUR ---
PT CURRENTLY SLEEPING. 0400 VITALS HELD TO ALLOW PATIENT TO REST AT THIS TIME.
--- NOTE | 2021-03-09 07:00 | NUR ---
awake and resting in bed, bedside shift report received from CRISTEL Ibanez
--- NOTE | 2021-03-09 07:12 | NUR ---
awake resting in bed, bedside shift report received from CRISTEL Ibanez
--- NOTE | 2021-03-09 07:25 | NUR ---
0600 vital signs held to promote rest. Pt was sleeping at time of vital signs.
--- NOTE | 2021-03-09 07:32 | NUR ---
PT CONTINUING ON PLAN OF CARE. PT CIWA RANGED FROM 3-5. PT RESTLESS THROUGHOUT NIGHT. PT SLEEPING AT 0400 AND 0600, VITAL SIGNS AND CIWA SCORE WITHHELD TO PROMOTE REST. PT FREE FROM INJURY THIS SHIFT. MULTIPLE EVENTS OF REORIENTATION OCCURRED. PT PLEASANT AND ABLE TO FOLLOW VERBAL COMMANDS.
--- NOTE | 2021-03-09 07:50 | NUR ---
awake and sitting up in bed, full assessment completed, see interventions for further info, medicated with ativan 1mg po for score of 4, declines wanting breakfast at this time
[2021-03-09 08:26] LABS: COLLECTION METHOD CLEAN CATCH
[2021-03-09 08:34] LABS: BASO % 0.7 % (0.0-2.0); EOS # 0.1 (0.0-0.7); EOS % 2.8 % (0-4.0); GRAN # 2.5 (1.4-6.5); GRAN % 54.1 % (42.2-75.2); LYMPH # 1.5 (1.2-3.4); MEAN CELL VOLUME 83 fl (80.0-100.0); MEAN CORPUSCULAR HGB CONC 32 g/dl (33.0-37.0); MEAN PLATELET VOLUME 10.6 fl (7.4-10.4); MONO # 0.5 (0.1-0.6); MONO % 10.2 % (1.7-9.3); PLATELET COUNT 134 K/mm3 (130-400); RED BLOOD COUNT 2.97 M/mm3 (4.10-5.30)
[2021-03-09 08:42] LABS: HEMATOCRIT 24.6 % (37.0-47.0); HEMOGLOBIN 7.8 g/dl (12.5-16.0); MEAN CORPUSCULAR HEMOGLOBIN 26 pg (27.0-31.0)
[2021-03-09 08:44] LABS: PH 6 (5-8); SQUAMOUS EPITHELIAL 0-2 /hpf; URINE APPEARANCE Clear; URINE BACTERIA None Seen /hpf; URINE BILIRUBIN Negative (NEGATIVE); URINE BLOOD Negative (NEGATIVE); URINE COLOR Yellow; URINE GLUCOSE Negative (NEGATIVE); URINE KETONE Negative (NEGATIVE); URINE LEUKOCYTE ESTERASE Negative (NEGATIVE); URINE NITRATE Negative (NEGATIVE); URINE PROTEIN(semi-quant) Negative (NEGATIVE); URINE RBC None Seen /hpf
[2021-03-09 08:47] LABS: CALCIUM 7.6 mg/dL (8.4-10.2); CREATININE, serum 1.21 mg/dL (0.57-1.11); POTASSIUM 3.9 mmol/L (3.5-4.5)
--- NOTE | 2021-03-09 09:27 | NUR ---
in bed and appears to be sleeping, eyes closed, resp quiet and easy
--- NOTE | 2021-03-09 10:30 | NUR ---
resting in bed, c/o pain to abdomen, explained we can talk to the Dr when they make rounds,
--- NOTE | 2021-03-09 11:48 | NUR ---
Dr Bean and care team in to see patient, patient medicated with roxicodone 2.5mg po, lab in to draw blood
--- NOTE | 2021-03-09 12:45 | NUR ---
medicated with ativan 1mg po for detox score 4
--- NOTE | 2021-03-09 13:50 | NUR ---
called melba to room c/o pain, explained she cannot have anything more for pain and reminded her she had ativan not long ago, verbalizes understanding, as she is talking to nurse eyes start to close slowly
--- NOTE | 2021-03-09 15:40 | NUR ---
continues to c/o some pain to abdomen but remains very sleepy appearing, provided warm blanket to hold on abdomen
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
--- NOTE | 2021-03-09 17:30 | NUR ---
sitting up on side of bed eating supper, asked if she can have the ativan and explained we would check her vital signs at 6:00 pm and then be able to decide
--- NOTE | 2021-03-09 18:09 | NUR ---
is now lying back in bed with lights off, eyes closed and resp quiet and easy, TROUBLE LOCATER states she remained asleep during vital signs being obtained
--- NOTE | 2021-03-09 18:40 | NUR ---
bedside shift report given to CRISTEL Valladares
--- NOTE | 2021-03-09 21:45 | NUR ---
Patient A/Ox3. Patient reports moderate pain to her abdomen and back area. Patient requesting pain meds. Explained to the patient that she had received pain med in AM and won't be due until 11:45 pm tonight. Provided warm blanket and repositioned patient in bed. PRN Ativan 1mg PO given for CIWA score of 4 at this time. Patient tolerated dinner. No N/V noted. Call light in reach. Bed alarms on. Will continue to monitor.
[2021-03-10] VITALS (7 sets, daily range): BP systolic 105–132; BP diastolic 43–81; PULSE 73–124; TEMP 97.3–98.9
--- NOTE | 2021-03-10 06:21 | NUR ---
Patient scores 3-4 on CIWA protocol over the night. Patient fell asleep around 0100 am. Call light in reach. Will continue to monitor.
[2021-03-10 07:09] LABS: BASO % 0.8 % (0.0-2.0); EOS # 0.1 (0.0-0.7); EOS % 2.9 % (0-4.0); GRAN # 2.4 (1.4-6.5); GRAN % 50.4 % (42.2-75.2); LYMPH # 1.6 (1.2-3.4); MEAN CELL VOLUME 84 fl (80.0-100.0); MEAN CORPUSCULAR HGB CONC 31 g/dl (33.0-37.0); MEAN PLATELET VOLUME 10.4 fl (7.4-10.4); MONO # 0.5 (0.1-0.6); MONO % 11.3 % (1.7-9.3); PLATELET COUNT 163 K/mm3 (130-400); REDCELL DISTRIBUTION WIDTH-CV 25.6 % (11.5-14.5)
[2021-03-10 07:18] LABS: HEMATOCRIT 26.9 % (37.0-47.0); HEMOGLOBIN 8.3 g/dl (12.5-16.0); MEAN CORPUSCULAR HEMOGLOBIN 26 pg (27.0-31.0)
[2021-03-10 07:34] LABS: ALBUMIN 2.4 gm/dL (3.5-5.0); BILIRUBIN,TOTAL 2.6 mg/dL (0.2-1.2); CALCIUM 7.9 mg/dL (8.4-10.2); CREATININE, serum 1.15 mg/dL (0.57-1.11); POTASSIUM 3.8 mmol/L (3.5-4.5); TOTAL PROTEIN 6.5 gm/dL (6.2-8.1)
--- NOTE | 2021-03-10 08:30 | NUR ---
PT ASKING FOR ATIVAN EDUCATED PT ON SCALE THAT WE USE, SCORE OF 4 IN AM, ASSESSMENT PERFORMED, MEDICATIONS GIVEN, VITALS REVIEWED, PT REPOSTIONED IN BED, SCD'S PUT ON PT, FRESH ICE WATER AND POTASSIUM MIXED IN JUICE FOR PT, PT HAD BREAKFAST IN THE ROOM, NO OTHER NEEDS
--- NOTE | 2021-03-10 11:33 | NUR ---
Clinical information faxed to [facility] to get screening set-up [place] phone# [phone] [place] fax# [phone]
--- NOTE | 2021-03-10 13:26 | NUR ---
PT REFUSING TO DO PAWNEE SCREEN AT THIS TIME AND SAYS "LETS JUST DO IT TOMORROW". DR. BRADY UPDATED ON SITUATION AND SAYS IT'S FINE TO PUSH SCREEN TO TOMORROW BUT IT MUST BE DONE TOMORROW. ALSO STATED SHE WOULD PUT IN A NIGHTTIME DOSE OF ATIVAN FOR PT PER REQUEST. RELAYED TO PT AND PT WAS AGREEABLE.
--- NOTE | 2021-03-10 15:47 | NUR ---
PT HAVING INC PAIN IN BACK AND ABD. PHSYICIAN NOTIFIED AND LIDOCAINE PATCH ORDERED
--- NOTE | 2021-03-10 17:58 | NUR ---
PT C/O PAIN IN ABD AND BACK, HEATING PAD GIVEN WITH NO RELIEF, NOT TIME FOR PAIN MEDS, PT MENTIONS BEING UPSET BECAUSE HER HAS NOT VISITED HER, WILL DO PAWNEE SCREEN TOMORROW
--- NOTE | 2021-03-10 21:29 | NUR ---
Patient alert and oriented. Patient tearful and upset about being in the hospital and states she wants to go home. This nurse stayed at bedside to provide comfort. Patient reports pain to her back and stomach. Patient received pain med around noon today and next pain med not due until midnight. Provided warm blanket. Offered some snacks and hot tea but patient refused. PRN Ativan given for anxiety. Call light in reach. Will continue to monitor.
[2021-03-11 00:37] VITALS: BP 91/55; PULSE 111; TEMP 98
[2021-03-11 03:56] VITALS: BP 94/50; PULSE 98; TEMP 98.3
[2021-03-11 08:17] LABS: MEAN CELL VOLUME 86 fl (80.0-100.0); MEAN CORPUSCULAR HGB CONC 30 g/dl (33.0-37.0); MEAN PLATELET VOLUME 10.4 fl (7.4-10.4); PLATELET COUNT 158 K/mm3 (130-400); RED BLOOD COUNT 2.75 M/mm3 (4.10-5.30); REDCELL DISTRIBUTION WIDTH-CV 25.5 % (11.5-14.5)
[2021-03-11 08:19] LABS: HEMATOCRIT 23.5 % (37.0-47.0); HEMOGLOBIN 7.1 g/dl (12.5-16.0); MEAN CORPUSCULAR HEMOGLOBIN 26 pg (27.0-31.0)
--- NOTE | 2021-03-11 09:10 | NUR ---
SHift assessment complete. Pt resting in bed, A&Ox4. Heart rate tachy in low 100s, rhythm regular. Lungs CTA. Abdomen firm and distended, nontender. Reports pain to abdomen, informed pt next pain pill not due until noon. Denies further needs at this time. Call light in reach and bed alarm on.
[2021-03-11 09:13] LABS: CALCIUM 7.9 mg/dL (8.4-10.2); CREATININE, serum 1.02 mg/dL (0.57-1.11); POTASSIUM 3.6 mmol/L (3.5-4.5)
[2021-03-11 09:32] VITALS: BP 118/75; PULSE 107; TEMP 97.7
[2021-03-11 12:35] VITALS: BP 111/71; PULSE 115; TEMP 98
--- NOTE | 2021-03-11 15:56 | NUR ---
[facility] planning to screen today but reports it may not be for a couple hours. updated.
[2021-03-11 16:19] LABS: MEAN CELL VOLUME 85 fl (80.0-100.0); MEAN CORPUSCULAR HGB CONC 31 g/dl (33.0-37.0); MEAN PLATELET VOLUME 10.3 fl (7.4-10.4); PLATELET COUNT 186 K/mm3 (130-400); RED BLOOD COUNT 2.94 M/mm3 (4.10-5.30); REDCELL DISTRIBUTION WIDTH-CV 25.2 % (11.5-14.5)
[2021-03-11 16:31] LABS: HEMATOCRIT 24.9 % (37.0-47.0); HEMOGLOBIN 7.7 g/dl (12.5-16.0); MEAN CORPUSCULAR HEMOGLOBIN 26 pg (27.0-31.0)
[2021-03-11] MEDS ORDERED: FOLIC ACID 11 MG/TA1 PO (17:08)
[2021-03-11] MEDS ORDERED: THIAMINE 1100 MG/TAB PO (17:08)
[2021-03-11] MEDS ORDERED: DUO-KAPS1 CAP PO (17:08)
[2021-03-11] MEDS ORDERED: BLUE-EMU LIDOC1 EACH TP (17:09)
[2021-03-11] MEDS ORDERED: LIBRIUM 10M10 MG/CAP PO (17:10)
--- NOTE | 2021-03-11 20:00 | NUR ---
Patient is sitting in bed, alert and oriented x4, tachycardia, other sings VNL. Reports constant pain in the abdomen 10/10. Explained the time for the pain medication. Patient upset since the [place] assessment was not done as she was told. Assessment completed, No further needs at this time. Call [facility] within reach.
[2021-03-11 20:44] VITALS: BP 125/78; PULSE 113; TEMP 98.6
--- NOTE | 2021-03-11 21:30 | NUR ---
[facility] patient services representative came to assess patient. Possible discharge home.
[2021-03-11] MEDS ORDERED: LASIX 20MG TABL20 MG PO (22:30)
[2021-03-12 00:43] VITALS: BP 118/74; PULSE 113; TEMP 98.3
[2021-03-12 05:53] VITALS: BP 110/73; PULSE 100; TEMP 97.4
--- NOTE | 2021-03-12 07:14 | NUR ---
Patient had a calm night after her pain medication at 0100. She did not required any other need. Ready to be discharged. Shift report given to day shift.
--- NOTE | 2021-03-12 08:16 | NUR ---
PT ESCORTED OUT VIA WHEELCHAIR WITH PT BELONGINGS, PT PICKED UP BY AT ER ENTRANCE.
--- NOTE | 2021-03-12 15:09 | NUR ---
The patient discharge back home with her early this morning. Orders were written for home health. SW attempted to contact the patient to discuss getting home health set up. SW left her a voicemail.
[2021-04-08] MEDS ORDERED: ROXICODONE 55 MG/TAB PO ×3 (16:13→16:27)
== END 2021-03-12 08:20 | disposition home or self-care (01) | DRG 918 ==
LOC: COL.ER 17:50 → ICU 18:50 → MEDICAL 03-06 14:06
PROVIDERS: Internal Medicine; Nurse Practitioner; Physician Assistant; Student in an Organized Health Care Education/Training Program; ADMIT Family Medicine
PROC: 0W9G3ZZ Drainage of Peritoneal Cavity, Percutaneous Approach (ICD-10-PCS; principal; 2021-03-07)
PROC: 0W9G3ZZ Drainage of Peritoneal Cavity, Percutaneous Approach (ICD-10-PCS; 2021-03-08)
DX: T40.422A Poisoning by tramadol, intentional self-harm, initial encounter (principal); R45.851 Suicidal ideations; N17.9 Acute kidney failure, unspecified; F10.139 Alcohol abuse with withdrawal, unspecified; K21.9 Gastro-esophageal reflux disease without esophagitis; G89.29 Other chronic pain; K70.31 Alcoholic cirrhosis of liver with ascites; E87.6 Hypokalemia; E83.42 Hypomagnesemia; D50.0 Iron deficiency anemia secondary to blood loss (chronic); D69.6 Thrombocytopenia, unspecified; F41.9 Anxiety disorder, unspecified; Y90.4 Blood alcohol level of 80-99 mg/100 ml; I10 Essential (primary) hypertension; F32.A Depression, unspecified; E86.0 Dehydration; R10.9 Unspecified abdominal pain; F32.9 Major depressive disorder, single episode, unspecified; Z79.899 Other long term (current) drug therapy
CPT/HCPCS: 99223-AI; 99231-AI; 99232-AI; 99233-AI; 99239; J1170; J2060; J2405; J2550; J3360; J3411; J3475; J3480; J7030; J7120

== ENCOUNTER 2021-03-25 13:20 | Emergency (ER) | payer MEDICARE, MEDICAID ==
[~2021-03-25] VITALS: Ht 167.6 cm; Wt 88.2 kg
[~2021-03-25 13:20] MED LIST changes: +BLUE-EMU LIDOC1 EACH TP; +LIBRIUM 10M10 MG/CAP PO
[2021-03-25 14:05] LABS: BASO # 0.1 K/mm3 (0.0-0.2); BASO % 1.2 % (0.0-2.0); EOS # 0.2 K/mm3 (0.0-0.7); EOS % 2.8 % (0-4.0); GRAN # 3.2 K/mm3 (1.4-6.5); GRAN % 52.8 % (42.2-75.2); HEMOGLOBIN 10.2 g/dl (12.5-16.0); LYMPH # 2.2 K/mm3 (1.2-3.4); LYMPH % 36.7 % (20.0-51.0); MEAN CELL VOLUME 84 fl (80.0-100.0); MEAN CORPUSCULAR HEMOGLOBIN 26 pg (27.0-31.0); MEAN CORPUSCULAR HGB CONC 31 g/dl (33.0-37.0); MEAN PLATELET VOLUME 9.8 fl (7.4-10.4); MONO # 0.4 K/mm3 (0.1-0.6); MONO % 6.3 % (1.7-9.3); PLATELET COUNT 251 K/mm3 (130-400); RED BLOOD COUNT 3.93 M/mm3 (4.10-5.30); REDCELL DISTRIBUTION WIDTH-CV 20.7 % (11.5-14.5)
[2021-03-25 14:11] LABS: INR 1.5 (0.8-3.0); PROTHROMBIN TIME 16.2 SECONDS (9.7-12.8)
[2021-03-25 14:18] LABS: COLLECTION METHOD CLEAN CATCH
[2021-03-25 14:21] LABS: ALBUMIN 2.9 gm/dL (3.5-5.0); BILIRUBIN,TOTAL 1.7 mg/dL (0.2-1.2); CALCIUM 8.1 mg/dL (8.4-10.2); CREATININE, serum 1.55 mg/dL (0.57-1.11); POTASSIUM 3.8 mmol/L (3.5-4.5); TOTAL PROTEIN 8.4 gm/dL (6.2-8.1)
[2021-03-25 14:23] LABS: MAGNESIUM 0.9 mg/dL (1.6-2.6)
[2021-03-25 14:26] LABS: MUCOUS Present /lpf; PH 7 (5-8); URINE APPEARANCE Hazy; URINE BACTERIA None Seen /hpf; URINE BILIRUBIN Negative (NEGATIVE); URINE BLOOD Negative (NEGATIVE); URINE COLOR Yellow; URINE GLUCOSE Negative (NEGATIVE); URINE KETONE Negative (NEGATIVE); URINE LEUKOCYTE ESTERASE Negative (NEGATIVE); URINE NITRATE Negative (NEGATIVE); URINE PROTEIN(semi-quant) Negative (NEGATIVE); URINE RBC None Seen /hpf; URINE UROBILINOGEN >=4.0 mg/dL (NEGATIVE)
[2021-03-25 16:00] VITALS: BP 115/82; PULSE 96; TEMP 98
[2021-04-08] MEDS ORDERED: ROXICODONE 55 MG/TAB PO ×3 (16:13→16:27)
== END 2021-03-25 16:45 | disposition home or self-care (01) ==
LOC: COL.ER 13:20
PROVIDERS: Physician Assistant
DX: K70.31 Alcoholic cirrhosis of liver with ascites (principal); F41.9 Anxiety disorder, unspecified; F32.A Depression, unspecified; K21.9 Gastro-esophageal reflux disease without esophagitis; Z79.899 Other long term (current) drug therapy
CPT/HCPCS: J1170; J2550

== ENCOUNTER 2021-03-26 09:05 | Emergency (ER) | payer MEDICARE, MEDICAID ==
[~2021-03-26] VITALS: Ht 167.6 cm; Wt 88.2 kg
[2021-03-26 09:12] VITALS: TEMP 97.7
[2021-03-26 11:55] VITALS: BP 123/91; PULSE 104
[2021-04-08] MEDS ORDERED: ROXICODONE 55 MG/TAB PO ×3 (16:13→16:27)
== END 2021-03-26 11:55 | disposition home or self-care (01) ==
LOC: COL.ER 09:05
DX: K70.31 Alcoholic cirrhosis of liver with ascites (principal); K21.9 Gastro-esophageal reflux disease without esophagitis; Z79.899 Other long term (current) drug therapy
CPT/HCPCS: J2270; J2405

== ENCOUNTER 2021-03-30 17:52 | Emergency (ER) | payer MEDICARE, MEDICAID ==
[~2021-03-30] VITALS: Ht 167.6 cm; Wt 88.2 kg
[2021-03-30 19:53] LABS: BASO % 0.5 % (0.0-2.0); EOS # 0.2 K/mm3 (0.0-0.7); EOS % 3.2 % (0-4.0); GRAN # 3.2 K/mm3 (1.4-6.5); GRAN % 55.9 % (42.2-75.2); LYMPH # 1.9 K/mm3 (1.2-3.4); LYMPH % 32.5 % (20.0-51.0); MEAN CELL VOLUME 84 fl (80.0-100.0); MEAN CORPUSCULAR HGB CONC 31 g/dl (33.0-37.0); MEAN PLATELET VOLUME 10.6 fl (7.4-10.4); MONO # 0.4 K/mm3 (0.1-0.6); MONO % 7.5 % (1.7-9.3); PLATELET COUNT 191 K/mm3 (130-400); RED BLOOD COUNT 3.14 M/mm3 (4.10-5.30); REDCELL DISTRIBUTION WIDTH-CV 20.2 % (11.5-14.5)
[2021-03-30 19:55] LABS: HEMATOCRIT 26.5 % (37.0-47.0); HEMOGLOBIN 8.1 g/dl (12.5-16.0); MEAN CORPUSCULAR HEMOGLOBIN 26 pg (27.0-31.0)
[2021-03-30 20:13] LABS: ALBUMIN 2.5 gm/dL (3.5-5.0); BILIRUBIN,TOTAL 0.9 mg/dL (0.2-1.2); C-REACTIVE PROTEIN 1.02 mg/dL (0.00-0.50); CALCIUM 6.8 mg/dL (8.4-10.2); CREATININE, serum 1.48 mg/dL (0.57-1.11); POTASSIUM 3.1 mmol/L (3.5-4.5); TOTAL PROTEIN 6.9 gm/dL (6.2-8.1)
[2021-03-30 20:56] LABS: COLLECTION METHOD CLEAN CATCH
[2021-03-30 21:08] LABS: MUCOUS Present /lpf; PH 6 (5-8); URINE APPEARANCE Clear; URINE BACTERIA Rare /hpf; URINE BILIRUBIN Negative (NEGATIVE); URINE BLOOD Negative (NEGATIVE); URINE COLOR Straw; URINE GLUCOSE Negative (NEGATIVE); URINE KETONE Negative (NEGATIVE); URINE LEUKOCYTE ESTERASE Negative (NEGATIVE); URINE NITRATE Negative (NEGATIVE); URINE PROTEIN(semi-quant) Negative (NEGATIVE); URINE RBC None Seen /hpf; URINE UROBILINOGEN Negative (NEGATIVE)
[2021-03-30] MEDS ORDERED: LASIX 80MG TABL80 MG PO (21:23)
[2021-03-30 22:29] VITALS: BP 129/98; PULSE 80; TEMP 98.7
[2021-04-08] MEDS ORDERED: ROXICODONE 55 MG/TAB PO ×3 (16:13→16:27)
== END 2021-03-30 22:35 | disposition home or self-care (01) ==
LOC: COL.ER 17:52
PROVIDERS: Family Medicine
DX: K70.31 Alcoholic cirrhosis of liver with ascites (principal)
CPT/HCPCS: J1940; J2270; J2405

== ENCOUNTER 2021-04-01 13:08 | Emergency (ER) | payer MEDICARE, MEDICAID ==
[~2021-04-01] VITALS: Ht 167.6 cm; Wt 81.8 kg
[~2021-04-01 13:08] MED LIST changes: +LASIX 80MG TABL80 MG PO
[2021-04-01 13:18] VITALS: TEMP 98.4
[2021-04-01 14:08] LABS: INR 1.5 (0.8-3.0)
[2021-04-01 14:09] LABS: BASO % 0.7 % (0.0-2.0); EOS # 0.2 K/mm3 (0.0-0.7); EOS % 3.2 % (0-4.0); GRAN # 2.7 K/mm3 (1.4-6.5); GRAN % 47.7 % (42.2-75.2); LYMPH # 2.2 K/mm3 (1.2-3.4); LYMPH % 38.4 % (20.0-51.0); MEAN CELL VOLUME 85 fl (80.0-100.0); MEAN CORPUSCULAR HGB CONC 30 g/dl (33.0-37.0); MEAN PLATELET VOLUME 9.8 fl (7.4-10.4); MONO # 0.5 K/mm3 (0.1-0.6); MONO % 9.5 % (1.7-9.3); PLATELET COUNT 187 K/mm3 (130-400); RED BLOOD COUNT 3.26 M/mm3 (4.10-5.30); REDCELL DISTRIBUTION WIDTH-CV 19.8 % (11.5-14.5)
[2021-04-01 14:11] LABS: HEMATOCRIT 27.8 % (37.0-47.0); HEMOGLOBIN 8.4 g/dl (12.5-16.0); MEAN CORPUSCULAR HEMOGLOBIN 26 pg (27.0-31.0)
[2021-04-01 14:23] LABS: ALANINE AMINOTRANSFERASE 10 U/L (0-55); ALBUMIN 2.6 gm/dL (3.5-5.0); ALKALINE PHOSPHATASE 164 U/L (40-150); ANION GAP 14 mmol/L (7-16); AST,SGOT 29 U/L (5-34); BLOOD UREA NITROGEN 6 mg/dL (7-19); CALCIUM 6.9 mg/dL (8.4-10.2); CARBON DIOXIDE 23 mmol/L (22-29); CHLORIDE 102 mmol/L (98-107); CREATININE, serum 1.42 mg/dL (0.57-1.11); GLUCOSE 119 mg/dL (70-99); LIPASE 27 U/L (8-78); POTASSIUM 3.2 mmol/L (3.5-4.5); SODIUM 139 mmol/L (136-145); TOTAL PROTEIN 7.3 gm/dL (6.2-8.1)
[2021-04-01 14:30] LABS: TROPONIN-I < 0.010 ng/mL (0.00-0.033)
[2021-04-01 15:15] LABS: COLLECTION METHOD CLEAN CATCH
[2021-04-01 15:23] LABS: MUCOUS Present /lpf; PH 6 (5-8); URINE APPEARANCE Hazy; URINE BACTERIA None Seen /hpf; URINE BILIRUBIN Negative (NEGATIVE); URINE BLOOD Negative (NEGATIVE); URINE COLOR Yellow; URINE GLUCOSE Negative (NEGATIVE); URINE KETONE Negative (NEGATIVE); URINE LEUKOCYTE ESTERASE Negative (NEGATIVE); URINE NITRATE Negative (NEGATIVE); URINE PROTEIN(semi-quant) Negative (NEGATIVE); URINE RBC 0-2 /hpf; URINE UROBILINOGEN Negative (NEGATIVE)
[2021-04-01] MEDS ORDERED: NORCO 325 MG-51 TAB PO ×2 (15:25)
[2021-04-01 15:42] VITALS: BP 127/67; PULSE 110
[2021-04-08] MEDS ORDERED: ROXICODONE 55 MG/TAB PO ×3 (16:13→16:27)
== END 2021-04-01 15:45 | disposition home or self-care (01) ==
LOC: COL.ER 13:08
PROVIDERS: Emergency Medicine
DX: K70.31 Alcoholic cirrhosis of liver with ascites (principal); K21.9 Gastro-esophageal reflux disease without esophagitis; Z79.899 Other long term (current) drug therapy
CPT/HCPCS: J2270; J2405; J2560

== ENCOUNTER 2021-04-03 16:45 | Emergency (ER) | payer MEDICARE, MEDICAID ==
[~2021-04-03] VITALS: Ht 167.6 cm; Wt 75.0 kg
[2021-04-03 18:02] LABS: BASO % 0.8 % (0.0-2.0); EOS # 0.2 K/mm3 (0.0-0.7); EOS % 4.4 % (0-4.0); GRAN # 2.7 K/mm3 (1.4-6.5); GRAN % 50.7 % (42.2-75.2); LYMPH # 1.8 K/mm3 (1.2-3.4); LYMPH % 34.2 % (20.0-51.0); MEAN CELL VOLUME 82 fl (80.0-100.0); MEAN CORPUSCULAR HGB CONC 31 g/dl (33.0-37.0); MEAN PLATELET VOLUME 9.9 fl (7.4-10.4); MONO # 0.5 K/mm3 (0.1-0.6); MONO % 9.7 % (1.7-9.3); PLATELET COUNT 185 K/mm3 (130-400); RED BLOOD COUNT 3.45 M/mm3 (4.10-5.30); REDCELL DISTRIBUTION WIDTH-CV 18.6 % (11.5-14.5)
[2021-04-03 18:15] LABS: HEMATOCRIT 28.4 % (37.0-47.0); HEMOGLOBIN 8.9 g/dl (12.5-16.0); MEAN CORPUSCULAR HEMOGLOBIN 26 pg (27.0-31.0)
[2021-04-03 18:18] LABS: ALBUMIN 2.7 gm/dL (3.5-5.0); BILIRUBIN,TOTAL 1.2 mg/dL (0.2-1.2); CALCIUM 6.7 mg/dL (8.4-10.2); CREATININE, serum 1.43 mg/dL (0.57-1.11); POTASSIUM 3.2 mmol/L (3.5-4.5); TOTAL PROTEIN 7.5 gm/dL (6.2-8.1)
[2021-04-03 18:25] LABS: INR 1.7 (0.8-3.0); PROTHROMBIN TIME 18.6 SECONDS (9.7-12.8)
[2021-04-03 18:30] LABS: COLLECTION METHOD CLEAN CATCH
[2021-04-03 19:17] LABS: MUCOUS Present /lpf; PH 6 (5-8); URINE APPEARANCE Hazy; URINE BACTERIA None Seen /hpf; URINE BILIRUBIN Negative (NEGATIVE); URINE BLOOD Negative (NEGATIVE); URINE COLOR Yellow; URINE GLUCOSE Negative (NEGATIVE); URINE KETONE Negative (NEGATIVE); URINE LEUKOCYTE ESTERASE Negative (NEGATIVE); URINE NITRATE Negative (NEGATIVE); URINE PROTEIN(semi-quant) Negative (NEGATIVE); URINE RBC None Seen /hpf
[2021-04-03] MEDS ORDERED: ZOFRAN ODT4 MG PO (19:18)
[2021-04-03 19:29] VITALS: BP 125/91; PULSE 97; TEMP 98.4
[2021-04-08] MEDS ORDERED: ROXICODONE 55 MG/TAB PO ×3 (16:13→16:27)
== END 2021-04-03 19:30 | disposition home or self-care (01) ==
LOC: COL.ER 16:45
PROVIDERS: Nurse Practitioner
DX: K70.31 Alcoholic cirrhosis of liver with ascites (principal); F10.10 Alcohol abuse, uncomplicated; Z87.891 Personal history of nicotine dependence
CPT/HCPCS: J2270; J2550

== ENCOUNTER 2021-04-10 14:46 | Emergency (ER) | payer MEDICARE, MEDICAID ==
[~2021-04-10] VITALS: Ht 167.6 cm; Wt 77.3 kg
[2021-04-10 14:47] VITALS: TEMP 98.9
[2021-04-10 16:58] VITALS: BP 126/77; PULSE 110
== END 2021-04-10 16:58 | disposition home or self-care (01) ==
LOC: COL.ER 14:46
DX: K70.30 Alcoholic cirrhosis of liver without ascites (principal); I10 Essential (primary) hypertension; Z87.891 Personal history of nicotine dependence; Z79.899 Other long term (current) drug therapy
CPT/HCPCS: J2270; J2550; J7030

== ENCOUNTER 2021-05-02 13:57 | Inpatient (IN) | payer MEDICARE, MEDICAID ==
[~2021-05-02] VITALS: Ht 167.6 cm; Wt 78.5 kg
[2021-05-02 16:40] LABS: BASO # 0.1 K/mm3 (0.0-0.2); BASO % 1.3 % (0.0-2.0); EOS # 0.1 K/mm3 (0.0-0.7); EOS % 1.2 % (0-4.0); GRAN # 3.2 K/mm3 (1.4-6.5); GRAN % 61.7 % (42.2-75.2); HEMOGLOBIN 10.3 g/dl (12.5-16.0); LYMPH # 1.4 K/mm3 (1.2-3.4); LYMPH % 27.7 % (20.0-51.0); MEAN CELL VOLUME 84 fl (80.0-100.0); MEAN CORPUSCULAR HEMOGLOBIN 25 pg (27.0-31.0); MEAN CORPUSCULAR HGB CONC 30 g/dl (33.0-37.0); MEAN PLATELET VOLUME 9.8 fl (7.4-10.4); MONO # 0.4 K/mm3 (0.1-0.6); MONO % 7.7 % (1.7-9.3); PLATELET COUNT 218 K/mm3 (130-400); REDCELL DISTRIBUTION WIDTH-CV 17.9 % (11.5-14.5)
[2021-05-02 16:41] LABS: HEMATOCRIT 34.5 % (37.0-47.0)
[2021-05-02 16:42] LABS: COLLECTION METHOD CLEAN CATCH
[2021-05-02 16:51] LABS: MUCOUS Present (NOT PRESENT); PH 6 (5-8); URINE APPEARANCE Hazy (CLEAR/HAZY); URINE BACTERIA Rare (NONE SEEN); URINE BILIRUBIN Negative (NEGATIVE); URINE BLOOD Negative (NEGATIVE); URINE COLOR Amber (YELLOW); URINE GLUCOSE Negative (NEGATIVE); URINE KETONE Negative (NEGATIVE); URINE LEUKOCYTE ESTERASE Negative (NEGATIVE); URINE NITRATE Negative (NEGATIVE); URINE PROTEIN(semi-quant) 1+ (NEGATIVE); URINE RBC 0-2 /hpf (0-2); URINE UROBILINOGEN >=4.0 mg/dL (NEGATIVE)
[2021-05-02 16:55] LABS: TRICYCLIC ANTIDEPRESS URINE NEGATIVE
[2021-05-02 17:04] LABS: ALANINE AMINOTRANSFERASE 11 U/L (0-55); ALKALINE PHOSPHATASE 198 U/L (40-150); ANION GAP 17 mmol/L (7-16); AST,SGOT 46 U/L (5-34); BILIRUBIN,TOTAL 1.8 mg/dL (0.2-1.2); CALCIUM 7.4 mg/dL (8.4-10.2); CARBON DIOXIDE 24 mmol/L (22-29); CHLORIDE 101 mmol/L (98-107); CREATININE, serum 1.26 mg/dL (0.57-1.11); GLUCOSE 115 mg/dL (70-99); LIPASE 13 U/L (8-78); POTASSIUM 3.6 mmol/L (3.5-4.5); SODIUM 142 mmol/L (136-145); TOTAL PROTEIN 8.2 gm/dL (6.2-8.1)
[2021-05-02 17:07] LABS: BLOOD UREA NITROGEN < 2 mg/dL (7-19)
[2021-05-02] MEDS ORDERED: ALDACTONE 100M100 MG PO (22:56)
[2021-05-02] MEDS ORDERED: ATIVAN 1MG T1 MG/TAB PO (22:58)
[2021-05-02 23:03] LABS: PROTHROMBIN TIME 22.1 SECONDS (9.7-12.8)
[2021-05-02 23:04] LABS: PARTIAL THROMBOPLASTIN TIME 38.9 SECONDS (26.0-37.0)
[2021-05-03] VITALS (7 sets, daily range): BP systolic 118–132; BP diastolic 78–104; PULSE 125–139; TEMP 97.7–99.8
--- NOTE | 2021-05-03 01:41 | NUR ---
PT ARRIVED ON FLOOR APPROXIMATELY 1145 VIA ER BED. PT AMBULATED FROM BED TO ROOM BED. PT GAIT IS STEADY, JUST SLOW. PT COMPLAINS OF EXTREME PAIN IN ABDOMEN. PT STATED "ELIZABETH TOLD ME I COULD GET MORPHINE EVERY 2 HOURS NEEDED FOR PAIN." THIS RN TOLD PT THAT NEEDED TO CHECK ORDERS AND VERIFY BEFORE GIVING ANY MEDICATIONS. PT VERBALIZED UNDERSTANDING AND FRUSTRATION. PT STATED ER STAFF DID NOT CHECK ON HER AND DID BARELY ANYTHING TO HELP HER. PT REQUESTED WATER, TOLD PT THAT NEEDED TO CHECK WITH ELIZABETH FOR DIET ORDERS AND MAKE SURE SHE WOULD NOT BE NPO. PT NEEDS A PARACENTESIS, BUT DUE TO [facility] WILL BE MOST LIKELY ON FRIDAY. THIS RN UPDATED PT ON THIS. ASSESSMENT COMPLETED DURING ADMISSION, PT SKIN IS VERY DRY, HAS FLAKING SKIN ON FOREHEAD AND SOME ON CHEST. PT COMPLAINS OF PAIN IN GENERALIZED ABDOMEN, ESPECIALLY IN REGION OF LIVER. PT ABDOMEN IS VERY DISTENDED, FIRM AND TENDER. PT ORIENTATED TO ROOM, TOLD PT TO USE CALL LIGHT IF SHE NEEDS TO USE RESTROOM DUE TO WEAKNESS AND EPISODES OF DIZZINESS. PT STATES SHE HAS SHORT TERM MEMORY LOSS AND IS NOT A GOOD HISTORIAN OF MEDICATIONS.
--- NOTE | 2021-05-03 05:29 | NUR ---
PT REPORTS 10/10 PAIN IN ABDOMINAL AREA. ATIVAN AND MORPHINE GIVEN ORDERED. PT SCORING 7 ON CIWA WITH TREMORS AND REPORTED HALLUCINATIONS. PT IS ANXIOUS, BUT FINALLY FELL ASLEEP AROUND 0400 AFTER ATIVAN AND MORPHINE. PT IS STILL TACHYCARDIC. SEIZURE PRECAUTIONS IN PLACE. CALL LIGHT IN REACH. ADVISED PT TO CALL BEFORE GETTING UP. NOT IMPULSIVE AT THIS TIME.
[2021-05-03 06:59] LABS: BASO # 0.1 K/mm3 (0.0-0.2); EOS # 0.3 K/mm3 (0.0-0.7); EOS % 3.3 % (0-4.0); GRAN # 5.1 K/mm3 (1.4-6.5); GRAN % 62.1 % (42.2-75.2); LYMPH # 2.1 K/mm3 (1.2-3.4); MEAN CELL VOLUME 84 fl (80.0-100.0); MEAN CORPUSCULAR HGB CONC 30 g/dl (33.0-37.0); MEAN PLATELET VOLUME 10.2 fl (7.4-10.4); MONO # 0.7 K/mm3 (0.1-0.6); MONO % 8.1 % (1.7-9.3); PLATELET COUNT 176 K/mm3 (130-400); RED BLOOD COUNT 3.43 M/mm3 (4.10-5.30); REDCELL DISTRIBUTION WIDTH-CV 18.1 % (11.5-14.5)
[2021-05-03 07:01] LABS: HEMATOCRIT 28.9 % (37.0-47.0); HEMOGLOBIN 8.7 g/dl (12.5-16.0); MEAN CORPUSCULAR HEMOGLOBIN 25 pg (27.0-31.0)
--- NOTE | 2021-05-03 07:11 | NUR ---
REPORT RECIEVED FROM YARD PERSON RN. NO COMPLAINTS OF PAIN OR DYSPNEA. NO SIGNS OR SYMPTOMS OF DISTRESS.PT RESTING IN BED. CALL LIGHT WITHIN REACH
[2021-05-03 07:33] LABS: CALCIUM 6.3 mg/dL (8.4-10.2); CREATININE, serum 1.11 mg/dL (0.57-1.11); POTASSIUM 3.5 mmol/L (3.5-4.5)
--- NOTE | 2021-05-03 09:31 | NUR ---
PT ASSESSED. REPORTS PAIN AND HALLUCINATIONS. ATIVAN/MORPHINE GIVEN PER ORDERS. NO SIGNS OR SYMPTOMS OF DISTRESS. CALL LIGHT WITHIN REACH
--- NOTE | 2021-05-03 11:50 | NUR ---
Prenatal Teacher met with patient to discuss discharge planning. Patient lives in [place] and reports she goes back and forth between her , Torito's and her father, Gui's homes. Patient states she is in between primary care physicians and has an appointment with Dr. Bush on 07/10/2021. Patient was seen by a PA in Dr. Bush's office recently and she reported it did not go well as they did not get along. Patient obtains medications from [facility] [address] with no difficulties. Patient does not use any DME but reports she may start using a walker soon. Patient states she has some difficulty with ADLS but her assists her as needed. PT/OT has been ordered. Patient plans to return home with her family upon discharge. Discharge Plan: Home
[2021-05-03 15:39] LABS: PERITONEAL -POLYMORPHONUCLEAR 58.8 % (0-25)
[2021-05-03 19:29] LABS: Fluid Type Peritoneal (())
--- NOTE | 2021-05-03 20:30 | NUR ---
PATIENT IS RESTING IN BED.REPORTS PAIN AT 10.PAIN MEDICINE GIVEN PER AUG.CIWA SCORE 10 ATIVAN GIVEN.SAFETY MEASURES IN PLACE.NO OTHER NEEDS AT THIS TIME.
--- NOTE | 2021-05-03 21:21 | NUR ---
TELEMETRY CALLED SATATING THAT THE PATIENT HAD AN EPISODE OF AFIB RVR.PATIENT IS RESTING.NO SYMPTOMS OBSERVED.
--- NOTE | 2021-05-03 22:52 | NUR ---
PATIENT IS SLEEPING.CIWA SCORING NOT DONE.
--- NOTE | 2021-05-04 02:02 | NUR ---
PATILIVE IS SLEEPING CIWA SCORE NOT DONE.
[2021-05-04 02:57] VITALS: BP 126/88; PULSE 137; TEMP 100.2
--- NOTE | 2021-05-04 05:29 | NUR ---
PATIENT IS ON CIWA PROTOCOL.PATIENT CIWA AT 10.IVFS ON GOOD PROGRESS.NO OTHER NEEDS AT THIS TIME.
[2021-05-04 06:47] LABS: BASO # 0.1 K/mm3 (0.0-0.2); BASO % 0.6 % (0.0-2.0); EOS # 0.2 K/mm3 (0.0-0.7); GRAN # 5.4 K/mm3 (1.4-6.5); GRAN % 66.4 % (42.2-75.2); LYMPH % 24.9 % (20.0-51.0); MEAN CELL VOLUME 84 fl (80.0-100.0); MEAN CORPUSCULAR HGB CONC 30 g/dl (33.0-37.0); MEAN PLATELET VOLUME 10.9 fl (7.4-10.4); MONO # 0.5 K/mm3 (0.1-0.6); MONO % 5.7 % (1.7-9.3); PLATELET COUNT 148 K/mm3 (130-400); RED BLOOD COUNT 3.28 M/mm3 (4.10-5.30)
[2021-05-04 06:51] LABS: INR 2.1 (0.8-3.0); PROTHROMBIN TIME 23.8 SECONDS (9.7-12.8)
[2021-05-04 06:52] LABS: HEMATOCRIT 27.4 % (37.0-47.0); HEMOGLOBIN 8.3 g/dl (12.5-16.0); MEAN CORPUSCULAR HEMOGLOBIN 25 pg (27.0-31.0)
[2021-05-04 07:07] LABS: ALBUMIN 2.4 gm/dL (3.5-5.0); CALCIUM 6.5 mg/dL (8.4-10.2); CREATININE, serum 1.28 mg/dL (0.57-1.11); MAGNESIUM 1.3 mg/dL (1.6-2.6); POTASSIUM 4.1 mmol/L (3.5-4.5); TOTAL PROTEIN 6.8 gm/dL (6.2-8.1)
--- NOTE | 2021-05-04 07:12 | NUR ---
REPORT RECIEVED FROM NET TRAINER. NO COMPLAINTS OF PAIN OR DYSPNEA. NO SIGNS OR SYMPTOMS OF DISTRESS. PT RESTING IN BED. CALL LIGHT WITHIN REACH
[2021-05-04 09:06] VITALS: BP 123/86; PULSE 135; TEMP 100
--- NOTE | 2021-05-04 09:36 | NUR ---
PT ASSESSED. NO COMPLAINTS OF NAUSEA. COMPLAINS OF GENERALIZED PAIN AND IS MEDICATED PER ORDERS. NO OTHER COMPLAINTS AT THIS TIME. CALL LIGHT WITHIN REACH
[2021-05-04 12:52] VITALS: BP 135/87; PULSE 136; TEMP 99.5
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
[2021-05-04 15:49] VITALS: BP 110/80; PULSE 132; TEMP 97.9
[2021-05-04 20:21] VITALS: BP 138/94; PULSE 135; TEMP 97.6
--- NOTE | 2021-05-04 20:50 | NUR ---
Call placed to Rebecca Moreno re: tachycardia 135, no new orders at this time, patient is awake, alert, oriented x 4, will continue to monitor.
[2021-05-05 00:13] VITALS: BP 119/91; PULSE 143; TEMP 98.2
[2021-05-05 04:09] VITALS: BP 114/70; PULSE 144; TEMP 97.6
--- NOTE | 2021-05-05 04:26 | NUR ---
Patient with comfort care provided, pain management per MAR, jaundice, ascites noted, DNR status observed.
--- NOTE | 2021-05-05 06:30 | NUR ---
REPORT RECIEVED FROM CRISTEL RODRIGUEZ. NO SIGNS OR SYMTPOMS OF DISTRESS. PT SLEEPING. NO COMPLAINTS OF PAIN OR DYSPNEA. CALL LIGHT WITHIN REACH
[2021-05-05 08:45] VITALS: BP 118/76; PULSE 148; TEMP 99.9
--- NOTE | 2021-05-05 10:07 | NUR ---
PT ASSESSED. NO COMPLAINTS OF PAIN OR DYSPEA. NO SIGNS OR SYMPTOMS OF DISTRESS. CALL LIGHT WITHIN REACH. PT RESTING IN BED. APPEARS LESS DEPRESSED TODAY.
[2021-05-05 12:32] VITALS: BP 124/78; PULSE 145; TEMP 99.4
[2021-05-05 16:34] VITALS: BP 1136/75; BP 136/75; PULSE 152; TEMP 102.2
[2021-05-05 20:04] VITALS: BP 135/74; PULSE 147; TEMP 98
[2021-05-06 01:14] VITALS: BP 131/80; PULSE 143; TEMP 98.2
[2021-05-06 04:45] VITALS: BP 124/77; PULSE 158; TEMP 99.8
[2021-05-06 08:13] VITALS: BP 117/65; PULSE 142; TEMP 102.3
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
[2021-05-06 11:59] VITALS: BP 116/75; PULSE 146; TEMP 99.8
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
[2021-05-06 16:32] VITALS: BP 123/71; PULSE 135; TEMP 100.9
[2021-05-06 20:06] VITALS: BP 112/63; PULSE 132; TEMP 100
[2021-05-07 00:43] VITALS: BP 123/72; PULSE 130; TEMP 99.8
[2021-05-07 04:00] VITALS: BP 141/88; PULSE 107; TEMP 99.3
--- NOTE | 2021-05-07 06:21 | NUR ---
Patient with confusion, unsteady with ambulation, comfort care measures in use, O2@2L per NC in use, call lamar w/i reach, fall precautions in place.
--- NOTE | 2021-05-07 06:30 | NUR ---
PT IS LAYING IN BED AT THIS TIME. PT HAS NO COMPLAINTS AT THIS TIME.
[2021-05-07 07:30] VITALS: BP 135/78; PULSE 135
--- NOTE | 2021-05-07 09:43 | NUR ---
THIS PATIENT IS VERY CONFUSED AND HAS BEEN STATING THAT SHE WAS TOLD TO GET DRESSED, AND THAT SHE NEEDED TO GET HOME BECAUSE SHE HAS A LOT TO GET DONE. THIS PATIENT IS CURRENTLY ON COMFORT CARE AND HAS PROGRESSIVELY GOTTEN WORSE. WILL CONTINUE TO MONITOR.
[2021-05-07 13:27] VITALS: BP 122/75; PULSE 127; TEMP 99.3
--- NOTE | 2021-05-07 13:32 | NUR ---
PT AWAKE AND ASKED FOR PAIN MANAGEMENT MEDICATION.
[2021-05-07 17:33] VITALS: BP 135/86; PULSE 128; TEMP 97.8
--- NOTE | 2021-05-07 19:01 | NUR ---
REPORT GIVEN TO CRISTEL RETANA
[2021-05-08 04:32] VITALS: BP 135/81; PULSE 128; TEMP 101
--- NOTE | 2021-05-08 06:16 | NUR ---
rested quietly throughout night, O2@2L per nc for comfort, patient repositioned q 2 hours, awakens to voice, comfort cares continue.
--- NOTE | 2021-05-08 06:45 | NUR ---
PT SLEEPING AT THIS TIME.
[2021-05-08 08:30] VITALS: BP 127/83; PULSE 119; TEMP 98.9
[2021-05-08 12:09] VITALS: BP 130/80; PULSE 123; TEMP 98.8
[2021-05-08 15:23] VITALS: BP 124/75; PULSE 117; TEMP 98.6
--- NOTE | 2021-05-08 15:27 | NUR ---
KHURRAM attended clinical rounds. The hospitalist reviewed goals of care. The patient is wanting to pursue hospice and would be interested in the hospice house. KHURRAM contacted and faxed a referral to [facility] Estuardo reports that they are pretty slammed right now and that the soonest they may be able to take is on . She will review the referral and let KHURRAM know when they can take her. KHURRAM contacted and updated the patient's father/DPOA-HC, Gui. Gui is supportive of the patient's decision.
--- NOTE | 2021-05-08 19:56 | NUR ---
pt has had uneventful day. Comfort Care continued and planning for discharge to Hospice house when a bed is available.
[2021-05-09 04:00] VITALS: BP 125/78; PULSE 116; TEMP 98.1
--- NOTE | 2021-05-09 05:23 | NUR ---
PT PROVIDED COMFORT CARE MEASURES THIS SHIFT. NO CHANGES OVERNIGHT. PT CONTINUES DISPLAY WEAKNESS, LETHARGY, JAUNDICED, C/O PAIN AND DID NOT REQUIRE PAIN MEDICATIONS OVERNIGHT, BREATHING LABOROUS AND RR >18. PT MORNING VSS. ALL NEEDS MET THIS NIGHT. PT EXPRESSES NO ADDITIONAL NEEDS AT THIS TIME. BED ALARM ON. BED LOW. PT VISIBLE TO NURSES STATION. CALL LIGHT WITHIN REACH.
--- NOTE | 2021-05-09 06:30 | NUR ---
PT AWAKE AND GETTING OUT OF BED, PT'S ANXIETY IS VERY HIGH, SHE IS CRYING WHEN THIS RN ENTERED THE ROOM. PT REQUESTED PAIN MEDICATION.
[2021-05-09 07:53] VITALS: BP 114/63; PULSE 115; TEMP 99.5
--- NOTE | 2021-05-09 13:15 | NUR ---
THE PATIENT REMAINS ON COMFORT CARE.
--- NOTE | 2021-05-09 18:17 | NUR ---
PT HAS HAD AN UNEVENTFUL DAY. CONTINUALLY CHECKED ON THE PATIENT, AND WHEN AWAKE THE PATIENT REQUESTED PAIN MEDICATIONS WELL ATIVAN FOR ANXIETY. WHEN THE PATIENT IS ASLEEP, SHE IS SLOW TO WAKE, HOWEVER, WHEN SHE WAKES UP IS IN EXTREME PAIN. NO OTHER CONCERNS AT THIS TIME.
--- NOTE | 2021-05-09 20:00 | NUR ---
Patient is resting in bed, able to arise while calling her. Abdomen distended, Tachycardia, apnea, edema in feet. Assessment completed. No further needs at this time. Call light within reach.
--- NOTE | 2021-05-10 04:42 | NUR ---
Patient woke up, assisted to the restroom, provide PRN pain medication, was oriented to place an time.
--- NOTE | 2021-05-10 07:15 | NUR ---
Patient has had a calm night. She was able to sleep most of the night. She just asked for some pain medication early in the morning. She is concern about how she will go to the hospice care. Shift report given to day shift RN.
--- NOTE | 2021-05-10 07:21 | NUR ---
Pt states pain is 9/10, location in abdomen, and ankles. Pt requesting pain medications.
--- NOTE | 2021-05-10 12:30 | NUR ---
BACKCHARTING ASSESSMENT. PT ALERT, ORIENTED TO PERSON, TIME, LOCATION. DISORIENTED TO SITUATION. PT IS DROWSY, SOLNOLENT, EASILY ARROUSED AND CAN FOLLOW VERBAL COMMANDS . SIGNIFICANT OTHER PRESENT AT BEDSIDE. PT BILATERAL EDEMA IN LOWER EXTERMITIES 3+ PITTING. PT HAS 1+ PULSES IN DORSALIS PEDIS AND POSTERIOR TIBIAL BILATERAL, CAP REFILL <3S. pT ABDOMEN DISTENDEND AND FIRM. PT PAIN IN ABDOMEN WITH ASCITIES. PT CALL LIGHT WITHIN REACH. PT ANXIETY MANAGED WITH MEDICATION PER ORDERS. PAIN MANAGED WITH MEDICATION PER ORDERS.
--- NOTE | 2021-05-10 16:47 | NUR ---
Estuardo, at [facility], reports that they cannot take the patient today and are unsure if they would even be able to take the patient tomorrow. KHURRAM updated the clinical team. KHURRAM was notified that our sister hospital, [facility], has contracted with [facility] for a patient in the past and provided care for the patient. [facility] would open to considering this again. KHURRAM contacted [facility]'s provider, Jane, to follow up. Jane reports that if hospice tryon can take tomorrow, then they would want to hold off on taking her today. KHURRAM met with the patient and her , Farhad, to discuss this option. The patient and Farhad report that they would prefer to stay in [place]. They would be interested in going to [facility] with hospice from [facility]. KHURRAM contacted and faxed a referral to Edward at [facility] and [facility]. Nancy, at [facility], reports that they would be able to accept the patient, contingent that she is accepted at a facility. They would not be able to do home hospice with her. Edward, at [facility], reports that they have declined the patient. KHURRAM then followed up with Estuardo at [facility] and inquired about hospice at [facility]. Estuardo reports that they would be able to take the patient on Friday. She reports that she will reach out to Eugene, piano case and bench assembler, at [facility] to discuss this option and a contract. She states that she also needs to contact [place] or Dr. Prieto to find out when the patient graduated from hospice services the last time she was on it. Estuardo contacted KHURRAM back. She reports that [facility] has some hesitancies with taking the patient, due to her getting regular paracentesis. KHURRAM met with the patient and collaborated with the hospitalist. The patient will no longer be getting any paracentesis. KHURRAM notified Estuardo and Eugene at [facility]. Eugene reports that it will be probably tomorrow when they can tentatively take the patient. KHURRAM contacted and updated the patient's father/DPOA-HC, Gui, of the above. He verbalized understanding and is agreeable to the plan. KHURRAM then received another phone call from Estuardo. Estuardo reports that they will tentatively not be able to take the patient at [facility]. She reports that it seems like [facility] does not really want to take the patient. She reports that Eugene was going to contact [facility] about them providing the hospice care there. Estuardo reports that they possibly might be able to take the patient now on Friday, but there is no confirmation. SW to fax a referral to [facility] and will follow up with Raphael SCHULTZ. SW to fax a referral to [facility].
--- NOTE | 2021-05-10 18:08 | NUR ---
Pt continuing on plan of care. Pt pain managed with prn medication per orders, pt anxiety managed with medication per orders. Pt significant other in room visiting. No significant changes noted in pt this shift.
--- NOTE | 2021-05-10 19:50 | NUR ---
Patient is resting in bed, awake. in room. Reports generalized pain, asks for pain medication, PRN provided. Assessment completed. No further needs at this time. Call light within reach.
--- NOTE | 2021-05-11 06:54 | NUR ---
Patient has had a calm night. She requested pain medication and for anxiety too. After that she has been sleeping most of the night. All needs met. Report will be given to day RN.
[2021-05-11 07:17] VITALS: BP 136/84; PULSE 110; TEMP 97.7
--- NOTE | 2021-05-11 08:00 | NUR ---
Patient sitting up in bed, needing assistance to use the bathroom. Nurse assisted the patient with 1xassit to the BSC. Patient is A&Ox3. VSS. IV CDI. Is on comfort care and seizure precautions in place. Reports pain and pain medication given as requested. No further needs expressed. Call light within reach. Bed alarm on
--- NOTE | 2021-05-11 09:52 | NUR ---
Eugene, at [facility], reports that they are not able to accept the patient. KHURRAM contacted Kirsten at [facility] to follow up on the referral. Kirsten reports that they have not reviewed the referral yet. She reports that they are short on people today and will try to get to it as soon as they can. KHURRAM met with the patient to update. KHURRAM discussed going hospice at another facility today or going home on hospice today. The patient reports that she would have to beg her father for her to be able to stay there again. She reports that she is unsure of what to do and just needs some time to think. KHURRAM contacted and faxed a referral to Bertha at [facility] in [place]. Awaiting screen. KHURRAM then contacted the patient's father/[facility]HC, Gui, and updated him on the above. Gui reports that he is [id number] and does not think he can handle taking care of the patient. He reports that he already has previous engagements and also has to take care of the patient's daughter, Eleanor. Gui reports that he will get in contact with the patient's , Farhad, and figure out what they would want to do or can do.
[2021-05-11] MEDS ORDERED: VOLTAREN GEL 1%1 TU TP (14:02)
[2021-05-11] MEDS ORDERED: ROXANOL 20MG20 MG/ML SL ×2 (14:03)
[2021-05-11] MEDS ORDERED: ATIVAN 1MG T1 MG/TAB PO (14:04)
[2021-05-11] MEDS ORDERED: ZOFRAN ODT4 MG PO (14:05)
[2021-05-11] MEDS ORDERED: REFRESH TEARS 330 ML OP (14:05)
[2021-05-11] MEDS ORDERED: ATROPINE SULFATE5 ML SL (14:06)
[2021-05-11] MEDS ORDERED: AL-MAG HYDROX-S30 ML PO (14:08)
[2021-05-11] MEDS ORDERED: ROXANOL 20MG20 MG/ML PO (14:53)
--- NOTE | 2021-05-11 15:05 | NUR ---
Wilda, at [facility], reports that they are unable to accept the patient. Kirsten, at [facility], reports that they are unable to accept the patient. Ari, at [facility], reports that they are able to accept the patient for hospice services at home and have equipment delivered to the patient's home today. The patient and her would like a hospital bed and bedside commode. KHURRAM informed Ari of this. KHURRAM contacted the patient's and father and updated them on the above. The patient's and father are good with and agreeable with pursuing with the patient going back home with her and hospice from [facility]. SW read the IM form outloud to the patient's father/DPOA-HC, Gui, over the phone. Gui verbalized understanding and gave SW approval to sign the form on his behalf. KHURRAM updated the clinical team. The patient's , Farhad, plans on transporting the patient home and a transport time has been set for 1600. KHURRAM updated Saniya at [facility]. Saniya reports that the patient's equipment will be delivered to her home later today. She reports that the patient's is able to picker operator her meds from [facility] today. The patient is to discharge back home with her today, 05/11, with hospice from [facility]. Transportaton provided by private vehicle, via the patient's . KHURRAM updated [facility]. No additional needs at this time.
--- NOTE | 2021-05-11 16:48 | NUR ---
Patient taken by wheelchair to ED entrance, with the patient. Discharge paperwork and personal belongings with the patient. No further needs expressed. IV removed, tip intact.
== END 2021-05-11 16:48 | disposition hospice, home (50) | DRG 280 ==
LOC: COL.ER 13:57 → MEDICAL 21:03
PROVIDERS: Nurse Practitioner Family; Student in an Organized Health Care Education/Training Program; ADMIT Internal Medicine
PROC: 0W9G3ZZ Drainage of Peritoneal Cavity, Percutaneous Approach (ICD-10-PCS; principal; 2021-05-02)
DX: K70.31 Alcoholic cirrhosis of liver with ascites (principal); F10.20 Alcohol dependence, uncomplicated; E87.6 Hypokalemia; K21.9 Gastro-esophageal reflux disease without esophagitis; D64.9 Anemia, unspecified; F41.9 Anxiety disorder, unspecified; F32.A Depression, unspecified; E83.42 Hypomagnesemia; M25.572 Pain in left ankle and joints of left foot; M25.571 Pain in right ankle and joints of right foot; N18.9 Chronic kidney disease, unspecified; Y90.0 Blood alcohol level of less than 20 mg/100 ml
CPT/HCPCS: 99223-AI; 99231-AI; 99232-AI; 99233-AI; 99239; C9113; J2060; J2270; J2405; J2543; J3411; J3475; J7030; Q9967

== ENCOUNTER 2021-06-11 10:12 | Emergency (ER) | payer MEDICARE, MEDICAID ==
[~2021-06-11] VITALS: Ht 167.6 cm; Wt 81.8 kg
[~2021-06-11 10:12] MED LIST changes: +AL-MAG HYDROX-S30 ML PO; +ATROPINE SULFATE5 ML SL; +REFRESH TEARS 330 ML OP; +ROXANOL 20MG20 MG/ML PO; +VOLTAREN GEL 1%1 TU TP
[2021-06-11 10:43] VITALS: BP 170/95; TEMP 98.6
--- NOTE | 2021-06-11 13:18 | NUR ---
Denture Technician was transferred a call from [facility]. Patient is currently being seen in the ED for paracentisis. Genevieve inquired about the possibility of a drain and they are unsure if they can manage patient at home without one. KHURRAM provided information to Genevieve about patient's primary care physician. KHURRAM also collaborated with RNMaryse who confirmed that patient would need outpatient follow up for this.
[2021-06-11 13:37] VITALS: PULSE 143
== END 2021-06-11 13:37 | disposition home or self-care (01) ==
LOC: COL.ER 10:12
DX: K70.30 Alcoholic cirrhosis of liver without ascites (principal); Z87.891 Personal history of nicotine dependence
CPT/HCPCS: 19804